=== PATIENT | male | born 1955 | race Caucasian/White ===

== ENCOUNTER 2019-07-27 19:16 | Emergency (ER) | payer OTHER ==
[~2019-07-27] VITALS: Ht 175.3 cm; Wt 86.4 kg
[~2019-07-27 19:16] MED LIST: LORazepam INJ 2 MG/ML (ATIVAN) VIAL ONE; fentaNYL INJECTION 100 MCG/2 ML AMP ONE
--- NOTE | 2019-07-27 19:29 | ED Back Pain ---
General Chief Complaint: Back Problems Stated Complaint: BACK PAIN Source of Information: Patient Exam Limitations: No Limitations History of Present Illness Date Seen by Provider: Jul 27, 2019 Time Seen by Provider: 19:27 Initial Comments To ER per EMS from [facility] with reports of severe low back pain. States it radiates down both legs. No loss of bowel or bladder control. The pain radiating down both legs and the severe low back pain is new after he fell out of bed landing on his side 2 weeks ago. He states the pain isn't terrible for the past 2 weeks. He refused EMS transport initially. Pain is much worse tonight. Location: Lumbar Spine Timing/Duration: 1-2 Days Severity: Moderate Pain/Injury Location: Back Method of Injury: Unknown Associated Symptoms: denies symptoms Allergies and Home Medications Allergies Coded Allergies: No Known Drug Allergies (Unverified , 07/27/19) Patient Home Medication List Home Medication List Reviewed: Yes Review of Systems Constitutional: see HPI EENTM: see HPI Respiratory: no symptoms reported Cardiovascular: no symptoms reported Genitourinary: no symptoms reported Musculoskeletal: no symptoms reported Skin: no symptoms reported Psychiatric/Neurological: No Symptoms Reported Physical Exam Vital Signs Vital Signs - First Documented 07/27/19 19:17 Temp 36.9 Pulse 107 Resp 22 B/P (MAP) 152/95 (114) Pulse Ox 100 O2 Delivery Room Air Capillary Refill : Height, Weight, BMI Height: '" Weight: lbs. oz. kg; BMI Method: General Appearance: WD/WN, Moderate Distress (moaning, keeps hips flexed. ) HEENT: Normal ENT Inspection, Pharynx Normal Respiratory: No Accessory Muscle Use, No Respiratory Distress Gastrointestinal: Non Tender, Soft Extremity: Normal Capillary Refill, Normal Inspection Neurologic/Psychiatric: Alert, Oriented x3 Skin: Normal Color, Warm/Dry Progress/Results/Core Measures Results/Orders Lab Results Laboratory Tests Test 07/27/19 19:20 07/27/19 20:20 Range/Units White Blood Count 11.2 H 4.3-11.0 10^3/uL Red Blood Count 4.86 4.35-5.85 10^6/uL Hemoglobin 13.3 13.3-17.7 G/DL Hematocrit 41 40-54 % Mean Corpuscular Volume 85 80-99 FL Mean Corpuscular Hemoglobin 27 25-34 PG Mean Corpuscular Hemoglobin Concent 32 32-36 G/DL Red Cell Distribution Width 14.6 H 10.0-14.5 % Platelet Count 320 130-400 10^3/uL Mean Platelet Volume 9.8 7.4-10.4 FL Neutrophils (%) (Auto) 66 42-75 % Lymphocytes (%) (Auto) 25 12-44 % Monocytes (%) (Auto) 7 0-12 % Eosinophils (%) (Auto) 2 0-10 % Basophils (%) (Auto) 0 0-10 % Neutrophils # (Auto) 7.4 1.8-7.8 X 10^3 Lymphocytes # (Auto) 2.8 1.0-4.0 X 10^3 Monocytes # (Auto) 0.7 0.0-1.0 X 10^3 Eosinophils # (Auto) 0.2 0.0-0.3 10^3/uL Basophils # (Auto) 0.0 0.0-0.1 10^3/uL Sodium Level 137 135-145 MMOL/L Potassium Level 3.8 3.6-5.0 MMOL/L Chloride Level 102 98-107 MMOL/L Carbon Dioxide Level 21 21-32 MMOL/L Anion Gap 14 5-14 MMOL/L Blood Urea Nitrogen 22 H 7-18 MG/DL Creatinine 1.01 0.60-1.30 MG/DL Estimat Glomerular Filtration Rate > 60 BUN/Creatinine Ratio 22 Glucose Level 194 H 70-105 MG/DL Calcium Level 10.0 8.5-10.1 MG/DL Corrected Calcium 9.8 8.5-10.1 MG/DL Total Bilirubin 0.2 0.1-1.0 MG/DL Aspartate Amino Transf (AST/SGOT) 19 5-34 U/L Alanine Aminotransferase (ALT/SGPT) 30 0-55 U/L Alkaline Phosphatase 103 40-136 U/L Total Protein 7.0 6.4-8.2 GM/DL Albumin 4.3 3.2-4.5 GM/DL Lipase 14 8-78 U/L Urine Color YELLOW Urine Clarity CLEAR Urine pH 7.0 5-9 Urine Specific [place] 1.020 1.016-1.022 Urine Protein NEGATIVE NEGATIVE Urine Glucose (UA) 3+ H NEGATIVE Urine Ketones TRACE H NEGATIVE Urine Nitrite NEGATIVE NEGATIVE Urine Bilirubin NEGATIVE NEGATIVE Urine Urobilinogen 0.2 < = 1.0 MG/DL Urine Leukocyte Esterase NEGATIVE NEGATIVE Urine RBC (Auto) NEGATIVE NEGATIVE Urine RBC NONE /HPF Urine WBC NONE /HPF Urine Crystals NONE /LPF Urine Bacteria NEGATIVE /HPF Urine Casts NONE /LPF Urine Mucus NEGATIVE /LPF Urine Culture Indicated NO My Orders Orders - ARPAN SALCIDO APRN Fentanyl Injection (Sublimaze Injection (07/27/19 19:16) Lorazepam Injection (Ativan Injection) (07/27/19 19:16) Cbc With Automated Diff (07/27/19 19:26) Comprehensive Metabolic Panel (07/27/19 19:26) Ed Iv/Invasive Line Start (07/27/19 19:26) Lorazepam Injection (Ativan Injection) (07/27/19 19:30) Fentanyl Injection (Sublimaze Injection (07/27/19 19:30) Fentanyl Injection (Sublimaze Injection (07/27/19 19:30) Ketorolac Injection (Toradol Injection) (07/27/19 19:45) Ct Abd/Pelvis Wo(Kidney Stone) (07/27/19 19:32) Ua Culture If Indicated (07/27/19 20:01) Hydromorphone Injection (Dilaudid Inject (07/27/19 20:30) Lipase (07/27/19 21:23) Medications Given in ED Current Medications Medications Dose Ordered Sig/[place] Route Start Time Stop Time Status Last Admin Dose Admin Fentanyl Citrate 50 mcg ONCE ONCE IVP 07/27/19 19:30 07/27/19 19:31 DC 07/27/19 19:24 50 MCG Fentanyl Citrate 50 mcg ONCE ONCE IVP 07/27/19 19:30 07/27/19 19:31 DC 07/27/19 19:42 50 MCG Hydromorphone HCl 0.5 mg ONCE ONCE IV 07/27/19 20:30 07/27/19 20:31 DC 07/27/19 20:34 0.5 MG Ketorolac Tromethamine 15 mg ONCE ONCE IVP 07/27/19 19:45 07/27/19 19:46 DC 07/27/19 19:42 15 MG Lorazepam 0.5 mg ONCE PRN IVP 07/27/19 19:30 07/27/19 19:24 0.5 MG Vital Signs/I&O 07/27/19 19:17 Temp 36.9 Pulse 107 Resp 22 B/P (MAP) 152/95 (114) Pulse Ox 100 O2 Delivery Room Air Departure Communication (Admissions) Don't have MRI here we don't have orthopedics here, history of this gentleman would be a candidate for vertebral augmentation, the other concern I have would be if his fracture is pathologic in nature. Additionally I can't send him home given the degree of pain that he's having he will require parenteral analgesics. Spoke with a very nice Dr. Perez at [facility] who agrees to accept him. 2034-post void residual of 28 ml using bladder scanner. Impression Primary Impression: Vertebral compression fracture Qualified Codes: S32.010A - Wedge compression fracture of first lumbar vertebra, initial encounter for closed fracture Additional Impressions: Left kidney mass Pancreatic abnormality Intractable pain Disposition: 01 HOME, SELF-CARE Condition: Stable Transfer Transfer Reason: Exceeds level of care Time Spoke to Accepting Phy: 21:55 Departure-Patient Inst. Referrals: LAURITA VALIENTE MD (PCP) Primary Care Physician ARPAN SALCIDO APRN Jul 27, 2019 19:29
[2019-07-27] MEDS ORDERED: fentaNYL INJECTION 100 MCG/2 ML AMP IVP ONE ×2 (19:30)
[2019-07-27] MEDS ORDERED: LORazepam INJ 2 MG/ML (ATIVAN) VIAL IVP PRN (19:30)
[2019-07-27 19:37] LABS: BASOPHILS % (AUTO) 0 % (0-10); EOSINOPHILS # (AUTO) 0.2 10^3/uL (0.0-0.3); EOSINOPHILS % (AUTO) 2 % (0-10); HEMATOCRIT 41 % (40-54); HEMOGLOBIN 13.3 G/DL (13.3-17.7); LYMPHOCYTES # (AUTO) 2.8 X 10^3 (1.0-4.0); LYMPHOCYTES % (AUTO) 25 % (12-44); MEAN CORPUSCULAR HEMOGLOBIN 27 PG (25-34); MEAN CORPUSCULAR HGB CONC 32 G/DL (32-36); MEAN CORPUSCULAR VOLUME 85 FL (80-99); MEAN PLATELET VOLUME 9.8 FL (7.4-10.4); MONOCYTES # (AUTO) 0.7 X 10^3 (0.0-1.0); MONOCYTES % (AUTO) 7 % (0-12); NEUTROPHILS # (AUTO) 7.4 X 10^3 (1.8-7.8); NEUTROPHILS % (AUTO) 66 % (42-75); PLATELET COUNT 320 10^3/uL (130-400); RED CELL DISTRIBUTION WIDTH 14.6 % (10.0-14.5); WHITE BLOOD COUNT 11.2 10^3/uL (4.3-11.0)
--- OUTSIDE RECORDS SUMMARY | 2019-07-27 19:39 | XMS REPORT ---
Author Author Brenton VALIENTE Organization [facility] Address [address] [place] [address] Care Team Providers Care Pest Control Service Technician Name Role Phone LAURITA VALIENTE Unavailable PROBLEMS Type Condition ICD9-CM Code [id number] Code Onset Dates Condition S tatus SNOMED Code Problem Lumbago with sciatica, right side M54.41 Active 641355646 Problem Traumatic brain injury S06.9X9A Active 751474619 Problem DJD (degenerative joint disease) M19.90 Active 850896824 Problem Chronic pain syndrome G89.4 Active 164911895 Problem Neck pain M54.2 Active 30413850 Problem Type 2 diabetes mellitus with other diabetic oph thalmic complication E11.39 Active [id number] Problem BPH (benign prostatic hyperplasia) N40.0 Active 596773797 Problem Onychomycosis B35.1 Active 075957 008 Problem Benign nodular prostatic hyp erplasia, presence of lower urinary tract symptoms unspecified N40.0 Active 1606888 07 Problem Depression F32.9 Active 96265786 Problem GERD (gastroesophageal reflux disease) K21.9 Active 629115476 Problem Hyperlipidemia E78.5 Active 92559 004 Problem Anxiety F41.9 Active 37445288 Problem HTN (hypertension) I10 Active 3 1905569 Problem Low back pain M54.5 Active 264717 005 ALLERGIES No Information ENCOUNTERS Encounter Location Date Diagnosis [facility] [address] [facility] [place] [id number] [address] [place] [phone] Mar, DJD (degenerative joint dise ase) M19.90 and Anxiety F41.9 [facility] [address] [facility] [place] [id number] [address] [place] [phone] Mar, [facility] [address] [facility] [place] [id number] [address] [place] [phone] Mar, Chronic pain syndrome G89.4 [place] [address] [address] Mar, [place] [address] [address] Mar, Protein-calorie malnutrition , unspecified severity E46 [place] [address] [place] [id number] [place] [phone] Feb, DJD (degenerative joint dise ase) M19.90 and Anxiety F41.9 [place] [address] [address] Feb, Hyperlipidemia E78.5 and Pro tein-calorie malnutrition, unspecified severity E46 [place] [address] [place] [id number] [place] [phone] Feb, DJD (degenerative joint dise ase) M19.90 ; Traumatic brain injury S06.9X9A ; Anxiety F41.9 ; Depression F32.9 ; BPH (benign prostatic hyperplasia) N40.0 ; HTN (hypertension) I10 ; GERD (gastroesophageal reflux disease) K21.9 ; Hyperlipidemia E78.5 ; 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 and Constipation, unspecified constipation type K59.00 [place] [address] [address] Feb, DJD (degenerative joint dise ase) M19.90 and Anxiety F41.9 [place] [address] [address] Jan, DJD (degenerative joint dise ase) M19.90 and Anxiety F41.9 [place] [address] [address] 14 Dec, 2017 Neck pain M54.2 ; Left hand weakness R29.898 and Chronic pain syndrome G89.4 [place] [address] [place] [id number] [place] [phone] Dec, DJD (degenerative joint dise ase) M19.90 and Anxiety F41.9 [place] [address] [place] [id number] [place] [phone] 03 Nov, 2017 DJD (degenerative joint dise ase) M19.90 and Anxiety F41.9 [place] [address] [place] [id number] [place] [phone] 27 Oct, 2017 [place] [address] [address] 14 Oct, 2017 Chest pain, unspecified type R07.9 and Nevus D22.9 [place] [address] [place] [id number] [place] [phone] 14 Oct, 2017 [place] [address] [address] 13 Oct, 2017 DJD (degenerative joint dise ase) M19.90 ; Traumatic brain injury S06.9X9A ; Anxiety F41.9 ; Depression F32.9 ; BPH (benign prostatic hyperplasia) N40.0 ; HTN (hypertension) I10 ; GERD (gastroesophageal reflux disease) K21.9 ; Hyperlipidemia E78.5 ; 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 and Constipation, unspecified constipation type K59.00 [place] [address] [place] [id number] [place] [id number] 11 Oct, 2017 DJD (degenerative joint dise ase) M19.90 ; Traumatic brain injury S06.9X9A ; Anxiety F41.9 ; Depression F32.9 ; BPH (benign prostatic hyperplasia) N40.0 and HTN (hypertension) I10 [place] [id number] [place] [phone] 11 Oct, 2017 Neck pain M54.2 ; Fall, init ial encounter W19.XXXA and DJD (degenerative joint disease) M19.90 [place] [address] [place] [id number] [place] [phone] 07 Oct, 2017 DJD (degenerative joint dise ase) M19.90 ; Anxiety F41.9 ; Traumatic brain injury S06.9X9A ; Depression F32.9 ; BPH (benign prostatic hyperplasia) N40.0 ; HTN (hypertension) I10 ; GERD (gastroesophageal reflux disease) K21.9 ; Hyperlipidemia E78.5 ; 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 and Constipation, unspecified constipation type K59.00 [place] [address] [address] September, DJD (degenerative joint dise ase) M19.90 and Anxiety F41.9 [place] [address] [place] [id number] [place] [phone] September, Anxiety F41.9 [place] [address] [address] September, Anxiety F41.9 and DJD (degen erative joint disease) M19.90 [place] [address] [address] Aug, Anxiety F41.9 and DJD (degen erative joint disease) M19.90 [place] [address] [place] [id number] [place] [address] Jul, [place] [address] [place] [id number] [place] [phone] Jul, 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 ; Hyperlipidemia E78.5 and HTN (hypertension) I10 [place] [address] [place] [id number] [place] [phone] Jul, Anxiety F41.9 and DJD (degen erative joint disease) M19.90 [place] [address] [place] [id number] [place] [phone] Jun, Anxiety F41.9 and DJD (degen erative joint disease) M19.90 [place] [address] [place] [id number] [place] [phone] May, Weight loss, non-intentional R63.4 [place] [address] [place] [address] [place] [phone] May, DJD (degenerative joint dise ase) M19.90 [facility] [address] [facility] [place] [id number] [address] [place] [phone] 14 Apr, 2017 Anxiety F41.9 [facility] [address] [facility] [place] [id number] [address] [place] [phone] 14 Apr, 2017 Anxiety F41.9 and DJD (degen erative joint disease) M19.90 [facility] [address] [facility] [place] [id number] [address] [place] [phone] Apr, DJD (degenerative joint dise ase) M19.90 ; Traumatic brain injury S06.9X9A ; 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 ; Anxiety F41.9 and Depression F32.9 [facility] [address] [facility] [place] [id number] [address] [place] [phone] Mar, [facility] [address] [place] [id number] [place] [phone] Feb, DJD (degenerative joint dise ase) M19.90 ; Lumbago with sciatica, right side M54.41 and Anxiety F41.9 [facility] [address] [facility] [place] [id number] [address] [place] [phone] Feb, [facility] [address] [facility] [place] [id number] [address] [place] [phone] Jan, DJD (degenerative joint dise ase) M19.90 ; Anxiety F41.9 and Lumbago with sciatica, right side M54.41 [facility] [address] [id number] [address] [place] [phone] Dec, Lumbago with sciatica, right side M54.41 [facility] [address] [facility] [place] [id number] [address] [place] [phone] Dec, Anxiety F41.9 and Lumbago wi th sciatica, right side M54.41 [facility] [address] [place] [id number] [address] [place] [phone] 07 Dec, 2016 DJD (degenerative joint dise ase) M19.90 [place] [address] [address] Dec, 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 ; Lumbago with sciatica, right side M54.41 ; Traumatic brain injury S06.9X9A ; DJD (degenerative joint disease) M19.90 ; Constipation, unspecified constipation type K59.00 ; Depression F32.9 ; Anxiety F41.9 ; BPH (benign prostatic hyperplasia) N40.0 ; HTN (hypertension) I10 ; GERD (gastroesophageal reflux disease) K21.9 and Hyperlipidemia E78.5 [place] [address] [address] Dec, DJD (degenerative joint dise ase) M19.90 ; Anxiety F41.9 ; Lumbago with sciatica, right side M54.41 ; Traumatic brain injury S06.9X9A ; Constipation, unspecified constipation type K59.00 ; Depression F32.9 ; BPH (benign prostatic hyperplasia) N40.0 ; 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 ; HTN (hypertension) I10 ; GERD (gastroesophageal reflux disease) K21.9 and Hyperlipidemia E78.5 [place] [address] [place] [id number] [place] [phone] Nov, [place] [address] [address] Nov, Constipation, unspecified co nstipation type K59.00 ; Hyperlipidemia E78.5 ; Anxiety F41.9 ; Lumbago with sciatica, right side M54.41 ; BPH (benign prostatic hyperplasia) N40.0 ; 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 ; GERD (gastroesophageal reflux disease) K21.9 and Edema R60.9 [place] [address] [address] Nov, [place] [address] [place] [id number] [place] [address] Nov, DJD (degenerative joint dise ase) M19.90 and Anxiety F41.9 [place] [address] [facility] [place] [id number] [address] [place] [phone] Oct, Onychomycosis B35.1 ; Type I diabetes mellitus with peripheral circulatory disorder E10.51 and Neuropathy G62.9 [place] [address] [facility] [place] [id number] [address] [place] [phone] Oct, [place] [address] [facility] [place] [id number] [address] [place] [phone] Oct, DJD (degenerative joint dise ase) M19.90 ; Anxiety F41.9 and Lumbago with sciatica, right side M54.41 [place] [address] [place] [id number] [place] [phone] September, DJD (degenerative joint dise ase) M19.90 [place] [address] [place] [id number] [place] [phone] September, Lumbago with sciatica, right side M54.41 ; Anxiety F41.9 and DJD (degenerative joint disease) M19.90 [place] [address] [place] [id number] [place] [phone] September, [place] [address] [place] [id number] [place] [phone] Aug, Lumbago with sciatica, right side M54.41 ; Anxiety F41.9 and DJD (degenerative joint disease) M19.90 [place] [address] [facility] [place] [id number] [address] [place] [phone] Aug, 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 [place] [id number] [facility] [place] [id number] [address] [place] [phone] Aug, 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 ; Constipation, unspecified constipation type K59.00 ; Hyperlipidemia E78.5 ; Anxiety F41.9 ; Lumbago with sciatica, right side M54.41 ; BPH (benign prostatic hyperplasia) N40.0 ; GERD (gastroesophageal reflux disease) K21.9 and Edema R60.9 [place] [address] [place] [id number] Jul, Lumbago with sciatica, right side M54.41 ; Anxiety F41.9 and DJD (degenerative joint disease) M19.90 [place] [address] Jun, 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 ; Anxiety F41.9 ; BPH (benign prostatic hyperplasia) N40.0 ; GERD (gastroesophageal reflux disease) K21.9 ; Hyperlipidemia E78.5 ; Lumbago with sciatica, right side M54.41 and Constipation, unspecified constipation type K59.00 [place] [id number] 15 Jun, 2016 DJD (degenerative joint dise ase) M19.90 and Anxiety F41.9 [place] [id number] Jun, DJD (degenerative joint dise ase) M19.90 and Anxiety F41.[address] [address] May, 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 ; Depression F32.9 ; GERD (gastroesophageal reflux disease) K21.9 ; Traumatic brain injury S06.9X9A ; Constipation, unspecified constipation type K59.00 ; DJD (degenerative joint disease) M19.90 ; Pure hypercholesterolemia E78.00 ; Benign nodular prostatic hyperplasia, presence of lower urinary tract symptoms unspecified N40.0 ; Neuropathy G62.9 and Anxiety F41.9 [place] [id number] May, DJD (degenerative joint dise ase) M19.90 and Anxiety F41.9 [facility] [address] [place] [id number] [place] [phone] Apr, Lumbago with sciatica, right side M54.41 and Low back pain M54.5 [facility] [address] [facility] [place] [id number] [address] [place] [phone] Mar, [facility] [address] [place] [id number] [place] [phone] Mar, [facility] [address] [place] [id number] [place] [phone] Mar, [facility] [address] [address] Mar, [facility] [address] [place] [id number] [place] [phone] Mar, Depression F32.9 ; Neuropath y G62.9 ; GERD (gastroesophageal reflux disease) K21.9 ; Edema R60.9 ; DJD (degenerative joint disease) M19.90 ; BPH (benign prostatic hyperplasia) N40.0 ; 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 ; Impacted cerumen of right ear H61.21 ; Anxiety F41.9 ; Constipation, unspecified constipation type K59.00 and Hyperlipidemia E78.5 [facility] [address] [place] [id number] [address] [place] [phone] Feb, [facility] [address] [place] [id number] [place] [phone] Jan, [facility] [address] [place] [id number] [place] [phone] Dec, [facility] [address] [address] Dec, [facility] [address] [place] [id number] [place] [phone] Dec, [facility] [address] [address] Dec, [facility] [address] [place] [id number] [place] [phone] Dec, Depression F32.9 ; Anxiety F 41.9 ; Neuropathy G62.9 ; 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 ; GERD (gastroesophageal reflux disease) K21.9 ; Hyperlipidemia E78.5 ; Edema R60.9 ; DJD (degenerative joint disease) M19.90 ; Lumbago with sciatica, right side M54.41 ; Constipation, unspecified constipation type K59.00 and BPH (benign prostatic hyperplasia) N40.0 [facility] [address] [place] [address] Dec, [place] [address] [place] [id number] [place] [phone] Oct, [place] [address] [address] Oct, Low back pain M54.5 [facility] [address] [place] [id number] [place] [phone] Oct, [place] [address] [address] September, 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 ; Depression F32.9 ; Anxiety F41.9 ; BPH (benign prostatic hyperplasia) N40.0 ; Hyperlipidemia E78.5 ; Traumatic brain injury S06.9X9A ; Lumbago with sciatica, right side M54.41 ; Low back pain M54.5 ; Gastroesophageal reflux disease with esophagitis K21.0 ; Generalized edema R60.1 and Constipation, unspecified constipation type K59.00 [place] [address] [place] [id number] [place] [phone] Aug, Depression F32.9 ; Anxiety F 41.9 ; Neuropathy G62.9 ; BPH (benign prostatic hyperplasia) N40.0 ; 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 ; GERD (gastroesophageal reflux disease) K21.9 ; Hyperlipidemia E78.5 ; Edema R60.9 ; HTN (hypertension) I10 ; DJD (degenerative joint disease) M19.90 ; Traumatic brain injury S06.9X9A ; Lumbago with sciatica, right side M54.41 ; Low back pain M54.5 and Constipation K59.00 IMMUNIZATIONS No Known Immunizations SOCIAL HISTORY Never Assessed REASON FOR VISIT Controlled Med Refill- Due 04/04 PLAN OF CARE VITAL SIGNS MEDICATIONS Medication Instructions Dosage Frequency Start Date End Date Duration S tatus Morphine Sulfate ER 60 mg Orally every 12 hrs 1 tablet 12h 27 2017 28 days Active Klonopin 1 MG Orally Twice a day 1 tablet 12h 28 day s Active Morphine Sulfate 15 mg Orally 2 times a day 1 tablet as needed 12h Mar, 28 days Active RESULTS No Results PROCEDURES No Known procedures INSTRUCTIONS MEDICATIONS ADMINISTERED No Known Medications MEDICAL (GENERAL) HISTORY Type Description Date Medical History Closed head injury Medical History Mass of brain Medical History Back injuries Medical History Diabetes Medical History Hypertension Medical History Hyperlipemia Medical History Shoulder injury Medical History Arthritis Surgical History left knee arthroscopy Surgical History spine surgery Surgical History penile prosthesis Hospitalization History surgeries
--- OUTSIDE RECORDS SUMMARY | 2019-07-27 19:40 | XMS REPORT ---
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 Name Role Phone LAURITA VALIENTE Unavailable PROBLEMS Type Condition ICD9-CM Code HNC34-IQ Code Onset Dates Condition S tatus SNOMED Code Problem Lumbago with sciatica, right side M54.41 Active 040788392 Problem Traumatic brain injury S06.9X9A Active 613497711 Problem DJD (degenerative joint disease) M19.90 Active 540647726 Problem Chronic pain syndrome G89.4 Active 503114575 Problem Neck pain M54.2 Active 43397706 Problem Type 2 diabetes mellitus with other diabetic oph thalmic complication E11.39 Active 25252076035714 Problem BPH (benign prostatic hyperplasia) N40.0 Active 166783752 Problem Onychomycosis B35.1 Active 721522 008 Problem Benign nodular prostatic hyp erplasia, presence of lower urinary tract symptoms unspecified N40.0 Active 2159089 07 Problem Depression F32.9 Active 48718290 Problem GERD (gastroesophageal reflux disease) K21.9 Active 735926973 Problem Hyperlipidemia E78.5 Active 96287 004 Problem Anxiety F41.9 Active 60655033 Problem HTN (hypertension) I10 Active 3 0459299 Problem Low back pain M54.5 Active 500916 005 ALLERGIES No Information ENCOUNTERS Encounter Location Date Diagnosis [facility] [address] [facility] [id number] [address] [place] [id number] 04 Jan, 2018 DJD (degenerative joint dise ase) M19.90 and Anxiety F41.9 [facility] [address] [facility] [id number] [address] [place] [id number] 14 Dec, 2017 Neck pain M54.2 ; Left hand weakness R29.898 and Chronic pain syndrome G89.4 [facility] [address] [address] Dec, DJD (degenerative joint dise ase) M19.90 and Anxiety F41.9 [place] [address] [address] Nov, DJD (degenerative joint dise ase) M19.90 and Anxiety F41.9 [place] [address] [address] 27 Oct, 2017 [place] [address] [address] 14 Oct, 2017 Chest pain, unspecified type R07.9 and Nevus D22.[address] [address] Oct, [place] [address] [address] 13 Oct, 2017 DJD (degenerative joint dise ase) M19.90 ; Traumatic brain injury S06.9X9A ; Anxiety F41.9 ; Depression F32.9 ; BPH (benign prostatic hyperplasia) N40.0 ; HTN (hypertension) I10 ; GERD (gastroesophageal reflux disease) K21.9 ; Hyperlipidemia E78.5 ; 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 and Constipation, unspecified constipation type K59.00 [place] [address] [address] 11 Oct, 2017 DJD (degenerative joint dise ase) M19.90 ; Traumatic brain injury S06.9X9A ; Anxiety F41.9 ; Depression F32.9 ; BPH (benign prostatic hyperplasia) N40.0 and HTN (hypertension) I10 [address] [address] 11 Oct, 2017 Neck pain M54.2 ; Fall, init ial encounter W19.XXXA and DJD (degenerative joint disease) M19.90 [place] [address] [address] Oct, DJD (degenerative joint dise ase) M19.90 ; Anxiety F41.9 ; Traumatic brain injury S06.9X9A ; Depression F32.9 ; BPH (benign prostatic hyperplasia) N40.0 ; HTN (hypertension) I10 ; GERD (gastroesophageal reflux disease) K21.9 ; Hyperlipidemia E78.5 ; 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 and Constipation, unspecified constipation type K59.00 [place] [address] [address] September, DJD (degenerative joint dise ase) M19.90 and Anxiety F41.9 [place] [address] [address] September, Anxiety F41.9 [place] [address] [place] [id number] [place] [phone] September, Anxiety F41.9 and DJD (degen erative joint disease) M19.90 [place] [address] [place] [id number] [place] [address] Aug, Anxiety F41.9 and DJD (degen erative joint disease) M19.90 [place] [address] [place] [id number] [place] [address] Jul, [place] [address] [address] Jul, 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 ; Hyperlipidemia E78.5 and HTN (hypertension) I10 [place] [address] [place] [id number] [place] [address] Jul, Anxiety F41.9 and DJD (degen erative joint disease) M19.90 [place] [address] [place] [id number] [place] [address] Jun, Anxiety F41.9 and DJD (degen erative joint disease) M19.90 [place] [address] [place] [id number] [place] [address] May, Weight loss, non-intentional R63.4 [place] [address] [address] May, DJD (degenerative joint dise ase) M19.90 [place] [address] [place] [id number] [place] [address] Apr, Anxiety F41.9 [place] [address] [place] [id number] [place] [address] Apr, Anxiety F41.9 and DJD (degen erative joint disease) M19.90 [place] [address] [address] Apr, DJD (degenerative joint dise ase) M19.90 ; Traumatic brain injury S06.9X9A ; 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 ; Anxiety F41.9 and Depression F32.9 [place] [address] [address] Mar, [place] [address] [place] [id number] [place] [address] Feb, DJD (degenerative joint dise ase) M19.90 ; Lumbago with sciatica, right side M54.41 and Anxiety F41.9 [facility] [address] [place] [id number] [place] [address] Feb, [facility] [address] [place] [id number] [place] [address] Jan, DJD (degenerative joint dise ase) M19.90 ; Anxiety F41.9 and Lumbago with sciatica, right side M54.41 [place] [address] [place] [id number] [place] [address] Dec, Lumbago with sciatica, right side M54.41 [place] [address] [place] [id number] [place] [address] Dec, Anxiety F41.9 and Lumbago wi th sciatica, right side M54.41 [place] [address] [address] 07 Dec, 2016 DJD (degenerative joint dise ase) M19.90 [place] [address] [address] Dec, 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 ; Lumbago with sciatica, right side M54.41 ; Traumatic brain injury S06.9X9A ; DJD (degenerative joint disease) M19.90 ; Constipation, unspecified constipation type K59.00 ; Depression F32.9 ; Anxiety F41.9 ; BPH (benign prostatic hyperplasia) N40.0 ; HTN (hypertension) I10 ; GERD (gastroesophageal reflux disease) K21.9 and Hyperlipidemia E78.5 [place] [address] [address] Dec, DJD (degenerative joint dise ase) M19.90 ; Anxiety F41.9 ; Lumbago with sciatica, right side M54.41 ; Traumatic brain injury S06.9X9A ; Constipation, unspecified constipation type K59.00 ; Depression F32.9 ; BPH (benign prostatic hyperplasia) N40.0 ; 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 ; HTN (hypertension) I10 ; GERD (gastroesophageal reflux disease) K21.9 and Hyperlipidemia E78.5 [place] [address] [address] Nov, [place] [address] [address] Nov, Constipation, unspecified co nstipation type K59.00 ; Hyperlipidemia E78.5 ; Anxiety F41.9 ; Lumbago with sciatica, right side M54.41 ; BPH (benign prostatic hyperplasia) N40.0 ; 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 ; GERD (gastroesophageal reflux disease) K21.9 and Edema R60.9 [place] [address] [place] [address] Nov, [place] [address] [facility] [id number] [address] [place] [address] Nov, DJD (degenerative joint dise ase) M19.90 and Anxiety F41.9 [place] [address] [place] [id number] [place] [address] Oct, Onychomycosis B35.1 ; Type I diabetes mellitus with peripheral circulatory disorder E10.51 and Neuropathy G62.9 [place] [address] [place] [id number] [place] [address] Oct, [place] [address] [place] [id number] [place] [address] Oct, DJD (degenerative joint dise ase) M19.90 ; Anxiety F41.9 and Lumbago with sciatica, right side M54.41 [place] [address] [place] [id number] [place] [address] September, DJD (degenerative joint dise ase) M19.90 [place] [address] [place] [id number] [place] [address] September, Lumbago with sciatica, right side M54.41 ; Anxiety F41.9 and DJD (degenerative joint disease) M19.90 [place] [address] [place] [id number] [place] [address] September, [place] [address] [place] [id number] [place] [address] Aug, Lumbago with sciatica, right side M54.41 ; Anxiety F41.9 and DJD (degenerative joint disease) M19.90 [place] [address] [place] [id number] [place] [address] Aug, 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 [place] [address] [place] [id number] [place] [address] Aug, 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 ; Constipation, unspecified constipation type K59.00 ; Hyperlipidemia E78.5 ; Anxiety F41.9 ; Lumbago with sciatica, right side M54.41 ; BPH (benign prostatic hyperplasia) N40.0 ; GERD (gastroesophageal reflux disease) K21.9 and Edema R60.[address] [address] Jul, Lumbago with sciatica, right side M54.41 ; Anxiety F41.9 and DJD (degenerative joint disease) M19.[address] [address] 28 Jun, 2016 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 ; Anxiety F41.9 ; BPH (benign prostatic hyperplasia) N40.0 ; GERD (gastroesophageal reflux disease) K21.9 ; Hyperlipidemia E78.5 ; Lumbago with sciatica, right side M54.41 and Constipation, unspecified constipation type K59.[address] [address] 15 Jun, 2016 DJD (degenerative joint dise ase) M19.90 and Anxiety F41.[address] [address] 13 Jun, 2016 DJD (degenerative joint dise ase) M19.90 and Anxiety F41.[address] [address] May, 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 ; Depression F32.9 ; GERD (gastroesophageal reflux disease) K21.9 ; Traumatic brain injury S06.9X9A ; Constipation, unspecified constipation type K59.00 ; DJD (degenerative joint disease) M19.90 ; Pure hypercholesterolemia E78.00 ; Benign nodular prostatic hyperplasia, presence of lower urinary tract symptoms unspecified N40.0 ; Neuropathy G62.9 and Anxiety F41.[address] [address] May, DJD (degenerative joint dise ase) M19.90 and Anxiety F41.9 [facility] [address] [place] [id number] [place] [address] Apr, Lumbago with sciatica, right side M54.41 and Low back pain M54.5 [facility] [address] [address] Mar, [facility] [address] [place] [id number] [place] [phone] Mar, [facility] [address] [address] Mar, [facility] [address] [place] [id number] [place] [address] Mar, [place] [address] [address] Mar, Depression F32.9 ; Neuropath y G62.9 ; GERD (gastroesophageal reflux disease) K21.9 ; Edema R60.9 ; DJD (degenerative joint disease) M19.90 ; BPH (benign prostatic hyperplasia) N40.0 ; 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 ; Impacted cerumen of right ear H61.21 ; Anxiety F41.9 ; Constipation, unspecified constipation type K59.00 and Hyperlipidemia E78.5 [facility] [address] [place] [id number] [place] [address] Feb, [facility] [address] [place] [id number] [place] [address] Jan, [facility] [address] [address] Dec, [facility] [address] [place] [id number] [place] [address] Dec, [facility] [address] [address] Dec, [facility] [address] [place] [id number] [place] [address] Dec, [facility] [address] [address] Dec, Depression F32.9 ; Anxiety F 41.9 ; Neuropathy G62.9 ; 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 ; GERD (gastroesophageal reflux disease) K21.9 ; Hyperlipidemia E78.5 ; Edema R60.9 ; DJD (degenerative joint disease) M19.90 ; Lumbago with sciatica, right side M54.41 ; Constipation, unspecified constipation type K59.00 and BPH (benign prostatic hyperplasia) N40.0 [place] [address] [address] Dec, [place] [address] [address] Oct, [place] [address] [address] Oct, Low back pain M54.5 [place] [address] [address] Oct, [place] [address] [address] September, 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 ; Depression F32.9 ; Anxiety F41.9 ; BPH (benign prostatic hyperplasia) N40.0 ; Hyperlipidemia E78.5 ; Traumatic brain injury S06.9X9A ; Lumbago with sciatica, right side M54.41 ; Low back pain M54.5 ; Gastroesophageal reflux disease with esophagitis K21.0 ; Generalized edema R60.1 and Constipation, unspecified constipation type K59.00 [facility] [address] [address] Aug, Depression F32.9 ; Anxiety F 41.9 [...] Never Assessed REASON FOR VISIT Controlled Med Refill PLAN OF CARE VITAL SIGNS MEDICATIONS Medication Instructions Dosage Frequency Start Date End Date Duration S tatus Morphine Sulfate 15 mg Orally 2 times a day 1 tablet as needed 12h 04 Jan, 2018 28 days Active Morphine Sulfate ER 60 mg Orally every 12 hrs 1 tablet 12h 04 2017 28 days Active Klonopin 1 MG Orally Twice a day 1 tablet 12h 28 day s Active RESULTS No Results PROCEDURES No Known [...]
--- OUTSIDE RECORDS SUMMARY | 2019-07-27 19:40 | XMS REPORT ---
Author Author Brenton VALIENTE Organization [facility] Address [address] [place] [address] Care Team Providers Care Envelope Addresser Name Role Phone LAURITA VALIENTE Unavailable PROBLEMS Type Condition ICD9-CM Code NSW75-YX Code Onset Dates Condition S tatus SNOMED Code Problem Lumbago with sciatica, right side M54.41 Active 108305942 Problem Traumatic brain injury S06.9X9A Active 605208785 Problem DJD (degenerative joint disease) M19.90 Active 775172583 Problem Chronic pain syndrome G89.4 Active 810271780 Problem Neck pain M54.2 Active 95371289 Problem Type 2 diabetes mellitus with other diabetic oph thalmic complication E11.39 Active [id number] Problem BPH (benign prostatic hyperplasia) N40.0 Active 864711382 Problem Onychomycosis B35.1 Active 828722 008 Problem Benign nodular prostatic hyp erplasia, presence of lower urinary tract symptoms unspecified N40.0 Active 1854577 07 Problem Depression F32.9 Active 76339635 Problem GERD (gastroesophageal reflux disease) K21.9 Active 368612063 Problem Hyperlipidemia E78.5 Active 60574 004 Problem Anxiety F41.9 Active 70902560 Problem HTN (hypertension) I10 Active 3 2382740 Problem Low back pain M54.5 Active 060158 005 ALLERGIES No Information ENCOUNTERS Encounter Location Date Diagnosis [facility] [address] [facility] [id number] [address] [place] [phone] Mar, [facility] [address] [facility] [id number] [address] [place] [phone] Mar, Protein-calorie malnutrition , unspecified severity E46 [facility] [address] [facility] [id number] [address] [place] [phone] Feb, DJD (degenerative joint dise ase) M19.90 and Anxiety F41.9 [place] [address] [place] [id number] [address] [place] [phone] Feb, Hyperlipidemia E78.5 and Pro tein-calorie malnutrition, unspecified severity E46 [place] [address] [facility] [id number] [address] [place] [id number] 09 Feb, 2018 DJD (degenerative joint dise ase) M19.90 ; Traumatic brain injury S06.9X9A ; Anxiety F41.9 ; Depression F32.9 ; BPH (benign prostatic hyperplasia) N40.0 ; HTN (hypertension) I10 ; GERD (gastroesophageal reflux disease) K21.9 ; Hyperlipidemia E78.5 ; 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 and Constipation, unspecified constipation type K59.00 [place] [address] [place] [id number] [place] [phone] Feb, DJD (degenerative joint dise ase) M19.90 and Anxiety F41.[address] [address] 04 Jan, 2018 DJD (degenerative joint dise ase) M19.90 and Anxiety F41.9 [place] [address] [address] 14 Dec, 2017 Neck pain M54.2 ; Left hand weakness R29.898 and Chronic pain syndrome G89.4 [place] [id number] [address] [place] [phone] Dec, DJD (degenerative joint dise ase) M19.90 and Anxiety F41.9 [place] [address] [place] [id number] [place] [phone] Nov, DJD (degenerative joint dise ase) M19.90 and Anxiety F41.9 [place] [address] [place] [id number] [address] [place] [phone] Oct, [place] [address] [place] [id number] [place] [phone] Oct, Chest pain, unspecified type R07.9 and Nevus D22.[address] [address] 14 Oct, 2017 [place] [address] [address] 13 Oct, 2017 DJD (degenerative joint dise ase) M19.90 ; Traumatic brain injury S06.9X9A ; Anxiety F41.9 ; Depression F32.9 ; BPH (benign prostatic hyperplasia) N40.0 ; HTN (hypertension) I10 ; GERD (gastroesophageal reflux disease) K21.9 ; Hyperlipidemia E78.5 ; 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 and Constipation, unspecified constipation type K59.[address] [address] 11 Oct, 2017 DJD (degenerative joint dise ase) M19.90 ; Traumatic brain injury S06.9X9A ; Anxiety F41.9 ; Depression F32.9 ; BPH (benign prostatic hyperplasia) N40.0 and HTN (hypertension) I10 [address] [address] 11 Oct, 2017 Neck pain M54.2 ; Fall, init ial encounter W19.XXXA and DJD (degenerative joint disease) M19.[address] [address] 07 Oct, 2017 DJD (degenerative joint dise ase) M19.90 ; Anxiety F41.9 ; Traumatic brain injury S06.9X9A ; Depression F32.9 ; BPH (benign prostatic hyperplasia) N40.0 ; HTN (hypertension) I10 ; GERD (gastroesophageal reflux disease) K21.9 ; Hyperlipidemia E78.5 ; 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 and Constipation, unspecified constipation type K59.[address] [address] September, DJD (degenerative joint dise ase) M19.90 and Anxiety F41.[address] [id number] [address] [place] [phone] September, Anxiety F41.9 [place] [address] [address] September, Anxiety F41.9 and DJD (degen erative joint disease) M19.90 [place] [address] [address] Aug, Anxiety F41.9 and DJD (degen erative joint disease) M19.90 [place] [address] [place] [id number] [place] [address] Jul, [place] [address] [address] Jul, 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 ; Hyperlipidemia E78.5 and HTN (hypertension) I10 [place] [address] [address] Jul, Anxiety F41.9 and DJD (degen erative joint disease) M19.90 [place] [address] [address] 06 Jun, 2017 Anxiety F41.9 and DJD (degen erative joint disease) M19.90 [place] [address] [address] May, Weight loss, non-intentional R63.4 [place] [address] [place] [id number] [place] [address] May, DJD (degenerative joint dise ase) M19.90 [place] [address] [place] [id number] [place] [phone] Apr, Anxiety F41.9 [place] [address] [place] [id number] [place] [phone] Apr, Anxiety F41.9 and DJD (degen erative joint disease) M19.90 [facility] [address] [facility] [id number] [address] [place] [phone] Apr, DJD (degenerative joint dise ase) M19.90 ; Traumatic brain injury S06.9X9A ; 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 ; Anxiety F41.9 and Depression F32.9 [facility] [address] [facility] [id number] [address] [place] [phone] Mar, [facility] [address] [place] [id number] [place] [phone] Feb, DJD (degenerative joint dise ase) M19.90 ; Lumbago with sciatica, right side M54.41 and Anxiety F41.9 [facility] [address] [facility] [id number] [address] [place] [phone] Feb, [facility] [address] [place] [id number] [place] [phone] Jan, DJD (degenerative joint dise ase) M19.90 ; Anxiety F41.9 and Lumbago with sciatica, right side M54.41 [facility] [address] [place] [id number] [place] [phone] Dec, Lumbago with sciatica, right side M54.41 [facility] [address] [place] [id number] [address] [place] [phone] Dec, Anxiety F41.9 and Lumbago wi th sciatica, right side M54.41 [facility] [address] [facility] [id number] [address] [place] [phone] Dec, DJD (degenerative joint dise ase) M19.90 [facility] [address] [place] [id number] [address] [place] [phone] Dec, 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 ; Lumbago with sciatica, right side M54.41 ; Traumatic brain injury S06.9X9A ; DJD (degenerative joint disease) M19.90 ; Constipation, unspecified constipation type K59.00 ; Depression F32.9 ; Anxiety F41.9 ; BPH (benign prostatic hyperplasia) N40.0 ; HTN (hypertension) I10 ; GERD (gastroesophageal reflux disease) K21.9 and Hyperlipidemia E78.5 [place] [id number] [place] [id number] [address] [place] [phone] Dec, DJD (degenerative joint dise ase) M19.90 ; Anxiety F41.9 ; Lumbago with sciatica, right side M54.41 ; Traumatic brain injury S06.9X9A ; Constipation, unspecified constipation type K59.00 ; Depression F32.9 ; BPH (benign prostatic hyperplasia) N40.0 ; 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 ; HTN (hypertension) I10 ; GERD (gastroesophageal reflux disease) K21.9 and Hyperlipidemia E78.5 [place] [address] [address] Nov, [place] [address] [address] Nov, Constipation, unspecified co nstipation type K59.00 ; Hyperlipidemia E78.5 ; Anxiety F41.9 ; Lumbago with sciatica, right side M54.41 ; BPH (benign prostatic hyperplasia) N40.0 ; 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 ; GERD (gastroesophageal reflux disease) K21.9 and Edema R60.9 [place] [address] [place] [address] Nov, [place] [address] [address] Nov, DJD (degenerative joint dise ase) M19.90 and Anxiety F41.9 [place] [address] [address] Oct, Onychomycosis B35.1 ; Type I diabetes mellitus with peripheral circulatory disorder E10.51 and Neuropathy G62.9 [place] [address] [address] Oct, [place] [address] [address] Oct, DJD (degenerative joint dise ase) M19.90 ; Anxiety F41.9 and Lumbago with sciatica, right side M54.41 [place] [address] [address] September, DJD (degenerative joint dise ase) M19.90 [place] [address] [address] September, Lumbago with sciatica, right side M54.41 ; Anxiety F41.9 and DJD (degenerative joint disease) M19.90 [place] [address] [address] September, [place] [address] [address] Aug, Lumbago with sciatica, right side M54.41 ; Anxiety F41.9 and DJD (degenerative joint disease) M19.90 [place] [address] [address] Aug, 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 [place] [address] [address] Aug, 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 ; Constipation, unspecified constipation type K59.00 ; Hyperlipidemia E78.5 ; Anxiety F41.9 ; Lumbago with sciatica, right side M54.41 ; BPH (benign prostatic hyperplasia) N40.0 ; GERD (gastroesophageal reflux disease) K21.9 and Edema R60.9 [place] [address] [place] [id number] [address] [place] [address] Jul, Lumbago with sciatica, right side M54.41 ; Anxiety F41.9 and DJD (degenerative joint disease) M19.90 [place] [address] [address] 28 Jun, 2016 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 ; Anxiety F41.9 ; BPH (benign prostatic hyperplasia) N40.0 ; GERD (gastroesophageal reflux disease) K21.9 ; Hyperlipidemia E78.5 ; Lumbago with sciatica, right side M54.41 and Constipation, unspecified constipation type K59.00 [place] [address] [address] 15 Jun, 2016 DJD (degenerative joint dise ase) M19.90 and Anxiety F41.9 [place] [address] [address] 13 Jun, 2016 DJD (degenerative joint dise ase) M19.90 and Anxiety F41.9 [place] [address] [address] May, 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 ; Depression F32.9 ; GERD (gastroesophageal reflux disease) K21.9 ; Traumatic brain injury S06.9X9A ; Constipation, unspecified constipation type K59.00 ; DJD (degenerative joint disease) M19.90 ; Pure hypercholesterolemia E78.00 ; Benign nodular prostatic hyperplasia, presence of lower urinary tract symptoms unspecified N40.0 ; Neuropathy G62.9 and Anxiety F41.9 [place] [address] [address] May, DJD (degenerative joint dise ase) M19.90 and Anxiety F41.9 [place] [address] [address] Apr, Lumbago with sciatica, right side M54.41 and Low back pain M54.5 [place] [address] [address] Mar, [place] [address] [address] Mar, [place] [id number] [place] [id number] [address] [place] [phone] Mar, [facility] [address] [address] Mar, [facility] [address] [place] [id number] [place] [address] Mar, Depression F32.9 ; Neuropath y G62.9 ; GERD (gastroesophageal reflux disease) K21.9 ; Edema R60.9 ; DJD (degenerative joint disease) M19.90 ; BPH (benign prostatic hyperplasia) N40.0 ; 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 ; Impacted cerumen of right ear H61.21 ; Anxiety F41.9 ; Constipation, unspecified constipation type K59.00 and Hyperlipidemia E78.5 [place] [address] [place] [id number] [address] [place] [address] Feb, [place] [address] [address] Jan, [place] [address] [place] [id number] [place] [phone] Dec, [place] [address] [place] [id number] [place] [phone] Dec, [place] [address] [place] [id number] [place] [phone] Dec, [place] [address] [place] [id number] [place] [phone] Dec, [facility] [address] [facility] [id number] [address] [place] [address] Dec, Depression F32.9 ; Anxiety F 41.9 ; Neuropathy G62.9 ; 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 ; GERD (gastroesophageal reflux disease) K21.9 ; Hyperlipidemia E78.5 ; Edema R60.9 ; DJD (degenerative joint disease) M19.90 ; Lumbago with sciatica, right side M54.41 ; Constipation, unspecified constipation type K59.00 and BPH (benign prostatic hyperplasia) N40.0 [facility] [address] [place] [id number] [place] [phone] Dec, [facility] [address] [facility] [id number] [address] [place] [phone] Oct, [facility] [address] [place] [address] Oct, Low back pain M54.5 [facility] [address] [place] [id number] [place] [address] Oct, [place] [address] [place] [id number] [place] [address] September, 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 ; Depression F32.9 ; Anxiety F41.9 ; BPH (benign prostatic hyperplasia) N40.0 ; Hyperlipidemia E78.5 ; Traumatic brain injury S06.9X9A ; Lumbago with sciatica, right side M54.41 ; Low back pain M54.5 ; Gastroesophageal reflux disease with esophagitis K21.0 ; Generalized edema R60.1 and Constipation, unspecified constipation type K59.00 [place] [address] [place] [id number] [place] [address] Aug, Depression F32.9 ; Anxiety F 41.9 [...] SOCIAL HISTORY Never Assessed REASON FOR VISIT PLAN OF CARE VITAL SIGNS MEDICATIONS Medication Instructions Dosage Frequency Start Date End Date Duration S tatus Glucerna - Orally 2 times a day 237ml 12h Mar, 90 days Active RESULTS No Results PROCEDURES No [...]
--- OUTSIDE RECORDS SUMMARY | 2019-07-27 19:40 | XMS REPORT ---
Author Author Brenton VALIENTE Organization [facility] Address [address] [place] [address] Care Team Providers Care Security Assurance Specialist Name Role Phone LAURITA VALIENTE Unavailable PROBLEMS Type Condition ICD9-CM Code EBW72-UO Code Onset Dates Condition S tatus SNOMED Code Problem Lumbago with sciatica, right side M54.41 Active 474159925 Problem Traumatic brain injury S06.9X9A Active 619843284 Problem DJD (degenerative joint disease) M19.90 Active 690224669 Problem Chronic pain syndrome G89.4 Active 566604970 Problem Neck pain M54.2 Active 28550575 Problem Type 2 diabetes mellitus with other diabetic oph thalmic complication E11.39 Active 52250921267011 Problem BPH (benign prostatic hyperplasia) N40.0 Active 075476473 Problem Onychomycosis B35.1 Active 142584 008 Problem Benign nodular prostatic hyp erplasia, presence of lower urinary tract symptoms unspecified N40.0 Active 3534330 07 Problem Depression F32.9 Active 42456155 Problem GERD (gastroesophageal reflux disease) K21.9 Active 215140263 Problem Hyperlipidemia E78.5 Active 87530 004 Problem Anxiety F41.9 Active 45571382 Problem HTN (hypertension) I10 Active 3 7040711 Problem Low back pain M54.5 Active 887479 005 ALLERGIES No Information ENCOUNTERS Encounter Location Date Diagnosis [facility] [address] [facility] [id number] [address] [place] [phone] Mar, [facility] [address] [facility] [id number] [address] [place] [address] Feb, DJD (degenerative joint dise ase) M19.90 and Anxiety F41.9 [facility] [address] [facility] [id number] [address] [place] [address] Feb, Hyperlipidemia E78.5 and Pro tein-calorie malnutrition, unspecified severity E46 [place] [address] [address] 09 Feb, 2018 DJD (degenerative joint dise ase) M19.90 ; Traumatic brain injury S06.9X9A ; Anxiety F41.9 ; Depression F32.9 ; BPH (benign prostatic hyperplasia) N40.0 ; HTN (hypertension) I10 ; GERD (gastroesophageal reflux disease) K21.9 ; Hyperlipidemia E78.5 ; 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 and Constipation, unspecified constipation type K59.00 [place] [address] [address] Feb, DJD (degenerative joint dise ase) M19.90 and Anxiety F41.9 [place] [address] [address] Jan, DJD (degenerative joint dise ase) M19.90 and Anxiety F41.9 [place] [address] [address] Dec, Neck pain M54.2 ; Left hand weakness R29.898 and Chronic pain syndrome G89.4 [place] [address] [address] Dec, DJD (degenerative joint dise ase) M19.90 and Anxiety F41.9 [place] [address] [address] Nov, DJD (degenerative joint dise ase) M19.90 and Anxiety F41.9 [place] [address] [address] Oct, [place] [address] [address] Oct, Chest pain, unspecified type R07.9 and Nevus D22.9 [place] [address] [address] Oct, [place] [address] [place] [id number] [address] [place] [address] 13 Oct, 2017 DJD (degenerative joint dise ase) M19.90 ; Traumatic brain injury S06.9X9A ; Anxiety F41.9 ; Depression F32.9 ; BPH (benign prostatic hyperplasia) N40.0 ; HTN (hypertension) I10 ; GERD (gastroesophageal reflux disease) K21.9 ; Hyperlipidemia E78.5 ; 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 and Constipation, unspecified constipation type K59.00 [place] [address] [address] 11 Oct, 2017 DJD (degenerative joint dise ase) M19.90 ; Traumatic brain injury S06.9X9A ; Anxiety F41.9 ; Depression F32.9 ; BPH (benign prostatic hyperplasia) N40.0 and HTN (hypertension) I10 [address] [address] 11 Oct, 2017 Neck pain M54.2 ; Fall, init ial encounter W19.XXXA and DJD (degenerative joint disease) M19.[address] [address] 07 Oct, 2017 DJD (degenerative joint dise ase) M19.90 ; Anxiety F41.9 ; Traumatic brain injury S06.9X9A ; Depression F32.9 ; BPH (benign prostatic hyperplasia) N40.0 ; HTN (hypertension) I10 ; GERD (gastroesophageal reflux disease) K21.9 ; Hyperlipidemia E78.5 ; 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 and Constipation, unspecified constipation type K59.[address] [address] September, DJD (degenerative joint dise ase) M19.90 and Anxiety F41.9 [place] [id number] [address] [place] [address] September, Anxiety F41.9 [place] [address] [place] [address] September, Anxiety F41.9 and DJD (degen erative joint disease) M19.90 [place] [address] [address] Aug, Anxiety F41.9 and DJD (degen erative joint disease) M19.90 [place] [address] [address] Jul, [place] [address] [address] Jul, 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 ; Hyperlipidemia E78.5 and HTN (hypertension) I10 [place] [address] [address] Jul, Anxiety F41.9 and DJD (degen erative joint disease) M19.90 [place] [address] [address] Jun, Anxiety F41.9 and DJD (degen erative joint disease) M19.90 [place] [address] [address] May, Weight loss, non-intentional R63.4 [place] [address] [address] May, DJD (degenerative joint dise ase) M19.90 [place] [address] [address] Apr, Anxiety F41.9 [place] [address] [address] Apr, Anxiety F41.9 and DJD (degen erative joint disease) M19.90 [place] [address] [address] Apr, DJD (degenerative joint dise ase) M19.90 ; Traumatic brain injury S06.9X9A ; 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 [id number] [address] [place] [phone] Mar, [facility] [address] [place] [id number] [address] [place] [address] Feb, DJD (degenerative joint dise ase) M19.90 ; Lumbago with sciatica, right side M54.41 and Anxiety F41.9 [facility] [address] [facility] [id number] [address] [place] [address] Feb, [facility] [address] [place] [id number] [place] [address] Jan, DJD (degenerative joint dise ase) M19.90 ; Anxiety F41.9 and Lumbago with sciatica, right side M54.41 [facility] [address] [place] [address] Dec, Lumbago with sciatica, right side M54.41 [facility] [address] [place] [id number] [address] [place] [address] Dec, Anxiety F41.9 and Lumbago wi th sciatica, right side M54.41 [facility] [address] [place] [id number] [place] [address] Dec, DJD (degenerative joint dise ase) M19.90 [facility] [address] [place] [id number] [address] [place] [address] Dec, 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 ; Lumbago with sciatica, right side M54.41 ; Traumatic brain injury S06.9X9A ; DJD (degenerative joint disease) M19.90 ; Constipation, unspecified constipation type K59.00 ; Depression F32.9 ; Anxiety F41.9 ; BPH (benign prostatic hyperplasia) N40.0 ; HTN (hypertension) I10 ; GERD (gastroesophageal reflux disease) K21.9 and Hyperlipidemia E78.5 [place] [address] 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 [id number] [address] [place] [address] Oct, Onychomycosis B35.1 ; Type I diabetes mellitus with peripheral circulatory disorder E10.51 and Neuropathy G62.9 [place] [address] [facility] [id number] [address] [place] [address] Oct, [place] [id number] [place] [address] Oct, DJD (degenerative joint dise ase) M19.90 ; Anxiety F41.9 and Lumbago with sciatica, right side M54.41 [place] [address] [address] September, DJD (degenerative joint dise ase) M19.90 [place] [address] [address] September, Lumbago with sciatica, right side M54.41 ; Anxiety F41.9 and DJD (degenerative joint disease) M19.90 [place] [address] [address] September, [place] [address] [address] Aug, Lumbago with sciatica, right side M54.41 ; Anxiety F41.9 and DJD (degenerative joint disease) M19.90 [place] [address] [address] Aug, 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 [place] [address] [address] Aug, 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 ; Constipation, unspecified constipation type K59.00 ; Hyperlipidemia E78.5 ; Anxiety F41.9 ; Lumbago with sciatica, right side M54.41 ; BPH (benign prostatic hyperplasia) N40.0 ; GERD (gastroesophageal reflux disease) K21.9 and Edema R60.9 [place] [address] [place] [id number] [address] [place] [address] Jul, Lumbago with sciatica, right side M54.41 ; Anxiety F41.9 and DJD (degenerative joint disease) M19.90 [place] [address] [address] Jun, 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 ; Anxiety F41.9 ; BPH (benign prostatic hyperplasia) N40.0 ; GERD (gastroesophageal reflux disease) K21.9 ; Hyperlipidemia E78.5 ; Lumbago with sciatica, right side M54.41 and Constipation, unspecified constipation type K59.00 [facility] [address] [facility] [id number] [address] [place] [address] 15 Jun, 2016 DJD (degenerative joint dise ase) M19.90 and Anxiety F41.9 [place] [address] [place] [id number] [place] [address] 13 Jun, 2016 DJD (degenerative joint dise ase) M19.90 and Anxiety F41.9 [place] [address] [address] May, 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 ; Depression F32.9 ; GERD (gastroesophageal reflux disease) K21.9 ; Traumatic brain injury S06.9X9A ; Constipation, unspecified constipation type K59.00 ; DJD (degenerative joint disease) M19.90 ; Pure hypercholesterolemia E78.00 ; Benign nodular prostatic hyperplasia, presence of lower urinary tract symptoms unspecified N40.0 ; Neuropathy G62.9 and Anxiety F41.9 [place] [address] [address] May, DJD (degenerative joint dise ase) M19.90 and Anxiety F41.9 [place] [address] [place] [id number] [place] [address] Apr, Lumbago with sciatica, right side M54.41 and Low back pain M54.5 [place] [address] [place] [id number] [address] [place] [address] Mar, [place] [address] [place] [id number] [place] [address] Mar, [place] [address] [place] [id number] [place] [address] Mar, [place] [address] [address] Mar, [facility] [address] [address] Mar, Depression F32.9 ; Neuropath y G62.9 ; GERD (gastroesophageal reflux disease) K21.9 ; Edema R60.9 ; DJD (degenerative joint disease) M19.90 ; BPH (benign prostatic hyperplasia) N40.0 ; 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 ; Impacted cerumen of right ear H61.21 ; Anxiety F41.9 ; Constipation, unspecified constipation type K59.00 and Hyperlipidemia E78.5 [facility] [address] [address] Feb, [facility] [address] [address] Jan, [facility] [address] [address] Dec, [facility] [address] [address] Dec, [facility] [address] [address] Dec, [facility] [address] [address] Dec, [facility] [address] [place] [id number] Dec, Depression F32.9 ; Anxiety F 41.9 ; Neuropathy G62.9 ; 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 [id number] [address] [place] [phone] Oct, [facility] [address] [facility] [id number] [address] [place] [address] Oct, Low back pain M54.5 [facility] [address] [facility] [id number] [address] [place] [address] Oct, [facility] [address] [facility] [id number] [address] [place] [address] September, 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 ; Depression F32.9 ; Anxiety F41.9 ; BPH (benign prostatic hyperplasia) N40.0 ; Hyperlipidemia E78.5 ; Traumatic brain injury S06.9X9A ; Lumbago with sciatica, right side M54.41 ; Low back pain M54.5 ; Gastroesophageal reflux disease with esophagitis K21.0 ; Generalized edema R60.1 and Constipation, unspecified constipation type K59.00 [place] [id number] [facility] [id number] [address] [place] [address] Aug, Depression F32.9 ; Anxiety F 41.9 [...] HISTORY Never Assessed REASON FOR VISIT Controlled Medication Refill- Due 03/07 PLAN OF CARE VITAL SIGNS MEDICATIONS Medication Instructions Dosage Frequency Start Date End Date Duration S tatus Morphine Sulfate 15 mg Orally 2 times a day 1 tablet as needed 12h 29 Feb, 2018 28 days Active Morphine Sulfate ER 60 mg Orally every 12 hrs 1 tablet 12h 29 2017 28 days Active Klonopin 1 MG [...]
--- OUTSIDE RECORDS SUMMARY | 2019-07-27 19:40 | XMS REPORT ---
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 Name Role Phone LAURITA VALIENTE Unavailable PROBLEMS Type Condition ICD9-CM Code IXX03-NX Code Onset Dates Condition S tatus SNOMED Code Problem Lumbago with sciatica, right side M54.41 Active 203222197 Problem Traumatic brain injury S06.9X9A Active 966139174 Problem DJD (degenerative joint disease) M19.90 Active 284962039 Problem Chronic pain syndrome G89.4 Active 864928149 Problem Neck pain M54.2 Active 04937329 Problem Type 2 diabetes mellitus with other diabetic oph thalmic complication E11.39 Active 96707678802071 Problem BPH (benign prostatic hyperplasia) N40.0 Active 860135230 Problem Onychomycosis B35.1 Active 718843 008 Problem Benign nodular prostatic hyp erplasia, presence of lower urinary tract symptoms unspecified N40.0 Active 6010116 07 Problem Depression F32.9 Active 80595135 Problem GERD (gastroesophageal reflux disease) K21.9 Active 884948798 Problem Hyperlipidemia E78.5 Active 48147 004 Problem Anxiety F41.9 Active 79479134 Problem HTN (hypertension) I10 Active 3 0699958 Problem Low back pain M54.5 Active 487117 005 ALLERGIES No Information ENCOUNTERS Encounter Location Date Diagnosis [facility] [address] [facility] [id number] [address] [place] [id number] Mar, [facility] [address] [facility] [id number] [address] [place] [phone] Mar, Chronic pain syndrome G89.4 [facility] [address] [facility] [id number] [address] [place] [phone] Mar, [facility] [address] [facility] [id number] [address] [place] [address] Mar, Protein-calorie malnutrition , unspecified severity E46 [place] [address] [address] Feb, DJD (degenerative joint dise ase) M19.90 and Anxiety F41.9 [place] [address] [address] Feb, Hyperlipidemia E78.5 and Pro tein-calorie malnutrition, unspecified severity E46 [place] [address] [address] Feb, DJD (degenerative joint dise ase) M19.90 ; Traumatic brain injury S06.9X9A ; Anxiety F41.9 ; Depression F32.9 ; BPH (benign prostatic hyperplasia) N40.0 ; HTN (hypertension) I10 ; GERD (gastroesophageal reflux disease) K21.9 ; Hyperlipidemia E78.5 ; 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 and Constipation, unspecified constipation type K59.00 [place] [address] [address] Feb, DJD (degenerative joint dise ase) M19.90 and Anxiety F41.9 [place] [address] [address] 04 Jan, 2018 DJD (degenerative joint dise ase) M19.90 and Anxiety F41.9 [place] [address] [address] Dec, Neck pain M54.2 ; Left hand weakness R29.898 and Chronic pain syndrome G89.[address] [address] Dec, DJD (degenerative joint dise ase) M19.90 and Anxiety F41.9 [place] [address] [address] Nov, DJD (degenerative joint dise ase) M19.90 and Anxiety F41.9 [place] [address] [place] [id number] [address] [place] [phone] 27 Oct, 2017 [place] [address] [address] 14 Oct, 2017 Chest pain, unspecified type R07.9 and Nevus D22.[address] [address] 14 Oct, 2017 [place] [address] [address] 13 Oct, 2017 DJD (degenerative joint dise ase) M19.90 ; Traumatic brain injury S06.9X9A ; Anxiety F41.9 ; Depression F32.9 ; BPH (benign prostatic hyperplasia) N40.0 ; HTN (hypertension) I10 ; GERD (gastroesophageal reflux disease) K21.9 ; Hyperlipidemia E78.5 ; 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 and Constipation, unspecified constipation type K59.[address] [address] 11 Oct, 2017 DJD (degenerative joint dise ase) M19.90 ; Traumatic brain injury S06.9X9A ; Anxiety F41.9 ; Depression F32.9 ; BPH (benign prostatic hyperplasia) N40.0 and HTN (hypertension) I10 [address] [address] 11 Oct, 2017 Neck pain M54.2 ; Fall, init ial encounter W19.XXXA and DJD (degenerative joint disease) M19.[address] [address] 07 Oct, 2017 DJD (degenerative joint dise ase) M19.90 ; Anxiety F41.9 ; Traumatic brain injury S06.9X9A ; Depression F32.9 ; BPH (benign prostatic hyperplasia) N40.0 ; HTN (hypertension) I10 ; GERD (gastroesophageal reflux disease) K21.9 ; Hyperlipidemia E78.5 ; 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 and Constipation, unspecified constipation type K59.00 [facility] [address] [place] [id number] [address] [place] [id number] September, DJD (degenerative joint dise ase) M19.90 and Anxiety F41.9 [place] [address] [place] [id number] [address] [place] [address] September, Anxiety F41.9 [place] [address] [place] [id number] [place] [address] September, Anxiety F41.9 and DJD (degen erative joint disease) M19.90 [place] [address] [address] Aug, Anxiety F41.9 and DJD (degen erative joint disease) M19.90 [place] [address] [address] Jul, [place] [address] [address] Jul, 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 ; Hyperlipidemia E78.5 and HTN (hypertension) I10 [place] [address] [place] [id number] [place] [address] Jul, Anxiety F41.9 and DJD (degen erative joint disease) M19.90 [place] [address] [place] [id number] [place] [address] Jun, Anxiety F41.9 and DJD (degen erative joint disease) M19.90 [place] [address] [place] [id number] [place] [address] May, Weight loss, non-intentional R63.4 [place] [address] [place] [id number] [address] [place] [address] May, DJD (degenerative joint dise ase) M19.90 [place] [address] [place] [id number] [place] [address] 14 Apr, 2017 Anxiety F41.9 [facility] [address] [id number] [address] [place] [address] Apr, Anxiety F41.9 and DJD (degen erative joint disease) M19.90 [facility] [address] [facility] [id number] [address] [place] [address] Apr, DJD (degenerative joint dise ase) M19.90 ; Traumatic brain injury S06.9X9A ; 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 ; Anxiety F41.9 and Depression F32.9 [facility] [address] [facility] [id number] [address] [place] [phone] Mar, [facility] [address] [facility] [id number] [address] [place] [address] Feb, DJD (degenerative joint dise ase) M19.90 ; Lumbago with sciatica, right side M54.41 and Anxiety F41.9 [facility] [address] [facility] [id number] [address] [place] [address] Feb, [facility] [address] [facility] [id number] [address] [place] [address] Jan, DJD (degenerative joint dise ase) M19.90 ; Anxiety F41.9 and Lumbago with sciatica, right side M54.41 [facility] [address] [facility] [id number] [address] [place] [address] Dec, Lumbago with sciatica, right side M54.41 [facility] [address] [facility] [id number] [address] [place] [address] Dec, Anxiety F41.9 and Lumbago wi th sciatica, right side M54.41 [facility] [address] [facility] [id number] [address] [place] [address] Dec, DJD (degenerative joint dise ase) M19.90 [facility] [address] [place] [address] [address] Dec, 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 ; Lumbago with sciatica, right side M54.41 ; Traumatic brain injury S06.9X9A ; DJD (degenerative joint disease) M19.90 ; Constipation, unspecified constipation type K59.00 ; Depression F32.9 ; Anxiety F41.9 ; BPH (benign prostatic hyperplasia) N40.0 ; HTN (hypertension) I10 ; GERD (gastroesophageal reflux disease) K21.9 and Hyperlipidemia E78.5 [place] [address] [address] Dec, DJD (degenerative joint dise ase) M19.90 ; Anxiety F41.9 ; Lumbago with sciatica, right side M54.41 ; Traumatic brain injury S06.9X9A ; Constipation, unspecified constipation type K59.00 ; Depression F32.9 ; BPH (benign prostatic hyperplasia) N40.0 ; 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 ; HTN (hypertension) I10 ; GERD (gastroesophageal reflux disease) K21.9 and Hyperlipidemia E78.5 [place] [address] [address] Nov, [place] [address] [address] Nov, Constipation, unspecified co nstipation type K59.00 ; Hyperlipidemia E78.5 ; Anxiety F41.9 ; Lumbago with sciatica, right side M54.41 ; BPH (benign prostatic hyperplasia) N40.0 ; 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 ; GERD (gastroesophageal reflux disease) K21.9 and Edema R60.9 [place] [address] [address] Nov, [address] [address] Nov, DJD (degenerative joint dise ase) M19.90 and Anxiety F41.9 [place] [address] [address] Oct, Onychomycosis B35.1 ; Type I diabetes mellitus with peripheral circulatory disorder E10.51 and Neuropathy G62.9 [place] [address] [place] [id number] [address] [place] [address] Oct, [place] [address] [address] Oct, DJD (degenerative joint dise ase) M19.90 ; Anxiety F41.9 and Lumbago with sciatica, right side M54.41 [place] [address] [address] September, DJD (degenerative joint dise ase) M19.90 [place] [address] [address] September, Lumbago with sciatica, right side M54.41 ; Anxiety F41.9 and DJD (degenerative joint disease) M19.90 [place] [address] [address] September, [place] [address] [address] Aug, Lumbago with sciatica, right side M54.41 ; Anxiety F41.9 and DJD (degenerative joint disease) M19.90 [place] [address] [address] Aug, 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 [place] [address] [address] Aug, 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 ; Constipation, unspecified constipation type K59.00 ; Hyperlipidemia E78.5 ; Anxiety F41.9 ; Lumbago with sciatica, right side M54.41 ; BPH (benign prostatic hyperplasia) N40.0 ; GERD (gastroesophageal reflux disease) K21.9 and Edema R60.9 [place] [address] [address] 13 Jul, 2016 Lumbago with sciatica, right side M54.41 ; Anxiety F41.9 and DJD (degenerative joint disease) M19.90 [place] [address] [address] 28 Jun, 2016 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 ; Anxiety F41.9 ; BPH (benign prostatic hyperplasia) N40.0 ; GERD (gastroesophageal reflux disease) K21.9 ; Hyperlipidemia E78.5 ; Lumbago with sciatica, right side M54.41 and Constipation, unspecified constipation type K59.00 [place] [address] [address] 15 Jun, 2016 DJD (degenerative joint dise ase) M19.90 and Anxiety F41.[address] [address] Jun, DJD (degenerative joint dise ase) M19.90 and Anxiety F41.9 [place] [address] [address] May, 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 ; Depression F32.9 ; GERD (gastroesophageal reflux disease) K21.9 ; Traumatic brain injury S06.9X9A ; Constipation, unspecified constipation type K59.00 ; DJD (degenerative joint disease) M19.90 ; Pure hypercholesterolemia E78.00 ; Benign nodular prostatic hyperplasia, presence of lower urinary tract symptoms unspecified N40.0 ; Neuropathy G62.9 and Anxiety F41.9 [place] [address] [address] May, DJD (degenerative joint dise ase) M19.90 and Anxiety F41.9 [place] [address] [address] Apr, Lumbago with sciatica, right side M54.41 and Low back pain M54.5 [facility] [address] [place] [id number] [address] [place] [address] Mar, [facility] [address] [place] [id number] [place] [phone] Mar, [facility] [address] [place] [id number] [address] [place] [address] Mar, [facility] [address] [place] [id number] [place] [address] Mar, [facility] [address] [place] [id number] [place] [address] Mar, Depression F32.9 ; Neuropath y G62.9 ; GERD (gastroesophageal reflux disease) K21.9 ; Edema R60.9 ; DJD (degenerative joint disease) M19.90 ; BPH (benign prostatic hyperplasia) N40.0 ; 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 ; Impacted cerumen of right ear H61.21 ; Anxiety F41.9 ; Constipation, unspecified constipation type K59.00 and Hyperlipidemia E78.5 [facility] [address] [address] Feb, [facility] [address] [place] [id number] [place] [phone] Jan, [facility] [address] [address] Dec, [facility] [address] [place] [id number] [address] [place] [address] Dec, [facility] [address] [place] [id number] [address] [place] [phone] Dec, [facility] [address] [place] [id number] [place] [address] Dec, [facility] [address] [place] [id number] [address] [place] [address] Dec, Depression F32.9 ; Anxiety F 41.9 ; Neuropathy G62.9 ; 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 ; GERD (gastroesophageal reflux disease) K21.9 ; Hyperlipidemia E78.5 ; Edema R60.9 ; DJD (degenerative joint disease) M19.90 ; Lumbago with sciatica, right side M54.41 ; Constipation, unspecified constipation type K59.00 and BPH (benign prostatic hyperplasia) N40.0 [place] [address] [address] Dec, [place] [address] [address] Oct, [place] [address] [address] Oct, Low back pain M54.5 [place] [address] [address] Oct, [place] [address] [address] September, 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 ; Depression F32.9 ; Anxiety F41.9 ; BPH (benign prostatic hyperplasia) N40.0 ; Hyperlipidemia E78.5 ; Traumatic brain injury S06.9X9A ; Lumbago with sciatica, right side M54.41 ; Low back pain M54.5 ; Gastroesophageal reflux disease with esophagitis K21.0 ; Generalized edema R60.1 and Constipation, unspecified constipation type K59.00 [place] [address] [address] Aug, Depression F32.9 ; Anxiety F 41.9 [...] SOCIAL HISTORY Never Assessed REASON FOR VISIT Requests return call PLAN OF CARE VITAL SIGNS MEDICATIONS Unknown Medications RESULTS No Results PROCEDURES No Known procedures [...]
--- OUTSIDE RECORDS SUMMARY | 2019-07-27 19:40 | XMS REPORT ---
Author Author Bernton VALIENTE Organization 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 Name Role Phone LAURITA VALIENTE Unavailable PROBLEMS Type Condition ICD9-CM Code JEJ27-UF Code Onset Dates Condition S tatus SNOMED Code Problem Lumbago with sciatica, right side M54.41 Active 044635319 Problem Traumatic brain injury S06.9X9A Active 471272674 Problem DJD (degenerative joint disease) M19.90 Active 663219349 Problem Chronic pain syndrome G89.4 Active 462598037 Problem Neck pain M54.2 Active 96625860 Problem Type 2 diabetes mellitus with other diabetic oph thalmic complication E11.39 Active 01740253648502 Problem BPH (benign prostatic hyperplasia) N40.0 Active 095501362 Problem Onychomycosis B35.1 Active 662998 008 Problem Benign nodular prostatic hyp erplasia, presence of lower urinary tract symptoms unspecified N40.0 Active 3802517 07 Problem Depression F32.9 Active 85733087 Problem GERD (gastroesophageal reflux disease) K21.9 Active 354214446 Problem Hyperlipidemia E78.5 Active 11563 004 Problem Anxiety F41.9 Active 14454525 Problem HTN (hypertension) I10 Active 3 9860916 Problem Low back pain M54.5 Active 038511 005 ALLERGIES No Information ENCOUNTERS Encounter Location Date Diagnosis [facility] [address] [facility] [id number] [address] [place] [phone] Mar, [facility] [address] [facility] [id number] [address] [place] [phone] Feb, DJD (degenerative joint dise ase) M19.90 ; Traumatic brain injury S06.9X9A ; Anxiety F41.9 ; Depression F32.9 ; BPH (benign prostatic hyperplasia) N40.0 ; HTN (hypertension) I10 ; GERD (gastroesophageal reflux disease) K21.9 ; Hyperlipidemia E78.5 ; 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 and Constipation, unspecified constipation type K59.00 [place] [address] [address] [place] [id number] [place] [address] 03 Feb, 2018 DJD (degenerative joint dise ase) M19.90 and Anxiety F41.9 [place] [address] [place] [id number] [place] [address] 04 Jan, 2018 DJD (degenerative joint dise ase) M19.90 and Anxiety F41.9 [place] [address] [address] [place] [id number] [place] [id number] 14 Dec, 2017 Neck pain M54.2 ; Left hand weakness R29.898 and Chronic pain syndrome G89.4 [place] [address] [address] Dec, DJD (degenerative joint dise ase) M19.90 and Anxiety F41.9 [place] [address] [address] [place] [id number] [place] [address] Nov, DJD (degenerative joint dise ase) M19.90 and Anxiety F41.9 [place] [address] [address] [place] [id number] [place] [phone] 27 Oct, 2017 [place] [address] [address] [place] [id number] [place] [address] Oct, Chest pain, unspecified type R07.9 and Nevus D22.9 [place] [address] [address] [place] [id number] [address] [place] [address] Oct, [place] [address] [address] 13 Oct, 2017 DJD (degenerative joint dise ase) M19.90 ; Traumatic brain injury S06.9X9A ; Anxiety F41.9 ; Depression F32.9 ; BPH (benign prostatic hyperplasia) N40.0 ; HTN (hypertension) I10 ; GERD (gastroesophageal reflux disease) K21.9 ; Hyperlipidemia E78.5 ; 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 and Constipation, unspecified constipation type K59.[address] [address] 11 Oct, 2017 DJD (degenerative joint dise ase) M19.90 ; Traumatic brain injury S06.9X9A ; Anxiety F41.9 ; Depression F32.9 ; BPH (benign prostatic hyperplasia) N40.0 and HTN (hypertension) I10 [address] [address] 11 Oct, 2017 Neck pain M54.2 ; Fall, init ial encounter W19.XXXA and DJD (degenerative joint disease) M19.[address] [address] Oct, DJD (degenerative joint dise ase) M19.90 ; Anxiety F41.9 ; Traumatic brain injury S06.9X9A ; Depression F32.9 ; BPH (benign prostatic hyperplasia) N40.0 ; HTN (hypertension) I10 ; GERD (gastroesophageal reflux disease) K21.9 ; Hyperlipidemia E78.5 ; 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 and Constipation, unspecified constipation type K59.[address] [address] September, DJD (degenerative joint dise ase) M19.90 and Anxiety F41.[address] [address] September, Anxiety F41.[address] [address] September, Anxiety F41.9 and DJD (degen erative joint disease) M19.[address] [address] Aug, Anxiety F41.9 and DJD (degen erative joint disease) M19.90 [address] [place] [address] Jul, [place] [address] [address] Jul, 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 ; Hyperlipidemia E78.5 and HTN (hypertension) I10 [place] [address] [address] Jul, Anxiety F41.9 and DJD (degen erative joint disease) M19.90 [place] [address] [address] Jun, Anxiety F41.9 and DJD (degen erative joint disease) M19.90 [place] [address] [address] May, Weight loss, non-intentional R63.4 [place] [address] [address] May, DJD (degenerative joint dise ase) M19.90 [place] [address] [address] 14 Apr, 2017 Anxiety F41.9 [place] [address] [address] Apr, Anxiety F41.9 and DJD (degen erative joint disease) M19.90 [place] [address] [address] Apr, DJD (degenerative joint dise ase) M19.90 ; Traumatic brain injury S06.9X9A ; 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 ; Anxiety F41.9 and Depression F32.9 [place] [address] [address] Mar, [place] [address] [address] Feb, DJD (degenerative joint dise ase) M19.90 ; Lumbago with sciatica, right side M54.41 and Anxiety F41.9 [facility] [address] [address] Feb, [facility] [address] [address] Jan, DJD (degenerative joint dise ase) M19.90 ; Anxiety F41.9 and Lumbago with sciatica, right side M54.41 [facility] [address] [address] Dec, Lumbago with sciatica, right side M54.41 [facility] [address] [address] Dec, Anxiety F41.9 and Lumbago wi th sciatica, right side M54.41 [facility] [address] [address] Dec, DJD (degenerative joint dise ase) M19.90 [facility] [address] [address] Dec, 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 ; Lumbago with sciatica, right side M54.41 ; Traumatic brain injury S06.9X9A ; DJD (degenerative joint disease) M19.90 ; Constipation, unspecified constipation type K59.00 ; Depression F32.9 ; Anxiety F41.9 ; BPH (benign prostatic hyperplasia) N40.0 ; HTN (hypertension) I10 ; GERD (gastroesophageal reflux disease) K21.[address] [facility] [address] [place] [id number] [place] [address] Dec, DJD (degenerative joint dise ase) M19.90 ; Anxiety F41.9 ; Lumbago with sciatica, right side M54.41 ; Traumatic brain injury S06.9X9A ; Constipation, unspecified constipation type K59.00 ; Depression F32.9 ; BPH (benign prostatic hyperplasia) N40.0 ; 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 ; HTN (hypertension) I10 ; GERD (gastroesophageal reflux disease) K21.9 and Hyperlipidemia E78.5 [place] [address] [address] [facility] [id number] [address] [place] [address] Nov, [place] [address] [place] [id number] [place] [address] Nov, Constipation, unspecified co nstipation type K59.00 ; Hyperlipidemia E78.5 ; Anxiety F41.9 ; Lumbago with sciatica, right side M54.41 ; BPH (benign prostatic hyperplasia) N40.0 ; 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 ; GERD (gastroesophageal reflux disease) K21.9 and Edema R60.9 [place] [address] [address] [place] [id number] [place] [address] Nov, [place] [address] [place] [id number] [place] [address] Nov, DJD (degenerative joint dise ase) M19.90 and Anxiety F41.9 [place] [id number] [place] [address] Oct, Onychomycosis B35.1 ; Type I diabetes mellitus with peripheral circulatory disorder E10.51 and Neuropathy G62.9 [place] [id number] [place] [address] Oct, [place] [id number] [place] [address] Oct, DJD (degenerative joint dise ase) M19.90 ; Anxiety F41.9 and Lumbago with sciatica, right side M54.41 [place] [address] [place] [id number] [place] [address] September, DJD (degenerative joint dise ase) M19.90 [place] [address] [address] [place] [id number] [place] [address] September, Lumbago with sciatica, right side M54.41 ; Anxiety F41.9 and DJD (degenerative joint disease) M19.90 [place] [address] [address] September, [place] [address] [address] Aug, Lumbago with sciatica, right side M54.41 ; Anxiety F41.9 and DJD (degenerative joint disease) M19. [place] [address] [address] Aug, 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 [place] [address] [address] Aug, 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 ; Constipation, unspecified constipation type K59.00 ; Hyperlipidemia E78.5 ; Anxiety F41.9 ; Lumbago with sciatica, right side M54.41 ; BPH (benign prostatic hyperplasia) N40.0 ; GERD (gastroesophageal reflux disease) K21.9 and Edema R60.9 [place] [address] [address] Jul, Lumbago with sciatica, right side M54.41 ; Anxiety F41.9 and DJD (degenerative joint disease) M19.90 [place] [address] [address] [place] [id number] [place] [address] 28 Jun, 2016 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 ; Anxiety F41.9 ; BPH (benign prostatic hyperplasia) N40.0 ; GERD (gastroesophageal reflux disease) K21.9 ; Hyperlipidemia E78.5 ; Lumbago with sciatica, right side M54.41 and Constipation, unspecified constipation type K59.00 [place] [address] [address] [place] [id number] [place] [address] 15 Jun, 2016 DJD (degenerative joint dise ase) M19.[address] [facility] [address] [address] 13 Jun, 2016 DJD (degenerative joint dise ase) M19.[address] [facility] [address] [address] 31 May, 2016 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 ; Depression F32.9 ; GERD (gastroesophageal reflux disease) K21.9 ; Traumatic brain injury S06.9X9A ; Constipation, unspecified constipation type K59.00 ; DJD (degenerative joint disease) M19.90 ; Pure hypercholesterolemia E78.00 ; Benign nodular prostatic hyperplasia, presence of lower urinary tract symptoms unspecified N40.0 ; Neuropathy G62.9 and Anxiety F41.9 [place] [address] [address] 17 May, 2016 DJD (degenerative joint dise ase) M19.90 and Anxiety F41.9 [place] [address] [address] Apr, Lumbago with sciatica, right side M54.41 and Low back pain M54.5 [place] [address] [address] Mar, [place] [address] [address] Mar, [place] [address] [address] Mar, [place] [address] [address] Mar, [place] [address] [address] Mar, Depression F32.9 ; Neuropath y G62.9 ; GERD (gastroesophageal reflux disease) K21.9 ; Edema R60.9 ; DJD (degenerative joint disease) M19.90 ; BPH (benign prostatic hyperplasia) N40.0 ; 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 [address] [facility] [id number] [address] [place] [address] Feb, [facility] [address] [facility] [id number] [address] [place] [address] Jan, [facility] [address] [facility] [id number] [address] [place] [address] Dec, [facility] [address] [facility] [id number] [place] [address] Dec, [facility] [address] [place] [id number] [place] [address] Dec, [facility] [address] [place] [id number] [place] [address] Dec, 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 [address] [facility] [id number] [address] [place] [address] Dec, [facility] [address] [place] [id number] [place] [address] Oct, [facility] [address] [place] [id number] [place] [address] Oct, Low back pain M54.5 [facility] [address] [place] [id number] [place] [address] Oct, [facility] [address] [facility] [id number] [address] [place] [address] September, 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 ; Depression F32.9 ; Anxiety F41.9 ; BPH (benign prostatic hyperplasia) N40.0 ; Hyperlipidemia E78.5 ; Traumatic brain injury S06.9X9A ; Lumbago with sciatica, right side M54.41 ; Low back pain M54.5 ; Gastroesophageal reflux disease with esophagitis K21.0 ; Generalized edema R60.1 and Constipation, unspecified constipation type K59.00 [facility] [address] [facility] [id number] [address] [place] [address] Aug, Depression F32.9 ; Anxiety F 41.9 [...] REASON FOR VISIT Controlled Med Refill- Due 02/07 PLAN OF CARE VITAL SIGNS MEDICATIONS Medication Instructions Dosage Frequency Start Date End Date Duration S tatus Klonopin 1 MG Orally Twice a day 1 tablet 12h 28 day s Active Morphine Sulfate ER 60 mg Orally every 12 hrs 1 tablet 12h 03 2017 28 days Active Morphine Sulfate 15 mg Orally 2 times a day 1 tablet as needed 12h Feb, 28 days Active RESULTS No Results PROCEDURES [...]
--- OUTSIDE RECORDS SUMMARY | 2019-07-27 19:40 | XMS REPORT ---
Author Author Brenton VALIENTE Organization [facility] [place] Address [address] [place] [address] Care Team Providers Care Anesthesia Attending Name Role Phone LAURITA VALIENTE Unavailable PROBLEMS Type Condition ICD9-CM Code [id number] Code Onset Dates Condition S tatus SNOMED Code Problem Lumbago with sciatica, right side M54.41 Active 139340710 Problem Traumatic brain injury S06.9X9A Active 090529553 Problem DJD (degenerative joint disease) M19.90 Active 299553635 Problem Chronic pain syndrome G89.4 Active 332983615 Problem Neck pain M54.2 Active 15033245 Problem Type 2 diabetes mellitus with other diabetic oph thalmic complication E11.39 Active [id number] Problem BPH (benign prostatic hyperplasia) N40.0 Active 764842553 Problem Onychomycosis B35.1 Active 847036 008 Problem Benign nodular prostatic hyp erplasia, presence of lower urinary tract symptoms unspecified N40.0 Active 0684423 07 Problem Depression F32.9 Active 89543011 Problem GERD (gastroesophageal reflux disease) K21.9 Active 899138530 Problem Hyperlipidemia E78.5 Active 45294 004 Problem Anxiety F41.9 Active 17208300 Problem HTN (hypertension) I10 Active 3 2800553 Problem Low back pain M54.5 Active 954205 005 ALLERGIES No Information ENCOUNTERS Encounter Location Date Diagnosis [facility] [place] [address] [facility] [id number] [address] [place] [phone] Mar, [facility] [place] [address] [facility] [id number] [address] [place] [phone] Mar, Chronic pain syndrome G89.4 [facility] [place] [address] [facility] [id number] [address] [place] [phone] Mar, [facility] [place] [address] [facility] [id number] [address] [place] [phone] Mar, Protein-calorie malnutrition , unspecified severity E46 [place] [address] [address] Feb, DJD (degenerative joint dise ase) M19.90 and Anxiety F41.9 [place] [address] [address] Feb, Hyperlipidemia E78.5 and Pro tein-calorie malnutrition, unspecified severity E46 [place] [address] [address] Feb, DJD (degenerative joint dise ase) M19.90 ; Traumatic brain injury S06.9X9A ; Anxiety F41.9 ; Depression F32.9 ; BPH (benign prostatic hyperplasia) N40.0 ; HTN (hypertension) I10 ; GERD (gastroesophageal reflux disease) K21.9 ; Hyperlipidemia E78.5 ; 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 and Constipation, unspecified constipation type K59.00 [place] [address] [address] Feb, DJD (degenerative joint dise ase) M19.90 and Anxiety F41.9 [place] [address] [address] 04 Jan, 2018 DJD (degenerative joint dise ase) M19.90 and Anxiety F41.9 [place] [address] [address] Dec, Neck pain M54.2 ; Left hand weakness R29.898 and Chronic pain syndrome G89.[address] [address] Dec, DJD (degenerative joint dise ase) M19.90 and Anxiety F41.9 [place] [address] [address] Nov, DJD (degenerative joint dise ase) M19.90 and Anxiety F41.9 [place] [address] [address] [place] [id number] [address] [place] [phone] 27 Oct, 2017 [place] [address] [address] 14 Oct, 2017 Chest pain, unspecified type R07.9 and Nevus D22.[address] [address] 14 Oct, 2017 [place] [address] [address] 13 Oct, 2017 DJD (degenerative joint dise ase) M19.90 ; Traumatic brain injury S06.9X9A ; Anxiety F41.9 ; Depression F32.9 ; BPH (benign prostatic hyperplasia) N40.0 ; HTN (hypertension) I10 ; GERD (gastroesophageal reflux disease) K21.9 ; Hyperlipidemia E78.5 ; 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 and Constipation, unspecified constipation type K59.[address] [address] 11 Oct, 2017 DJD (degenerative joint dise ase) M19.90 ; Traumatic brain injury S06.9X9A ; Anxiety F41.9 ; Depression F32.9 ; BPH (benign prostatic hyperplasia) N40.0 and HTN (hypertension) I10 [address] [address] 11 Oct, 2017 Neck pain M54.2 ; Fall, init ial encounter W19.XXXA and DJD (degenerative joint disease) M19.[address] [address] 07 Oct, 2017 DJD (degenerative joint dise ase) M19.90 ; Anxiety F41.9 ; Traumatic brain injury S06.9X9A ; Depression F32.9 ; BPH (benign prostatic hyperplasia) N40.0 ; HTN (hypertension) I10 ; GERD (gastroesophageal reflux disease) K21.9 ; Hyperlipidemia E78.5 ; 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 and Constipation, unspecified constipation type K59.00 [facility] [place] [address] [place] [id number] [address] [place] [phone] September, DJD (degenerative joint dise ase) M19.90 and Anxiety F41.9 [place] [address] [place] [id number] [address] [place] [phone] September, Anxiety F41.9 [place] [address] [place] [id number] [place] [phone] September, Anxiety F41.9 and DJD (degen erative joint disease) M19.90 [place] [address] [address] Aug, Anxiety F41.9 and DJD (degen erative joint disease) M19.90 [place] [address] [address] Jul, [place] [address] [address] Jul, 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 ; Hyperlipidemia E78.5 and HTN (hypertension) I10 [place] [address] [place] [id number] [place] [address] Jul, Anxiety F41.9 and DJD (degen erative joint disease) M19.90 [place] [address] [place] [id number] [place] [address] Jun, Anxiety F41.9 and DJD (degen erative joint disease) M19.90 [place] [address] [place] [id number] [place] [address] May, Weight loss, non-intentional R63.4 [place] [address] [address] [place] [id number] [address] [place] [address] May, DJD (degenerative joint dise ase) M19.90 [place] [address] [place] [id number] [place] [address] 14 Apr, 2017 Anxiety F41.9 [facility] [place] [address] [id number] [address] [place] [phone] Apr, Anxiety F41.9 and DJD (degen erative joint disease) M19.90 [facility] [place] [address] [facility] [id number] [address] [place] [phone] Apr, DJD (degenerative joint dise ase) M19.90 ; Traumatic brain injury S06.9X9A ; 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 ; Anxiety F41.9 and Depression F32.9 [facility] [place] [address] [facility] [id number] [address] [place] [phone] Mar, [facility] [place] [address] [facility] [id number] [address] [place] [phone] Feb, DJD (degenerative joint dise ase) M19.90 ; Lumbago with sciatica, right side M54.41 and Anxiety F41.9 [facility] [address] [facility] [id number] [address] [place] [phone] Feb, [facility] [place] [address] [facility] [id number] [address] [place] [phone] Jan, DJD (degenerative joint dise ase) M19.90 ; Anxiety F41.9 and Lumbago with sciatica, right side M54.41 [facility] [place] [address] [facility] [id number] [address] [place] [phone] Dec, Lumbago with sciatica, right side M54.41 [facility] [place] [address] [facility] [id number] [address] [place] [phone] Dec, Anxiety F41.9 and Lumbago wi th sciatica, right side M54.41 [facility] [place] [address] [facility] [id number] [address] [place] [phone] Dec, DJD (degenerative joint dise ase) M19.90 [facility] [place] [address] [address] [address] Dec, 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 ; Lumbago with sciatica, right side M54.41 ; Traumatic brain injury S06.9X9A ; DJD (degenerative joint disease) M19.90 ; Constipation, unspecified constipation type K59.00 ; Depression F32.9 ; Anxiety F41.9 ; BPH (benign prostatic hyperplasia) N40.0 ; HTN (hypertension) I10 ; GERD (gastroesophageal reflux disease) K21.9 and Hyperlipidemia E78.5 [place] [address] [address] Dec, DJD (degenerative joint dise ase) M19.90 ; Anxiety F41.9 ; Lumbago with sciatica, right side M54.41 ; Traumatic brain injury S06.9X9A ; Constipation, unspecified constipation type K59.00 ; Depression F32.9 ; BPH (benign prostatic hyperplasia) N40.0 ; 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 ; HTN (hypertension) I10 ; GERD (gastroesophageal reflux disease) K21.9 and Hyperlipidemia E78.5 [place] [address] [address] Nov, [place] [address] [address] Nov, Constipation, unspecified co nstipation type K59.00 ; Hyperlipidemia E78.5 ; Anxiety F41.9 ; Lumbago with sciatica, right side M54.41 ; BPH (benign prostatic hyperplasia) N40.0 ; 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 ; GERD (gastroesophageal reflux disease) K21.9 and Edema R60.9 [place] [address] [address] Nov, [address] [address] Nov, DJD (degenerative joint dise ase) M19.90 and Anxiety F41.9 [place] [address] [address] Oct, Onychomycosis B35.1 ; Type I diabetes mellitus with peripheral circulatory disorder E10.51 and Neuropathy G62.9 [place] [address] [address] [place] [id number] [address] [place] [phone] Oct, [place] [address] [address] Oct, DJD (degenerative joint dise ase) M19.90 ; Anxiety F41.9 and Lumbago with sciatica, right side M54.41 [place] [address] [address] September, DJD (degenerative joint dise ase) M19.90 [place] [address] [address] September, Lumbago with sciatica, right side M54.41 ; Anxiety F41.9 and DJD (degenerative joint disease) M19.90 [place] [address] [address] September, [place] [address] [address] Aug, Lumbago with sciatica, right side M54.41 ; Anxiety F41.9 and DJD (degenerative joint disease) M19.90 [place] [address] [address] Aug, 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 [place] [address] [address] Aug, 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 ; Constipation, unspecified constipation type K59.00 ; Hyperlipidemia E78.5 ; Anxiety F41.9 ; Lumbago with sciatica, right side M54.41 ; BPH (benign prostatic hyperplasia) N40.0 ; GERD (gastroesophageal reflux disease) K21.9 and Edema R60.9 [place] [address] [address] 13 Jul, 2016 Lumbago with sciatica, right side M54.41 ; Anxiety F41.9 and DJD (degenerative joint disease) M19.90 [place] [address] [address] 28 Jun, 2016 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 ; Anxiety F41.9 ; BPH (benign prostatic hyperplasia) N40.0 ; GERD (gastroesophageal reflux disease) K21.9 ; Hyperlipidemia E78.5 ; Lumbago with sciatica, right side M54.41 and Constipation, unspecified constipation type K59.00 [place] [address] [address] 15 Jun, 2016 DJD (degenerative joint dise ase) M19.90 and Anxiety F41.[address] [address] Jun, DJD (degenerative joint dise ase) M19.90 and Anxiety F41.9 [place] [address] [address] May, 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 ; Depression F32.9 ; GERD (gastroesophageal reflux disease) K21.9 ; Traumatic brain injury S06.9X9A ; Constipation, unspecified constipation type K59.00 ; DJD (degenerative joint disease) M19.90 ; Pure hypercholesterolemia E78.00 ; Benign nodular prostatic hyperplasia, presence of lower urinary tract symptoms unspecified N40.0 ; Neuropathy G62.9 and Anxiety F41.9 [place] [address] [address] May, DJD (degenerative joint dise ase) M19.90 and Anxiety F41.9 [place] [address] [address] Apr, Lumbago with sciatica, right side M54.41 and Low back pain M54.5 [facility] [place] [address] [place] [id number] [address] [place] [phone] Mar, [facility] [place] [address] [place] [id number] [place] [phone] Mar, [facility] [place] [address] [place] [id number] [address] [place] [phone] Mar, [facility] [place] [address] [place] [id number] [place] [phone] Mar, [facility] [place] [address] [place] [id number] [place] [address] Mar, Depression F32.9 ; Neuropath y G62.9 ; GERD (gastroesophageal reflux disease) K21.9 ; Edema R60.9 ; DJD (degenerative joint disease) M19.90 ; BPH (benign prostatic hyperplasia) N40.0 ; 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 ; Impacted cerumen of right ear H61.21 ; Anxiety F41.9 ; Constipation, unspecified constipation type K59.00 and Hyperlipidemia E78.5 [facility] [place] [address] [address] Feb, [facility] [place] [address] [place] [id number] [place] [address] Jan, [facility] [place] [address] [address] Dec, [facility] [place] [address] [place] [id number] [address] [place] [phone] Dec, [facility] [place] [address] [place] [id number] [address] [place] [phone] Dec, [facility] [place] [address] [place] [id number] [place] [address] Dec, [facility] [place] [address] [place] [id number] [address] [place] [phone] Dec, Depression F32.9 ; Anxiety F 41.9 ; Neuropathy G62.9 ; 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 ; GERD (gastroesophageal reflux disease) K21.9 ; Hyperlipidemia E78.5 ; Edema R60.9 ; DJD (degenerative joint disease) M19.90 ; Lumbago with sciatica, right side M54.41 ; Constipation, unspecified constipation type K59.00 and BPH (benign prostatic hyperplasia) N40.0 [place] [address] [address] Dec, [place] [address] [address] Oct, [place] [address] [address] Oct, Low back pain M54.5 [place] [address] [address] Oct, [place] [address] [address] September, 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 ; Depression F32.9 ; Anxiety F41.9 ; BPH (benign prostatic hyperplasia) N40.0 ; Hyperlipidemia E78.5 ; Traumatic brain injury S06.9X9A ; Lumbago with sciatica, right side M54.41 ; Low back pain M54.5 ; Gastroesophageal reflux disease with esophagitis K21.0 ; Generalized edema R60.1 and Constipation, unspecified constipation type K59.00 [place] [address] [address] Aug, Depression F32.9 ; Anxiety F 41.9 [...] SOCIAL HISTORY Never Assessed REASON FOR VISIT Routine nurse call PLAN OF CARE VITAL SIGNS MEDICATIONS [...]
--- OUTSIDE RECORDS SUMMARY | 2019-07-27 19:41 | XMS REPORT ---
Author Author Brenton VALIENTE Organization [facility] Address [address] [place] [address] Care Team Providers Care Cottrell Blower Name Role Phone LAURITA VALIENTE Unavailable PROBLEMS Type Condition ICD9-CM Code MAF98-ON Code Onset Dates Condition S tatus SNOMED Code Problem Lumbago with sciatica, right side M54.41 Active 826910834 Problem Traumatic brain injury S06.9X9A Active 912371832 Problem DJD (degenerative joint disease) M19.90 Active 831361829 Problem Chronic pain syndrome G89.4 Active 138640183 Problem Neck pain M54.2 Active 45147694 Problem Type 2 diabetes mellitus with other diabetic oph thalmic complication E11.39 Active 15471989012806 Problem BPH (benign prostatic hyperplasia) N40.0 Active 815088065 Problem Onychomycosis B35.1 Active 719706 008 Problem Benign nodular prostatic hyp erplasia, presence of lower urinary tract symptoms unspecified N40.0 Active 7901558 07 Problem Depression F32.9 Active 97085925 Problem GERD (gastroesophageal reflux disease) K21.9 Active 701330617 Problem Hyperlipidemia E78.5 Active 95407 004 Problem Anxiety F41.9 Active 43464433 Problem HTN (hypertension) I10 Active 3 5148701 Problem Low back pain M54.5 Active 568574 005 ALLERGIES No Known Allergies ENCOUNTERS Encounter Location Date Diagnosis [facility] [address] [facility] [id number] [address] [place] [id number] 04 Jan, 2018 DJD (degenerative joint dise ase) M19.90 and Anxiety F41.9 [facility] [address] [place] [id number] [address] [place] [address] 14 Dec, 2017 Neck pain M54.2 ; Left hand weakness R29.898 and Chronic pain syndrome G89.4 [facility] [address] [address] Dec, DJD (degenerative joint dise ase) M19.90 and Anxiety F41.9 [place] [address] [address] 03 Nov, 2017 DJD (degenerative joint dise ase) M19.90 and Anxiety F41.9 [place] [address] [address] 27 Oct, 2017 [place] [address] [address] 14 Oct, 2017 Chest pain, unspecified type R07.9 and Nevus D22.9 [place] [address] [address] Oct, [place] [address] [address] 13 Oct, 2017 DJD (degenerative joint dise ase) M19.90 ; Traumatic brain injury S06.9X9A ; Anxiety F41.9 ; Depression F32.9 ; BPH (benign prostatic hyperplasia) N40.0 ; HTN (hypertension) I10 ; GERD (gastroesophageal reflux disease) K21.9 ; Hyperlipidemia E78.5 ; 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 and Constipation, unspecified constipation type K59.00 [place] [address] [address] 11 Oct, 2017 DJD (degenerative joint dise ase) M19.90 ; Traumatic brain injury S06.9X9A ; Anxiety F41.9 ; Depression F32.9 ; BPH (benign prostatic hyperplasia) N40.0 and HTN (hypertension) I10 [place] [address] [address] 11 Oct, 2017 Neck pain M54.2 ; Fall, init ial encounter W19.XXXA and DJD (degenerative joint disease) M19.90 [place] [address] [address] Oct, DJD (degenerative joint dise ase) M19.90 ; Anxiety F41.9 ; Traumatic brain injury S06.9X9A ; Depression F32.9 ; BPH (benign prostatic hyperplasia) N40.0 ; HTN (hypertension) I10 ; GERD (gastroesophageal reflux disease) K21.9 ; Hyperlipidemia E78.5 ; 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 and Constipation, unspecified constipation type K59.00 [place] [address] [address] September, DJD (degenerative joint dise ase) M19.90 and Anxiety F41.9 [place] [address] [address] September, Anxiety F41.9 [place] [address] [place] [id number] [place] [address] September, Anxiety F41.9 and DJD (degen erative joint disease) M19.90 [place] [address] [place] [id number] [place] [address] Aug, Anxiety F41.9 and DJD (degen erative joint disease) M19.90 [place] [address] [place] [id number] [place] [address] Jul, [place] [address] [address] Jul, 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 ; Hyperlipidemia E78.5 and HTN (hypertension) I10 [place] [address] [place] [id number] [place] [address] Jul, Anxiety F41.9 and DJD (degen erative joint disease) M19.90 [place] [address] [place] [id number] [place] [address] Jun, Anxiety F41.9 and DJD (degen erative joint disease) M19.90 [place] [address] [place] [id number] [place] [address] May, Weight loss, non-intentional R63.4 [place] [id number] [address] May, DJD (degenerative joint dise ase) M19.90 [place] [address] [place] [id number] [place] [address] Apr, Anxiety F41.9 [place] [address] [address] Apr, Anxiety F41.9 and DJD (degen erative joint disease) M19.90 [place] [address] [address] Apr, DJD (degenerative joint dise ase) M19.90 ; Traumatic brain injury S06.9X9A ; 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 ; Anxiety F41.9 and Depression F32.9 [place] [address] [address] Mar, [place] [address] [address] Feb, DJD (degenerative joint dise ase) M19.90 ; Lumbago with sciatica, right side M54.41 and Anxiety F41.9 [facility] [address] [place] [id number] [place] [address] Feb, [facility] [address] [place] [id number] [place] [address] Jan, DJD (degenerative joint dise ase) M19.90 ; Anxiety F41.9 and Lumbago with sciatica, right side M54.41 [facility] [address] [place] [id number] [place] [address] Dec, Lumbago with sciatica, right side M54.41 [place] [address] [place] [id number] [place] [address] Dec, Anxiety F41.9 and Lumbago wi th sciatica, right side M54.41 [place] [address] [address] 07 Dec, 2016 DJD (degenerative joint dise ase) M19.90 [place] [address] [address] Dec, 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 ; Lumbago with sciatica, right side M54.41 ; Traumatic brain injury S06.9X9A ; DJD (degenerative joint disease) M19.90 ; Constipation, unspecified constipation type K59.00 ; Depression F32.9 ; Anxiety F41.9 ; BPH (benign prostatic hyperplasia) N40.0 ; HTN (hypertension) I10 ; GERD (gastroesophageal reflux disease) K21.9 and Hyperlipidemia E78.5 [place] [address] [address] Dec, DJD (degenerative joint dise ase) M19.90 ; Anxiety F41.9 ; Lumbago with sciatica, right side M54.41 ; Traumatic brain injury S06.9X9A ; Constipation, unspecified constipation type K59.00 ; Depression F32.9 ; BPH (benign prostatic hyperplasia) N40.0 ; 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 ; HTN (hypertension) I10 ; GERD (gastroesophageal reflux disease) K21.9 and Hyperlipidemia E78.5 [place] [address] [address] Nov, [place] [address] [address] Nov, Constipation, unspecified co nstipation type K59.00 ; Hyperlipidemia E78.5 ; Anxiety F41.9 ; Lumbago with sciatica, right side M54.41 ; BPH (benign prostatic hyperplasia) N40.0 ; 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 ; GERD (gastroesophageal reflux disease) K21.9 and Edema R60.9 [place] [address] [place] [address] Nov, [place] [id number] [facility] [id number] [address] [place] [address] Nov, DJD (degenerative joint dise ase) M19.90 and Anxiety F41.9 [place] [address] [place] [id number] [place] [address] Oct, Onychomycosis B35.1 ; Type I diabetes mellitus with peripheral circulatory disorder E10.51 and Neuropathy G62.9 [place] [address] [place] [id number] [place] [address] Oct, [place] [address] [place] [id number] [place] [address] Oct, DJD (degenerative joint dise ase) M19.90 ; Anxiety F41.9 and Lumbago with sciatica, right side M54.41 [place] [address] [place] [id number] [place] [address] September, DJD (degenerative joint dise ase) M19.90 [place] [address] [place] [id number] [place] [address] September, Lumbago with sciatica, right side M54.41 ; Anxiety F41.9 and DJD (degenerative joint disease) M19.90 [place] [address] [place] [id number] [place] [address] September, [place] [address] [place] [id number] [place] [address] Aug, Lumbago with sciatica, right side M54.41 ; Anxiety F41.9 and DJD (degenerative joint disease) M19.90 [place] [address] [place] [id number] [place] [address] Aug, 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 [place] [address] [place] [id number] [place] [address] Aug, 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 ; Constipation, unspecified constipation type K59.00 ; Hyperlipidemia E78.5 ; Anxiety F41.9 ; Lumbago with sciatica, right side M54.41 ; BPH (benign prostatic hyperplasia) N40.0 ; GERD (gastroesophageal reflux disease) K21.9 and Edema R60.[address] [address] Jul, Lumbago with sciatica, right side M54.41 ; Anxiety F41.9 and DJD (degenerative joint disease) M19.[address] [address] 28 Jun, 2016 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 ; Anxiety F41.9 ; BPH (benign prostatic hyperplasia) N40.0 ; GERD (gastroesophageal reflux disease) K21.9 ; Hyperlipidemia E78.5 ; Lumbago with sciatica, right side M54.41 and Constipation, unspecified constipation type K59.00 [place] [address] [address] 15 Jun, 2016 DJD (degenerative joint dise ase) M19.90 and Anxiety F41.[address] [address] 13 Jun, 2016 DJD (degenerative joint dise ase) M19.90 and Anxiety F41.[address] [address] May, 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 ; Depression F32.9 ; GERD (gastroesophageal reflux disease) K21.9 ; Traumatic brain injury S06.9X9A ; Constipation, unspecified constipation type K59.00 ; DJD (degenerative joint disease) M19.90 ; Pure hypercholesterolemia E78.00 ; Benign nodular prostatic hyperplasia, presence of lower urinary tract symptoms unspecified N40.0 ; Neuropathy G62.9 and Anxiety F41.9 [place] [id number] May, DJD (degenerative joint dise ase) M19.90 and Anxiety F41.9 [facility] [address] [address] Apr, Lumbago with sciatica, right side M54.41 and Low back pain M54.5 [place] [address] [address] Mar, [facility] [address] [place] [id number] [place] [address] Mar, [place] [address] [address] Mar, [place] [address] [address] Mar, [place] [address] [address] Mar, Depression F32.9 ; Neuropath y G62.9 ; GERD (gastroesophageal reflux disease) K21.9 ; Edema R60.9 ; DJD (degenerative joint disease) M19.90 ; BPH (benign prostatic hyperplasia) N40.0 ; 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 ; Impacted cerumen of right ear H61.21 ; Anxiety F41.9 ; Constipation, unspecified constipation type K59.00 and Hyperlipidemia E78.5 [facility] [address] [address] Feb, [facility] [address] [place] [id number] [place] [address] Jan, [place] [address] [address] Dec, [facility] [address] [place] [id number] [place] [address] Dec, [facility] [address] [address] Dec, [facility] [address] [address] Dec, [facility] [address] [address] Dec, Depression F32.9 ; Anxiety F 41.9 ; Neuropathy G62.9 ; 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 ; GERD (gastroesophageal reflux disease) K21.9 ; Hyperlipidemia E78.5 ; Edema R60.9 ; DJD (degenerative joint disease) M19.90 ; Lumbago with sciatica, right side M54.41 ; Constipation, unspecified constipation type K59.00 and BPH (benign prostatic hyperplasia) N40.0 [place] [address] [address] Dec, [place] [address] [address] Oct, [place] [address] [address] Oct, Low back pain M54.5 [place] [address] [address] Oct, [place] [address] [address] September, 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 ; Depression F32.9 ; Anxiety F41.9 ; BPH (benign prostatic hyperplasia) N40.0 ; Hyperlipidemia E78.5 ; Traumatic brain injury S06.9X9A ; Lumbago with sciatica, right side M54.41 ; Low back pain M54.5 ; Gastroesophageal reflux disease with esophagitis K21.0 ; Generalized edema R60.1 and Constipation, unspecified constipation type K59.00 [facility] [address] [address] Aug, Depression F32.9 ; Anxiety F 41.9 [...] SOCIAL HISTORY Never Assessed REASON FOR VISIT Pain management (chronic) -- juan c lara PLAN OF CARE Activity Details Follow Up 3 Months with Jeremias for chronic specialist mil[facility] pain mangement Reason: VITAL SIGNS Height 68 in 2017-12-19 Weight 184.0 lbs 2017-12-19 Temperature 97.8 degrees Fahrenheit 2017-12-19 Heart Rate 86 bpm 2017-12-19 Respiratory Rate 22 2017-12-19 BMI 27.97 kg/m2 2017-12-19 Blood pressure systolic 110 mmHg 2017-12-19 Blood pressure diastolic 70 mmHg 2017-12-19 MEDICATIONS Medication Instructions Dosage Frequency Start Date End Date Duration S tatus GlipiZIDE 5 mg Orally twice a day 1 tablet 12h Nov, 90 days Active Risperdal 4 MG Orally Once a day at hs 1/2 tablet 90 days Active Morphine Sulfate ER 60 mg Orally every 12 hrs 1 tablet 12h 2017 28 days Active Docusate Sodium 100 mg Orally 2 times a day 1 capsule 12h 90 days Active BuPROPion HCl 75 MG Orally 2 times a day 2 capsules 12h 09 Mar, 2016 90 days Active Prazosin HCl 2 MG Orally Once a day at hs 2 capsules 90 days Active Hydrochlorothiazide 25 MG Orally Once a day 1 tablet 24h 90 days Active Klonopin 1 MG Orally Twice a day 1 tablet 12h 28 day s Active Neurontin 300 MG Orally 4 times a day 2 capsules 6h 90 days Active Lipitor 40 mg Orally Once a day 1 tablet 24h Jul, 90 days Active Omeprazole 20 mg Orally Once a day 2 capsules 24h 90 days Active Morphine Sulfate 15 mg Orally 2 times a day 1 tablet as needed 12h Dec, 28 days Active Metformin HCl 500 mg Orally 3 times a day 1 tablet with meals 8h 90 days Active Effexor XR 75 MG Orally Once a day 3 capsules 24h 90 days Active Lopid 600 MG Orally Twice a day 1/2 tablet 12h ys Active Metoprolol Tartrate 25 MG Orally Twice a day 1/2 tablet 12h 05 A , 2016 90 days Active RESULTS No Results PROCEDURES [...]
--- OUTSIDE RECORDS SUMMARY | 2019-07-27 19:41 | XMS REPORT ---
Author Author Brenton VALIENTE Organization [facility] Address [address] [place] [address] Care Team Providers Care Data Modeling Architect Name Role Phone LAURITA VALIENTE Unavailable PROBLEMS Type Condition ICD9-CM Code [id number] Code Onset Dates Condition S tatus SNOMED Code Problem Lumbago with sciatica, right side M54.41 Active 924638671 Problem Traumatic brain injury S06.9X9A Active 080147817 Problem DJD (degenerative joint disease) M19.90 Active 093999233 Problem Chronic pain syndrome G89.4 Active 091881046 Problem Neck pain M54.2 Active 32483336 Problem Type 2 diabetes mellitus with other diabetic oph thalmic complication E11.39 Active 98316195623007 Problem BPH (benign prostatic hyperplasia) N40.0 Active 492478948 Problem Onychomycosis B35.1 Active 138380 008 Problem Benign nodular prostatic hyp erplasia, presence of lower urinary tract symptoms unspecified N40.0 Active 2173219 07 Problem Depression F32.9 Active 91176064 Problem GERD (gastroesophageal reflux disease) K21.9 Active 829647354 Problem Hyperlipidemia E78.5 Active 54895 004 Problem Anxiety F41.9 Active 57065171 Problem HTN (hypertension) I10 Active 3 4880412 Problem Low back pain M54.5 Active 805714 005 ALLERGIES No Information ENCOUNTERS Encounter Location Date Diagnosis [facility] [address] [facility] [id number] [address] [place] [address] 04 Jan, 2018 DJD (degenerative joint dise ase) M19.90 and Anxiety F41.9 [facility] [address] [facility] [id number] [address] [place] [address] 14 Dec, 2017 Neck pain M54.2 ; Left hand weakness R29.898 and Chronic pain syndrome G89.4 [facility] [address] [address] Dec, DJD (degenerative joint dise ase) M19.90 and Anxiety F41.9 [place] [address] [address] Nov, DJD (degenerative joint dise ase) M19.90 and Anxiety F41.9 [place] [address] [address] 27 Oct, 2017 [place] [address] [address] 14 Oct, 2017 Chest pain, unspecified type R07.9 and Nevus D22.[address] [address] Oct, [place] [address] [address] 13 Oct, 2017 DJD (degenerative joint dise ase) M19.90 ; Traumatic brain injury S06.9X9A ; Anxiety F41.9 ; Depression F32.9 ; BPH (benign prostatic hyperplasia) N40.0 ; HTN (hypertension) I10 ; GERD (gastroesophageal reflux disease) K21.9 ; Hyperlipidemia E78.5 ; 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 and Constipation, unspecified constipation type K59.00 [place] [address] [address] 11 Oct, 2017 DJD (degenerative joint dise ase) M19.90 ; Traumatic brain injury S06.9X9A ; Anxiety F41.9 ; Depression F32.9 ; BPH (benign prostatic hyperplasia) N40.0 and HTN (hypertension) I10 [address] [address] 11 Oct, 2017 Neck pain M54.2 ; Fall, init ial encounter W19.XXXA and DJD (degenerative joint disease) M19.90 [place] [address] [address] Oct, DJD (degenerative joint dise ase) M19.90 ; Anxiety F41.9 ; Traumatic brain injury S06.9X9A ; Depression F32.9 ; BPH (benign prostatic hyperplasia) N40.0 ; HTN (hypertension) I10 ; GERD (gastroesophageal reflux disease) K21.9 ; Hyperlipidemia E78.5 ; 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 and Constipation, unspecified constipation type K59.00 [place] [address] [address] September, DJD (degenerative joint dise ase) M19.90 and Anxiety F41.9 [place] [address] [address] September, Anxiety F41.9 [place] [address] [place] [id number] [place] [address] September, Anxiety F41.9 and DJD (degen erative joint disease) M19.90 [place] [address] [place] [id number] [place] [address] Aug, Anxiety F41.9 and DJD (degen erative joint disease) M19.90 [place] [address] [place] [id number] [place] [address] Jul, [place] [address] [address] Jul, 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 ; Hyperlipidemia E78.5 and HTN (hypertension) I10 [place] [address] [place] [id number] [place] [address] Jul, Anxiety F41.9 and DJD (degen erative joint disease) M19.90 [place] [address] [place] [id number] [place] [address] Jun, Anxiety F41.9 and DJD (degen erative joint disease) M19.90 [place] [address] [place] [id number] [place] [address] May, Weight loss, non-intentional R63.4 [place] [address] [address] May, DJD (degenerative joint dise ase) M19.90 [place] [address] [place] [id number] [place] [address] Apr, Anxiety F41.9 [place] [address] [place] [id number] [place] [address] Apr, Anxiety F41.9 and DJD (degen erative joint disease) M19.90 [place] [address] [address] Apr, DJD (degenerative joint dise ase) M19.90 ; Traumatic brain injury S06.9X9A ; 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 ; Anxiety F41.9 and Depression F32.9 [place] [address] [address] Mar, [place] [address] [place] [id number] [place] [address] Feb, DJD (degenerative joint dise ase) M19.90 ; Lumbago with sciatica, right side M54.41 and Anxiety F41.9 [facility] [address] [place] [id number] [place] [address] Feb, [facility] [address] [place] [id number] [place] [address] Jan, DJD (degenerative joint dise ase) M19.90 ; Anxiety F41.9 and Lumbago with sciatica, right side M54.41 [place] [address] [place] [id number] [place] [address] Dec, Lumbago with sciatica, right side M54.41 [place] [address] [place] [id number] [place] [address] Dec, Anxiety F41.9 and Lumbago wi th sciatica, right side M54.41 [place] [address] [address] 07 Dec, 2016 DJD (degenerative joint dise ase) M19.90 [place] [address] [address] Dec, 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 ; Lumbago with sciatica, right side M54.41 ; Traumatic brain injury S06.9X9A ; DJD (degenerative joint disease) M19.90 ; Constipation, unspecified constipation type K59.00 ; Depression F32.9 ; Anxiety F41.9 ; BPH (benign prostatic hyperplasia) N40.0 ; HTN (hypertension) I10 ; GERD (gastroesophageal reflux disease) K21.9 and Hyperlipidemia E78.5 [place] [address] [address] Dec, DJD (degenerative joint dise ase) M19.90 ; Anxiety F41.9 ; Lumbago with sciatica, right side M54.41 ; Traumatic brain injury S06.9X9A ; Constipation, unspecified constipation type K59.00 ; Depression F32.9 ; BPH (benign prostatic hyperplasia) N40.0 ; 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 ; HTN (hypertension) I10 ; GERD (gastroesophageal reflux disease) K21.9 and Hyperlipidemia E78.5 [place] [address] [address] Nov, [place] [address] [address] Nov, Constipation, unspecified co nstipation type K59.00 ; Hyperlipidemia E78.5 ; Anxiety F41.9 ; Lumbago with sciatica, right side M54.41 ; BPH (benign prostatic hyperplasia) N40.0 ; 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 ; GERD (gastroesophageal reflux disease) K21.9 and Edema R60.9 [place] [address] [place] [address] Nov, [place] [address] [facility] [id number] [address] [place] [address] Nov, DJD (degenerative joint dise ase) M19.90 and Anxiety F41.9 [place] [address] [place] [id number] [place] [address] Oct, Onychomycosis B35.1 ; Type I diabetes mellitus with peripheral circulatory disorder E10.51 and Neuropathy G62.9 [place] [address] [place] [id number] [place] [address] Oct, [place] [address] [place] [id number] [place] [address] Oct, DJD (degenerative joint dise ase) M19.90 ; Anxiety F41.9 and Lumbago with sciatica, right side M54.41 [place] [address] [place] [id number] [place] [address] September, DJD (degenerative joint dise ase) M19.90 [place] [address] [place] [id number] [place] [address] September, Lumbago with sciatica, right side M54.41 ; Anxiety F41.9 and DJD (degenerative joint disease) M19.90 [place] [address] [place] [id number] [place] [address] September, [place] [address] [place] [id number] [place] [address] Aug, Lumbago with sciatica, right side M54.41 ; Anxiety F41.9 and DJD (degenerative joint disease) M19.90 [place] [address] [place] [id number] [place] [address] Aug, 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 [place] [address] [place] [id number] [place] [address] Aug, 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 ; Constipation, unspecified constipation type K59.00 ; Hyperlipidemia E78.5 ; Anxiety F41.9 ; Lumbago with sciatica, right side M54.41 ; BPH (benign prostatic hyperplasia) N40.0 ; GERD (gastroesophageal reflux disease) K21.9 and Edema R60.[address] [address] Jul, Lumbago with sciatica, right side M54.41 ; Anxiety F41.9 and DJD (degenerative joint disease) M19.[address] [address] 28 Jun, 2016 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 ; Anxiety F41.9 ; BPH (benign prostatic hyperplasia) N40.0 ; GERD (gastroesophageal reflux disease) K21.9 ; Hyperlipidemia E78.5 ; Lumbago with sciatica, right side M54.41 and Constipation, unspecified constipation type K59.[address] [address] 15 Jun, 2016 DJD (degenerative joint dise ase) M19.90 and Anxiety F41.[address] [address] 13 Jun, 2016 DJD (degenerative joint dise ase) M19.90 and Anxiety F41.[address] [address] May, 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 ; Depression F32.9 ; GERD (gastroesophageal reflux disease) K21.9 ; Traumatic brain injury S06.9X9A ; Constipation, unspecified constipation type K59.00 ; DJD (degenerative joint disease) M19.90 ; Pure hypercholesterolemia E78.00 ; Benign nodular prostatic hyperplasia, presence of lower urinary tract symptoms unspecified N40.0 ; Neuropathy G62.9 and Anxiety F41.[address] [address] May, DJD (degenerative joint dise ase) M19.90 and Anxiety F41.9 [facility] [address] [place] [id number] [place] [address] Apr, Lumbago with sciatica, right side M54.41 and Low back pain M54.5 [facility] [address] [address] Mar, [facility] [address] [place] [id number] [place] [address] Mar, [facility] [address] [address] Mar, [facility] [address] [place] [id number] [place] [address] Mar, [place] [address] [address] Mar, Depression F32.9 ; Neuropath y G62.9 ; GERD (gastroesophageal reflux disease) K21.9 ; Edema R60.9 ; DJD (degenerative joint disease) M19.90 ; BPH (benign prostatic hyperplasia) N40.0 ; 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 ; Impacted cerumen of right ear H61.21 ; Anxiety F41.9 ; Constipation, unspecified constipation type K59.00 and Hyperlipidemia E78.5 [facility] [address] [place] [id number] [place] [address] Feb, [facility] [address] [place] [id number] [place] [address] Jan, [facility] [address] [address] Dec, [facility] [address] [place] [id number] [place] [address] Dec, [facility] [address] [address] Dec, [facility] [address] [place] [id number] [place] [address] Dec, [facility] [address] [address] Dec, Depression F32.9 ; Anxiety F 41.9 ; Neuropathy G62.9 ; 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 ; GERD (gastroesophageal reflux disease) K21.9 ; Hyperlipidemia E78.5 ; Edema R60.9 ; DJD (degenerative joint disease) M19.90 ; Lumbago with sciatica, right side M54.41 ; Constipation, unspecified constipation type K59.00 and BPH (benign prostatic hyperplasia) N40.0 [place] [address] [address] Dec, [place] [address] [address] Oct, [place] [address] [address] Oct, Low back pain M54.5 [place] [address] [address] Oct, [place] [address] [address] September, 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 ; Depression F32.9 ; Anxiety F41.9 ; BPH (benign prostatic hyperplasia) N40.0 ; Hyperlipidemia E78.5 ; Traumatic brain injury S06.9X9A ; Lumbago with sciatica, right side M54.41 ; Low back pain M54.5 ; Gastroesophageal reflux disease with esophagitis K21.0 ; Generalized edema R60.1 and Constipation, unspecified constipation type K59.00 [facility] [address] [address] Aug, Depression F32.9 ; Anxiety F 41.9 [...] Never Assessed REASON FOR VISIT Controlled Medication Refill PLAN OF CARE VITAL SIGNS MEDICATIONS Medication Instructions Dosage Frequency Start Date End Date Duration S tatus Morphine Sulfate 15 mg Orally 2 times a day 1 tablet as needed 12h Dec, 28 days Active Morphine Sulfate ER 60 mg Orally every 12 hrs 1 tablet 12h 2017 28 days Active Klonopin 1 MG [...]
--- OUTSIDE RECORDS SUMMARY | 2019-07-27 19:41 | XMS REPORT ---
Author Author Brenton VALIENTE Organization [facility] Address [address] [place] [address] Care Team Providers Care Sinter Feeder Name Role Phone LAURITA VALIENTE Unavailable PROBLEMS Type Condition ICD9-CM Code [id number] Code Onset Dates Condition S tatus SNOMED Code Problem Lumbago with sciatica, right side M54.41 Active 327828625 Problem Traumatic brain injury S06.9X9A Active 495232534 Problem DJD (degenerative joint disease) M19.90 Active 451872747 Problem Chronic pain syndrome G89.4 Active 077315167 Problem Neck pain M54.2 Active 27538144 Problem Type 2 diabetes mellitus with other diabetic oph thalmic complication E11.39 Active 96917049504017 Problem BPH (benign prostatic hyperplasia) N40.0 Active 877609679 Problem Onychomycosis B35.1 Active 172851 008 Problem Benign nodular prostatic hyp erplasia, presence of lower urinary tract symptoms unspecified N40.0 Active 1995667 07 Problem Depression F32.9 Active 69675807 Problem GERD (gastroesophageal reflux disease) K21.9 Active 552543806 Problem Hyperlipidemia E78.5 Active 73767 004 Problem Anxiety F41.9 Active 37525410 Problem HTN (hypertension) I10 Active 3 7923002 Problem Low back pain M54.5 Active 024861 005 ALLERGIES No Information ENCOUNTERS Encounter Location Date Diagnosis [facility] [address] [facility] [id number] [address] [place] [id number] Dec, Neck pain M54.2 ; Left hand weakness R29.898 and Chronic pain syndrome G89.4 [facility] [address] [facility] [id number] [address] [place] [address] Dec, DJD (degenerative joint dise ase) M19.90 and Anxiety F41.9 [facility] [address] [address] 03 Nov, 2017 DJD (degenerative joint dise ase) M19.90 and Anxiety F41.9 [place] [address] [address] 27 Oct, 2017 [place] [address] [address] 14 Oct, 2017 Chest pain, unspecified type R07.9 and Nevus D22.9 [place] [address] [address] 14 Oct, 2017 [place] [address] [address] 13 Oct, 2017 DJD (degenerative joint dise ase) M19.90 ; Traumatic brain injury S06.9X9A ; Anxiety F41.9 ; Depression F32.9 ; BPH (benign prostatic hyperplasia) N40.0 ; HTN (hypertension) I10 ; GERD (gastroesophageal reflux disease) K21.9 ; Hyperlipidemia E78.5 ; 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 and Constipation, unspecified constipation type K59.00 [place] [address] [address] 11 Oct, 2017 DJD (degenerative joint dise ase) M19.90 ; Traumatic brain injury S06.9X9A ; Anxiety F41.9 ; Depression F32.9 ; BPH (benign prostatic hyperplasia) N40.0 and HTN (hypertension) I10 [place] [address] [address] 11 Oct, 2017 Neck pain M54.2 ; Fall, init ial encounter W19.XXXA and DJD (degenerative joint disease) M19.90 [place] [address] [address] 07 Oct, 2017 DJD (degenerative joint dise ase) M19.90 ; Anxiety F41.9 ; Traumatic brain injury S06.9X9A ; Depression F32.9 ; BPH (benign prostatic hyperplasia) N40.0 ; HTN (hypertension) I10 ; GERD (gastroesophageal reflux disease) K21.9 ; Hyperlipidemia E78.5 ; 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 and Constipation, unspecified constipation type K59.00 [place] [address] [place] [id number] [place] [address] September, DJD (degenerative joint dise ase) M19.90 and Anxiety F41.9 [place] [address] [place] [id number] [place] [address] September, Anxiety F41.9 [place] [address] [place] [id number] [place] [address] September, Anxiety F41.9 and DJD (degen erative joint disease) M19.90 [place] [address] [place] [id number] [place] [address] Aug, Anxiety F41.9 and DJD (degen erative joint disease) M19.90 [place] [address] [address] Jul, [place] [address] [address] Jul, 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 ; Hyperlipidemia E78.5 and HTN (hypertension) I10 [place] [address] [place] [id number] [place] [address] Jul, Anxiety F41.9 and DJD (degen erative joint disease) M19.90 [place] [address] [place] [id number] [place] [address] Jun, Anxiety F41.9 and DJD (degen erative joint disease) M19.90 [place] [address] [place] [id number] [place] [address] May, Weight loss, non-intentional R63.4 [place] [address] [place] [id number] [place] [address] May, DJD (degenerative joint dise ase) M19.90 [facility] [address] [facility] [id number] [address] [place] [address] Apr, Anxiety F41.9 [facility] [address] [facility] [id number] [address] [place] [address] Apr, Anxiety F41.9 and DJD (degen erative joint disease) M19.90 [facility] [address] [place] [id number] [place] [address] Apr, DJD (degenerative joint dise ase) M19.90 ; Traumatic brain injury S06.9X9A ; 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 ; Anxiety F41.9 and Depression F32.9 [facility] [address] [place] [id number] [place] [phone] Mar, [facility] [address] [place] [id number] [place] [address] Feb, DJD (degenerative joint dise ase) M19.90 ; Lumbago with sciatica, right side M54.41 and Anxiety F41.9 [facility] [address] [place] [id number] [place] [address] Feb, [facility] [address] [facility] [id number] [address] [place] [address] Jan, DJD (degenerative joint dise ase) M19.90 ; Anxiety F41.9 and Lumbago with sciatica, right side M54.41 [facility] [address] [facility] [id number] [address] [place] [address] Dec, Lumbago with sciatica, right side M54.41 [facility] [address] [facility] [id number] [address] [place] [address] Dec, Anxiety F41.9 and Lumbago wi th sciatica, right side M54.41 [facility] [address] [place] [id number] [place] [address] Dec, DJD (degenerative joint dise ase) M19.90 [facility] [address] [place] [id number] [address] [place] [address] Dec, 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 ; Lumbago with sciatica, right side M54.41 ; Traumatic brain injury S06.9X9A ; DJD (degenerative joint disease) M19.90 ; Constipation, unspecified constipation type K59.00 ; Depression F32.9 ; Anxiety F41.9 ; BPH (benign prostatic hyperplasia) N40.0 ; HTN (hypertension) I10 ; GERD (gastroesophageal reflux disease) K21.9 and Hyperlipidemia E78.5 [place] [address] [address] Dec, DJD (degenerative joint dise ase) M19.90 ; Anxiety F41.9 ; Lumbago with sciatica, right side M54.41 ; Traumatic brain injury S06.9X9A ; Constipation, unspecified constipation type K59.00 ; Depression F32.9 ; BPH (benign prostatic hyperplasia) N40.0 ; 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 ; HTN (hypertension) I10 ; GERD (gastroesophageal reflux disease) K21.9 and Hyperlipidemia E78.5 [place] [address] [place] [id number] [place] [address] Nov, [place] [address] [place] [id number] [place] [address] Nov, Constipation, unspecified co nstipation type K59.00 ; Hyperlipidemia E78.5 ; Anxiety F41.9 ; Lumbago with sciatica, right side M54.41 ; BPH (benign prostatic hyperplasia) N40.0 ; 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 ; GERD (gastroesophageal reflux disease) K21.9 and Edema R60.9 [facility] [address] [place] [id number] [address] [place] [address] Nov, [place] [id number] [address] Nov, DJD (degenerative joint dise ase) M19.90 and Anxiety F41.9 [place] [address] [facility] [id number] [address] [place] [address] Oct, Onychomycosis B35.1 ; Type I diabetes mellitus with peripheral circulatory disorder E10.51 and Neuropathy G62.9 [place] [address] [place] [id number] [place] [address] Oct, [place] [address] [place] [id number] [place] [address] Oct, DJD (degenerative joint dise ase) M19.90 ; Anxiety F41.9 and Lumbago with sciatica, right side M54.41 [place] [address] [place] [id number] [place] [address] September, DJD (degenerative joint dise ase) M19.90 [place] [address] [place] [id number] [place] [address] September, Lumbago with sciatica, right side M54.41 ; Anxiety F41.9 and DJD (degenerative joint disease) M19.90 [place] [address] [place] [id number] [place] [address] September, [place] [address] [place] [id number] [place] [address] Aug, Lumbago with sciatica, right side M54.41 ; Anxiety F41.9 and DJD (degenerative joint disease) M19.90 [place] [address] [facility] [id number] [address] [place] [address] Aug, 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 [place] [address] [place] [id number] [place] [address] Aug, 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 ; Constipation, unspecified constipation type K59.00 ; Hyperlipidemia E78.5 ; Anxiety F41.9 ; Lumbago with sciatica, right side M54.41 ; BPH (benign prostatic hyperplasia) N40.0 ; GERD (gastroesophageal reflux disease) K21.9 and Edema R60.9 [place] [address] [place] [id number] Jul, Lumbago with sciatica, right side M54.41 ; Anxiety F41.9 and DJD (degenerative joint disease) M19.90 [place] [address] [place] [id number] 28 Jun, 2016 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 ; Anxiety F41.9 ; BPH (benign prostatic hyperplasia) N40.0 ; GERD (gastroesophageal reflux disease) K21.9 ; Hyperlipidemia E78.5 ; Lumbago with sciatica, right side M54.41 and Constipation, unspecified constipation type K59.[address] [address] 15 Jun, 2016 DJD (degenerative joint dise ase) M19.90 and Anxiety F41.[address] [address] Jun, DJD (degenerative joint dise ase) M19.90 and Anxiety F41.9 [place] [address] [address] May, 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 ; Depression F32.9 ; GERD (gastroesophageal reflux disease) K21.9 ; Traumatic brain injury S06.9X9A ; Constipation, unspecified constipation type K59.00 ; DJD (degenerative joint disease) M19.90 ; Pure hypercholesterolemia E78.00 ; Benign nodular prostatic hyperplasia, presence of lower urinary tract symptoms unspecified N40.0 ; Neuropathy G62.9 and Anxiety F41.9 [place] [address] [address] May, DJD (degenerative joint dise ase) M19.90 and Anxiety F41.[address] [address] Apr, Lumbago with sciatica, right side M54.41 and Low back pain M54.5 [facility] [address] [place] [id number] [place] [phone] Mar, [facility] [address] [place] [id number] [place] [phone] Mar, [facility] [address] [address] Mar, [facility] [address] [place] [id number] [place] [phone] Mar, [facility] [address] [address] Mar, Depression F32.9 ; Neuropath y G62.9 ; GERD (gastroesophageal reflux disease) K21.9 ; Edema R60.9 ; DJD (degenerative joint disease) M19.90 ; BPH (benign prostatic hyperplasia) N40.0 ; 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 ; Impacted cerumen of right ear H61.21 ; Anxiety F41.9 ; Constipation, unspecified constipation type K59.00 and Hyperlipidemia E78.5 [facility] [address] [place] [id number] [address] [place] [phone] Feb, [facility] [address] [place] [id number] [place] [phone] Jan, [facility] [address] [place] [id number] [place] [phone] Dec, [facility] [address] [place] [id number] [place] [phone] Dec, [facility] [address] [place] [id number] [place] [phone] Dec, [facility] [address] [place] [id number] [place] [address] Dec, [facility] [address] [address] Dec, Depression F32.9 ; Anxiety F 41.9 ; Neuropathy G62.9 ; 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 ; GERD (gastroesophageal reflux disease) K21.9 ; Hyperlipidemia E78.5 ; Edema R60.9 ; DJD (degenerative joint disease) M19.90 ; Lumbago with sciatica, right side M54.41 ; Constipation, unspecified constipation type K59.00 and BPH (benign prostatic hyperplasia) N40.0 [facility] [address] [address] Dec, [facility] [address] [address] Oct, [place] [address] [address] Oct, Low back pain M54.5 [place] [address] [address] Oct, [facility] [address] [address] September, 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 ; Depression F32.9 ; Anxiety F41.9 ; BPH (benign prostatic hyperplasia) N40.0 ; Hyperlipidemia E78.5 ; Traumatic brain injury S06.9X9A ; Lumbago with sciatica, right side M54.41 ; Low back pain M54.5 ; Gastroesophageal reflux disease with esophagitis K21.0 ; Generalized edema R60.1 and Constipation, unspecified constipation type K59.00 [facility] [address] [address] Aug, Depression F32.9 ; Anxiety F 41.9 [...] VISIT PLAN OF CARE VITAL SIGNS MEDICATIONS No Known Medications RESULTS No Results PROCEDURES No Known [...]
--- OUTSIDE RECORDS SUMMARY | 2019-07-27 19:41 | XMS REPORT ---
Author Author Brenton VALIENTE Organization [facility] Address [address] [place] [address] Care Team Providers Care Log Check Scaler Name Role Phone LAURITA VALIENTE Unavailable PROBLEMS Type Condition ICD9-CM Code [id number] Code Onset Dates Condition S tatus SNOMED Code Problem Lumbago with sciatica, right side M54.41 Active 332665558 Problem Traumatic brain injury S06.9X9A Active 397785509 Problem DJD (degenerative joint disease) M19.90 Active 678509524 Problem Chronic pain syndrome G89.4 Active 173917825 Problem Neck pain M54.2 Active 01908562 Problem Type 2 diabetes mellitus with other diabetic oph thalmic complication E11.39 Active 48809199451185 Problem BPH (benign prostatic hyperplasia) N40.0 Active 361760861 Problem Onychomycosis B35.1 Active 138507 008 Problem Benign nodular prostatic hyp erplasia, presence of lower urinary tract symptoms unspecified N40.0 Active 3372270 07 Problem Depression F32.9 Active 00154638 Problem GERD (gastroesophageal reflux disease) K21.9 Active 915260184 Problem Hyperlipidemia E78.5 Active 68108 004 Problem Anxiety F41.9 Active 69838637 Problem HTN (hypertension) I10 Active 3 8085467 Problem Low back pain M54.5 Active 899455 005 ALLERGIES No Known Allergies ENCOUNTERS Encounter Location Date Diagnosis [facility] [address] [facility] [id number] [address] [place] [id number] 04 Jan, 2018 DJD (degenerative joint dise ase) M19.90 and Anxiety F41.9 [facility] [address] [place] [id number] [address] [place] [id number] 14 Dec, 2017 Neck pain M54.2 ; Left hand weakness R29.898 and Chronic pain syndrome G89.4 [facility] [address] [address] Dec, DJD (degenerative joint dise ase) M19.90 and Anxiety F41.9 [place] [address] [address] 03 Nov, 2017 DJD (degenerative joint dise ase) M19.90 and Anxiety F41.9 [place] [address] [address] 27 Oct, 2017 [place] [address] [address] 14 Oct, 2017 Chest pain, unspecified type R07.9 and Nevus D22.9 [place] [address] [address] Oct, [place] [address] [address] 13 Oct, 2017 DJD (degenerative joint dise ase) M19.90 ; Traumatic brain injury S06.9X9A ; Anxiety F41.9 ; Depression F32.9 ; BPH (benign prostatic hyperplasia) N40.0 ; HTN (hypertension) I10 ; GERD (gastroesophageal reflux disease) K21.9 ; Hyperlipidemia E78.5 ; 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 and Constipation, unspecified constipation type K59.00 [place] [address] [address] 11 Oct, 2017 DJD (degenerative joint dise ase) M19.90 ; Traumatic brain injury S06.9X9A ; Anxiety F41.9 ; Depression F32.9 ; BPH (benign prostatic hyperplasia) N40.0 and HTN (hypertension) I10 [place] [address] [address] 11 Oct, 2017 Neck pain M54.2 ; Fall, init ial encounter W19.XXXA and DJD (degenerative joint disease) M19.90 [place] [address] [address] Oct, DJD (degenerative joint dise ase) M19.90 ; Anxiety F41.9 ; Traumatic brain injury S06.9X9A ; Depression F32.9 ; BPH (benign prostatic hyperplasia) N40.0 ; HTN (hypertension) I10 ; GERD (gastroesophageal reflux disease) K21.9 ; Hyperlipidemia E78.5 ; 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 and Constipation, unspecified constipation type K59.00 [place] [address] [address] September, DJD (degenerative joint dise ase) M19.90 and Anxiety F41.9 [place] [address] [address] September, Anxiety F41.9 [place] [address] [place] [id number] [place] [address] September, Anxiety F41.9 and DJD (degen erative joint disease) M19.90 [place] [address] [place] [id number] [place] [address] Aug, Anxiety F41.9 and DJD (degen erative joint disease) M19.90 [place] [address] [place] [id number] [place] [address] Jul, [place] [address] [address] Jul, 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 ; Hyperlipidemia E78.5 and HTN (hypertension) I10 [place] [address] [place] [id number] [address] [place] [address] Jul, Anxiety F41.9 and DJD (degen erative joint disease) M19.90 [place] [address] [place] [id number] [place] [address] Jun, Anxiety F41.9 and DJD (degen erative joint disease) M19.90 [place] [address] [place] [id number] [place] [address] May, Weight loss, non-intentional R63.4 [place] [address] [address] May, DJD (degenerative joint dise ase) M19.90 [place] [address] [place] [id number] [place] [address] Apr, Anxiety F41.9 [place] [address] [address] Apr, Anxiety F41.9 and DJD (degen erative joint disease) M19.90 [place] [address] [address] Apr, DJD (degenerative joint dise ase) M19.90 ; Traumatic brain injury S06.9X9A ; 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 ; Anxiety F41.9 and Depression F32.9 [place] [address] [address] Mar, [place] [address] [address] Feb, DJD (degenerative joint dise ase) M19.90 ; Lumbago with sciatica, right side M54.41 and Anxiety F41.9 [facility] [address] [place] [id number] [place] [phone] Feb, [facility] [address] [place] [id number] [place] [address] Jan, DJD (degenerative joint dise ase) M19.90 ; Anxiety F41.9 and Lumbago with sciatica, right side M54.41 [facility] [address] [place] [id number] [place] [address] Dec, Lumbago with sciatica, right side M54.41 [place] [address] [place] [id number] [place] [address] Dec, Anxiety F41.9 and Lumbago wi th sciatica, right side M54.41 [place] [address] [address] 07 Dec, 2016 DJD (degenerative joint dise ase) M19.90 [place] [address] [address] Dec, 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 ; Lumbago with sciatica, right side M54.41 ; Traumatic brain injury S06.9X9A ; DJD (degenerative joint disease) M19.90 ; Constipation, unspecified constipation type K59.00 ; Depression F32.9 ; Anxiety F41.9 ; BPH (benign prostatic hyperplasia) N40.0 ; HTN (hypertension) I10 ; GERD (gastroesophageal reflux disease) K21.9 and Hyperlipidemia E78.5 [place] [address] [address] Dec, DJD (degenerative joint dise ase) M19.90 ; Anxiety F41.9 ; Lumbago with sciatica, right side M54.41 ; Traumatic brain injury S06.9X9A ; Constipation, unspecified constipation type K59.00 ; Depression F32.9 ; BPH (benign prostatic hyperplasia) N40.0 ; 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 ; HTN (hypertension) I10 ; GERD (gastroesophageal reflux disease) K21.9 and Hyperlipidemia E78.5 [place] [address] [address] Nov, [place] [address] [address] Nov, Constipation, unspecified co nstipation type K59.00 ; Hyperlipidemia E78.5 ; Anxiety F41.9 ; Lumbago with sciatica, right side M54.41 ; BPH (benign prostatic hyperplasia) N40.0 ; 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 ; GERD (gastroesophageal reflux disease) K21.9 and Edema R60.9 [place] [address] [place] [address] Nov, [place] [address] [facility] [id number] [address] [place] [address] Nov, DJD (degenerative joint dise ase) M19.90 and Anxiety F41.9 [place] [address] [place] [id number] [place] [phone] Oct, Onychomycosis B35.1 ; Type I diabetes mellitus with peripheral circulatory disorder E10.51 and Neuropathy G62.9 [place] [address] [place] [id number] [place] [phone] Oct, [place] [address] [place] [id number] [place] [address] Oct, DJD (degenerative joint dise ase) M19.90 ; Anxiety F41.9 and Lumbago with sciatica, right side M54.41 [place] [address] [place] [id number] [place] [address] September, DJD (degenerative joint dise ase) M19.90 [place] [address] [place] [id number] [place] [phone] September, Lumbago with sciatica, right side M54.41 ; Anxiety F41.9 and DJD (degenerative joint disease) M19.90 [place] [address] [place] [id number] [place] [address] September, [place] [address] [place] [id number] [place] [address] Aug, Lumbago with sciatica, right side M54.41 ; Anxiety F41.9 and DJD (degenerative joint disease) M19.90 [place] [address] [place] [id number] [place] [address] Aug, 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 [place] [address] [place] [id number] [place] [address] Aug, 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 ; Constipation, unspecified constipation type K59.00 ; Hyperlipidemia E78.5 ; Anxiety F41.9 ; Lumbago with sciatica, right side M54.41 ; BPH (benign prostatic hyperplasia) N40.0 ; GERD (gastroesophageal reflux disease) K21.9 and Edema R60.[address] [address] Jul, Lumbago with sciatica, right side M54.41 ; Anxiety F41.9 and DJD (degenerative joint disease) M19.[address] [address] 28 Jun, 2016 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 ; Anxiety F41.9 ; BPH (benign prostatic hyperplasia) N40.0 ; GERD (gastroesophageal reflux disease) K21.9 ; Hyperlipidemia E78.5 ; Lumbago with sciatica, right side M54.41 and Constipation, unspecified constipation type K59.00 [place] [address] [address] 15 Jun, 2016 DJD (degenerative joint dise ase) M19.90 and Anxiety F41.[address] [address] 13 Jun, 2016 DJD (degenerative joint dise ase) M19.90 and Anxiety F41.[address] [address] May, 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 ; Depression F32.9 ; GERD (gastroesophageal reflux disease) K21.9 ; Traumatic brain injury S06.9X9A ; Constipation, unspecified constipation type K59.00 ; DJD (degenerative joint disease) M19.90 ; Pure hypercholesterolemia E78.00 ; Benign nodular prostatic hyperplasia, presence of lower urinary tract symptoms unspecified N40.0 ; Neuropathy G62.9 and Anxiety F41.9 [place] [phone] May, DJD (degenerative joint dise ase) M19.90 and Anxiety F41.9 [facility] [address] [address] Apr, Lumbago with sciatica, right side M54.41 and Low back pain M54.5 [place] [address] [address] Mar, [facility] [address] [place] [id number] [place] [address] Mar, [place] [address] [address] Mar, [place] [address] [address] Mar, [place] [address] [address] Mar, Depression F32.9 ; Neuropath y G62.9 ; GERD (gastroesophageal reflux disease) K21.9 ; Edema R60.9 ; DJD (degenerative joint disease) M19.90 ; BPH (benign prostatic hyperplasia) N40.0 ; 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 ; Impacted cerumen of right ear H61.21 ; Anxiety F41.9 ; Constipation, unspecified constipation type K59.00 and Hyperlipidemia E78.5 [facility] [address] [address] Feb, [facility] [address] [place] [id number] [place] [address] Jan, [place] [address] [address] Dec, [facility] [address] [place] [id number] [place] [phone] Dec, [facility] [address] [address] Dec, [facility] [address] [address] Dec, [facility] [address] [address] Dec, Depression F32.9 ; Anxiety F 41.9 ; Neuropathy G62.9 ; 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 ; GERD (gastroesophageal reflux disease) K21.9 ; Hyperlipidemia E78.5 ; Edema R60.9 ; DJD (degenerative joint disease) M19.90 ; Lumbago with sciatica, right side M54.41 ; Constipation, unspecified constipation type K59.00 and BPH (benign prostatic hyperplasia) N40.0 [place] [address] [address] Dec, [place] [address] [address] Oct, [place] [address] [address] Oct, Low back pain M54.5 [place] [address] [address] Oct, [place] [address] [address] September, 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 ; Depression F32.9 ; Anxiety F41.9 ; BPH (benign prostatic hyperplasia) N40.0 ; Hyperlipidemia E78.5 ; Traumatic brain injury S06.9X9A ; Lumbago with sciatica, right side M54.41 ; Low back pain M54.5 ; Gastroesophageal reflux disease with esophagitis K21.0 ; Generalized edema R60.1 and Constipation, unspecified constipation type K59.00 [facility] [address] [address] Aug, Depression F32.9 ; Anxiety F 41.9 [...] SOCIAL HISTORY Never Assessed REASON FOR VISIT spot on penis-mini,,[place], pt think he has a spider on his penis thinks its a br own recluse, last night having chest pain PLAN OF CARE Activity Details Follow Up 4 Weeks with Jeremias jefferson appt Reason: VITAL SIGNS Height 68 in 2017-10-19 Weight 180.7 lbs 2017-10-19 Temperature 98.4 degrees Fahrenheit 2017-10-19 Heart Rate 92 bpm 2017-10-19 Respiratory Rate 20 2017-10-19 BMI 27.47 kg/m2 2017-10-19 Blood pressure systolic 104 mmHg 2017-10-19 Blood pressure diastolic 74 mmHg 2017-10-19 MEDICATIONS Medication Instructions Dosage Frequency Start Date End Date Duration S tatus Klonopin 1 MG Orally Twice a day 1 tablet 12h 28 day s Active Metoprolol Tartrate 25 MG Orally Twice a day 1/2 tablet 12h 05 2016 90 days Active Lipitor 40 mg Orally Once a day 1 tablet 24h 26 Jul, 2017 90 days Active Neurontin 300 MG Orally 4 times a day 2 capsules 6h 90 days Active BuPROPion HCl 75 MG Orally 2 times a day 2 capsules 12h 09 Mar, 2016 90 days Active Docusate Sodium 100 mg Orally 2 times a day 1 capsule 12h 90 days Active Lopid 600 MG Orally Twice a day 1/2 tablet 12h 90 da ys Active Effexor XR 75 MG Orally Once a day 3 capsules 24h 90 days Active Prazosin HCl 2 MG Orally Once a day at hs 2 capsules 90 days Active Hydrochlorothiazide 25 MG Orally Once a day 1 tablet 24h 90 days Active Omeprazole 20 mg Orally Once a day 2 capsules 24h 90 days Active Risperdal 4 MG Orally Once a day at hs 1/2 tablet 90 days Active Morphine Sulfate 15 mg Orally 2 times a day 1 tablet as needed 12h September, 28 days Active GlipiZIDE 5 mg Orally twice a day 1 tablet 12h 13 Nov, 2016 90 days Active Morphine Sulfate ER 60 mg Orally every 12 hrs 1 tablet 12h 30 M 2017 28 days Active Metformin HCl 500 mg Orally 3 times a day 1 tablet with meals 8h 90 days Active RESULTS No Results PROCEDURES Procedure Date Ordered Result Body Site EKG, TRACING (IN-HOUSE) 2017-10-19 Normal ELECTROCARDIOGRAM, TRACING October 19, 2017 INSTRUCTIONS MEDICATIONS ADMINISTERED No Known Medications MEDICAL [...]
--- OUTSIDE RECORDS SUMMARY | 2019-07-27 19:41 | XMS REPORT ---
Author Author Brenton VALIENTE Organization [facility] Address [address] [place] [address] Care Team Providers Care Integrity Manager Name Role Phone LAURITA VALIENTE Unavailable PROBLEMS Type Condition ICD9-CM Code LBY63-DK Code Onset Dates Condition S tatus SNOMED Code Problem Lumbago with sciatica, right side M54.41 Active 474116098 Problem Traumatic brain injury S06.9X9A Active 935620459 Problem DJD (degenerative joint disease) M19.90 Active 028818442 Problem Chronic pain syndrome G89.4 Active 131193849 Problem Neck pain M54.2 Active 26486939 Problem Type 2 diabetes mellitus with other diabetic oph thalmic complication E11.39 Active 26869764218187 Problem BPH (benign prostatic hyperplasia) N40.0 Active 867068601 Problem Onychomycosis B35.1 Active 515345 008 Problem Benign nodular prostatic hyp erplasia, presence of lower urinary tract symptoms unspecified N40.0 Active 6837745 07 Problem Depression F32.9 Active 00307693 Problem GERD (gastroesophageal reflux disease) K21.9 Active 000252889 Problem Hyperlipidemia E78.5 Active 70952 004 Problem Anxiety F41.9 Active 38039708 Problem HTN (hypertension) I10 Active 3 0110313 Problem Low back pain M54.5 Active 948535 005 ALLERGIES No Information ENCOUNTERS Encounter Location Date Diagnosis [facility] [address] [facility] [id number] [address] [place] [address] Dec, Neck pain M54.2 ; Left hand weakness R29.898 and Chronic pain syndrome G89.4 [facility] [address] [facility] [id number] [address] [place] [address] Dec, DJD (degenerative joint dise ase) M19.90 and Anxiety F41.9 [facility] [address] [address] 03 Nov, 2017 DJD (degenerative joint dise ase) M19.90 and Anxiety F41.9 [place] [address] [address] 27 Oct, 2017 [place] [address] [address] 14 Oct, 2017 Chest pain, unspecified type R07.9 and Nevus D22.9 [place] [address] [address] 14 Oct, 2017 [place] [address] [address] 13 Oct, 2017 DJD (degenerative joint dise ase) M19.90 ; Traumatic brain injury S06.9X9A ; Anxiety F41.9 ; Depression F32.9 ; BPH (benign prostatic hyperplasia) N40.0 ; HTN (hypertension) I10 ; GERD (gastroesophageal reflux disease) K21.9 ; Hyperlipidemia E78.5 ; 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 and Constipation, unspecified constipation type K59.00 [place] [address] [address] 11 Oct, 2017 DJD (degenerative joint dise ase) M19.90 ; Traumatic brain injury S06.9X9A ; Anxiety F41.9 ; Depression F32.9 ; BPH (benign prostatic hyperplasia) N40.0 and HTN (hypertension) I10 [place] [address] [address] 11 Oct, 2017 Neck pain M54.2 ; Fall, init ial encounter W19.XXXA and DJD (degenerative joint disease) M19.90 [place] [address] [address] 07 Oct, 2017 DJD (degenerative joint dise ase) M19.90 ; Anxiety F41.9 ; Traumatic brain injury S06.9X9A ; Depression F32.9 ; BPH (benign prostatic hyperplasia) N40.0 ; HTN (hypertension) I10 ; GERD (gastroesophageal reflux disease) K21.9 ; Hyperlipidemia E78.5 ; 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 and Constipation, unspecified constipation type K59.00 [place] [address] [place] [id number] [place] [address] September, DJD (degenerative joint dise ase) M19.90 and Anxiety F41.9 [place] [address] [place] [id number] [place] [address] September, Anxiety F41.9 [place] [address] [place] [id number] [place] [address] September, Anxiety F41.9 and DJD (degen erative joint disease) M19.90 [place] [address] [place] [id number] [place] [address] Aug, Anxiety F41.9 and DJD (degen erative joint disease) M19.90 [place] [address] [address] Jul, [place] [address] [address] Jul, 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 ; Hyperlipidemia E78.5 and HTN (hypertension) I10 [place] [address] [place] [id number] [place] [address] Jul, Anxiety F41.9 and DJD (degen erative joint disease) M19.90 [place] [address] [place] [id number] [place] [address] Jun, Anxiety F41.9 and DJD (degen erative joint disease) M19.90 [place] [address] [place] [id number] [place] [address] May, Weight loss, non-intentional R63.4 [place] [address] [place] [id number] [place] [address] May, DJD (degenerative joint dise ase) M19.90 [facility] [address] [facility] [id number] [address] [place] [address] Apr, Anxiety F41.9 [facility] [address] [facility] [id number] [address] [place] [address] Apr, Anxiety F41.9 and DJD (degen erative joint disease) M19.90 [facility] [address] [place] [id number] [place] [address] Apr, DJD (degenerative joint dise ase) M19.90 ; Traumatic brain injury S06.9X9A ; 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 ; Anxiety F41.9 and Depression F32.9 [facility] [address] [place] [id number] [place] [address] Mar, [facility] [address] [place] [id number] [place] [address] Feb, DJD (degenerative joint dise ase) M19.90 ; Lumbago with sciatica, right side M54.41 and Anxiety F41.9 [facility] [address] [place] [id number] [place] [address] Feb, [facility] [address] [facility] [id number] [address] [place] [address] Jan, DJD (degenerative joint dise ase) M19.90 ; Anxiety F41.9 and Lumbago with sciatica, right side M54.41 [facility] [address] [facility] [id number] [address] [place] [address] Dec, Lumbago with sciatica, right side M54.41 [facility] [address] [facility] [id number] [address] [place] [address] Dec, Anxiety F41.9 and Lumbago wi th sciatica, right side M54.41 [facility] [address] [place] [id number] [place] [address] Dec, DJD (degenerative joint dise ase) M19.90 [facility] [address] [place] [id number] [place] [address] Dec, 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 ; Lumbago with sciatica, right side M54.41 ; Traumatic brain injury S06.9X9A ; DJD (degenerative joint disease) M19.90 ; Constipation, unspecified constipation type K59.00 ; Depression F32.9 ; Anxiety F41.9 ; BPH (benign prostatic hyperplasia) N40.0 ; HTN (hypertension) I10 ; GERD (gastroesophageal reflux disease) K21.9 and Hyperlipidemia E78.5 [place] [address] [address] Dec, DJD (degenerative joint dise ase) M19.90 ; Anxiety F41.9 ; Lumbago with sciatica, right side M54.41 ; Traumatic brain injury S06.9X9A ; Constipation, unspecified constipation type K59.00 ; Depression F32.9 ; BPH (benign prostatic hyperplasia) N40.0 ; 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 ; HTN (hypertension) I10 ; GERD (gastroesophageal reflux disease) K21.9 and Hyperlipidemia E78.5 [place] [address] [place] [id number] [place] [address] Nov, [place] [address] [place] [id number] [place] [address] Nov, Constipation, unspecified co nstipation type K59.00 ; Hyperlipidemia E78.5 ; Anxiety F41.9 ; Lumbago with sciatica, right side M54.41 ; BPH (benign prostatic hyperplasia) N40.0 ; 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 ; GERD (gastroesophageal reflux disease) K21.9 and Edema R60.9 [facility] [address] [place] [id number] [place] [address] Nov, [place] [address] [address] Nov, DJD (degenerative joint dise ase) M19.90 and Anxiety F41.9 [place] [address] [facility] [id number] [address] [place] [address] Oct, Onychomycosis B35.1 ; Type I diabetes mellitus with peripheral circulatory disorder E10.51 and Neuropathy G62.9 [place] [address] [place] [id number] [place] [address] Oct, [place] [address] [place] [id number] [place] [address] Oct, DJD (degenerative joint dise ase) M19.90 ; Anxiety F41.9 and Lumbago with sciatica, right side M54.41 [place] [address] [place] [id number] [place] [address] September, DJD (degenerative joint dise ase) M19.90 [place] [address] [place] [id number] [place] [address] September, Lumbago with sciatica, right side M54.41 ; Anxiety F41.9 and DJD (degenerative joint disease) M19.90 [place] [address] [place] [id number] [place] [address] September, [place] [address] [place] [id number] [place] [address] Aug, Lumbago with sciatica, right side M54.41 ; Anxiety F41.9 and DJD (degenerative joint disease) M19.90 [place] [address] [facility] [id number] [address] [place] [address] Aug, 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 [place] [address] [place] [id number] [place] [address] Aug, 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 ; Constipation, unspecified constipation type K59.00 ; Hyperlipidemia E78.5 ; Anxiety F41.9 ; Lumbago with sciatica, right side M54.41 ; BPH (benign prostatic hyperplasia) N40.0 ; GERD (gastroesophageal reflux disease) K21.9 and Edema R60.9 [place] [address] [place] [id number] Jul, Lumbago with sciatica, right side M54.41 ; Anxiety F41.9 and DJD (degenerative joint disease) M19.90 [place] [address] [place] [id number] 28 Jun, 2016 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 ; Anxiety F41.9 ; BPH (benign prostatic hyperplasia) N40.0 ; GERD (gastroesophageal reflux disease) K21.9 ; Hyperlipidemia E78.5 ; Lumbago with sciatica, right side M54.41 and Constipation, unspecified constipation type K59.[address] [address] 15 Jun, 2016 DJD (degenerative joint dise ase) M19.90 and Anxiety F41.[address] [address] Jun, DJD (degenerative joint dise ase) M19.90 and Anxiety F41.9 [place] [address] [address] May, 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 ; Depression F32.9 ; GERD (gastroesophageal reflux disease) K21.9 ; Traumatic brain injury S06.9X9A ; Constipation, unspecified constipation type K59.00 ; DJD (degenerative joint disease) M19.90 ; Pure hypercholesterolemia E78.00 ; Benign nodular prostatic hyperplasia, presence of lower urinary tract symptoms unspecified N40.0 ; Neuropathy G62.9 and Anxiety F41.9 [place] [address] [address] May, DJD (degenerative joint dise ase) M19.90 and Anxiety F41.[address] [address] Apr, Lumbago with sciatica, right side M54.41 and Low back pain M54.5 [facility] [address] [place] [id number] [place] [address] Mar, [facility] [address] [place] [id number] [place] [phone] Mar, [facility] [address] [address] Mar, [facility] [address] [place] [id number] [place] [address] Mar, [facility] [address] [address] Mar, Depression F32.9 ; Neuropath y G62.9 ; GERD (gastroesophageal reflux disease) K21.9 ; Edema R60.9 ; DJD (degenerative joint disease) M19.90 ; BPH (benign prostatic hyperplasia) N40.0 ; 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 ; Impacted cerumen of right ear H61.21 ; Anxiety F41.9 ; Constipation, unspecified constipation type K59.00 and Hyperlipidemia E78.5 [facility] [address] [place] [id number] [place] [address] Feb, [facility] [address] [place] [id number] [place] [address] Jan, [facility] [address] [place] [id number] [place] [address] Dec, [facility] [address] [place] [id number] [place] [address] Dec, [facility] [address] [place] [id number] [place] [address] Dec, [facility] [address] [place] [id number] [place] [address] Dec, [facility] [address] [address] Dec, Depression F32.9 ; Anxiety F 41.9 ; Neuropathy G62.9 ; 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 ; GERD (gastroesophageal reflux disease) K21.9 ; Hyperlipidemia E78.5 ; Edema R60.9 ; DJD (degenerative joint disease) M19.90 ; Lumbago with sciatica, right side M54.41 ; Constipation, unspecified constipation type K59.00 and BPH (benign prostatic hyperplasia) N40.0 [facility] [address] [address] Dec, [facility] [address] [address] Oct, [place] [address] [address] Oct, Low back pain M54.5 [place] [address] [address] Oct, [facility] [address] [address] September, 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 ; Depression F32.9 ; Anxiety F41.9 ; BPH (benign prostatic hyperplasia) N40.0 ; Hyperlipidemia E78.5 ; Traumatic brain injury S06.9X9A ; Lumbago with sciatica, right side M54.41 ; Low back pain M54.5 ; Gastroesophageal reflux disease with esophagitis K21.0 ; Generalized edema R60.1 and Constipation, unspecified constipation type K59.00 [facility] [address] [address] Aug, Depression F32.9 ; Anxiety F 41.9 [...] 1 tablet 12h 2017 28 days Active Morphine Sulfate 15 mg Orally 2 times a day 1 tablet as needed 12h Nov, 28 days Active Klonopin 1 MG Orally [...]
--- OUTSIDE RECORDS SUMMARY | 2019-07-27 19:41 | XMS REPORT ---
Author Author Brenton VALIENTE Organization [facility] Address [address] [place] [address] Care Team Providers Care Broke Handler Name Role Phone LAURITA VALIENTE Unavailable PROBLEMS Type Condition ICD9-CM Code XMV22-XV Code Onset Dates Condition S tatus SNOMED Code Problem Lumbago with sciatica, right side M54.41 Active 848751446 Problem Traumatic brain injury S06.9X9A Active 367509411 Problem DJD (degenerative joint disease) M19.90 Active 866590180 Problem Chronic pain syndrome G89.4 Active 895878950 Problem Neck pain M54.2 Active 47168112 Problem Type 2 diabetes mellitus with other diabetic oph thalmic complication E11.39 Active [id number] Problem BPH (benign prostatic hyperplasia) N40.0 Active 180622732 Problem Onychomycosis B35.1 Active 330314 008 Problem Benign nodular prostatic hyp erplasia, presence of lower urinary tract symptoms unspecified N40.0 Active 3162913 07 Problem Depression F32.9 Active 45796683 Problem GERD (gastroesophageal reflux disease) K21.9 Active 157784592 Problem Hyperlipidemia E78.5 Active 32325 004 Problem Anxiety F41.9 Active 90533695 Problem HTN (hypertension) I10 Active 3 6254186 Problem Low back pain M54.5 Active 723880 005 ALLERGIES No Information ENCOUNTERS Encounter Location Date Diagnosis [facility] [address] [facility] [id number] [address] [place] [address] Dec, Neck pain M54.2 ; Left hand weakness R29.898 and Chronic pain syndrome G89.4 [facility] [address] [facility] [id number] [address] [place] [address] Dec, DJD (degenerative joint dise ase) M19.90 and Anxiety F41.9 [facility] [address] [address] 03 Nov, 2017 DJD (degenerative joint dise ase) M19.90 and Anxiety F41.9 [place] [address] [address] 27 Oct, 2017 [place] [address] [address] 14 Oct, 2017 Chest pain, unspecified type R07.9 and Nevus D22.9 [place] [address] [address] 14 Oct, 2017 [place] [address] [address] 13 Oct, 2017 DJD (degenerative joint dise ase) M19.90 ; Traumatic brain injury S06.9X9A ; Anxiety F41.9 ; Depression F32.9 ; BPH (benign prostatic hyperplasia) N40.0 ; HTN (hypertension) I10 ; GERD (gastroesophageal reflux disease) K21.9 ; Hyperlipidemia E78.5 ; 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 and Constipation, unspecified constipation type K59.00 [place] [address] [address] 11 Oct, 2017 DJD (degenerative joint dise ase) M19.90 ; Traumatic brain injury S06.9X9A ; Anxiety F41.9 ; Depression F32.9 ; BPH (benign prostatic hyperplasia) N40.0 and HTN (hypertension) I10 [place] [address] [address] 11 Oct, 2017 Neck pain M54.2 ; Fall, init ial encounter W19.XXXA and DJD (degenerative joint disease) M19.90 [place] [address] [address] 07 Oct, 2017 DJD (degenerative joint dise ase) M19.90 ; Anxiety F41.9 ; Traumatic brain injury S06.9X9A ; Depression F32.9 ; BPH (benign prostatic hyperplasia) N40.0 ; HTN (hypertension) I10 ; GERD (gastroesophageal reflux disease) K21.9 ; Hyperlipidemia E78.5 ; 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 and Constipation, unspecified constipation type K59.00 [place] [address] [place] [id number] [place] [phone] September, DJD (degenerative joint dise ase) M19.90 and Anxiety F41.9 [place] [address] [place] [id number] [place] [address] September, Anxiety F41.9 [place] [address] [place] [id number] [place] [address] September, Anxiety F41.9 and DJD (degen erative joint disease) M19.90 [place] [address] [place] [id number] [place] [phone] Aug, Anxiety F41.9 and DJD (degen erative joint disease) M19.90 [place] [address] [address] Jul, [place] [address] [address] Jul, 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 ; Hyperlipidemia E78.5 and HTN (hypertension) I10 [place] [address] [place] [id number] [place] [address] Jul, Anxiety F41.9 and DJD (degen erative joint disease) M19.90 [place] [address] [place] [id number] [place] [address] Jun, Anxiety F41.9 and DJD (degen erative joint disease) M19.90 [place] [address] [place] [id number] [place] [address] May, Weight loss, non-intentional R63.4 [place] [address] [place] [id number] [place] [address] May, DJD (degenerative joint dise ase) M19.90 [facility] [address] [facility] [id number] [address] [place] [address] Apr, Anxiety F41.9 [facility] [address] [facility] [id number] [address] [place] [address] Apr, Anxiety F41.9 and DJD (degen erative joint disease) M19.90 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 [address] [place] [id number] [place] [address] Mar, [facility] [address] [place] [id number] [place] [address] Feb, DJD (degenerative joint dise ase) M19.90 ; Lumbago with sciatica, right side M54.41 and Anxiety F41.9 [facility] [address] [place] [id number] [place] [phone] Feb, [facility] [address] [facility] [id number] [address] [place] [address] Jan, DJD (degenerative joint dise ase) M19.90 ; Anxiety F41.9 and Lumbago with sciatica, right side M54.41 [facility] [address] [facility] [id number] [address] [place] [address] Dec, Lumbago with sciatica, right side M54.41 [facility] [address] [facility] [id number] [address] [place] [address] Dec, Anxiety F41.9 and Lumbago wi th sciatica, right side M54.41 [facility] [address] [place] [id number] [place] [address] Dec, DJD (degenerative joint dise ase) M19.90 [facility] [address] [place] [id number] [address] [place] [address] Dec, 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 ; Lumbago with sciatica, right side M54.41 ; Traumatic brain injury S06.9X9A ; DJD (degenerative joint disease) M19.90 ; Constipation, unspecified constipation type K59.00 ; Depression F32.9 ; Anxiety F41.9 ; BPH (benign prostatic hyperplasia) N40.0 ; HTN (hypertension) I10 ; GERD (gastroesophageal reflux disease) K21.9 and Hyperlipidemia E78.5 [place] [address] [address] Dec, DJD (degenerative joint dise ase) M19.90 ; Anxiety F41.9 ; Lumbago with sciatica, right side M54.41 ; Traumatic brain injury S06.9X9A ; Constipation, unspecified constipation type K59.00 ; Depression F32.9 ; BPH (benign prostatic hyperplasia) N40.0 ; 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 [address] [place] [id number] [address] [place] [address] Nov, [place] [address] [address] Nov, DJD (degenerative joint dise ase) M19.90 and Anxiety F41.9 [place] [address] [facility] [id number] [address] [place] [address] Oct, Onychomycosis B35.1 ; Type I diabetes mellitus with peripheral circulatory disorder E10.51 and Neuropathy G62.9 [place] [address] [place] [id number] [place] [address] Oct, [place] [address] [place] [id number] [place] [address] Oct, DJD (degenerative joint dise ase) M19.90 ; Anxiety F41.9 and Lumbago with sciatica, right side M54.41 [place] [address] [place] [id number] [place] [address] September, DJD (degenerative joint dise ase) M19.90 [place] [address] [place] [id number] [place] [address] September, Lumbago with sciatica, right side M54.41 ; Anxiety F41.9 and DJD (degenerative joint disease) M19.90 [place] [address] [place] [id number] [place] [address] September, [place] [address] [place] [id number] [place] [phone] Aug, Lumbago with sciatica, right side M54.41 ; Anxiety F41.9 and DJD (degenerative joint disease) M19.90 [place] [address] [facility] [id number] [address] [place] [address] Aug, 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 [place] [address] [place] [id number] [place] [address] Aug, 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 ; Constipation, unspecified constipation type K59.00 ; Hyperlipidemia E78.5 ; Anxiety F41.9 ; Lumbago with sciatica, right side M54.41 ; BPH (benign prostatic hyperplasia) N40.0 ; GERD (gastroesophageal reflux disease) K21.9 and Edema R60.9 [place] [address] [place] [id number] Jul, Lumbago with sciatica, right side M54.41 ; Anxiety F41.9 and DJD (degenerative joint disease) M19.90 [place] [address] [place] [id number] 28 Jun, 2016 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 ; Anxiety F41.9 ; BPH (benign prostatic hyperplasia) N40.0 ; GERD (gastroesophageal reflux disease) K21.9 ; Hyperlipidemia E78.5 ; Lumbago with sciatica, right side M54.41 and Constipation, unspecified constipation type K59.[address] [address] 15 Jun, 2016 DJD (degenerative joint dise ase) M19.90 and Anxiety F41.[address] [address] Jun, DJD (degenerative joint dise ase) M19.90 and Anxiety F41.9 [place] [address] [address] May, 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 ; Depression F32.9 ; GERD (gastroesophageal reflux disease) K21.9 ; Traumatic brain injury S06.9X9A ; Constipation, unspecified constipation type K59.00 ; DJD (degenerative joint disease) M19.90 ; Pure hypercholesterolemia E78.00 ; Benign nodular prostatic hyperplasia, presence of lower urinary tract symptoms unspecified N40.0 ; Neuropathy G62.9 and Anxiety F41.9 [place] [address] [address] May, DJD (degenerative joint dise ase) M19.90 and Anxiety F41.[address] [address] Apr, Lumbago with sciatica, right side M54.41 and Low back pain M54.5 [facility] [address] [place] [id number] [place] [address] Mar, [facility] [address] [place] [id number] [place] [address] Mar, [facility] [address] [address] Mar, [facility] [address] [place] [id number] [place] [phone] Mar, 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 [address] [place] [id number] [address] [place] [address] Feb, [facility] [address] [place] [id number] [place] [address] Jan, [facility] [address] [place] [id number] [place] [address] Dec, [facility] [address] [place] [id number] [place] [address] Dec, [facility] [address] [place] [id number] [place] [address] Dec, [facility] [address] [place] [id number] [place] [address] Dec, 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 [address] [address] Dec, [facility] [address] [address] Oct, [place] [address] [address] Oct, Low back pain M54.5 [place] [address] [address] Oct, [facility] [address] [address] September, 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 ; Depression F32.9 ; Anxiety F41.9 ; BPH (benign prostatic hyperplasia) N40.0 ; Hyperlipidemia E78.5 ; Traumatic brain injury S06.9X9A ; Lumbago with sciatica, right side M54.41 ; Low back pain M54.5 ; Gastroesophageal reflux disease with esophagitis K21.0 ; Generalized edema R60.1 and Constipation, unspecified constipation type K59.00 [facility] [address] [address] Aug, Depression F32.9 ; Anxiety F 41.9 [...] call PLAN OF CARE VITAL SIGNS MEDICATIONS No [...]
--- OUTSIDE RECORDS SUMMARY | 2019-07-27 19:42 | XMS REPORT ---
Author Author Brenton VALIENTE Organization [facility] Address [address] [place] [address] Care Team Providers Care [employer]ist Name Role Phone LAURITA VALIENTE Unavailable PROBLEMS Type Condition ICD9-CM Code CNP42-RF Code Onset Dates Condition S tatus SNOMED Code Problem Lumbago with sciatica, right side M54.41 Active 539991922 Problem Traumatic brain injury S06.9X9A Active 982626270 Problem DJD (degenerative joint disease) M19.90 Active 715233841 Problem Chronic pain syndrome G89.4 Active 686651375 Problem Neck pain M54.2 Active 27392210 Problem Type 2 diabetes mellitus with other diabetic oph thalmic complication E11.39 Active [id number] Problem BPH (benign prostatic hyperplasia) N40.0 Active 810965693 Problem Onychomycosis B35.1 Active 091026 008 Problem Benign nodular prostatic hyp erplasia, presence of lower urinary tract symptoms unspecified N40.0 Active 0134277 07 Problem Depression F32.9 Active 40086844 Problem GERD (gastroesophageal reflux disease) K21.9 Active 856185400 Problem Hyperlipidemia E78.5 Active 44303 004 Problem Anxiety F41.9 Active 58646765 Problem HTN (hypertension) I10 Active 3 4932385 Problem Low back pain M54.5 Active 291669 005 ALLERGIES No Known Allergies ENCOUNTERS Encounter Location Date Diagnosis [facility] [address] [facility] [id number] [address] [place] [address] Dec, Neck pain M54.2 ; Left hand weakness R29.898 and Chronic pain syndrome G89.4 [facility] [address] [facility] [id number] [address] [place] [address] Dec, DJD (degenerative joint dise ase) M19.90 and Anxiety F41.9 [facility] [place] [address] [address] 03 Nov, 2017 DJD (degenerative joint dise ase) M19.90 and Anxiety F41.9 [place] [address] [address] 27 Oct, 2017 [place] [address] [address] 14 Oct, 2017 Chest pain, unspecified type R07.9 and Nevus D22.9 [place] [address] [address] 14 Oct, 2017 [place] [address] [address] 13 Oct, 2017 DJD (degenerative joint dise ase) M19.90 ; Traumatic brain injury S06.9X9A ; Anxiety F41.9 ; Depression F32.9 ; BPH (benign prostatic hyperplasia) N40.0 ; HTN (hypertension) I10 ; GERD (gastroesophageal reflux disease) K21.9 ; Hyperlipidemia E78.5 ; 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 and Constipation, unspecified constipation type K59.00 [place] [address] [address] 11 Oct, 2017 DJD (degenerative joint dise ase) M19.90 ; Traumatic brain injury S06.9X9A ; Anxiety F41.9 ; Depression F32.9 ; BPH (benign prostatic hyperplasia) N40.0 and HTN (hypertension) I10 [place] [address] [address] 11 Oct, 2017 Neck pain M54.2 ; Fall, init ial encounter W19.XXXA and DJD (degenerative joint disease) M19.90 [place] [address] [address] 07 Oct, 2017 DJD (degenerative joint dise ase) M19.90 ; Anxiety F41.9 ; Traumatic brain injury S06.9X9A ; Depression F32.9 ; BPH (benign prostatic hyperplasia) N40.0 ; HTN (hypertension) I10 ; GERD (gastroesophageal reflux disease) K21.9 ; Hyperlipidemia E78.5 ; 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 and Constipation, unspecified constipation type K59.00 [place] [address] [place] [id number] [place] [phone] September, DJD (degenerative joint dise ase) M19.90 and Anxiety F41.9 [place] [address] [place] [id number] [place] [address] September, Anxiety F41.9 [place] [address] [place] [id number] [place] [address] September, Anxiety F41.9 and DJD (degen erative joint disease) M19.90 [place] [address] [place] [id number] [place] [address] Aug, Anxiety F41.9 and DJD (degen erative joint disease) M19.90 [place] [address] [place] [id number] [place] [id number] Jul, [place] [address] [place] [id number] [place] [address] Jul, 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 ; Hyperlipidemia E78.5 and HTN (hypertension) I10 [place] [address] [place] [id number] [place] [address] Jul, Anxiety F41.9 and DJD (degen erative joint disease) M19.90 [place] [address] [place] [id number] [place] [address] Jun, Anxiety F41.9 and DJD (degen erative joint disease) M19.90 [place] [address] [place] [id number] [place] [address] May, Weight loss, non-intentional R63.4 [place] [address] [place] [id number] [place] [id number] May, DJD (degenerative joint dise ase) M19.90 [facility] [place] [address] [place] [id number] [place] [address] Apr, Anxiety F41.9 [facility] [place] [address] [place] [id number] [place] [address] Apr, Anxiety F41.9 and DJD (degen erative joint disease) M19.90 [facility] [address] [place] [id number] [place] [id number] Apr, DJD (degenerative joint dise ase) M19.90 ; Traumatic brain injury S06.9X9A ; 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 ; Anxiety F41.9 and Depression F32.9 [facility] [address] [place] [id number] [place] [id number] Mar, [facility] [address] [address] Feb, DJD (degenerative joint dise ase) M19.90 ; Lumbago with sciatica, right side M54.41 and Anxiety F41.9 [facility] [address] [address] Feb, [facility] [address] [place] [id number] [place] [address] Jan, DJD (degenerative joint dise ase) M19.90 ; Anxiety F41.9 and Lumbago with sciatica, right side M54.41 [facility] [address] [place] [id number] [place] [address] Dec, Lumbago with sciatica, right side M54.41 [facility] [address] [place] [id number] [place] [address] Dec, Anxiety F41.9 and Lumbago wi th sciatica, right side M54.41 [facility] [address] [place] [id number] [place] [address] Dec, DJD (degenerative joint dise ase) M19.90 [place] [address] [place] [id number] [place] [address] Dec, 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 ; Lumbago with sciatica, right side M54.41 ; Traumatic brain injury S06.9X9A ; DJD (degenerative joint disease) M19.90 ; Constipation, unspecified constipation type K59.00 ; Depression F32.9 ; Anxiety F41.9 ; BPH (benign prostatic hyperplasia) N40.0 ; HTN (hypertension) I10 ; GERD (gastroesophageal reflux disease) K21.9 and Hyperlipidemia E78.5 [place] [address] [address] Dec, DJD (degenerative joint dise ase) M19.90 ; Anxiety F41.9 ; Lumbago with sciatica, right side M54.41 ; Traumatic brain injury S06.9X9A ; Constipation, unspecified constipation type K59.00 ; Depression F32.9 ; BPH (benign prostatic hyperplasia) N40.0 ; 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 ; HTN (hypertension) I10 ; GERD (gastroesophageal reflux disease) K21.9 and Hyperlipidemia E78.5 [place] [address] [place] [id number] [place] [address] Nov, [place] [address] [address] Nov, Constipation, unspecified co nstipation type K59.00 ; Hyperlipidemia E78.5 ; Anxiety F41.9 ; Lumbago with sciatica, right side M54.41 ; BPH (benign prostatic hyperplasia) N40.0 ; 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 ; GERD (gastroesophageal reflux disease) K21.9 and Edema R60.9 [place] [address] [place] [id number] [place] [address] Nov, [place] [address] [address] Nov, DJD (degenerative joint dise ase) M19.90 and Anxiety F41.9 [place] [address] [place] [id number] [place] [phone] Oct, Onychomycosis B35.1 ; Type I diabetes mellitus with peripheral circulatory disorder E10.51 and Neuropathy G62.9 [place] [address] [place] [id number] [place] [address] Oct, [place] [address] [place] [id number] [place] [address] Oct, DJD (degenerative joint dise ase) M19.90 ; Anxiety F41.9 and Lumbago with sciatica, right side M54.41 [place] [address] [place] [id number] [place] [address] September, DJD (degenerative joint dise ase) M19.90 [place] [address] [place] [id number] [place] [address] September, Lumbago with sciatica, right side M54.41 ; Anxiety F41.9 and DJD (degenerative joint disease) M19.90 [place] [address] [address] September, [place] [address] [place] [id number] [place] [address] Aug, Lumbago with sciatica, right side M54.41 ; Anxiety F41.9 and DJD (degenerative joint disease) M19.90 [place] [address] [place] [id number] [place] [id number] Aug, 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 [place] [address] [place] [id number] [place] [address] Aug, 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 ; Constipation, unspecified constipation type K59.00 ; Hyperlipidemia E78.5 ; Anxiety F41.9 ; Lumbago with sciatica, right side M54.41 ; BPH (benign prostatic hyperplasia) N40.0 ; GERD (gastroesophageal reflux disease) K21.9 and Edema R60.9 [place] [id number] Jul, Lumbago with sciatica, right side M54.41 ; Anxiety F41.9 and DJD (degenerative joint disease) M19.90 [place] [id number] 28 Jun, 2016 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 ; Anxiety F41.9 ; BPH (benign prostatic hyperplasia) N40.0 ; GERD (gastroesophageal reflux disease) K21.9 ; Hyperlipidemia E78.5 ; Lumbago with sciatica, right side M54.41 and Constipation, unspecified constipation type K59.00 [place] [id number] 15 Jun, 2016 DJD (degenerative joint dise ase) M19.90 and Anxiety F41.[address] [address] Jun, DJD (degenerative joint dise ase) M19.90 and Anxiety F41.[address] [address] May, 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 ; Depression F32.9 ; GERD (gastroesophageal reflux disease) K21.9 ; Traumatic brain injury S06.9X9A ; Constipation, unspecified constipation type K59.00 ; DJD (degenerative joint disease) M19.90 ; Pure hypercholesterolemia E78.00 ; Benign nodular prostatic hyperplasia, presence of lower urinary tract symptoms unspecified N40.0 ; Neuropathy G62.9 and Anxiety F41.[address] [address] May, DJD (degenerative joint dise ase) M19.90 and Anxiety F41.[address] [address] Apr, Lumbago with sciatica, right side M54.41 and Low back pain M54.5 [facility] [address] [address] Mar, [facility] [address] [place] [id number] [place] [phone] Mar, [facility] [address] [address] Mar, [facility] [address] [place] [id number] [place] [phone] Mar, [facility] [address] [address] Mar, Depression F32.9 ; Neuropath y G62.9 ; GERD (gastroesophageal reflux disease) K21.9 ; Edema R60.9 ; DJD (degenerative joint disease) M19.90 ; BPH (benign prostatic hyperplasia) N40.0 ; 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 ; Impacted cerumen of right ear H61.21 ; Anxiety F41.9 ; Constipation, unspecified constipation type K59.00 and Hyperlipidemia E78.5 [facility] [address] [place] [id number] [place] [id number] Feb, [facility] [address] [place] [id number] [place] [address] Jan, [facility] [address] [place] [id number] [place] [phone] Dec, [facility] [address] [place] [id number] [place] [address] Dec, [facility] [address] [place] [id number] [place] [phone] Dec, [facility] [address] [place] [id number] [place] [phone] Dec, [facility] [address] [address] Dec, Depression F32.9 ; Anxiety F 41.9 ; Neuropathy G62.9 ; 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 ; GERD (gastroesophageal reflux disease) K21.9 ; Hyperlipidemia E78.5 ; Edema R60.9 ; DJD (degenerative joint disease) M19.90 ; Lumbago with sciatica, right side M54.41 ; Constipation, unspecified constipation type K59.00 and BPH (benign prostatic hyperplasia) N40.0 [facility] [address] [address] Dec, [facility] [address] [address] Oct, [place] [address] [address] Oct, Low back pain M54.5 [place] [address] [address] Oct, [facility] [address] [address] September, 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 ; Depression F32.9 ; Anxiety F41.9 ; BPH (benign prostatic hyperplasia) N40.0 ; Hyperlipidemia E78.5 ; Traumatic brain injury S06.9X9A ; Lumbago with sciatica, right side M54.41 ; Low back pain M54.5 ; Gastroesophageal reflux disease with esophagitis K21.0 ; Generalized edema R60.1 and Constipation, unspecified constipation type K59.00 [facility] [address] [address] Aug, Depression F32.9 ; Anxiety F 41.9 [...] Never Assessed REASON FOR VISIT Pain management (chronic)-awoods PLAN OF CARE Activity Details Follow Up 3 Months with Jeremias Sood on: VITAL SIGNS Height 68 in 2017-10-16 Weight 187 lbs 2017-10-16 Temperature 97.6 degrees Fahrenheit 2017-10-16 Heart Rate 93 bpm 2017-10-16 Respiratory Rate 20 2017-10-16 BMI 28.43 kg/m2 2017-10-16 Blood pressure systolic 134 mmHg 2017-10-16 Blood pressure diastolic 84 mmHg 2017-10-16 MEDICATIONS Medication Instructions Dosage Frequency Start Date End Date Duration S tatus Lipitor 40 mg Orally Once a day 1 tablet 24h Jul, 90 days Active Metoprolol Tartrate 25 MG Orally Twice a day 1/2 tablet 12h 05 A 2016 90 days Unknown Effexor XR 75 MG Orally Once a day 3 capsules 24h 90 days Unknown Risperdal 4 MG Orally Once a day at hs 1/2 tablet 90 days Active Lopid 600 MG Orally Twice a day 1/2 tablet 12h 90 da ys Unknown Morphine Sulfate ER 60 mg Orally every 12 hrs 1 tablet 12h 30 M 2017 28 days Active Metformin HCl 500 mg Orally 3 times a day 1 tablet with meals 8h 90 days Unknown Omeprazole 20 mg Orally Once a day 2 capsules 24h 90 days Unknown Prazosin HCl 2 MG Orally Once a day at hs 2 capsules 90 days Unknown Hydrochlorothiazide 25 MG Orally Once a day 1 tablet 24h 90 days Unknown GlipiZIDE 5 mg Orally twice a day 1 tablet 12h 13 Nov, 2016 90 days Unknown BuPROPion HCl 75 MG Orally 2 times a day 2 capsules 12h 09 Mar, 2016 90 days Unknown Neurontin 300 MG Orally 4 times a day 2 capsules 6h 90 days Active Docusate Sodium 100 mg Orally 2 times a day 1 capsule 12h 90 days Unknown Klonopin 1 MG Orally Twice a day 1 tablet 12h 28 day s Active Morphine Sulfate 15 mg Orally 2 times a day 1 tablet as needed 12h 30 Sep, 2017 28 days Active RESULTS Name Result Date Reference Range Xray : Spine, Cervical (IN HOUSE) 2017-10-16 PROCEDURES Procedure Date Ordered Result Body Site X-RAY EXAM OF NECK SPINE October 16, 2017 INSTRUCTIONS MEDICATIONS ADMINISTERED No Known Medications [...]
--- OUTSIDE RECORDS SUMMARY | 2019-07-27 19:42 | XMS REPORT ---
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 Name Role Phone LAURITA VALIENTE Unavailable PROBLEMS Type Condition ICD9-CM Code ODF51-ZU Code Onset Dates Condition S tatus SNOMED Code Problem Lumbago with sciatica, right side M54.41 Active 417305341 Problem Traumatic brain injury S06.9X9A Active 069808992 Problem DJD (degenerative joint disease) M19.90 Active 625219583 Problem Chronic pain syndrome G89.4 Active 163216547 Problem Neck pain M54.2 Active 73506008 Problem Type 2 diabetes mellitus with other diabetic oph thalmic complication E11.39 Active 87127791061011 Problem BPH (benign prostatic hyperplasia) N40.0 Active 604426203 Problem Onychomycosis B35.1 Active 383184 008 Problem Benign nodular prostatic hyp erplasia, presence of lower urinary tract symptoms unspecified N40.0 Active 3507684 07 Problem Depression F32.9 Active 04829886 Problem GERD (gastroesophageal reflux disease) K21.9 Active 887444167 Problem Hyperlipidemia E78.5 Active 78141 004 Problem Anxiety F41.9 Active 17981235 Problem HTN (hypertension) I10 Active 3 0155523 Problem Low back pain M54.5 Active 465657 005 ALLERGIES No Information ENCOUNTERS Encounter Location Date Diagnosis [facility] [address] [facility] [id number] [address] [place] [phone] Dec, Neck pain M54.2 ; Left hand weakness R29.898 and Chronic pain syndrome G89.4 [facility] [address] [facility] [id number] [address] [place] [address] Dec, DJD (degenerative joint dise ase) M19.90 and Anxiety F41.9 [facility] [address] [address] 03 Nov, 2017 DJD (degenerative joint dise ase) M19.90 and Anxiety F41.9 [place] [address] [address] 27 Oct, 2017 [place] [address] [address] 14 Oct, 2017 Chest pain, unspecified type R07.9 and Nevus D22.9 [place] [address] [address] 14 Oct, 2017 [place] [address] [address] 13 Oct, 2017 DJD (degenerative joint dise ase) M19.90 ; Traumatic brain injury S06.9X9A ; Anxiety F41.9 ; Depression F32.9 ; BPH (benign prostatic hyperplasia) N40.0 ; HTN (hypertension) I10 ; GERD (gastroesophageal reflux disease) K21.9 ; Hyperlipidemia E78.5 ; 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 and Constipation, unspecified constipation type K59.00 [place] [address] [address] 11 Oct, 2017 DJD (degenerative joint dise ase) M19.90 ; Traumatic brain injury S06.9X9A ; Anxiety F41.9 ; Depression F32.9 ; BPH (benign prostatic hyperplasia) N40.0 and HTN (hypertension) I10 [place] [address] [address] 11 Oct, 2017 Neck pain M54.2 ; Fall, init ial encounter W19.XXXA and DJD (degenerative joint disease) M19.90 [place] [address] [address] 07 Oct, 2017 DJD (degenerative joint dise ase) M19.90 ; Anxiety F41.9 ; Traumatic brain injury S06.9X9A ; Depression F32.9 ; BPH (benign prostatic hyperplasia) N40.0 ; HTN (hypertension) I10 ; GERD (gastroesophageal reflux disease) K21.9 ; Hyperlipidemia E78.5 ; 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 and Constipation, unspecified constipation type K59.00 [place] [address] [place] [id number] [place] [address] September, DJD (degenerative joint dise ase) M19.90 and Anxiety F41.9 [place] [address] [place] [id number] [place] [phone] September, Anxiety F41.9 [place] [address] [place] [id number] [place] [phone] September, Anxiety F41.9 and DJD (degen erative joint disease) M19.90 [place] [address] [place] [id number] [place] [address] Aug, Anxiety F41.9 and DJD (degen erative joint disease) M19.90 [place] [address] [address] Jul, [place] [address] [address] Jul, 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 ; Hyperlipidemia E78.5 and HTN (hypertension) I10 [place] [address] [place] [id number] [place] [phone] Jul, Anxiety F41.9 and DJD (degen erative joint disease) M19.90 [place] [address] [place] [id number] [place] [address] Jun, Anxiety F41.9 and DJD (degen erative joint disease) M19.90 [place] [address] [place] [id number] [place] [address] May, Weight loss, non-intentional R63.4 [place] [address] [place] [id number] [place] [address] May, DJD (degenerative joint dise ase) M19.90 [facility] [address] [facility] [id number] [address] [place] [address] Apr, Anxiety F41.9 [facility] [address] [facility] [id number] [address] [place] [address] Apr, Anxiety F41.9 and DJD (degen erative joint disease) M19.90 [facility] [address] [place] [id number] [place] [address] Apr, DJD (degenerative joint dise ase) M19.90 ; Traumatic brain injury S06.9X9A ; 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 ; Anxiety F41.9 and Depression F32.9 [facility] [address] [place] [id number] [place] [address] Mar, [facility] [address] [place] [id number] [place] [address] Feb, DJD (degenerative joint dise ase) M19.90 ; Lumbago with sciatica, right side M54.41 and Anxiety F41.9 [facility] [address] [place] [id number] [place] [phone] Feb, [facility] [address] [facility] [id number] [address] [place] [phone] Jan, DJD (degenerative joint dise ase) M19.90 ; Anxiety F41.9 and Lumbago with sciatica, right side M54.41 [facility] [address] [facility] [id number] [address] [place] [address] Dec, Lumbago with sciatica, right side M54.41 [facility] [address] [facility] [id number] [address] [place] [address] Dec, Anxiety F41.9 and Lumbago wi th sciatica, right side M54.41 [facility] [address] [place] [id number] [place] [address] Dec, DJD (degenerative joint dise ase) M19.90 [facility] [address] [place] [id number] [place] [address] Dec, 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 ; Lumbago with sciatica, right side M54.41 ; Traumatic brain injury S06.9X9A ; DJD (degenerative joint disease) M19.90 ; Constipation, unspecified constipation type K59.00 ; Depression F32.9 ; Anxiety F41.9 ; BPH (benign prostatic hyperplasia) N40.0 ; HTN (hypertension) I10 ; GERD (gastroesophageal reflux disease) K21.9 and Hyperlipidemia E78.5 [place] [address] [address] Dec, DJD (degenerative joint dise ase) M19.90 ; Anxiety F41.9 ; Lumbago with sciatica, right side M54.41 ; Traumatic brain injury S06.9X9A ; Constipation, unspecified constipation type K59.00 ; Depression F32.9 ; BPH (benign prostatic hyperplasia) N40.0 ; 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 ; HTN (hypertension) I10 ; GERD (gastroesophageal reflux disease) K21.9 and Hyperlipidemia E78.5 [place] [address] [place] [id number] [place] [address] Nov, [place] [address] [place] [id number] [place] [address] Nov, Constipation, unspecified co nstipation type K59.00 ; Hyperlipidemia E78.5 ; Anxiety F41.9 ; Lumbago with sciatica, right side M54.41 ; BPH (benign prostatic hyperplasia) N40.0 ; 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 ; GERD (gastroesophageal reflux disease) K21.9 and Edema R60.9 [facility] [address] [place] [id number] [place] [address] Nov, [place] [id number] [address] Nov, DJD (degenerative joint dise ase) M19.90 and Anxiety F41.9 [place] [address] [facility] [id number] [address] [place] [address] Oct, Onychomycosis B35.1 ; Type I diabetes mellitus with peripheral circulatory disorder E10.51 and Neuropathy G62.9 [place] [address] [place] [id number] [place] [phone] Oct, [place] [address] [place] [id number] [place] [address] Oct, DJD (degenerative joint dise ase) M19.90 ; Anxiety F41.9 and Lumbago with sciatica, right side M54.41 [place] [address] [place] [id number] [place] [address] September, DJD (degenerative joint dise ase) M19.90 [place] [address] [place] [id number] [place] [address] September, Lumbago with sciatica, right side M54.41 ; Anxiety F41.9 and DJD (degenerative joint disease) M19.90 [place] [address] [place] [id number] [place] [address] September, [place] [address] [place] [id number] [place] [address] Aug, Lumbago with sciatica, right side M54.41 ; Anxiety F41.9 and DJD (degenerative joint disease) M19.90 [place] [address] [facility] [id number] [address] [place] [address] Aug, 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 [place] [address] [place] [id number] [place] [address] Aug, 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 ; Constipation, unspecified constipation type K59.00 ; Hyperlipidemia E78.5 ; Anxiety F41.9 ; Lumbago with sciatica, right side M54.41 ; BPH (benign prostatic hyperplasia) N40.0 ; GERD (gastroesophageal reflux disease) K21.9 and Edema R60.9 [place] [address] [place] [id number] Jul, Lumbago with sciatica, right side M54.41 ; Anxiety F41.9 and DJD (degenerative joint disease) M19.90 [place] [address] [place] [id number] 28 Jun, 2016 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 ; Anxiety F41.9 ; BPH (benign prostatic hyperplasia) N40.0 ; GERD (gastroesophageal reflux disease) K21.9 ; Hyperlipidemia E78.5 ; Lumbago with sciatica, right side M54.41 and Constipation, unspecified constipation type K59.[address] [address] 15 Jun, 2016 DJD (degenerative joint dise ase) M19.90 and Anxiety F41.[address] [address] Jun, DJD (degenerative joint dise ase) M19.90 and Anxiety F41.9 [place] [address] [address] May, 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 ; Depression F32.9 ; GERD (gastroesophageal reflux disease) K21.9 ; Traumatic brain injury S06.9X9A ; Constipation, unspecified constipation type K59.00 ; DJD (degenerative joint disease) M19.90 ; Pure hypercholesterolemia E78.00 ; Benign nodular prostatic hyperplasia, presence of lower urinary tract symptoms unspecified N40.0 ; Neuropathy G62.9 and Anxiety F41.9 [place] [address] [address] May, DJD (degenerative joint dise ase) M19.90 and Anxiety F41.[address] [address] Apr, Lumbago with sciatica, right side M54.41 and Low back pain M54.5 [facility] [address] [place] [id number] [place] [phone] Mar, [facility] [address] [place] [id number] [place] [address] Mar, [facility] [address] [address] Mar, [facility] [address] [place] [id number] [place] [phone] Mar, [facility] [address] [address] Mar, Depression F32.9 ; Neuropath y G62.9 ; GERD (gastroesophageal reflux disease) K21.9 ; Edema R60.9 ; DJD (degenerative joint disease) M19.90 ; BPH (benign prostatic hyperplasia) N40.0 ; 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 ; Impacted cerumen of right ear H61.21 ; Anxiety F41.9 ; Constipation, unspecified constipation type K59.00 and Hyperlipidemia E78.5 [facility] [address] [place] [id number] [place] [address] Feb, [facility] [address] [place] [id number] [place] [phone] Jan, [facility] [address] [place] [id number] [place] [address] Dec, [facility] [address] [place] [id number] [place] [address] Dec, [facility] [address] [place] [id number] [place] [phone] Dec, [facility] [address] [place] [id number] [place] [address] Dec, [facility] [address] [address] Dec, Depression F32.9 ; Anxiety F 41.9 ; Neuropathy G62.9 ; 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 ; GERD (gastroesophageal reflux disease) K21.9 ; Hyperlipidemia E78.5 ; Edema R60.9 ; DJD (degenerative joint disease) M19.90 ; Lumbago with sciatica, right side M54.41 ; Constipation, unspecified constipation type K59.00 and BPH (benign prostatic hyperplasia) N40.0 [facility] [address] [address] Dec, [facility] [address] [address] Oct, [place] [address] [address] Oct, Low back pain M54.5 [place] [address] [address] Oct, [facility] [address] [address] September, 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 ; Depression F32.9 ; Anxiety F41.9 ; BPH (benign prostatic hyperplasia) N40.0 ; Hyperlipidemia E78.5 ; Traumatic brain injury S06.9X9A ; Lumbago with sciatica, right side M54.41 ; Low back pain M54.5 ; Gastroesophageal reflux disease with esophagitis K21.0 ; Generalized edema R60.1 and Constipation, unspecified constipation type K59.00 [facility] [address] [address] Aug, Depression F32.9 ; Anxiety F 41.9 [...] SOCIAL HISTORY Never Assessed REASON FOR VISIT Refill PLAN OF CARE VITAL SIGNS MEDICATIONS Medication Instructions Dosage Frequency Start Date End Date Duration S tat Lopid 600 MG Orally Twice a day 1/2 tablet 12h 90 da ys Active Effexor XR 75 MG Orally Once a day 3 capsules 24h 90 days Active BuPROPion HCl 75 MG Orally 2 times a day 2 capsules 12h 09 Mar, 2016 90 days Active Omeprazole 20 mg Orally Once a day 2 capsules 24h 90 days Active Docusate Sodium 100 mg Orally 2 times a day 1 capsule 12h 90 days Active GlipiZIDE 5 mg Orally twice a day 1 tablet 12h 13 Nov, 2016 90 days Active Metoprolol Tartrate 25 MG Orally Twice a day 1/2 tablet 12h 05 2016 90 days Active Hydrochlorothiazide 25 MG Orally Once a day 1 tablet 24h 90 days Active Prazosin HCl 2 MG Orally Once a day at hs 2 capsules 90 days Active Lipitor 40 mg Orally Once a day 1 tablet 24h 26 Jul, 2017 90 days Active Risperdal 4 MG Orally Once a day at hs 1/2 tablet 90 days Active Metformin HCl 500 mg Orally 3 times a day 1 tablet with meals 8h 90 days Active Neurontin 300 MG Orally 4 times a day 2 capsules 6h 90 days Active RESULTS No Results PROCEDURES [...]
--- OUTSIDE RECORDS SUMMARY | 2019-07-27 19:42 | XMS REPORT ---
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 Name Role Phone LAURITA VALIENTE Unavailable PROBLEMS Type Condition ICD9-CM Code WKH01-TD Code Onset Dates Condition S tatus SNOMED Code Problem Lumbago with sciatica, right side M54.41 Active 573816026 Problem Traumatic brain injury S06.9X9A Active 821169703 Problem DJD (degenerative joint disease) M19.90 Active 444471417 Problem Chronic pain syndrome G89.4 Active 798207847 Problem Neck pain M54.2 Active 92563133 Problem Type 2 diabetes mellitus with other diabetic oph thalmic complication E11.39 Active [id number] Problem BPH (benign prostatic hyperplasia) N40.0 Active 906906771 Problem Onychomycosis B35.1 Active 784649 008 Problem Benign nodular prostatic hyp erplasia, presence of lower urinary tract symptoms unspecified N40.0 Active 8744144 07 Problem Depression F32.9 Active 79894343 Problem GERD (gastroesophageal reflux disease) K21.9 Active 434140905 Problem Hyperlipidemia E78.5 Active 93037 004 Problem Anxiety F41.9 Active 00138532 Problem HTN (hypertension) I10 Active 3 4622506 Problem Low back pain M54.5 Active 435242 005 ALLERGIES No Information ENCOUNTERS Encounter Location Date Diagnosis [facility] [address] [facility] [id number] [address] [place] [id number] Dec, [facility] [address] [facility] [id number] [address] [place] [phone] Dec, Neck pain M54.2 ; Left hand weakness R29.898 and Chronic pain syndrome G89.4 [facility] [address] [facility] [id number] [address] [place] [id number] Dec, DJD (degenerative joint dise ase) M19.90 and Anxiety F41.9 [facility] [address] [facility] [id number] [address] [place] [id number] Nov, DJD (degenerative joint dise ase) M19.90 and Anxiety F41.9 [facility] [address] [facility] [id number] [address] [place] [id number] 27 Oct, 2017 [place] [address] [place] [id number] [address] [place] [id number] Oct, Chest pain, unspecified type R07.9 and Nevus D22.9 [place] [address] [facility] [id number] [address] [place] [id number] 14 Oct, 2017 [place] [address] [place] [id number] [address] [place] [id number] 13 Oct, 2017 DJD (degenerative joint dise ase) M19.90 ; Traumatic brain injury S06.9X9A ; Anxiety F41.9 ; Depression F32.9 ; BPH (benign prostatic hyperplasia) N40.0 ; HTN (hypertension) I10 ; GERD (gastroesophageal reflux disease) K21.9 ; Hyperlipidemia E78.5 ; 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 and Constipation, unspecified constipation type K59.00 [place] [address] [place] [id number] [address] [place] [id number] 11 Oct, 2017 DJD (degenerative joint dise ase) M19.90 ; Traumatic brain injury S06.9X9A ; Anxiety F41.9 ; Depression F32.9 ; BPH (benign prostatic hyperplasia) N40.0 and HTN (hypertension) I10 [facility] [address] [place] [id number] [address] [place] [id number] 11 Oct, 2017 Neck pain M54.2 ; Fall, init ial encounter W19.XXXA and DJD (degenerative joint disease) M19.90 [facility] [address] [place] [id number] [address] [place] [id number] 07 Oct, 2017 DJD (degenerative joint dise ase) M19.90 ; Anxiety F41.9 ; Traumatic brain injury S06.9X9A ; Depression F32.9 ; BPH (benign prostatic hyperplasia) N40.0 ; HTN (hypertension) I10 ; GERD (gastroesophageal reflux disease) K21.9 ; Hyperlipidemia E78.5 ; 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 and Constipation, unspecified constipation type K59.00 [place] [address] [id number] September, DJD (degenerative joint dise ase) M19.90 and Anxiety F41.9 [place] [address] [address] September, Anxiety F41.9 [place] [address] [address] September, Anxiety F41.9 and DJD (degen erative joint disease) M19.[address] [address] Aug, Anxiety F41.9 and DJD (degen erative joint disease) M19.90 [place] [address] [address] Jul, [place] [address] [address] Jul, 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 ; Hyperlipidemia E78.5 and HTN (hypertension) I10 [place] [address] [id number] Jul, Anxiety F41.9 and DJD (degen erative joint disease) M19.90 [place] [address] [address] Jun, Anxiety F41.9 and DJD (degen erative joint disease) M19.90 [place] [address] [id number] May, Weight loss, non-intentional R63.4 [facility] [address] [facility] [id number] [address] [place] [id number] May, DJD (degenerative joint dise ase) M19.90 [facility] [address] [facility] [id number] [address] [place] [id number] 14 Apr, 2017 Anxiety F41.9 [facility] [address] [facility] [id number] [address] [place] [id number] Apr, Anxiety F41.9 and DJD (degen erative joint disease) M19.90 [facility] [address] [facility] [id number] [address] [place] [id number] Apr, DJD (degenerative joint dise ase) M19.90 ; Traumatic brain injury S06.9X9A ; 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 ; Anxiety F41.9 and Depression F32.9 [place] [address] [place] [id number] [address] [place] [phone] Mar, [facility] [address] [facility] [id number] [address] [place] [id number] Feb, DJD (degenerative joint dise ase) M19.90 ; Lumbago with sciatica, right side M54.41 and Anxiety F41.9 [facility] [address] [facility] [id number] [address] [place] [phone] Feb, [facility] [address] [place] [id number] [address] [place] [id number] Jan, DJD (degenerative joint dise ase) M19.90 ; Anxiety F41.9 and Lumbago with sciatica, right side M54.41 [facility] [address] [facility] [id number] [address] [place] [id number] Dec, Lumbago with sciatica, right side M54.41 [facility] [address] [facility] [id number] [address] [place] [id number] Dec, Anxiety F41.9 and Lumbago wi th sciatica, right side M54.41 [place] [address] [address] 07 Dec, 2016 DJD (degenerative joint dise ase) M19.90 [place] [address] [address] Dec, 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 ; Lumbago with sciatica, right side M54.41 ; Traumatic brain injury S06.9X9A ; DJD (degenerative joint disease) M19.90 ; Constipation, unspecified constipation type K59.00 ; Depression F32.9 ; Anxiety F41.9 ; BPH (benign prostatic hyperplasia) N40.0 ; HTN (hypertension) I10 ; GERD (gastroesophageal reflux disease) K21.9 and Hyperlipidemia E78.5 [place] [address] [address] Dec, DJD (degenerative joint dise ase) M19.90 ; Anxiety F41.9 ; Lumbago with sciatica, right side M54.41 ; Traumatic brain injury S06.9X9A ; Constipation, unspecified constipation type K59.00 ; Depression F32.9 ; BPH (benign prostatic hyperplasia) N40.0 ; 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 ; HTN (hypertension) I10 ; GERD (gastroesophageal reflux disease) K21.9 and Hyperlipidemia E78.5 [place] [address] [place] [id number] [address] [place] [id number] Nov, [place] [address] [address] Nov, Constipation, unspecified co nstipation type K59.00 ; Hyperlipidemia E78.5 ; Anxiety F41.9 ; Lumbago with sciatica, right side M54.41 ; BPH (benign prostatic hyperplasia) N40.0 ; 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 ; GERD (gastroesophageal reflux disease) K21.9 and Edema R60.9 [place] [address] [id number] Nov, [place] [address] [facility] [id number] [address] [place] [phone] Nov, DJD (degenerative joint dise ase) M19.90 and Anxiety F41.9 [place] [address] [facility] [id number] [address] [place] [id number] Oct, Onychomycosis B35.1 ; Type I diabetes mellitus with peripheral circulatory disorder E10.51 and Neuropathy G62.9 [place] [address] [id number] [address] [place] [phone] Oct, [place] [address] [id number] [address] [place] [id number] Oct, DJD (degenerative joint dise ase) M19.90 ; Anxiety F41.9 and Lumbago with sciatica, right side M54.41 [place] [address] [facility] [id number] [address] [place] [id number] September, DJD (degenerative joint dise ase) M19.90 [place] [address] [facility] [id number] [address] [place] [phone] September, Lumbago with sciatica, right side M54.41 ; Anxiety F41.9 and DJD (degenerative joint disease) M19.90 [place] [address] [place] [id number] [address] [place] [id number] September, [place] [address] [place] [id number] [address] [place] [id number] Aug, Lumbago with sciatica, right side M54.41 ; Anxiety F41.9 and DJD (degenerative joint disease) M19.90 [place] [address] [place] [id number] [address] [place] [id number] Aug, 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 [place] [address] [facility] [id number] [address] [place] [phone] Aug, 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 ; Constipation, unspecified constipation type K59.00 ; Hyperlipidemia E78.5 ; Anxiety F41.9 ; Lumbago with sciatica, right side M54.41 ; BPH (benign prostatic hyperplasia) N40.0 ; GERD (gastroesophageal reflux disease) K21.9 and Edema R60.[address] [address] Jul, Lumbago with sciatica, right side M54.41 ; Anxiety F41.9 and DJD (degenerative joint disease) M19.[address] [address] 28 Jun, 2016 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 ; Anxiety F41.9 ; BPH (benign prostatic hyperplasia) N40.0 ; GERD (gastroesophageal reflux disease) K21.9 ; Hyperlipidemia E78.5 ; Lumbago with sciatica, right side M54.41 and Constipation, unspecified constipation type K59.[address] [address] 15 Jun, 2016 DJD (degenerative joint dise ase) M19.90 and Anxiety F41.[address] [address] 13 Jun, 2016 DJD (degenerative joint dise ase) M19.90 and Anxiety F41.[address] [address] May, 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 ; Depression F32.9 ; GERD (gastroesophageal reflux disease) K21.9 ; Traumatic brain injury S06.9X9A ; Constipation, unspecified constipation type K59.00 ; DJD (degenerative joint disease) M19.90 ; Pure hypercholesterolemia E78.00 ; Benign nodular prostatic hyperplasia, presence of lower urinary tract symptoms unspecified N40.0 ; Neuropathy G62.9 and Anxiety F41.[address] [address] May, DJD (degenerative joint dise ase) M19.90 and Anxiety F41.9 [facility] [address] [facility] [id number] [address] [place] [phone] Apr, Lumbago with sciatica, right side M54.41 and Low back pain M54.5 [facility] [address] [id number] [address] [place] [phone] Mar, [facility] [address] [facility] [id number] [address] [place] [phone] Mar, [facility] [address] 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 [id number] [address] [place] [phone] Feb, [facility] [address] [facility] [id number] [address] [place] [phone] Jan, [facility] [address] 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 ; GERD (gastroesophageal reflux disease) K21.9 ; Hyperlipidemia E78.5 ; Edema R60.9 ; DJD (degenerative joint disease) M19.90 ; Lumbago with sciatica, right side M54.41 ; Constipation, unspecified constipation type K59.00 and BPH (benign prostatic hyperplasia) N40.0 [facility] [address] [address] Dec, [facility] [address] [id number] Oct, [facility] [address] [address] Oct, Low back pain M54.5 [facility] [address] [address] Oct, [facility] [address] [address] September, 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 ; Depression F32.9 ; Anxiety F41.9 ; BPH (benign prostatic hyperplasia) N40.0 ; Hyperlipidemia E78.5 ; Traumatic brain injury S06.9X9A ; Lumbago with sciatica, right side M54.41 ; Low back pain M54.5 ; Gastroesophageal reflux disease with esophagitis K21.0 ; Generalized edema R60.1 and Constipation, unspecified constipation type K59.00 [facility] [address] [address] Aug, Depression F32.9 ; Anxiety F 41.9 [...] HISTORY Never Assessed REASON FOR VISIT Controlled med refills PLAN OF CARE VITAL SIGNS MEDICATIONS Medication Instructions Dosage Frequency Start Date End Date Duration S lian Morphine Sulfate ER 60 mg Orally every 12 hrs 1 tablet 12h 30 M 2017 28 days Active Klonopin 1 MG Orally Twice a day 1 tablet 12h 28 day s Active Morphine Sulfate 15 mg Orally 2 times a day 1 tablet as needed 12h 30 Sep, 2017 28 days Active RESULTS No Results PROCEDURES [...]
--- OUTSIDE RECORDS SUMMARY | 2019-07-27 19:42 | XMS REPORT ---
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 Name Role Phone LAURITA VALIENTE Unavailable PROBLEMS Type Condition ICD9-CM Code DCT17-VL Code Onset Dates Condition S tatus SNOMED Code Problem Lumbago with sciatica, right side M54.41 Active 518416589 Problem Traumatic brain injury S06.9X9A Active 442778403 Problem DJD (degenerative joint disease) M19.90 Active 594575299 Problem Chronic pain syndrome G89.4 Active 717453872 Problem Neck pain M54.2 Active 84052025 Problem Type 2 diabetes mellitus with other diabetic oph thalmic complication E11.39 Active [id number] Problem BPH (benign prostatic hyperplasia) N40.0 Active 940574694 Problem Onychomycosis B35.1 Active 810184 008 Problem Benign nodular prostatic hyp erplasia, presence of lower urinary tract symptoms unspecified N40.0 Active 2332208 07 Problem Depression F32.9 Active 71699840 Problem GERD (gastroesophageal reflux disease) K21.9 Active 689345640 Problem Hyperlipidemia E78.5 Active 35334 004 Problem Anxiety F41.9 Active 03581248 Problem HTN (hypertension) I10 Active 3 9391690 Problem Low back pain M54.5 Active 665804 005 ALLERGIES No Information ENCOUNTERS Encounter Location Date Diagnosis [facility] [address] [facility] [id number] [address] [place] [phone] Dec, Neck pain M54.2 ; Left hand weakness R29.898 and Chronic pain syndrome G89.4 [facility] [address] [facility] [id number] [address] [place] [phone] Dec, DJD (degenerative joint dise ase) M19.90 and Anxiety F41.9 [facility] [address] [address] 03 Nov, 2017 DJD (degenerative joint dise ase) M19.90 and Anxiety F41.9 [place] [address] [address] 27 Oct, 2017 [place] [address] [address] 14 Oct, 2017 Chest pain, unspecified type R07.9 and Nevus D22.9 [place] [address] [address] 14 Oct, 2017 [place] [address] [address] 13 Oct, 2017 DJD (degenerative joint dise ase) M19.90 ; Traumatic brain injury S06.9X9A ; Anxiety F41.9 ; Depression F32.9 ; BPH (benign prostatic hyperplasia) N40.0 ; HTN (hypertension) I10 ; GERD (gastroesophageal reflux disease) K21.9 ; Hyperlipidemia E78.5 ; 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 and Constipation, unspecified constipation type K59.00 [place] [address] [address] 11 Oct, 2017 DJD (degenerative joint dise ase) M19.90 ; Traumatic brain injury S06.9X9A ; Anxiety F41.9 ; Depression F32.9 ; BPH (benign prostatic hyperplasia) N40.0 and HTN (hypertension) I10 [place] [address] [address] 11 Oct, 2017 Neck pain M54.2 ; Fall, init ial encounter W19.XXXA and DJD (degenerative joint disease) M19.90 [place] [address] [address] 07 Oct, 2017 DJD (degenerative joint dise ase) M19.90 ; Anxiety F41.9 ; Traumatic brain injury S06.9X9A ; Depression F32.9 ; BPH (benign prostatic hyperplasia) N40.0 ; HTN (hypertension) I10 ; GERD (gastroesophageal reflux disease) K21.9 ; Hyperlipidemia E78.5 ; 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 and Constipation, unspecified constipation type K59.00 [place] [address] [place] [id number] [place] [phone] September, DJD (degenerative joint dise ase) M19.90 and Anxiety F41.9 [place] [address] [place] [id number] [place] [phone] September, Anxiety F41.9 [place] [address] [place] [id number] [place] [phone] September, Anxiety F41.9 and DJD (degen erative joint disease) M19.90 [place] [address] [place] [id number] [place] [phone] Aug, Anxiety F41.9 and DJD (degen erative joint disease) M19.90 [place] [address] [address] Jul, [place] [address] [address] Jul, 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 ; Hyperlipidemia E78.5 and HTN (hypertension) I10 [place] [address] [place] [id number] [place] [phone] Jul, Anxiety F41.9 and DJD (degen erative joint disease) M19.90 [place] [address] [place] [id number] [place] [phone] Jun, Anxiety F41.9 and DJD (degen erative joint disease) M19.90 [place] [address] [place] [id number] [place] [phone] May, Weight loss, non-intentional R63.4 [place] [address] [place] [id number] [place] [phone] May, DJD (degenerative joint dise ase) M19.90 [facility] [address] [facility] [id number] [address] [place] [phone] Apr, Anxiety F41.9 [facility] [address] [facility] [id number] [address] [place] [phone] Apr, Anxiety F41.9 and DJD (degen erative joint disease) M19.90 [facility] [address] [place] [id number] [place] [phone] Apr, DJD (degenerative joint dise ase) M19.90 ; Traumatic brain injury S06.9X9A ; 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 ; Anxiety F41.9 and Depression F32.9 [facility] [address] [place] [id number] [place] [phone] Mar, [facility] [address] [place] [id number] [place] [phone] Feb, DJD (degenerative joint dise ase) M19.90 ; Lumbago with sciatica, right side M54.41 and Anxiety F41.9 [facility] [address] [place] [id number] [place] [phone] Feb, [facility] [address] [facility] [id number] [address] [place] [id number] Jan, DJD (degenerative joint dise ase) M19.90 ; Anxiety F41.9 and Lumbago with sciatica, right side M54.41 [facility] [address] [facility] [id number] [address] [place] [id number] Dec, Lumbago with sciatica, right side M54.41 [facility] [address] [facility] [id number] [address] [place] [phone] Dec, Anxiety F41.9 and Lumbago wi th sciatica, right side M54.41 [facility] [address] [place] [id number] [place] [phone] Dec, DJD (degenerative joint dise ase) M19.90 [facility] [address] [place] [id number] [place] [phone] Dec, 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 ; Lumbago with sciatica, right side M54.41 ; Traumatic brain injury S06.9X9A ; DJD (degenerative joint disease) M19.90 ; Constipation, unspecified constipation type K59.00 ; Depression F32.9 ; Anxiety F41.9 ; BPH (benign prostatic hyperplasia) N40.0 ; HTN (hypertension) I10 ; GERD (gastroesophageal reflux disease) K21.9 and Hyperlipidemia E78.5 [place] [address] [address] Dec, DJD (degenerative joint dise ase) M19.90 ; Anxiety F41.9 ; Lumbago with sciatica, right side M54.41 ; Traumatic brain injury S06.9X9A ; Constipation, unspecified constipation type K59.00 ; Depression F32.9 ; BPH (benign prostatic hyperplasia) N40.0 ; 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 ; HTN (hypertension) I10 ; GERD (gastroesophageal reflux disease) K21.9 and Hyperlipidemia E78.5 [place] [address] [place] [id number] [place] [address] Nov, [place] [address] [place] [id number] [place] [phone] Nov, Constipation, unspecified co nstipation type K59.00 ; Hyperlipidemia E78.5 ; Anxiety F41.9 ; Lumbago with sciatica, right side M54.41 ; BPH (benign prostatic hyperplasia) N40.0 ; 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 ; GERD (gastroesophageal reflux disease) K21.9 and Edema R60.9 [facility] [address] [place] [id number] [place] [phone] Nov, [place] [id number] [address] Nov, DJD (degenerative joint dise ase) M19.90 and Anxiety F41.9 [place] [address] [facility] [id number] [address] [place] [phone] Oct, Onychomycosis B35.1 ; Type I diabetes mellitus with peripheral circulatory disorder E10.51 and Neuropathy G62.9 [place] [address] [place] [id number] [place] [id number] Oct, [place] [address] [place] [id number] [place] [phone] Oct, DJD (degenerative joint dise ase) M19.90 ; Anxiety F41.9 and Lumbago with sciatica, right side M54.41 [place] [address] [place] [id number] [place] [phone] September, DJD (degenerative joint dise ase) M19.90 [place] [address] [place] [id number] [place] [phone] September, Lumbago with sciatica, right side M54.41 ; Anxiety F41.9 and DJD (degenerative joint disease) M19.90 [place] [address] [place] [id number] [place] [phone] September, [place] [address] [place] [id number] [place] [phone] Aug, Lumbago with sciatica, right side M54.41 ; Anxiety F41.9 and DJD (degenerative joint disease) M19.90 [place] [address] [facility] [id number] [address] [place] [phone] Aug, 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 [place] [address] [place] [id number] [place] [phone] Aug, 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 ; Constipation, unspecified constipation type K59.00 ; Hyperlipidemia E78.5 ; Anxiety F41.9 ; Lumbago with sciatica, right side M54.41 ; BPH (benign prostatic hyperplasia) N40.0 ; GERD (gastroesophageal reflux disease) K21.9 and Edema R60.9 [place] [address] [place] [id number] Jul, Lumbago with sciatica, right side M54.41 ; Anxiety F41.9 and DJD (degenerative joint disease) M19.90 [place] [address] [place] [id number] 28 Jun, 2016 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 ; Anxiety F41.9 ; BPH (benign prostatic hyperplasia) N40.0 ; GERD (gastroesophageal reflux disease) K21.9 ; Hyperlipidemia E78.5 ; Lumbago with sciatica, right side M54.41 and Constipation, unspecified constipation type K59.[address] [address] 15 Jun, 2016 DJD (degenerative joint dise ase) M19.90 and Anxiety F41.[address] [address] Jun, DJD (degenerative joint dise ase) M19.90 and Anxiety F41.9 [place] [address] [address] May, 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 ; Depression F32.9 ; GERD (gastroesophageal reflux disease) K21.9 ; Traumatic brain injury S06.9X9A ; Constipation, unspecified constipation type K59.00 ; DJD (degenerative joint disease) M19.90 ; Pure hypercholesterolemia E78.00 ; Benign nodular prostatic hyperplasia, presence of lower urinary tract symptoms unspecified N40.0 ; Neuropathy G62.9 and Anxiety F41.9 [place] [address] [address] May, DJD (degenerative joint dise ase) M19.90 and Anxiety F41.[address] [address] Apr, Lumbago with sciatica, right side M54.41 and Low back pain M54.5 [facility] [address] [place] [id number] [place] [phone] Mar, [facility] [address] [place] [id number] [place] [phone] Mar, [facility] [address] [address] Mar, [facility] [address] [place] [id number] [place] [phone] Mar, [facility] [address] [address] Mar, Depression F32.9 ; Neuropath y G62.9 ; GERD (gastroesophageal reflux disease) K21.9 ; Edema R60.9 ; DJD (degenerative joint disease) M19.90 ; BPH (benign prostatic hyperplasia) N40.0 ; 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 ; Impacted cerumen of right ear H61.21 ; Anxiety F41.9 ; Constipation, unspecified constipation type K59.00 and Hyperlipidemia E78.5 [facility] [address] [place] [id number] [place] [phone] Feb, [facility] [address] [place] [id number] [place] [phone] Jan, [facility] [address] [place] [id number] [place] [phone] Dec, [facility] [address] [place] [id number] [place] [phone] Dec, [facility] [address] [place] [id number] [place] [phone] Dec, [facility] [address] [place] [id number] [place] [phone] Dec, [facility] [address] [address] Dec, Depression F32.9 ; Anxiety F 41.9 ; Neuropathy G62.9 ; 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 ; GERD (gastroesophageal reflux disease) K21.9 ; Hyperlipidemia E78.5 ; Edema R60.9 ; DJD (degenerative joint disease) M19.90 ; Lumbago with sciatica, right side M54.41 ; Constipation, unspecified constipation type K59.00 and BPH (benign prostatic hyperplasia) N40.0 [facility] [address] [address] Dec, [facility] [address] [address] Oct, [place] [address] [address] Oct, Low back pain M54.5 [place] [address] [address] Oct, [facility] [address] [address] September, 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 ; Depression F32.9 ; Anxiety F41.9 ; BPH (benign prostatic hyperplasia) N40.0 ; Hyperlipidemia E78.5 ; Traumatic brain injury S06.9X9A ; Lumbago with sciatica, right side M54.41 ; Low back pain M54.5 ; Gastroesophageal reflux disease with esophagitis K21.0 ; Generalized edema R60.1 and Constipation, unspecified constipation type K59.00 [facility] [address] [address] Aug, Depression F32.9 ; Anxiety F 41.9 [...] call PLAN OF CARE VITAL SIGNS MEDICATIONS Medication Instructions Dosage Frequency Start Date End Date Duration S tatus Neurontin 300 MG Orally 4 times a day 2 capsules 6h 90 days Active BuPROPion HCl 75 MG Orally 2 times a day 2 capsules 12h 09 Mar, 2016 90 days Active Lipitor 40 mg Orally Once a day 1 tablet 24h 26 Jul, 2017 90 days Active Morphine Sulfate 15 mg Orally 2 times a day 1 tablet as needed 12h September, 28 days Active Omeprazole 20 mg Orally Once a day 2 capsules 24h 90 days Active Lopid 600 MG Orally Twice a day 1/2 tablet 12h 90 da Active Metformin HCl 500 mg Orally 3 times a day 1 tablet with meals 8h 90 days Active Metoprolol Tartrate 25 MG Orally Twice a day 1/2 tablet 12h 05 2016 90 days Active Effexor XR 75 MG Orally Once a day 3 capsules 24h 90 days Active Prazosin HCl 2 MG Orally Once a day at hs 2 capsules 90 days Active Docusate Sodium 100 mg Orally 2 times a day 1 capsule 12h 90 days Active Klonopin 1 MG Orally Twice a day 1 tablet 12h 28 day s Active Risperdal 4 MG Orally Once a day at hs 1/2 tablet 90 days Active Hydrochlorothiazide 25 MG Orally Once a day 1 tablet 24h 90 days Active Morphine Sulfate ER 60 mg Orally every 12 hrs 1 tablet 12h 30 M 2017 28 days Active GlipiZIDE 5 mg Orally twice a day 1 tablet 12h 13 Nov, 2016 90 days Active RESULTS No Results [...]
--- OUTSIDE RECORDS SUMMARY | 2019-07-27 19:42 | XMS REPORT ---
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 Name Role Phone LAURITA VALIENTE Unavailable PROBLEMS Type Condition ICD9-CM Code PZD79-[id number] Code Onset Dates Condition S tatus SNOMED Code Problem Lumbago with sciatica, right side M54.41 Active 940990989 Problem Traumatic brain injury S06.9X9A Active 098380341 Problem DJD (degenerative joint disease) M19.90 Active 625039369 Problem Chronic pain syndrome G89.4 Active 522091661 Problem Neck pain M54.2 Active 34212395 Problem Type 2 diabetes mellitus with other diabetic oph thalmic complication E11.39 Active [id number] Problem BPH (benign prostatic hyperplasia) N40.0 Active 591001376 Problem Onychomycosis B35.1 Active 816294 008 Problem Benign nodular prostatic hyp erplasia, presence of lower urinary tract symptoms unspecified N40.0 Active 8151509 07 Problem Depression F32.9 Active 25335966 Problem GERD (gastroesophageal reflux disease) K21.9 Active 735227551 Problem Hyperlipidemia E78.5 Active 63750 004 Problem Anxiety F41.9 Active 97555133 Problem HTN (hypertension) I10 Active 3 2967425 Problem Low back pain M54.5 Active 924428 005 ALLERGIES No Information ENCOUNTERS Encounter Location Date Diagnosis [facility], [place] [address] [facility] [id number] [address] [place] [phone] Dec, [facility], [place] [address] [facility] [id number] [address] [place] [address] Dec, Neck pain M54.2 ; Left hand weakness R29.898 and Chronic pain syndrome G89.4 [facility] [place] [address] [facility] [id number] [address] [place] [phone] Dec, DJD (degenerative joint dise ase) M19.90 and Anxiety F41.9 [facility], [place] [address] [facility] [id number] [address] [place] [address] Nov, DJD (degenerative joint dise ase) M19.90 and Anxiety F41.9 [facility], [place] [address] [facility] [id number] [address] [place] [phone] 27 Oct, 2017 [place] [address] [place] [id number] [address] [place] [address] Oct, Chest pain, unspecified type R07.9 and Nevus D22.9 [place] [address] [facility] [id number] [address] [place] [id number] 14 Oct, 2017 [place] [address] [place] [id number] [address] [place] [phone] 13 Oct, 2017 DJD (degenerative joint dise ase) M19.90 ; Traumatic brain injury S06.9X9A ; Anxiety F41.9 ; Depression F32.9 ; BPH (benign prostatic hyperplasia) N40.0 ; HTN (hypertension) I10 ; GERD (gastroesophageal reflux disease) K21.9 ; Hyperlipidemia E78.5 ; 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 and Constipation, unspecified constipation type K59.00 [place] [address] [place] [id number] [address] [place] [id number] 11 Oct, 2017 DJD (degenerative joint dise ase) M19.90 ; Traumatic brain injury S06.9X9A ; Anxiety F41.9 ; Depression F32.9 ; BPH (benign prostatic hyperplasia) N40.0 and HTN (hypertension) I10 [facility] [place] [address] [place] [id number] [address] [place] [id number] 11 Oct, 2017 Neck pain M54.2 ; Fall, init ial encounter W19.XXXA and DJD (degenerative joint disease) M19.90 [facility], [place] [address] [place] [id number] [address] [place] [address] 07 Oct, 2017 DJD (degenerative joint dise ase) M19.90 ; Anxiety F41.9 ; Traumatic brain injury S06.9X9A ; Depression F32.9 ; BPH (benign prostatic hyperplasia) N40.0 ; HTN (hypertension) I10 ; GERD (gastroesophageal reflux disease) K21.9 ; Hyperlipidemia E78.5 ; 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 and Constipation, unspecified constipation type K59.00 [place] [address] [address] September, DJD (degenerative joint dise ase) M19.90 and Anxiety F41.9 [place] [address] [address] September, Anxiety F41.9 [place] [address] [address] September, Anxiety F41.9 and DJD (degen erative joint disease) M19.[address] [address] Aug, Anxiety F41.9 and DJD (degen erative joint disease) M19.90 [place] [address] [id number] Jul, [place] [address] [address] Jul, 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 ; Hyperlipidemia E78.5 and HTN (hypertension) I10 [place] [address] [address] Jul, Anxiety F41.9 and DJD (degen erative joint disease) M19.90 [place] [address] [address] Jun, Anxiety F41.9 and DJD (degen erative joint disease) M19.90 [place] [address] [address] May, Weight loss, non-intentional R63.4 [facility] [place] [address] [facility] [id number] [address] [place] [address] May, DJD (degenerative joint dise ase) M19.90 [facility] [place] [address] [facility] [id number] [address] [place] [address] 14 Apr, 2017 Anxiety F41.9 [facility] [place] [address] [facility] [id number] [address] [place] [address] Apr, Anxiety F41.9 and DJD (degen erative joint disease) M19.90 [facility] [place] [address] [facility] [id number] [address] [place] [address] Apr, DJD (degenerative joint dise ase) M19.90 ; Traumatic brain injury S06.9X9A ; 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 ; Anxiety F41.9 and Depression F32.9 [place] [address] [place] [id number] [address] [place] [phone] Mar, [facility] [place] [address] [facility] [id number] [address] [place] [address] Feb, DJD (degenerative joint dise ase) M19.90 ; Lumbago with sciatica, right side M54.41 and Anxiety F41.9 [facility] [address] [facility] [id number] [address] [place] [address] Feb, [facility] [place] [address] [place] [id number] [address] [place] [address] Jan, DJD (degenerative joint dise ase) M19.90 ; Anxiety F41.9 and Lumbago with sciatica, right side M54.41 [facility] [place] [address] [facility] [id number] [address] [place] [address] Dec, Lumbago with sciatica, right side M54.41 [facility] [place] [address] [facility] [id number] [address] [place] [address] Dec, Anxiety F41.9 and Lumbago wi th sciatica, right side M54.41 [place] [address] [address] 07 Dec, 2016 DJD (degenerative joint dise ase) M19.90 [place] [address] [address] Dec, 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 ; Lumbago with sciatica, right side M54.41 ; Traumatic brain injury S06.9X9A ; DJD (degenerative joint disease) M19.90 ; Constipation, unspecified constipation type K59.00 ; Depression F32.9 ; Anxiety F41.9 ; BPH (benign prostatic hyperplasia) N40.0 ; HTN (hypertension) I10 ; GERD (gastroesophageal reflux disease) K21.9 and Hyperlipidemia E78.5 [place] [address] [address] Dec, DJD (degenerative joint dise ase) M19.90 ; Anxiety F41.9 ; Lumbago with sciatica, right side M54.41 ; Traumatic brain injury S06.9X9A ; Constipation, unspecified constipation type K59.00 ; Depression F32.9 ; BPH (benign prostatic hyperplasia) N40.0 ; 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 ; HTN (hypertension) I10 ; GERD (gastroesophageal reflux disease) K21.9 and Hyperlipidemia E78.5 [place] [address] [place] [id number] [address] [place] [address] Nov, [place] [address] [address] Nov, Constipation, unspecified co nstipation type K59.00 ; Hyperlipidemia E78.5 ; Anxiety F41.9 ; Lumbago with sciatica, right side M54.41 ; BPH (benign prostatic hyperplasia) N40.0 ; 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 ; GERD (gastroesophageal reflux disease) K21.9 and Edema R60.9 [place] [address] [address] Nov, [place] [address] [facility] [id number] [address] [place] [address] Nov, DJD (degenerative joint dise ase) M19.90 and Anxiety F41.9 [place] [address] [facility] [id number] [address] [place] [address] Oct, Onychomycosis B35.1 ; Type I diabetes mellitus with peripheral circulatory disorder E10.51 and Neuropathy G62.9 [place] [address] [id number] [address] [place] [address] Oct, [place] [address] [id number] [address] [place] [address] Oct, DJD (degenerative joint dise ase) M19.90 ; Anxiety F41.9 and Lumbago with sciatica, right side M54.41 [place] [address] [facility] [id number] [address] [place] [address] September, DJD (degenerative joint dise ase) M19.90 [place] [address] [facility] [id number] [address] [place] [address] September, Lumbago with sciatica, right side M54.41 ; Anxiety F41.9 and DJD (degenerative joint disease) M19.90 [place] [address] [place] [id number] [address] [place] [address] September, [place] [address] [place] [id number] [address] [place] [address] Aug, Lumbago with sciatica, right side M54.41 ; Anxiety F41.9 and DJD (degenerative joint disease) M19.90 [place] [address] [place] [id number] [address] [place] [address] Aug, 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 [place] [address] [facility] [id number] [address] [place] [address] Aug, 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 ; Constipation, unspecified constipation type K59.00 ; Hyperlipidemia E78.5 ; Anxiety F41.9 ; Lumbago with sciatica, right side M54.41 ; BPH (benign prostatic hyperplasia) N40.0 ; GERD (gastroesophageal reflux disease) K21.9 and Edema R60.[address] [address] Jul, Lumbago with sciatica, right side M54.41 ; Anxiety F41.9 and DJD (degenerative joint disease) M19.[address] [address] 28 Jun, 2016 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 ; Anxiety F41.9 ; BPH (benign prostatic hyperplasia) N40.0 ; GERD (gastroesophageal reflux disease) K21.9 ; Hyperlipidemia E78.5 ; Lumbago with sciatica, right side M54.41 and Constipation, unspecified constipation type K59.[address] [address] 15 Jun, 2016 DJD (degenerative joint dise ase) M19.90 and Anxiety F41.[address] [address] 13 Jun, 2016 DJD (degenerative joint dise ase) M19.90 and Anxiety F41.[address] [address] May, 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 ; Depression F32.9 ; GERD (gastroesophageal reflux disease) K21.9 ; Traumatic brain injury S06.9X9A ; Constipation, unspecified constipation type K59.00 ; DJD (degenerative joint disease) M19.90 ; Pure hypercholesterolemia E78.00 ; Benign nodular prostatic hyperplasia, presence of lower urinary tract symptoms unspecified N40.0 ; Neuropathy G62.9 and Anxiety F41.[address] [address] May, DJD (degenerative joint dise ase) M19.90 and Anxiety F41.9 [facility] [place] [address] [facility] [id number] [address] [place] [address] Apr, Lumbago with sciatica, right side M54.41 and Low back pain M54.5 [facility] [place] [address] [id number] [address] [place] [address] Mar, [facility] [place] [address] [facility] [id number] [address] [place] [phone] Mar, [facility] [place] [address] [facility] [id number] [address] [place] [address] Mar, [facility] [place] [address] [place] [id number] [address] [place] [phone] Mar, [facility] [place] [address] [place] [id number] [place] [address] Mar, Depression F32.9 ; Neuropath y G62.9 ; GERD (gastroesophageal reflux disease) K21.9 ; Edema R60.9 ; DJD (degenerative joint disease) M19.90 ; BPH (benign prostatic hyperplasia) N40.0 ; 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 ; Impacted cerumen of right ear H61.21 ; Anxiety F41.9 ; Constipation, unspecified constipation type K59.00 and Hyperlipidemia E78.5 [facility] [place] [address] [facility] [id number] [address] [place] [phone] Feb, [facility] [place] [address] [facility] [id number] [address] [place] [address] Jan, [facility] [place] [address] [facility] [id number] [address] [place] [phone] Dec, [facility] [place] [address] [place] [id number] [address] [place] [phone] Dec, [facility] [place] [address] [place] [id number] [address] [place] [phone] Dec, [facility] [place] [address] [address] Dec, [facility] [place] [address] [address] Dec, Depression F32.9 ; Anxiety F 41.9 ; Neuropathy G62.9 ; 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 ; GERD (gastroesophageal reflux disease) K21.9 ; Hyperlipidemia E78.5 ; Edema R60.9 ; DJD (degenerative joint disease) M19.90 ; Lumbago with sciatica, right side M54.41 ; Constipation, unspecified constipation type K59.00 and BPH (benign prostatic hyperplasia) N40.0 [facility] [place] [address] [address] Dec, [facility] [place] [address] [address] Oct, [facility] [place] [address] [address] Oct, Low back pain M54.5 [facility] [place] [address] [address] Oct, [facility] [place] [address] [address] September, 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 ; Depression F32.9 ; Anxiety F41.9 ; BPH (benign prostatic hyperplasia) N40.0 ; Hyperlipidemia E78.5 ; Traumatic brain injury S06.9X9A ; Lumbago with sciatica, right side M54.41 ; Low back pain M54.5 ; Gastroesophageal reflux disease with esophagitis K21.0 ; Generalized edema R60.1 and Constipation, unspecified constipation type K59.00 [facility] [place] [address] [address] Aug, Depression F32.9 ; Anxiety F 41.9 [...] SOCIAL HISTORY Never Assessed REASON FOR VISIT refills PLAN OF CARE VITAL SIGNS MEDICATIONS Medication Instructions Dosage Frequency Start Date End Date Duration S lian Metoprolol Tartrate 25 MG Orally Twice a day 1/2 tablet 12h 05 A 2016 90 days Active Lipitor 40 mg Orally Once a day 1 tablet 24h Jul, 90 days Active Neurontin 300 MG Orally 4 times a day 2 capsules 6h 90 days Active Risperdal 4 MG Orally Once a day at hs 1/2 tablet 90 days Active GlipiZIDE 5 mg Orally twice a day 1 tablet 12h 13 Nov, 2016 90 days Active Metformin HCl 500 mg [...] day 2 capsules 24h 90 days Active BuPROPion HCl 75 MG Orally 2 times a day 2 capsules 12h 09 Mar, 2016 90 days Active Docusate Sodium 100 mg Orally 2 times a day 1 capsule 12h 90 days Active Lopid 600 MG Orally Twice a day 1/2 tablet 12h 90 da ys Active RESULTS No Results PROCEDURES No Known [...]
--- OUTSIDE RECORDS SUMMARY | 2019-07-27 19:43 | XMS REPORT ---
Author Author Brenton VALIENTE Organization [facility] Address [address] [place] [address] Care Team Providers Care Electroplating Worker Name Role Phone LAURITA VALIENTE Unavailable PROBLEMS Type Condition ICD9-CM Code SGM05-BI Code Onset Dates Condition S tatus SNOMED Code Problem Low back pain M54.5 Active 715472 005 Problem Type 2 diabetes mellitus with other diabetic oph thalmic complication E11.39 Active 03242876765470 Problem Lumbago with sciatica, right side M54.41 Active 837072536 Problem Neck pain M54.2 Active 75117370 Problem Onychomycosis B35.1 Active 064292 008 Problem Traumatic brain injury S06.9X9A Active 945851983 Problem DJD (degenerative joint disease) M19.90 Active 690669333 Problem Benign nodular prostatic hyp erplasia, presence of lower urinary tract symptoms unspecified N40.0 Active 2363804 07 Problem BPH (benign prostatic hyperplasia) N40.0 Active 015492835 Problem HTN (hypertension) I10 Active 3 7152202 Problem Depression F32.9 Active 97210713 Problem GERD (gastroesophageal reflux disease) K21.9 Active 675656290 Problem Hyperlipidemia E78.5 Active 58344 004 Problem Anxiety F41.9 Active 65400176 ALLERGIES No Information ENCOUNTERS Encounter Location Date Diagnosis [facility] [address] [facility] [id number] [address] [place] [phone] Dec, [facility] [address] [facility] [id number] [address] [place] [address] Dec, [place] [id number] [facility] [id number] [address] [place] [address] Nov, DJD (degenerative joint dise ase) M19.90 and Anxiety F41.9 [facility] [address] [facility] [id number] [address] [place] [address] 27 Oct, 2017 [place] [address] [place] [address] 14 Oct, 2017 Chest pain, unspecified type R07.9 [place] [address] [place] [id number] [address] [place] [address] 14 Oct, 2017 [place] [address] [address] 13 Oct, 2017 DJD (degenerative joint dise ase) M19.90 ; Traumatic brain injury S06.9X9A ; Anxiety F41.9 ; Depression F32.9 ; BPH (benign prostatic hyperplasia) N40.0 ; HTN (hypertension) I10 ; GERD (gastroesophageal reflux disease) K21.9 ; Hyperlipidemia E78.5 ; 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 and Constipation, unspecified constipation type K59.[address] [address] 11 Oct, 2017 DJD (degenerative joint dise ase) M19.90 ; Traumatic brain injury S06.9X9A ; Anxiety F41.9 ; Depression F32.9 ; BPH (benign prostatic hyperplasia) N40.0 and HTN (hypertension) I10 [address] [address] 11 Oct, 2017 Neck pain M54.2 ; Fall, init ial encounter W19.XXXA and DJD (degenerative joint disease) M19.90 [place] [id number] [address] [place] [id number] 07 Oct, 2017 DJD (degenerative joint dise ase) M19.90 ; Anxiety F41.9 ; Traumatic brain injury S06.9X9A ; Depression F32.9 ; BPH (benign prostatic hyperplasia) N40.0 ; HTN (hypertension) I10 ; GERD (gastroesophageal reflux disease) K21.9 ; Hyperlipidemia E78.5 ; 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 and Constipation, unspecified constipation type K59.[address] [place] [address] September, DJD (degenerative joint dise ase) M19.90 and Anxiety F41.9 [facility] [address] [address] September, Anxiety F41.9 [place] [address] [place] [id number] [place] [address] September, Anxiety F41.9 and DJD (degen erative joint disease) M19.90 [place] [address] [place] [id number] [place] [phone] Aug, Anxiety F41.9 and DJD (degen erative joint disease) M19.90 [place] [address] [place] [id number] [place] [address] Jul, [place] [address] [address] Jul, 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 ; Hyperlipidemia E78.5 and HTN (hypertension) I10 [place] [address] [address] Jul, Anxiety F41.9 and DJD (degen erative joint disease) M19.90 [place] [address] [address] Jun, Anxiety F41.9 and DJD (degen erative joint disease) M19.90 [place] [address] [address] May, Weight loss, non-intentional R63.4 [place] [address] [address] May, DJD (degenerative joint dise ase) M19.90 [place] [address] [address] Apr, Anxiety F41.9 [place] [address] [place] [address] [place] [address] 14 Apr, 2017 Anxiety F41.9 and DJD (degen erative joint disease) M19.90 [facility] [address] [place] [id number] [address] [place] [address] 13 Apr, 2017 DJD (degenerative joint dise ase) M19.90 ; Traumatic brain injury S06.9X9A ; 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 ; Anxiety F41.9 and Depression F32.9 [facility] [address] [place] [id number] [place] [address] Mar, [place] [address] [place] [id number] [place] [address] Feb, DJD (degenerative joint dise ase) M19.90 ; Lumbago with sciatica, right side M54.41 and Anxiety F41.9 [facility] [address] [place] [id number] [place] [address] Feb, [facility] [address] [place] [id number] [address] [place] [address] Jan, DJD (degenerative joint dise ase) M19.90 ; Anxiety F41.9 and Lumbago with sciatica, right side M54.41 [place] [address] [place] [id number] [place] [address] Dec, Lumbago with sciatica, right side M54.41 [place] [address] [place] [address] Dec, Anxiety F41.9 and Lumbago wi th sciatica, right side M54.41 [facility] [address] [place] [id number] [place] [address] Dec, DJD (degenerative joint dise ase) M19.90 [place] [address] [place] [id number] [address] [place] [address] Dec, 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 ; Lumbago with sciatica, right side M54.41 ; Traumatic brain injury S06.9X9A ; DJD (degenerative joint disease) M19.90 ; Constipation, unspecified constipation type K59.00 ; Depression F32.9 ; Anxiety F41.9 ; BPH (benign prostatic hyperplasia) N40.0 ; HTN (hypertension) I10 ; GERD (gastroesophageal reflux disease) K21.9 and Hyperlipidemia E78.5 [place] [address] [place] [id number] [place] [address] Dec, DJD (degenerative joint dise ase) M19.90 ; Anxiety F41.9 ; Lumbago with sciatica, right side M54.41 ; Traumatic brain injury S06.9X9A ; Constipation, unspecified constipation type K59.00 ; Depression F32.9 ; BPH (benign prostatic hyperplasia) N40.0 ; 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 ; HTN (hypertension) I10 ; GERD (gastroesophageal reflux disease) K21.9 and Hyperlipidemia E78.5 [place] [address] [place] [address] Nov, [id number] [place] [address] Nov, Constipation, unspecified co nstipation type K59.00 ; Hyperlipidemia E78.5 ; Anxiety F41.9 ; Lumbago with sciatica, right side M54.41 ; BPH (benign prostatic hyperplasia) N40.0 ; 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 ; GERD (gastroesophageal reflux disease) K21.9 and Edema R60.9 [place] [address] [place] [id number] [place] [address] Nov, [place] [id number] [place] [address] Nov, DJD (degenerative joint dise ase) M19.90 and Anxiety F41.9 [place] [address] [place] [id number] [place] [address] Oct, Onychomycosis B35.1 ; Type I diabetes mellitus with peripheral circulatory disorder E10.51 and Neuropathy G62.9 [place] [address] [address] Oct, [place] [address] [address] Oct, DJD (degenerative joint dise ase) M19.90 ; Anxiety F41.9 and Lumbago with sciatica, right side M54.41 [place] [address] [address] 10 Sep, 2016 DJD (degenerative joint dise ase) M19.90 [place] [address] [address] 09 Sep, 2016 Lumbago with sciatica, right side M54.41 ; Anxiety F41.9 and DJD (degenerative joint disease) M19.90 [place] [address] [address] September, [place] [address] [address] 11 Aug, 2016 Lumbago with sciatica, right side M54.41 ; Anxiety F41.9 and DJD (degenerative joint disease) M19.90 [place] [address] [address] Aug, 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 [place] [address] [address] Aug, 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 ; Constipation, unspecified constipation type K59.00 ; Hyperlipidemia E78.5 ; Anxiety F41.9 ; Lumbago with sciatica, right side M54.41 ; BPH (benign prostatic hyperplasia) N40.0 ; GERD (gastroesophageal reflux disease) K21.9 and Edema R60.9 [place] [address] [address] Jul, Lumbago with sciatica, right side M54.41 ; Anxiety F41.9 and DJD (degenerative joint disease) M19.90 [place] [address] [place] [id number] [place] [address] 28 Jun, 2016 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 ; Anxiety F41.9 ; BPH (benign prostatic hyperplasia) N40.0 ; GERD (gastroesophageal reflux disease) K21.9 ; Hyperlipidemia E78.5 ; Lumbago with sciatica, right side M54.41 and Constipation, unspecified constipation type K59.00 [place] [address] [place] [id number] [place] [address] 15 Jun, 2016 DJD (degenerative joint dise ase) M19.90 and Anxiety F41.9 [place] [address] [place] [id number] [place] [address] 13 Jun, 2016 DJD (degenerative joint dise ase) M19.90 and Anxiety F41.9 [place] [address] [place] [id number] [place] [address] May, 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 ; Depression F32.9 ; GERD (gastroesophageal reflux disease) K21.9 ; Traumatic brain injury S06.9X9A ; Constipation, unspecified constipation type K59.00 ; DJD (degenerative joint disease) M19.90 ; Pure hypercholesterolemia E78.00 ; Benign nodular prostatic hyperplasia, presence of lower urinary tract symptoms unspecified N40.0 ; Neuropathy G62.9 and Anxiety F41.9 [place] [address] [place] [id number] [place] [address] May, DJD (degenerative joint dise ase) M19.90 and Anxiety F41.9 [place] [address] [place] [id number] [place] [address] Apr, Lumbago with sciatica, right side M54.41 and Low back pain M54.5 [place] [address] [place] [id number] [place] [address] Mar, [facility] [address] [address] Mar, [facility] [address] [address] Mar, [facility] [address] [address] Mar, [facility] [address] [address] Mar, Depression F32.9 ; Neuropath y G62.9 ; GERD (gastroesophageal reflux disease) K21.9 ; Edema R60.9 ; DJD (degenerative joint disease) M19.90 ; BPH (benign prostatic hyperplasia) N40.0 ; 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 ; Impacted cerumen of right ear H61.21 ; Anxiety F41.9 ; Constipation, unspecified constipation type K59.00 and Hyperlipidemia E78.5 [place] [address] [address] Feb, [place] [address] [address] Jan, [place] [address] [address] Dec, [place] [address] [address] Dec, [facility] [address] [address] Dec, [facility] [address] [address] Dec, [place] [address] [address] Dec, Depression F32.9 ; Anxiety F 41.9 ; Neuropathy G62.9 ; 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 ; GERD (gastroesophageal reflux disease) K21.9 ; Hyperlipidemia E78.5 ; Edema R60.9 ; DJD (degenerative joint disease) M19.90 ; Lumbago with sciatica, right side M54.41 ; Constipation, unspecified constipation type K59.00 and BPH (benign prostatic hyperplasia) N40.0 [facility] [address] [place] [address] Dec, [facility] [address] [address] Oct, [facility] [address] [address] Oct, Low back pain M54.5 [facility] [address] [address] Oct, [facility] [address] [place] [id number] [address] [place] [address] September, 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 ; Depression F32.9 ; Anxiety F41.9 ; BPH (benign prostatic hyperplasia) N40.0 ; Hyperlipidemia E78.5 ; Traumatic brain injury S06.9X9A ; Lumbago with sciatica, right side M54.41 ; Low back pain M54.5 ; Gastroesophageal reflux disease with esophagitis K21.0 ; Generalized edema R60.1 and Constipation, unspecified constipation type K59.00 [place] [address] [place] [id number] [place] [address] Aug, Depression F32.9 ; Anxiety F 41.9 [...] Assessed REASON FOR VISIT Controlled Med Refill 08/10/17 PLAN OF CARE VITAL SIGNS MEDICATIONS Medication Instructions Dosage Frequency Start Date End Date Duration S tatus Klonopin 1 MG Orally Twice a day 1 tablet 12h 28 day s Active Morphine Sulfate ER 60 mg Orally every 12 hrs 1 tablet 12h 04 2017 28 days Active Morphine Sulfate 15 mg Orally 2 times a day 1 tablet as needed 12h Aug, 28 days Active RESULTS No Results PROCEDURES [...]
--- OUTSIDE RECORDS SUMMARY | 2019-07-27 19:43 | XMS REPORT ---
Author Author Brenton VALIENTE Organization [facility] Address [address] [place] [address] Care Team Providers Care Sound Editor Name Role Phone LAURITA VALIENTE Unavailable PROBLEMS Type Condition ICD9-CM Code RPC34-VN Code Onset Dates Condition S tatus SNOMED Code Problem Low back pain M54.5 Active 510731 005 Problem Type 2 diabetes mellitus with other diabetic oph thalmic complication E11.39 Active 39274258061215 Problem Lumbago with sciatica, right side M54.41 Active 035255529 Problem Neck pain M54.2 Active 93334025 Problem Onychomycosis B35.1 Active 989307 008 Problem Traumatic brain injury S06.9X9A Active 449282968 Problem DJD (degenerative joint disease) M19.90 Active 235409475 Problem Benign nodular prostatic hyp erplasia, presence of lower urinary tract symptoms unspecified N40.0 Active 0628677 07 Problem BPH (benign prostatic hyperplasia) N40.0 Active 685655713 Problem HTN (hypertension) I10 Active 3 9723460 Problem Depression F32.9 Active 20951211 Problem GERD (gastroesophageal reflux disease) K21.9 Active 722515379 Problem Hyperlipidemia E78.5 Active 94835 004 Problem Anxiety F41.9 Active 24448547 ALLERGIES No Known Allergies ENCOUNTERS Encounter Location Date Diagnosis [facility] [address] [facility] [id number] [address] [place] [address] Dec, [facility] [address] [facility] [id number] [address] [place] [address] Dec, [facility] [address] [facility] [id number] [address] [place] [address] Nov, DJD (degenerative joint dise ase) M19.90 and Anxiety F41.9 [facility] [address] [facility] [id number] [address] [place] [address] 27 Oct, 2017 [place] [address] [place] [address] 14 Oct, 2017 Chest pain, unspecified type R07.9 [place] [address] [address] 14 Oct, 2017 [place] [address] [address] 13 Oct, 2017 DJD (degenerative joint dise ase) M19.90 ; Traumatic brain injury S06.9X9A ; Anxiety F41.9 ; Depression F32.9 ; BPH (benign prostatic hyperplasia) N40.0 ; HTN (hypertension) I10 ; GERD (gastroesophageal reflux disease) K21.9 ; Hyperlipidemia E78.5 ; 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 and Constipation, unspecified constipation type K59.[address] [address] 11 Oct, 2017 DJD (degenerative joint dise ase) M19.90 ; Traumatic brain injury S06.9X9A ; Anxiety F41.9 ; Depression F32.9 ; BPH (benign prostatic hyperplasia) N40.0 and HTN (hypertension) I10 [address] [address] 11 Oct, 2017 Neck pain M54.2 ; Fall, init ial encounter W19.XXXA and DJD (degenerative joint disease) M19.90 [place] [id number] [address] [place] [address] 07 Oct, 2017 DJD (degenerative joint dise ase) M19.90 ; Anxiety F41.9 ; Traumatic brain injury S06.9X9A ; Depression F32.9 ; BPH (benign prostatic hyperplasia) N40.0 ; HTN (hypertension) I10 ; GERD (gastroesophageal reflux disease) K21.9 ; Hyperlipidemia E78.5 ; 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 and Constipation, unspecified constipation type K59.[address] [place] [address] September, DJD (degenerative joint dise ase) M19.90 and Anxiety F41.9 [facility] [address] [address] September, Anxiety F41.9 [facility] [address] [address] September, Anxiety F41.9 and DJD (degen erative joint disease) M19.90 [facility] [address] [place] [id number] [place] [address] Aug, Anxiety F41.9 and DJD (degen erative joint disease) M19.90 [place] [address] [address] Jul, [place] [address] [address] Jul, 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 ; Hyperlipidemia E78.5 and HTN (hypertension) I10 [place] [address] [address] Jul, Anxiety F41.9 and DJD (degen erative joint disease) M19.90 [place] [address] [address] Jun, Anxiety F41.9 and DJD (degen erative joint disease) M19.90 [facility] [address] [address] May, Weight loss, non-intentional R63.4 [place] [address] [address] May, DJD (degenerative joint dise ase) M19.90 [place] [address] [address] Apr, Anxiety F41.9 [place] [address] [place] [id number] [address] [place] [address] 14 Apr, 2017 Anxiety F41.9 and DJD (degen erative joint disease) M19.90 [facility] [address] [place] [id number] [place] [address] Apr, DJD (degenerative joint dise ase) M19.90 ; Traumatic brain injury S06.9X9A ; 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 ; Anxiety F41.9 and Depression F32.9 [facility] [address] [place] [id number] [place] [address] Mar, [place] [address] [place] [id number] [place] [address] Feb, DJD (degenerative joint dise ase) M19.90 ; Lumbago with sciatica, right side M54.41 and Anxiety F41.9 [facility] [address] [place] [id number] [place] [address] Feb, [facility] [address] [place] [id number] [place] [address] Jan, DJD (degenerative joint dise ase) M19.90 ; Anxiety F41.9 and Lumbago with sciatica, right side M54.41 [place] [address] [place] [id number] [place] [address] Dec, Lumbago with sciatica, right side M54.41 [place] [address] [place] [id number] [place] [address] Dec, Anxiety F41.9 and Lumbago wi th sciatica, right side M54.41 [facility] [address] [place] [id number] [place] [address] Dec, DJD (degenerative joint dise ase) M19.90 [place] [address] [place] [id number] [place] [address] Dec, 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 ; Lumbago with sciatica, right side M54.41 ; Traumatic brain injury S06.9X9A ; DJD (degenerative joint disease) M19.90 ; Constipation, unspecified constipation type K59.00 ; Depression F32.9 ; Anxiety F41.9 ; BPH (benign prostatic hyperplasia) N40.0 ; HTN (hypertension) I10 ; GERD (gastroesophageal reflux disease) K21.9 and Hyperlipidemia E78.5 [place] [address] [place] [id number] [place] [address] Dec, DJD (degenerative joint dise ase) M19.90 ; Anxiety F41.9 ; Lumbago with sciatica, right side M54.41 ; Traumatic brain injury S06.9X9A ; Constipation, unspecified constipation type K59.00 ; Depression F32.9 ; BPH (benign prostatic hyperplasia) N40.0 ; 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 ; HTN (hypertension) I10 ; GERD (gastroesophageal reflux disease) K21.9 and Hyperlipidemia E78.5 [place] [address] [place] [address] Nov, [place] [address] [facility] [id number] [place] [address] Nov, Constipation, unspecified co nstipation type K59.00 ; Hyperlipidemia E78.5 ; Anxiety F41.9 ; Lumbago with sciatica, right side M54.41 ; BPH (benign prostatic hyperplasia) N40.0 ; 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 ; GERD (gastroesophageal reflux disease) K21.9 and Edema R60.9 [place] [address] [place] [id number] [place] [address] Nov, [place] [id number] [place] [address] Nov, DJD (degenerative joint dise ase) M19.90 and Anxiety F41.9 [place] [address] [place] [id number] [place] [address] Oct, Onychomycosis B35.1 ; Type I diabetes mellitus with peripheral circulatory disorder E10.51 and Neuropathy G62.9 [place] [address] [address] Oct, [place] [address] [address] Oct, DJD (degenerative joint dise ase) M19.90 ; Anxiety F41.9 and Lumbago with sciatica, right side M54.41 [place] [address] [address] 10 Sep, 2016 DJD (degenerative joint dise ase) M19.90 [place] [address] [address] 09 Sep, 2016 Lumbago with sciatica, right side M54.41 ; Anxiety F41.9 and DJD (degenerative joint disease) M19.90 [place] [address] [address] September, [place] [address] [address] 11 Aug, 2016 Lumbago with sciatica, right side M54.41 ; Anxiety F41.9 and DJD (degenerative joint disease) M19.90 [place] [address] [address] Aug, 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 [place] [address] [address] 05 Aug, 2016 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 ; Constipation, unspecified constipation type K59.00 ; Hyperlipidemia E78.5 ; Anxiety F41.9 ; Lumbago with sciatica, right side M54.41 ; BPH (benign prostatic hyperplasia) N40.0 ; GERD (gastroesophageal reflux disease) K21.9 and Edema R60.9 [place] [address] [address] Jul, Lumbago with sciatica, right side M54.41 ; Anxiety F41.9 and DJD (degenerative joint disease) M19.90 [place] [address] [address] 28 Jun, 2016 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 ; Anxiety F41.9 ; BPH (benign prostatic hyperplasia) N40.0 ; GERD (gastroesophageal reflux disease) K21.9 ; Hyperlipidemia E78.5 ; Lumbago with sciatica, right side M54.41 and Constipation, unspecified constipation type K59.00 [place] [address] [address] 15 Jun, 2016 DJD (degenerative joint dise ase) M19.90 and Anxiety F41.9 [place] [address] [address] 13 Jun, 2016 DJD (degenerative joint dise ase) M19.90 and Anxiety F41.9 [place] [address] [address] May, 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 ; Depression F32.9 ; GERD (gastroesophageal reflux disease) K21.9 ; Traumatic brain injury S06.9X9A ; Constipation, unspecified constipation type K59.00 ; DJD (degenerative joint disease) M19.90 ; Pure hypercholesterolemia E78.00 ; Benign nodular prostatic hyperplasia, presence of lower urinary tract symptoms unspecified N40.0 ; Neuropathy G62.9 and Anxiety F41.9 [place] [address] [address] May, DJD (degenerative joint dise ase) M19.90 and Anxiety F41.9 [place] [address] [place] [id number] [place] [address] Apr, Lumbago with sciatica, right side M54.41 and Low back pain M54.5 [place] [address] [address] Mar, [facility] [address] [address] Mar, [facility] [address] [address] Mar, [facility] [address] [address] Mar, [facility] [address] [address] Mar, Depression F32.9 ; Neuropath y G62.9 ; GERD (gastroesophageal reflux disease) K21.9 ; Edema R60.9 ; DJD (degenerative joint disease) M19.90 ; BPH (benign prostatic hyperplasia) N40.0 ; 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 ; Impacted cerumen of right ear H61.21 ; Anxiety F41.9 ; Constipation, unspecified constipation type K59.00 and Hyperlipidemia E78.5 [place] [address] [address] Feb, [facility] [address] [address] Jan, [place] [address] [address] Dec, [place] [address] [address] Dec, [facility] [address] [address] Dec, [facility] [address] [address] Dec, [facility] [address] [address] Dec, Depression F32.9 ; Anxiety F 41.9 ; Neuropathy G62.9 ; 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 ; GERD (gastroesophageal reflux disease) K21.9 ; Hyperlipidemia E78.5 ; Edema R60.9 ; DJD (degenerative joint disease) M19.90 ; Lumbago with sciatica, right side M54.41 ; Constipation, unspecified constipation type K59.00 and BPH (benign prostatic hyperplasia) N40.0 [facility] [address] [place] [address] Dec, [facility] [address] [address] Oct, [facility] [address] [address] Oct, Low back pain M54.5 [place] [address] [address] Oct, [facility] [address] [address] September, 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 ; Depression F32.9 ; Anxiety F41.9 ; BPH (benign prostatic hyperplasia) N40.0 ; Hyperlipidemia E78.5 ; Traumatic brain injury S06.9X9A ; Lumbago with sciatica, right side M54.41 ; Low back pain M54.5 ; Gastroesophageal reflux disease with esophagitis K21.0 ; Generalized edema R60.1 and Constipation, unspecified constipation type K59.00 [place] [address] [place] [id number] [place] [address] Aug, Depression F32.9 ; Anxiety F 41.9 [...] SOCIAL HISTORY Never Assessed REASON FOR VISIT Establish Care--tcuppettRN, -Needing medications refilled. Has bee out of all hi s pain medications PLAN OF CARE Activity Details Follow Up 3 Months with Jeremias zaragoza pain management Reason: VITAL SIGNS Height 68 in 2017-04-19 Weight 175.2 lbs 2017-04-19 Temperature 99.8 degrees Fahrenheit 2017-04-19 Heart Rate 88 bpm 2017-04-19 Respiratory Rate 20 2017-04-19 BMI 26.64 kg/m2 2017-04-19 Blood pressure systolic 138 mmHg 2017-04-19 Blood pressure diastolic 82 mmHg 2017-04-19 MEDICATIONS Medication Instructions Dosage Frequency Start Date End Date Duration S tatus Risperdal 4 MG Orally Once a day at hs 1/2 tablet 90 days Active Metoprolol Tartrate 25 MG Orally Twice a day 1/2 tablet 12h 05 A 2016 90 days Active Docusate Sodium 100 mg Orally 2 times a day 1 capsule 12h 29 Aug, 2017 90 days Active Morphine Sulfate ER 60 mg Orally every 12 hrs 1 tablet 12h 1 Apr, May, 28 days Active Omeprazole 20 mg Orally Once a day 2 capsules 24h 90 days Active Metformin HCl 500 mg Orally 3 times a day 1 tablet with meals 8h Active GlipiZIDE 5 mg Orally twice a day 1 tablet 12h Nov, 90 days Active Prazosin HCl 2 MG Orally Once a day at hs 2 capsules 90 days Active Hydrochlorothiazide 25 MG Orally Once a day 1 tablet 24h 90 days Active Morphine Sulfate 15 MG Orally 2 times a day 1 tablet as needed 12h 13 Apr, 2017 28 days Active Klonopin 1 MG Orally Twice a day 1 tablet 12h 28 day s Active Effexor XR 75 MG Orally Once a day 3 capsules 24h 90 days Active Neurontin 300 MG Orally 4 times a day 2 capsules 6h 90 days Active BuPROPion HCl 75 MG Orally 2 times a day 2 capsules 12h Mar, 90 days Active Lopid 600 MG Orally Twice a day 1/2 tablet 12h 90 da ys Active RESULTS Name Result Date Reference Range A1C (IN HOUSE) 2017-04-19 A1C IN HOUSE 6.5 4.3 - 5.6 % Previous A1c 8.1 Lot [id number] Exp date 12/24 PROCEDURES Procedure Date Ordered Result Body Site GLYCATED HEMOGLOBIN TEST Apr 19, 2017 INSTRUCTIONS MEDICATIONS ADMINISTERED No Known [...]
--- OUTSIDE RECORDS SUMMARY | 2019-07-27 19:43 | XMS REPORT ---
Author Author Brenton VALIENTE Organization [facility] Address [address] [place] [address] Care Team Providers Care Environmental Health Manager Name Role Phone LAURITA VALIENTE Unavailable PROBLEMS Type Condition ICD9-CM Code FLH27-UX Code Onset Dates Condition S tatus SNOMED Code Problem Low back pain M54.5 Active 871936 005 Problem Type 2 diabetes mellitus with other diabetic oph thalmic complication E11.39 Active 34691015205737 Problem Lumbago with sciatica, right side M54.41 Active 354623122 Problem Neck pain M54.2 Active 06529591 Problem Onychomycosis B35.1 Active 776522 008 Problem Traumatic brain injury S06.9X9A Active 457747408 Problem DJD (degenerative joint disease) M19.90 Active 890279719 Problem Benign nodular prostatic hyp erplasia, presence of lower urinary tract symptoms unspecified N40.0 Active 1576138 07 Problem BPH (benign prostatic hyperplasia) N40.0 Active 092287858 Problem HTN (hypertension) I10 Active 3 6841518 Problem Depression F32.9 Active 60966490 Problem GERD (gastroesophageal reflux disease) K21.9 Active 274769696 Problem Hyperlipidemia E78.5 Active 79976 004 Problem Anxiety F41.9 Active 06685853 ALLERGIES No Information ENCOUNTERS Encounter Location Date Diagnosis [facility] [address] [facility] [id number] [address] [place] [id number] Dec, [facility] [address] [facility] [id number] [address] [place] [address] Dec, [place] [id number] [facility] [id number] [address] [place] [address] Nov, DJD (degenerative joint dise ase) M19.90 and Anxiety F41.9 [facility] [address] [facility] [id number] [address] [place] [address] 27 Oct, 2017 [place] [address] [place] [address] 14 Oct, 2017 Chest pain, unspecified type R07.9 [place] [address] [place] [id number] [address] [place] [address] 14 Oct, 2017 [place] [address] [address] 13 Oct, 2017 DJD (degenerative joint dise ase) M19.90 ; Traumatic brain injury S06.9X9A ; Anxiety F41.9 ; Depression F32.9 ; BPH (benign prostatic hyperplasia) N40.0 ; HTN (hypertension) I10 ; GERD (gastroesophageal reflux disease) K21.9 ; Hyperlipidemia E78.5 ; 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 and Constipation, unspecified constipation type K59.[address] [address] 11 Oct, 2017 DJD (degenerative joint dise ase) M19.90 ; Traumatic brain injury S06.9X9A ; Anxiety F41.9 ; Depression F32.9 ; BPH (benign prostatic hyperplasia) N40.0 and HTN (hypertension) I10 [address] [address] 11 Oct, 2017 Neck pain M54.2 ; Fall, init ial encounter W19.XXXA and DJD (degenerative joint disease) M19.90 [place] [id number] [address] [place] [address] 07 Oct, 2017 DJD (degenerative joint dise ase) M19.90 ; Anxiety F41.9 ; Traumatic brain injury S06.9X9A ; Depression F32.9 ; BPH (benign prostatic hyperplasia) N40.0 ; HTN (hypertension) I10 ; GERD (gastroesophageal reflux disease) K21.9 ; Hyperlipidemia E78.5 ; 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 and Constipation, unspecified constipation type K59.[address] [place] [address] September, DJD (degenerative joint dise ase) M19.90 and Anxiety F41.9 [facility] [address] [address] September, Anxiety F41.9 [place] [address] [place] [id number] [place] [address] September, Anxiety F41.9 and DJD (degen erative joint disease) M19.90 [place] [address] [place] [id number] [place] [address] Aug, Anxiety F41.9 and DJD (degen erative joint disease) M19.90 [place] [address] [place] [id number] [place] [address] Jul, [place] [address] [address] Jul, 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 ; Hyperlipidemia E78.5 and HTN (hypertension) I10 [place] [address] [address] Jul, Anxiety F41.9 and DJD (degen erative joint disease) M19.90 [place] [address] [address] Jun, Anxiety F41.9 and DJD (degen erative joint disease) M19.90 [place] [address] [address] May, Weight loss, non-intentional R63.4 [place] [address] [address] May, DJD (degenerative joint dise ase) M19.90 [place] [address] [address] Apr, Anxiety F41.9 [place] [address] [place] [address] [place] [address] 14 Apr, 2017 Anxiety F41.9 and DJD (degen erative joint disease) M19.90 [facility] [address] [place] [id number] [address] [place] [address] 13 Apr, 2017 DJD (degenerative joint dise ase) M19.90 ; Traumatic brain injury S06.9X9A ; 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 ; Anxiety F41.9 and Depression F32.9 [facility] [address] [place] [id number] [place] [address] Mar, [place] [address] [place] [id number] [place] [address] Feb, DJD (degenerative joint dise ase) M19.90 ; Lumbago with sciatica, right side M54.41 and Anxiety F41.9 [facility] [address] [place] [id number] [address] [place] [address] Feb, [facility] [address] [place] [id number] [place] [address] Jan, DJD (degenerative joint dise ase) M19.90 ; Anxiety F41.9 and Lumbago with sciatica, right side M54.41 [place] [address] [place] [id number] [place] [address] Dec, Lumbago with sciatica, right side M54.41 [place] [address] [place] [address] Dec, Anxiety F41.9 and Lumbago wi th sciatica, right side M54.41 [facility] [address] [place] [id number] [place] [address] Dec, DJD (degenerative joint dise ase) M19.90 [place] [address] [place] [id number] [place] [address] Dec, 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 ; Lumbago with sciatica, right side M54.41 ; Traumatic brain injury S06.9X9A ; DJD (degenerative joint disease) M19.90 ; Constipation, unspecified constipation type K59.00 ; Depression F32.9 ; Anxiety F41.9 ; BPH (benign prostatic hyperplasia) N40.0 ; HTN (hypertension) I10 ; GERD (gastroesophageal reflux disease) K21.9 and Hyperlipidemia E78.5 [place] [address] [place] [id number] [place] [address] Dec, DJD (degenerative joint dise ase) M19.90 ; Anxiety F41.9 ; Lumbago with sciatica, right side M54.41 ; Traumatic brain injury S06.9X9A ; Constipation, unspecified constipation type K59.00 ; Depression F32.9 ; BPH (benign prostatic hyperplasia) N40.0 ; 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 ; HTN (hypertension) I10 ; GERD (gastroesophageal reflux disease) K21.9 and Hyperlipidemia E78.5 [place] [address] [place] [address] Nov, [id number] [place] [address] Nov, Constipation, unspecified co nstipation type K59.00 ; Hyperlipidemia E78.5 ; Anxiety F41.9 ; Lumbago with sciatica, right side M54.41 ; BPH (benign prostatic hyperplasia) N40.0 ; 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 ; GERD (gastroesophageal reflux disease) K21.9 and Edema R60.9 [place] [address] [place] [id number] [place] [address] Nov, [place] [id number] [place] [address] Nov, DJD (degenerative joint dise ase) M19.90 and Anxiety F41.9 [place] [address] [place] [id number] [place] [address] Oct, Onychomycosis B35.1 ; Type I diabetes mellitus with peripheral circulatory disorder E10.51 and Neuropathy G62.9 [place] [address] [address] Oct, [place] [address] [address] Oct, DJD (degenerative joint dise ase) M19.90 ; Anxiety F41.9 and Lumbago with sciatica, right side M54.41 [place] [address] [address] 10 Sep, 2016 DJD (degenerative joint dise ase) M19.90 [place] [address] [address] 09 Sep, 2016 Lumbago with sciatica, right side M54.41 ; Anxiety F41.9 and DJD (degenerative joint disease) M19.90 [place] [address] [address] September, [place] [address] [address] 11 Aug, 2016 Lumbago with sciatica, right side M54.41 ; Anxiety F41.9 and DJD (degenerative joint disease) M19.90 [place] [address] [address] Aug, 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 [place] [address] [address] Aug, 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 ; Constipation, unspecified constipation type K59.00 ; Hyperlipidemia E78.5 ; Anxiety F41.9 ; Lumbago with sciatica, right side M54.41 ; BPH (benign prostatic hyperplasia) N40.0 ; GERD (gastroesophageal reflux disease) K21.9 and Edema R60.9 [place] [address] [address] Jul, Lumbago with sciatica, right side M54.41 ; Anxiety F41.9 and DJD (degenerative joint disease) M19.90 [place] [address] [place] [id number] [place] [address] 28 Jun, 2016 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 ; Anxiety F41.9 ; BPH (benign prostatic hyperplasia) N40.0 ; GERD (gastroesophageal reflux disease) K21.9 ; Hyperlipidemia E78.5 ; Lumbago with sciatica, right side M54.41 and Constipation, unspecified constipation type K59.00 [place] [address] [place] [id number] [place] [address] 15 Jun, 2016 DJD (degenerative joint dise ase) M19.90 and Anxiety F41.9 [place] [address] [place] [id number] [place] [address] 13 Jun, 2016 DJD (degenerative joint dise ase) M19.90 and Anxiety F41.9 [place] [address] [place] [id number] [address] [place] [address] May, 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 ; Depression F32.9 ; GERD (gastroesophageal reflux disease) K21.9 ; Traumatic brain injury S06.9X9A ; Constipation, unspecified constipation type K59.00 ; DJD (degenerative joint disease) M19.90 ; Pure hypercholesterolemia E78.00 ; Benign nodular prostatic hyperplasia, presence of lower urinary tract symptoms unspecified N40.0 ; Neuropathy G62.9 and Anxiety F41.9 [place] [address] [place] [id number] [place] [address] May, DJD (degenerative joint dise ase) M19.90 and Anxiety F41.9 [place] [address] [place] [id number] [place] [address] Apr, Lumbago with sciatica, right side M54.41 and Low back pain M54.5 [place] [address] [place] [id number] [place] [address] Mar, [facility] [address] [address] Mar, [facility] [address] [address] Mar, [facility] [address] [address] Mar, [facility] [address] [address] Mar, Depression F32.9 ; Neuropath y G62.9 ; GERD (gastroesophageal reflux disease) K21.9 ; Edema R60.9 ; DJD (degenerative joint disease) M19.90 ; BPH (benign prostatic hyperplasia) N40.0 ; 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 ; Impacted cerumen of right ear H61.21 ; Anxiety F41.9 ; Constipation, unspecified constipation type K59.00 and Hyperlipidemia E78.5 [place] [address] [address] Feb, [place] [address] [address] Jan, [place] [address] [address] Dec, [place] [address] [address] Dec, [facility] [address] [address] Dec, [facility] [address] [address] Dec, [place] [address] [address] Dec, Depression F32.9 ; Anxiety F 41.9 ; Neuropathy G62.9 ; 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 ; GERD (gastroesophageal reflux disease) K21.9 ; Hyperlipidemia E78.5 ; Edema R60.9 ; DJD (degenerative joint disease) M19.90 ; Lumbago with sciatica, right side M54.41 ; Constipation, unspecified constipation type K59.00 and BPH (benign prostatic hyperplasia) N40.0 [facility] [address] [place] [address] Dec, [facility] [address] [address] Oct, [facility] [address] [address] Oct, Low back pain M54.5 [place] [address] [address] Oct, [facility] [address] [place] [id number] [address] [place] [address] September, 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 ; Depression F32.9 ; Anxiety F41.9 ; BPH (benign prostatic hyperplasia) N40.0 ; Hyperlipidemia E78.5 ; Traumatic brain injury S06.9X9A ; Lumbago with sciatica, right side M54.41 ; Low back pain M54.5 ; Gastroesophageal reflux disease with esophagitis K21.0 ; Generalized edema R60.1 and Constipation, unspecified constipation type K59.00 [place] [address] [place] [id number] [address] [place] [address] Aug, Depression F32.9 ; Anxiety F 41.9 [...] SOCIAL HISTORY Never Assessed REASON FOR VISIT Lab (walk-in) PLAN OF CARE VITAL SIGNS MEDICATIONS Unknown Medications RESULTS No Results PROCEDURES Procedure Date Ordered Result Body Site LIPID PANEL July 26, 2017 COMPREHEN METABOLIC PANEL July 26, 2017 ASSAY THYROID STIM HORMONE July 26, 2017 COMPLETE CBC W/AUTO DIFF WBC July 26, 2017 VENIPUNCT, ROUTINE* July 26, 2017 INSTRUCTIONS MEDICATIONS ADMINISTERED No Known Medications [...]
--- OUTSIDE RECORDS SUMMARY | 2019-07-27 19:43 | XMS REPORT ---
Author Author Brenton VALIENTE Organization [facility] Address [address] [place] [address] Care Team Providers Care Expediter Service Order Name Role Phone LAURITA VALIENTE Unavailable PROBLEMS Type Condition ICD9-CM Code [id number] Code Onset Dates Condition S tatus SNOMED Code Problem Low back pain M54.5 Active 821211 005 Problem Type 2 diabetes mellitus with other diabetic oph thalmic complication E11.39 Active 98118741771748 Problem Lumbago with sciatica, right side M54.41 Active 138457726 Problem Neck pain M54.2 Active 13549281 Problem Onychomycosis B35.1 Active 297019 008 Problem Traumatic brain injury S06.9X9A Active 863168538 Problem DJD (degenerative joint disease) M19.90 Active 212450570 Problem Benign nodular prostatic hyp erplasia, presence of lower urinary tract symptoms unspecified N40.0 Active 5740548 07 Problem BPH (benign prostatic hyperplasia) N40.0 Active 455745894 Problem HTN (hypertension) I10 Active 3 2324719 Problem Depression F32.9 Active 24884791 Problem GERD (gastroesophageal reflux disease) K21.9 Active 704362773 Problem Hyperlipidemia E78.5 Active 74452 004 Problem Anxiety F41.9 Active 98849546 ALLERGIES No Information ENCOUNTERS Encounter Location Date Diagnosis [facility] [address] [facility] [id number] [address] [place] [phone] Dec, [facility] [address] [facility] [id number] [address] [place] [phone] Dec, [facility] [address] [facility] [id number] [address] [place] [phone] Dec, DJD (degenerative joint dise ase) M19.90 and Anxiety F41.9 [facility] [address] [facility] [id number] [address] [place] [phone] 03 Nov, 2017 DJD (degenerative joint dise ase) M19.90 and Anxiety F41.9 [place] [address] [address] 27 Oct, 2017 [place] [address] [address] 14 Oct, 2017 Chest pain, unspecified type R07.9 and Nevus D22.9 [place] [address] [address] 14 Oct, 2017 [place] [address] [address] 13 Oct, 2017 DJD (degenerative joint dise ase) M19.90 ; Traumatic brain injury S06.9X9A ; Anxiety F41.9 ; Depression F32.9 ; BPH (benign prostatic hyperplasia) N40.0 ; HTN (hypertension) I10 ; GERD (gastroesophageal reflux disease) K21.9 ; Hyperlipidemia E78.5 ; 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 and Constipation, unspecified constipation type K59.00 [place] [address] [address] 11 Oct, 2017 DJD (degenerative joint dise ase) M19.90 ; Traumatic brain injury S06.9X9A ; Anxiety F41.9 ; Depression F32.9 ; BPH (benign prostatic hyperplasia) N40.0 and HTN (hypertension) I10 [place] [address] [place] [id number] [address] [place] [address] 11 Oct, 2017 Neck pain M54.2 ; Fall, init ial encounter W19.XXXA and DJD (degenerative joint disease) M19.90 [place] [address] [address] 07 Oct, 2017 DJD (degenerative joint dise ase) M19.90 ; Anxiety F41.9 ; Traumatic brain injury S06.9X9A ; Depression F32.9 ; BPH (benign prostatic hyperplasia) N40.0 ; HTN (hypertension) I10 ; GERD (gastroesophageal reflux disease) K21.9 ; Hyperlipidemia E78.5 ; 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 and Constipation, unspecified constipation type K59.00 [place] [address] [place] [id number] [place] [phone] September, DJD (degenerative joint dise ase) M19.90 and Anxiety F41.9 [place] [address] [place] [id number] [place] [phone] September, Anxiety F41.9 [place] [address] [place] [id number] [place] [phone] September, Anxiety F41.9 and DJD (degen erative joint disease) M19.90 [place] [address] [place] [id number] [place] [phone] Aug, Anxiety F41.9 and DJD (degen erative joint disease) M19.90 [place] [address] [address] Jul, [place] [address] [place] [id number] [place] [phone] Jul, 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 ; Hyperlipidemia E78.5 and HTN (hypertension) I10 [place] [address] [place] [id number] [place] [id number] 07 Jul, 2017 Anxiety F41.9 and DJD (degen erative joint disease) M19.90 [place] [address] [place] [id number] [place] [phone] Jun, Anxiety F41.9 and DJD (degen erative joint disease) M19.90 [place] [address] [place] [id number] [place] [phone] May, Weight loss, non-intentional R63.4 [place] [address] [place] [id number] [place] [phone] May, DJD (degenerative joint dise ase) M19.90 [facility] [address] [facility] [id number] [address] [place] [phone] 14 Apr, 2017 Anxiety F41.9 [facility] [address] [facility] [id number] [address] [place] [phone] Apr, Anxiety F41.9 and DJD (degen erative joint disease) M19.90 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 [address] [facility] [id number] [address] [place] [phone] Mar, [facility] [address] [place] [id number] [place] [phone] Feb, DJD (degenerative joint dise ase) M19.90 ; Lumbago with sciatica, right side M54.41 and Anxiety F41.9 [facility] [address] [facility] [id number] [address] [place] [phone] Feb, [facility] [address] [facility] [id number] [address] [place] [phone] Jan, DJD (degenerative joint dise ase) M19.90 ; Anxiety F41.9 and Lumbago with sciatica, right side M54.41 [facility] [address] [facility] [id number] [address] [place] [phone] Dec, Lumbago with sciatica, right side M54.41 [facility] [address] [facility] [id number] [address] [place] [phone] Dec, Anxiety F41.9 and Lumbago wi th sciatica, right side M54.41 [facility] [address] [place] [id number] [place] [phone] Dec, DJD (degenerative joint dise ase) M19.90 [place] [id number] [address] Dec, 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 ; Lumbago with sciatica, right side M54.41 ; Traumatic brain injury S06.9X9A ; DJD (degenerative joint disease) M19.90 ; Constipation, unspecified constipation type K59.00 ; Depression F32.9 ; Anxiety F41.9 ; BPH (benign prostatic hyperplasia) N40.0 ; HTN (hypertension) I10 ; GERD (gastroesophageal reflux disease) K21.9 and Hyperlipidemia E78.5 [place] [address] [address] Dec, DJD (degenerative joint dise ase) M19.90 ; Anxiety F41.9 ; Lumbago with sciatica, right side M54.41 ; Traumatic brain injury S06.9X9A ; Constipation, unspecified constipation type K59.00 ; Depression F32.9 ; BPH (benign prostatic hyperplasia) N40.0 ; 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 ; HTN (hypertension) I10 ; GERD (gastroesophageal reflux disease) K21.9 and Hyperlipidemia E78.5 [place] [address] [address] Nov, [place] [address] [address] Nov, Constipation, unspecified co nstipation type K59.00 ; Hyperlipidemia E78.5 ; Anxiety F41.9 ; Lumbago with sciatica, right side M54.41 ; BPH (benign prostatic hyperplasia) N40.0 ; 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 ; GERD (gastroesophageal reflux disease) K21.9 and Edema R60.9 [place] [address] [address] Nov, [place] [address] [address] Nov, DJD (degenerative joint dise ase) M19.90 and Anxiety F41.9 [place] [address] [facility] [id number] [address] [place] [phone] Oct, Onychomycosis B35.1 ; Type I diabetes mellitus with peripheral circulatory disorder E10.51 and Neuropathy G62.9 [place] [address] [facility] [id number] [address] [place] [phone] Oct, [place] [address] [facility] [id number] [address] [place] [phone] Oct, DJD (degenerative joint dise ase) M19.90 ; Anxiety F41.9 and Lumbago with sciatica, right side M54.41 [place] [address] [facility] [id number] [address] [place] [phone] September, DJD (degenerative joint dise ase) M19.90 [place] [address] [place] [id number] [place] [phone] September, Lumbago with sciatica, right side M54.41 ; Anxiety F41.9 and DJD (degenerative joint disease) M19.90 [place] [address] [facility] [id number] [address] [place] [phone] September, [place] [address] [facility] [id number] [address] [place] [phone] Aug, Lumbago with sciatica, right side M54.41 ; Anxiety F41.9 and DJD (degenerative joint disease) M19.90 [place] [address] [facility] [id number] [address] [place] [phone] Aug, 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 [place] [address] [facility] [id number] [address] [place] [phone] Aug, 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 ; Constipation, unspecified constipation type K59.00 ; Hyperlipidemia E78.5 ; Anxiety F41.9 ; Lumbago with sciatica, right side M54.41 ; BPH (benign prostatic hyperplasia) N40.0 ; GERD (gastroesophageal reflux disease) K21.9 and Edema R60.9 [place] [address] [place] [id number] Jul, Lumbago with sciatica, right side M54.41 ; Anxiety F41.9 and DJD (degenerative joint disease) M19.90 [place] [address] [place] [id number] 28 Jun, 2016 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 ; Anxiety F41.9 ; BPH (benign prostatic hyperplasia) N40.0 ; GERD (gastroesophageal reflux disease) K21.9 ; Hyperlipidemia E78.5 ; Lumbago with sciatica, right side M54.41 and Constipation, unspecified constipation type K59.00 [place] [address] [address] 15 Jun, 2016 DJD (degenerative joint dise ase) M19.90 and Anxiety F41.9 [place] [address] [address] 13 Jun, 2016 DJD (degenerative joint dise ase) M19.90 and Anxiety F41.9 [place] [address] [address] May, 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 ; Depression F32.9 ; GERD (gastroesophageal reflux disease) K21.9 ; Traumatic brain injury S06.9X9A ; Constipation, unspecified constipation type K59.00 ; DJD (degenerative joint disease) M19.90 ; Pure hypercholesterolemia E78.00 ; Benign nodular prostatic hyperplasia, presence of lower urinary tract symptoms unspecified N40.0 ; Neuropathy G62.9 and Anxiety F41.9 [place] [address] [address] May, DJD (degenerative joint dise ase) M19.90 and Anxiety F41.[address] [address] Apr, Lumbago with sciatica, right side M54.41 and Low back pain M54.5 [facility] [address] [place] [id number] [place] [phone] Mar, [facility] [address] [facility] [id number] [address] [place] [phone] Mar, [facility] [address] [address] Mar, [facility] [address] [place] [id number] [place] [phone] Mar, [facility] [address] [address] Mar, Depression F32.9 ; Neuropath y G62.9 [...] E78.5 [facility] [address] [place] [id number] [address] [place] [phone] Feb, [facility] [address] [place] [id number] [address] [place] [phone] Jan, [facility] [address] [place] [id number] [address] [place] [phone] Dec, [facility] [address] [place] [id number] [place] [phone] Dec, [facility] [address] [place] [id number] [place] [id number] Dec, [facility] [address] [place] [id number] [place] [phone] Dec, [facility] [address] [place] [id number] [place] [phone] Dec, Depression F32.9 ; Anxiety F 41.9 [...] N40.0 [facility] [id number] [place] [phone] Dec, [facility] [id number] [place] [phone] Oct, [facility] [address] [address] Oct, Low back pain M54.5 [facility] [address] [place] [id number] [place] [phone] Oct, [facility] [address] [place] [id number] [place] [phone] September, Type 2 diabetes mellitus wit h [...] K59.00 [facility] [address] [place] [id number] [place] [phone] Aug, Depression F32.9 ; Anxiety F 41.9 [...] Once a day 1 tablet 24h Jul, 30 day(s) Active BuPROPion HCl 75 MG Orally 2 times a day 2 capsules 12h Mar, 30 days Active RESULTS No Results PROCEDURES No [...]
--- OUTSIDE RECORDS SUMMARY | 2019-07-27 19:43 | XMS REPORT ---
Author Author Brenton VALIENTE Organization [facility] Address [address] [place] [address] Care Team Providers Care Barrel Endshake Adjuster Name Role Phone LAURITA VALIENTE Unavailable PROBLEMS Type Condition ICD9-CM Code DZM20-GD Code Onset Dates Condition S tatus SNOMED Code Problem Low back pain M54.5 Active 024300 005 Problem Type 2 diabetes mellitus with other diabetic oph thalmic complication E11.39 Active 42025731005501 Problem Lumbago with sciatica, right side M54.41 Active 014575673 Problem Neck pain M54.2 Active 60331440 Problem Onychomycosis B35.1 Active 400656 008 Problem Traumatic brain injury S06.9X9A Active 491281581 Problem DJD (degenerative joint disease) M19.90 Active 775093558 Problem Benign nodular prostatic hyp erplasia, presence of lower urinary tract symptoms unspecified N40.0 Active 0202871 07 Problem BPH (benign prostatic hyperplasia) N40.0 Active 478772487 Problem HTN (hypertension) I10 Active 3 7934414 Problem Depression F32.9 Active 12599408 Problem GERD (gastroesophageal reflux disease) K21.9 Active 084051085 Problem Hyperlipidemia E78.5 Active 69305 004 Problem Anxiety F41.9 Active 87713441 ALLERGIES No Information ENCOUNTERS Encounter Location Date Diagnosis [facility] [address] [facility] [id number] [address] [place] [id number] Dec, [facility] [address] [facility] [id number] [address] [place] [id number] Dec, [facility] [address] [facility] [id number] [address] [place] [address] Dec, DJD (degenerative joint dise ase) M19.90 and Anxiety F41.9 [facility] [address] [facility] [id number] [address] [place] [id number] 03 Nov, 2017 DJD (degenerative joint dise ase) M19.90 and Anxiety F41.9 [place] [address] [address] 27 Oct, 2017 [place] [address] [address] 14 Oct, 2017 Chest pain, unspecified type R07.9 and Nevus D22.9 [place] [address] [address] 14 Oct, 2017 [place] [address] [address] 13 Oct, 2017 DJD (degenerative joint dise ase) M19.90 ; Traumatic brain injury S06.9X9A ; Anxiety F41.9 ; Depression F32.9 ; BPH (benign prostatic hyperplasia) N40.0 ; HTN (hypertension) I10 ; GERD (gastroesophageal reflux disease) K21.9 ; Hyperlipidemia E78.5 ; 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 and Constipation, unspecified constipation type K59.00 [place] [address] [address] 11 Oct, 2017 DJD (degenerative joint dise ase) M19.90 ; Traumatic brain injury S06.9X9A ; Anxiety F41.9 ; Depression F32.9 ; BPH (benign prostatic hyperplasia) N40.0 and HTN (hypertension) I10 [place] [address] [place] [id number] [address] [place] [id number] 11 Oct, 2017 Neck pain M54.2 ; Fall, init ial encounter W19.XXXA and DJD (degenerative joint disease) M19.90 [place] [address] [address] 07 Oct, 2017 DJD (degenerative joint dise ase) M19.90 ; Anxiety F41.9 ; Traumatic brain injury S06.9X9A ; Depression F32.9 ; BPH (benign prostatic hyperplasia) N40.0 ; HTN (hypertension) I10 ; GERD (gastroesophageal reflux disease) K21.9 ; Hyperlipidemia E78.5 ; 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 and Constipation, unspecified constipation type K59.00 [place] [address] [place] [id number] [place] [phone] September, DJD (degenerative joint dise ase) M19.90 and Anxiety F41.9 [place] [address] [place] [id number] [place] [address] September, Anxiety F41.9 [place] [address] [place] [id number] [place] [phone] September, Anxiety F41.9 and DJD (degen erative joint disease) M19.90 [place] [address] [place] [id number] [place] [address] Aug, Anxiety F41.9 and DJD (degen erative joint disease) M19.90 [place] [address] [address] Jul, [place] [address] [place] [id number] [place] [phone] Jul, 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 ; Hyperlipidemia E78.5 and HTN (hypertension) I10 [place] [address] [place] [id number] [place] [id number] 07 Jul, 2017 Anxiety F41.9 and DJD (degen erative joint disease) M19.90 [place] [address] [place] [id number] [place] [phone] Jun, Anxiety F41.9 and DJD (degen erative joint disease) M19.90 [place] [address] [place] [id number] [place] [phone] May, Weight loss, non-intentional R63.4 [place] [address] [place] [id number] [place] [address] May, DJD (degenerative joint dise ase) M19.90 [facility] [address] [facility] [id number] [address] [place] [id number] 14 Apr, 2017 Anxiety F41.9 [facility] [address] [facility] [id number] [address] [place] [address] Apr, Anxiety F41.9 and DJD (degen erative joint disease) M19.90 [facility] [address] [place] [id number] [place] [address] Apr, DJD (degenerative joint dise ase) M19.90 ; Traumatic brain injury S06.9X9A ; 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 ; Anxiety F41.9 and Depression F32.9 [facility] [address] [facility] [id number] [address] [place] [address] Mar, [facility] [address] [place] [id number] [place] [phone] Feb, DJD (degenerative joint dise ase) M19.90 ; Lumbago with sciatica, right side M54.41 and Anxiety F41.9 [facility] [address] [facility] [id number] [address] [place] [id number] Feb, [facility] [address] [facility] [id number] [address] [place] [phone] Jan, DJD (degenerative joint dise ase) M19.90 ; Anxiety F41.9 and Lumbago with sciatica, right side M54.41 [facility] [address] [facility] [id number] [address] [place] [address] Dec, Lumbago with sciatica, right side M54.41 [facility] [address] [facility] [id number] [address] [place] [phone] Dec, Anxiety F41.9 and Lumbago wi th sciatica, right side M54.41 [facility] [address] [place] [id number] [place] [address] Dec, DJD (degenerative joint dise ase) M19.90 [place] [address] [address] Dec, 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 ; Lumbago with sciatica, right side M54.41 ; Traumatic brain injury S06.9X9A ; DJD (degenerative joint disease) M19.90 ; Constipation, unspecified constipation type K59.00 ; Depression F32.9 ; Anxiety F41.9 ; BPH (benign prostatic hyperplasia) N40.0 ; HTN (hypertension) I10 ; GERD (gastroesophageal reflux disease) K21.9 and Hyperlipidemia E78.5 [place] [address] [address] Dec, DJD (degenerative joint dise ase) M19.90 ; Anxiety F41.9 ; Lumbago with sciatica, right side M54.41 ; Traumatic brain injury S06.9X9A ; Constipation, unspecified constipation type K59.00 ; Depression F32.9 ; BPH (benign prostatic hyperplasia) N40.0 ; 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 ; HTN (hypertension) I10 ; GERD (gastroesophageal reflux disease) K21.9 and Hyperlipidemia E78.5 [place] [address] [address] Nov, [place] [address] [address] Nov, Constipation, unspecified co nstipation type K59.00 ; Hyperlipidemia E78.5 ; Anxiety F41.9 ; Lumbago with sciatica, right side M54.41 ; BPH (benign prostatic hyperplasia) N40.0 ; 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 ; GERD (gastroesophageal reflux disease) K21.9 and Edema R60.9 [place] [address] [address] Nov, [place] [address] [address] Nov, DJD (degenerative joint dise ase) M19.90 and Anxiety F41.9 [place] [address] [facility] [id number] [address] [place] [phone] Oct, Onychomycosis B35.1 ; Type I diabetes mellitus with peripheral circulatory disorder E10.51 and Neuropathy G62.9 [place] [address] [facility] [id number] [address] [place] [phone] Oct, [place] [address] [facility] [id number] [address] [place] [address] Oct, DJD (degenerative joint dise ase) M19.90 ; Anxiety F41.9 and Lumbago with sciatica, right side M54.41 [place] [address] [facility] [id number] [address] [place] [address] September, DJD (degenerative joint dise ase) M19.90 [place] [address] [place] [id number] [place] [address] September, Lumbago with sciatica, right side M54.41 ; Anxiety F41.9 and DJD (degenerative joint disease) M19.90 [place] [address] [facility] [id number] [address] [place] [phone] September, [place] [address] [facility] [id number] [address] [place] [address] Aug, Lumbago with sciatica, right side M54.41 ; Anxiety F41.9 and DJD (degenerative joint disease) M19.90 [place] [address] [facility] [id number] [address] [place] [address] Aug, 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 [place] [address] [facility] [id number] [address] [place] [address] Aug, 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 ; Constipation, unspecified constipation type K59.00 ; Hyperlipidemia E78.5 ; Anxiety F41.9 ; Lumbago with sciatica, right side M54.41 ; BPH (benign prostatic hyperplasia) N40.0 ; GERD (gastroesophageal reflux disease) K21.9 and Edema R60.9 [place] [address] [place] [id number] Jul, Lumbago with sciatica, right side M54.41 ; Anxiety F41.9 and DJD (degenerative joint disease) M19.90 [place] [address] [place] [id number] 28 Jun, 2016 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 ; Anxiety F41.9 ; BPH (benign prostatic hyperplasia) N40.0 ; GERD (gastroesophageal reflux disease) K21.9 ; Hyperlipidemia E78.5 ; Lumbago with sciatica, right side M54.41 and Constipation, unspecified constipation type K59.00 [place] [address] [address] 15 Jun, 2016 DJD (degenerative joint dise ase) M19.90 and Anxiety F41.9 [place] [address] [address] 13 Jun, 2016 DJD (degenerative joint dise ase) M19.90 and Anxiety F41.9 [place] [address] [address] May, 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 ; Depression F32.9 ; GERD (gastroesophageal reflux disease) K21.9 ; Traumatic brain injury S06.9X9A ; Constipation, unspecified constipation type K59.00 ; DJD (degenerative joint disease) M19.90 ; Pure hypercholesterolemia E78.00 ; Benign nodular prostatic hyperplasia, presence of lower urinary tract symptoms unspecified N40.0 ; Neuropathy G62.9 and Anxiety F41.9 [place] [address] [address] May, DJD (degenerative joint dise ase) M19.90 and Anxiety F41.[address] [address] Apr, Lumbago with sciatica, right side M54.41 and Low back pain M54.5 [facility] [address] [place] [id number] [place] [phone] Mar, [facility] [address] [facility] [id number] [address] [place] [address] Mar, [facility] [address] [address] Mar, [facility] [address] [place] [id number] [place] [phone] Mar, [facility] [address] [address] Mar, Depression F32.9 ; Neuropath y G62.9 ; GERD (gastroesophageal reflux disease) K21.9 ; Edema R60.9 ; DJD (degenerative joint disease) M19.90 ; BPH (benign prostatic hyperplasia) N40.0 ; 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 ; Impacted cerumen of right ear H61.21 ; Anxiety F41.9 ; Constipation, unspecified constipation type K59.00 and Hyperlipidemia E78.5 [facility] [address] [place] [id number] [place] [phone] Feb, [facility] [address] [place] [id number] [address] [place] [phone] Jan, [facility] [address] [place] [id number] [place] [phone] Dec, [facility] [address] [place] [id number] [place] [phone] Dec, [facility] [address] [place] [id number] [place] [id number] Dec, [facility] [address] [place] [id number] [place] [address] Dec, [facility] [address] [place] [id number] [place] [address] Dec, Depression F32.9 ; Anxiety F 41.9 ; Neuropathy G62.9 ; 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 ; GERD (gastroesophageal reflux disease) K21.9 ; Hyperlipidemia E78.5 ; Edema R60.9 ; DJD (degenerative joint disease) M19.90 ; Lumbago with sciatica, right side M54.41 ; Constipation, unspecified constipation type K59.00 and BPH (benign prostatic hyperplasia) N40.0 [facility] [address] [place] [address] Dec, [facility] [address] [place] [address] Oct, [facility] [address] [address] Oct, Low back pain M54.5 [facility] [address] [place] [id number] [place] [phone] Oct, [facility] [address] [place] [id number] [place] [address] September, 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 ; Depression F32.9 ; Anxiety F41.9 ; BPH (benign prostatic hyperplasia) N40.0 ; Hyperlipidemia E78.5 ; Traumatic brain injury S06.9X9A ; Lumbago with sciatica, right side M54.41 ; Low back pain M54.5 ; Gastroesophageal reflux disease with esophagitis K21.0 ; Generalized edema R60.1 and Constipation, unspecified constipation type K59.00 [facility] [address] [place] [id number] [place] [address] Aug, Depression F32.9 ; Anxiety F 41.9 [...] Never Assessed REASON FOR VISIT Controlled Med Refill-09/07/17 PLAN OF CARE VITAL SIGNS MEDICATIONS Medication Instructions Dosage Frequency Start Date End Date Duration S tatus Morphine Sulfate ER 60 mg Orally every 12 hrs 1 tablet 12h 03 2017 28 days Active Klonopin 1 MG Orally Twice a day 1 tablet 12h 28 day s Active Morphine Sulfate 15 mg Orally 2 times a day 1 tablet as needed 12h September, 28 days Active RESULTS No Results PROCEDURES [...]
--- OUTSIDE RECORDS SUMMARY | 2019-07-27 19:43 | XMS REPORT ---
Author Author Brenton VALIENTE Organization [facility] Address [address] [place] [address] Care Team Providers Care Renovation Plant Supervisor Name Role Phone LAURITA VALIENTE Unavailable PROBLEMS Type Condition ICD9-CM Code [id number] Code Onset Dates Condition S tatus SNOMED Code Problem Low back pain M54.5 Active 704667 005 Problem Type 2 diabetes mellitus with other diabetic oph thalmic complication E11.39 Active 13566872394436 Problem Lumbago with sciatica, right side M54.41 Active 223388873 Problem Neck pain M54.2 Active 85280303 Problem Onychomycosis B35.1 Active 315985 008 Problem Traumatic brain injury S06.9X9A Active 388339544 Problem DJD (degenerative joint disease) M19.90 Active 456055561 Problem Benign nodular prostatic hyp erplasia, presence of lower urinary tract symptoms unspecified N40.0 Active 4343796 07 Problem BPH (benign prostatic hyperplasia) N40.0 Active 787130109 Problem HTN (hypertension) I10 Active 3 9160199 Problem Depression F32.9 Active 39798353 Problem GERD (gastroesophageal reflux disease) K21.9 Active 439735672 Problem Hyperlipidemia E78.5 Active 11622 004 Problem Anxiety F41.9 Active 84104434 ALLERGIES No Information ENCOUNTERS Encounter Location Date Diagnosis [facility] [address] [facility] [id number] [address] [place] [address] Dec, [facility] [address] [facility] [id number] [address] [place] [address] Dec, [place] [address] [facility] [id number] [address] [place] [address] Nov, DJD (degenerative joint dise ase) M19.90 and Anxiety F41.9 [facility] [address] [facility] [id number] [address] [place] [address] 27 Oct, 2017 [place] [address] [place] [address] 14 Oct, 2017 Chest pain, unspecified type R07.9 [place] [address] [place] [id number] [address] [place] [address] 14 Oct, 2017 [place] [address] [address] 13 Oct, 2017 DJD (degenerative joint dise ase) M19.90 ; Traumatic brain injury S06.9X9A ; Anxiety F41.9 ; Depression F32.9 ; BPH (benign prostatic hyperplasia) N40.0 ; HTN (hypertension) I10 ; GERD (gastroesophageal reflux disease) K21.9 ; Hyperlipidemia E78.5 ; 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 and Constipation, unspecified constipation type K59.[address] [address] 11 Oct, 2017 DJD (degenerative joint dise ase) M19.90 ; Traumatic brain injury S06.9X9A ; Anxiety F41.9 ; Depression F32.9 ; BPH (benign prostatic hyperplasia) N40.0 and HTN (hypertension) I10 [address] [address] 11 Oct, 2017 Neck pain M54.2 ; Fall, init ial encounter W19.XXXA and DJD (degenerative joint disease) M19.90 [place] [id number] [place] [phone] 07 Oct, 2017 DJD (degenerative joint dise ase) M19.90 ; Anxiety F41.9 ; Traumatic brain injury S06.9X9A ; Depression F32.9 ; BPH (benign prostatic hyperplasia) N40.0 ; HTN (hypertension) I10 ; GERD (gastroesophageal reflux disease) K21.9 ; Hyperlipidemia E78.5 ; 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 and Constipation, unspecified constipation type K59.[address] [place] [address] September, DJD (degenerative joint dise ase) M19.90 and Anxiety F41.9 [facility] [address] [address] September, Anxiety F41.9 [place] [address] [place] [id number] [place] [address] September, Anxiety F41.9 and DJD (degen erative joint disease) M19.90 [place] [address] [place] [id number] [place] [phone] Aug, Anxiety F41.9 and DJD (degen erative joint disease) M19.90 [place] [address] [place] [id number] [place] [address] Jul, [place] [address] [address] Jul, 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 ; Hyperlipidemia E78.5 and HTN (hypertension) I10 [place] [address] [address] Jul, Anxiety F41.9 and DJD (degen erative joint disease) M19.90 [place] [address] [address] Jun, Anxiety F41.9 and DJD (degen erative joint disease) M19.90 [place] [address] [address] May, Weight loss, non-intentional R63.4 [place] [address] [address] May, DJD (degenerative joint dise ase) M19.90 [place] [address] [address] Apr, Anxiety F41.9 [place] [address] [place] [address] [place] [address] 14 Apr, 2017 Anxiety F41.9 and DJD (degen erative joint disease) M19.90 [facility] [address] [place] [id number] [place] [address] 13 Apr, 2017 DJD (degenerative joint dise ase) M19.90 ; Traumatic brain injury S06.9X9A ; 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 ; Anxiety F41.9 and Depression F32.9 [facility] [address] [place] [id number] [place] [phone] Mar, [place] [address] [place] [id number] [place] [address] Feb, DJD (degenerative joint dise ase) M19.90 ; Lumbago with sciatica, right side M54.41 and Anxiety F41.9 [facility] [address] [place] [id number] [place] [phone] Feb, [facility] [address] [place] [id number] [place] [address] Jan, DJD (degenerative joint dise ase) M19.90 ; Anxiety F41.9 and Lumbago with sciatica, right side M54.41 [place] [address] [place] [id number] [place] [address] Dec, Lumbago with sciatica, right side M54.41 [place] [address] [place] [address] Dec, Anxiety F41.9 and Lumbago wi th sciatica, right side M54.41 [facility] [address] [place] [id number] [place] [address] Dec, DJD (degenerative joint dise ase) M19.90 [place] [address] [place] [id number] [place] [address] Dec, 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 ; Lumbago with sciatica, right side M54.41 ; Traumatic brain injury S06.9X9A ; DJD (degenerative joint disease) M19.90 ; Constipation, unspecified constipation type K59.00 ; Depression F32.9 ; Anxiety F41.9 ; BPH (benign prostatic hyperplasia) N40.0 ; HTN (hypertension) I10 ; GERD (gastroesophageal reflux disease) K21.9 and Hyperlipidemia E78.5 [place] [address] [place] [id number] [place] [address] Dec, DJD (degenerative joint dise ase) M19.90 ; Anxiety F41.9 ; Lumbago with sciatica, right side M54.41 ; Traumatic brain injury S06.9X9A ; Constipation, unspecified constipation type K59.00 ; Depression F32.9 ; BPH (benign prostatic hyperplasia) N40.0 ; 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 ; HTN (hypertension) I10 ; GERD (gastroesophageal reflux disease) K21.9 and Hyperlipidemia E78.5 [place] [address] [place] [address] Nov, [id number] [place] [address] Nov, Constipation, unspecified co nstipation type K59.00 ; Hyperlipidemia E78.5 ; Anxiety F41.9 ; Lumbago with sciatica, right side M54.41 ; BPH (benign prostatic hyperplasia) N40.0 ; 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 ; GERD (gastroesophageal reflux disease) K21.9 and Edema R60.9 [place] [address] [place] [id number] [place] [address] Nov, [place] [id number] [place] [address] Nov, DJD (degenerative joint dise ase) M19.90 and Anxiety F41.9 [place] [address] [place] [id number] [place] [address] Oct, Onychomycosis B35.1 ; Type I diabetes mellitus with peripheral circulatory disorder E10.51 and Neuropathy G62.9 [place] [address] [address] Oct, [place] [address] [address] Oct, DJD (degenerative joint dise ase) M19.90 ; Anxiety F41.9 and Lumbago with sciatica, right side M54.41 [place] [address] [address] 10 Sep, 2016 DJD (degenerative joint dise ase) M19.90 [place] [address] [address] 09 Sep, 2016 Lumbago with sciatica, right side M54.41 ; Anxiety F41.9 and DJD (degenerative joint disease) M19.90 [place] [address] [address] September, [place] [address] [address] 11 Aug, 2016 Lumbago with sciatica, right side M54.41 ; Anxiety F41.9 and DJD (degenerative joint disease) M19.90 [place] [address] [address] Aug, 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 [place] [address] [address] Aug, 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 ; Constipation, unspecified constipation type K59.00 ; Hyperlipidemia E78.5 ; Anxiety F41.9 ; Lumbago with sciatica, right side M54.41 ; BPH (benign prostatic hyperplasia) N40.0 ; GERD (gastroesophageal reflux disease) K21.9 and Edema R60.9 [place] [address] [address] Jul, Lumbago with sciatica, right side M54.41 ; Anxiety F41.9 and DJD (degenerative joint disease) M19.90 [place] [address] [place] [id number] [place] [address] 28 Jun, 2016 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 ; Anxiety F41.9 ; BPH (benign prostatic hyperplasia) N40.0 ; GERD (gastroesophageal reflux disease) K21.9 ; Hyperlipidemia E78.5 ; Lumbago with sciatica, right side M54.41 and Constipation, unspecified constipation type K59.00 [place] [address] [place] [id number] [place] [phone] 15 Jun, 2016 DJD (degenerative joint dise ase) M19.90 and Anxiety F41.9 [place] [address] [place] [id number] [place] [phone] 13 Jun, 2016 DJD (degenerative joint dise ase) M19.90 and Anxiety F41.9 [place] [address] [place] [id number] [place] [address] May, 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 ; Depression F32.9 ; GERD (gastroesophageal reflux disease) K21.9 ; Traumatic brain injury S06.9X9A ; Constipation, unspecified constipation type K59.00 ; DJD (degenerative joint disease) M19.90 ; Pure hypercholesterolemia E78.00 ; Benign nodular prostatic hyperplasia, presence of lower urinary tract symptoms unspecified N40.0 ; Neuropathy G62.9 and Anxiety F41.9 [place] [address] [place] [id number] [place] [address] May, DJD (degenerative joint dise ase) M19.90 and Anxiety F41.9 [place] [address] [place] [id number] [place] [address] Apr, Lumbago with sciatica, right side M54.41 and Low back pain M54.5 [place] [address] [place] [id number] [place] [address] Mar, [facility] [address] [address] Mar, [facility] [address] [address] Mar, [facility] [address] [address] Mar, [facility] [address] [address] Mar, Depression F32.9 ; Neuropath y G62.9 ; GERD (gastroesophageal reflux disease) K21.9 ; Edema R60.9 ; DJD (degenerative joint disease) M19.90 ; BPH (benign prostatic hyperplasia) N40.0 ; 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 ; Impacted cerumen of right ear H61.21 ; Anxiety F41.9 ; Constipation, unspecified constipation type K59.00 and Hyperlipidemia E78.5 [place] [address] [address] Feb, [place] [address] [address] Jan, [place] [address] [address] Dec, [place] [address] [address] Dec, [facility] [address] [address] Dec, [facility] [address] [address] Dec, [place] [address] [address] Dec, Depression F32.9 ; Anxiety F 41.9 ; Neuropathy G62.9 ; 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 ; GERD (gastroesophageal reflux disease) K21.9 ; Hyperlipidemia E78.5 ; Edema R60.9 ; DJD (degenerative joint disease) M19.90 ; Lumbago with sciatica, right side M54.41 ; Constipation, unspecified constipation type K59.00 and BPH (benign prostatic hyperplasia) N40.0 [facility] [address] [place] [address] Dec, [facility] [address] [address] Oct, [facility] [address] [address] Oct, Low back pain M54.5 [facility] [address] [address] Oct, [facility] [address] [place] [id number] [place] [address] September, 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 ; Depression F32.9 ; Anxiety F41.9 ; BPH (benign prostatic hyperplasia) N40.0 ; Hyperlipidemia E78.5 ; Traumatic brain injury S06.9X9A ; Lumbago with sciatica, right side M54.41 ; Low back pain M54.5 ; Gastroesophageal reflux disease with esophagitis K21.0 ; Generalized edema R60.1 and Constipation, unspecified constipation type K59.00 [place] [address] [place] [id number] [place] [address] Aug, Depression F32.9 ; Anxiety F 41.9 [...] SOCIAL HISTORY Never Assessed REASON FOR VISIT new med PLAN OF CARE VITAL SIGNS MEDICATIONS Medication Instructions Dosage Frequency Start Date End Date Duration S lian Lipitor 40 mg Orally Once a day 1 tablet 24h Jul, 30 day(s) Active RESULTS No Results PROCEDURES No Known [...]
--- OUTSIDE RECORDS SUMMARY | 2019-07-27 19:44 | XMS REPORT ---
Author Brenton Padilla Organization [facility] Address [address] [place] [address] Care Team Providers Care Food Service Director Name Role Phone GEE COLLINS Unavailable PROBLEMS Type Condition ICD9-CM Code [id number] Code Onset Dates Condition S tatus SNOMED Code Problem Type 2 diabetes mellitus with other diabetic oph thalmic complication E11.39 Active 86612678503608 Problem Edema R60.9 Active 095326439 Problem DJD (degenerative joint disease) M19.90 Active 832668518 Problem Onychomycosis B35.1 Active 338778 008 Problem Benign nodular prostatic hyp erplasia, presence of lower urinary tract symptoms unspecified N40.0 Active 1120372 07 Problem BPH (benign prostatic hyperplasia) N40.0 Active 665477334 Problem Traumatic brain injury S06.9X9A Active 181115559 Problem Constipation, unspecified constipation type K59.00 Active 29462155 Problem Impacted cerumen of right ear H61.21 Active 68087374 Problem Hyperlipidemia E78.5 Active 70446 004 Problem Neuropathy G62.9 Active 864308339 Problem GERD (gastroesophageal reflux disease) K21.9 Active 493938624 Problem Anxiety F41.9 Active 12672370 Problem HTN (hypertension) I10 Active 3 7856049 Problem Low back pain M54.5 Active 178934 005 Problem Depression F32.9 Active 92646484 Problem Lumbago with sciatica, right side M54.41 Active 697771798 ALLERGIES No Information SOCIAL HISTORY Never Assessed PLAN OF CARE VITAL SIGNS MEDICATIONS Medication Instructions Dosage Frequency Start Date End Date Duration S tatus Morphine Sulfate ER 15 MG Orally every 12 hrs 1 tablet 12h 14 M 2016 28 days Active Morphine Sulfate ER 30 MG Orally every 12 hrs 1 tablet 12h 14 M 2016 28 days Active Morphine Sulfate 15 MG Orally 2 times a day 1 tablet as needed 12h 14 Jul, 2016 28 days Active Klonopin 1 MG Orally Twice a day 1 tablet 12h 28 day s Active RESULTS No Results PROCEDURES No Known procedures IMMUNIZATIONS No Known Immunizations MEDICAL (GENERAL) HISTORY Type Description Date Medical History Closed head injury Medical History Mass of brain Medical History Back injuries Medical History Diabetes Medical History Hypertension Medical History Hyperlipemia Medical History Shoulder injury Medical History Arthritis Surgical History left knee arthroscopy Surgical History spine surgery Surgical History penile prosthesis Hospitalization History surgeries
--- OUTSIDE RECORDS SUMMARY | 2019-07-27 19:44 | XMS REPORT ---
Author Author Brenton COLLINS Organization [facility] Address [address] [place] [address] Care Team Providers Care Injection Molding Machine Operator Name Role Phone COLLINSAZIZAGEE Unavailable PROBLEMS Type Condition ICD9-CM Code [id number] Code Onset Dates Condition S tatus SNOMED Code Problem Type 2 diabetes mellitus with other diabetic oph thalmic complication E11.39 Active 56301182550660 Problem Edema R60.9 Active 465374605 Problem DJD (degenerative joint disease) M19.90 Active 326755757 Problem Onychomycosis B35.1 Active 045761 008 Problem Benign nodular prostatic hyp erplasia, presence of lower urinary tract symptoms unspecified N40.0 Active 7768236 07 Problem BPH (benign prostatic hyperplasia) N40.0 Active 283103248 Problem Traumatic brain injury S06.9X9A Active 770475433 Problem Constipation, unspecified constipation type K59.00 Active 68260970 Problem Impacted cerumen of right ear H61.21 Active 39058183 Problem Hyperlipidemia E78.5 Active 15290 004 Problem Neuropathy G62.9 Active 623658083 Problem GERD (gastroesophageal reflux disease) K21.9 Active 735097029 Problem Anxiety F41.9 Active 95387406 Problem HTN (hypertension) I10 Active 3 7903705 Problem Low back pain M54.5 Active 292693 005 Problem Depression F32.9 Active 32607689 Problem Lumbago with sciatica, right side M54.41 Active 399420668 ALLERGIES Unknown Allergies SOCIAL HISTORY No smoking Hx information available PLAN OF CARE VITAL SIGNS MEDICATIONS Medication Instructions Dosage Frequency Start Date End Date Duration S tatus Klonopin 1 MG Orally Twice a day 1 tablet 12h 28 day s Active Morphine Sulfate ER 30 MG Orally every 12 hrs 1 tablet 12h 17 2016 28 days Active Morphine Sulfate 15 MG Orally 2 times a day 1 tablet as needed 12h 17 May, 2016 28 days Active RESULTS No Results PROCEDURES No Known procedures IMMUNIZATIONS No Known Immunizations
--- OUTSIDE RECORDS SUMMARY | 2019-07-27 19:44 | XMS REPORT ---
Author Brenton Padilla [facility] eClinicalWorks Address Unknown Phone Unavailable Care Team Providers Care Skinning Machine Feeder Name Role Phone GEE COLLINS CP Unavailable Allergies No Known Allergies Problems Problem Type Condition Code Onset Dates Condition Statu s Problem Edema R60.9 Active Problem GERD (gastroesophageal reflux disease) K21.9 Active Problem Hyperlipidemia E78.5 Active Problem Constipation, unspecified constipation type K59.00 Active Problem Depression F32.9 Active Problem Impacted cerumen of right ear H61.21 Active Problem BPH (benign prostatic hyperplasia) N40.0 Active Problem 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 Active Problem Anxiety F41.9 Active Problem Neuropathy G62.9 Active Problem Lumbago with sciatica, right side M54.41 Active Problem Traumatic brain injury S06.9X9A Activ e Problem DJD (degenerative joint disease) M19.90 Active Problem Low back pain M54.5 Active Problem HTN (hypertension) I10 Active Medications Medication Code System Code Instructions Start Date End Date Status Dosage Morphine Sulfate ER [facility] [address]-68 30 MG Orally every 12 hrs Mar 29, 2016 1 tablet Results No Known Results Summary Purpose eClinicalWorks Submission
--- OUTSIDE RECORDS SUMMARY | 2019-07-27 19:44 | XMS REPORT ---
Author Brenton Padilla [facility] eClinicalWorks Address Unknown Phone Unavailable Care Team Providers Care Spinning Frame Tender Name Role Phone GEE COLLINS CP Unavailable Allergies No Known Allergies Problems Problem Type Condition Code Onset Dates Condition Statu s Problem DJD (degenerative joint disease) M19.90 Active Problem Edema R60.9 Active Problem HTN (hypertension) I10 Active Problem Anxiety F41.9 Active Problem Neuropathy G62.9 Active Problem Depression F32.9 Active Problem GERD (gastroesophageal reflux disease) K21.9 Active Problem Hyperlipidemia E78.5 Active Problem BPH (benign prostatic hyperplasia) N40.0 Active Problem 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 Active Problem Low back pain M54.5 Active Problem Lumbago with sciatica, right side M54.41 Active Problem Traumatic brain injury S06.9X9A Activ e Medications Medication Code System Code Instructions Start Date End Date Status Dosage Morphine Sulfate ER [facility] [address]-85 15 mg ER Orally every 12 hrs Dec 08, 2015 1 [place] [address]-87 30 MG Orally every 12 hrs September 14, 2015 1 tablet Results No Known Results Summary Purpose eClinicalWorks Submission
--- OUTSIDE RECORDS SUMMARY | 2019-07-27 19:44 | XMS REPORT ---
Author Brenton Padilla Organization [facility] Address [address] [place] [address] Care Team Providers Care Nurse Head Name Role Phone GEE COLLINS Unavailable PROBLEMS Type Condition ICD9-CM Code [id number] Code Onset Dates Condition S tatus SNOMED Code Problem Type 2 diabetes mellitus with other diabetic oph thalmic complication E11.39 Active 05541546874037 Problem Edema R60.9 Active 422255133 Problem DJD (degenerative joint disease) M19.90 Active 683691113 Problem Onychomycosis B35.1 Active 843603 008 Problem Benign nodular prostatic hyp erplasia, presence of lower urinary tract symptoms unspecified N40.0 Active 0245997 07 Problem BPH (benign prostatic hyperplasia) N40.0 Active 604308687 Problem Traumatic brain injury S06.9X9A Active 304567039 Problem Constipation, unspecified constipation type K59.00 Active 81562364 Problem Impacted cerumen of right ear H61.21 Active 16572156 Problem Hyperlipidemia E78.5 Active 83760 004 Problem Neuropathy G62.9 Active 075917233 Problem GERD (gastroesophageal reflux disease) K21.9 Active 851316994 Problem Anxiety F41.9 Active 17680373 Problem HTN (hypertension) I10 Active 3 3808873 Problem Low back pain M54.5 Active 424409 005 Problem Depression F32.9 Active 16302628 Problem Lumbago with sciatica, right side M54.41 Active 367258138 ALLERGIES No Information SOCIAL HISTORY Never Assessed PLAN OF CARE VITAL SIGNS MEDICATIONS Medication Instructions Dosage Frequency Start Date End Date Duration S tatus Morphine Sulfate ER 30 MG Orally every 12 hrs 1 tablet 12h 1 4 Jun, 2016 Jul, 28 days Active Morphine Sulfate ER 15 MG Orally every 12 hrs 1 tablet 12h 14 F 2016 28 days Active Klonopin 1 MG Orally Twice a day 1 tablet 12h 28 day s Active Morphine Sulfate ER 15 MG Orally every 12 hrs 1 tablet 12h 1 4 Jun, 2016 14 Jul, 2016 28 days Active RESULTS No Results [...]
--- OUTSIDE RECORDS SUMMARY | 2019-07-27 19:44 | XMS REPORT ---
Author Author Brenton VALIENTE Organization [facility] Address [address] [place] [address] Care Team Providers Care Color Mixer Name Role Phone LAURITA VALIENTE Unavailable PROBLEMS Type Condition ICD9-CM Code ZXD77-PM Code Onset Dates Condition S tatus SNOMED Code Problem Anxiety F41.9 Active 24061002 Problem Lumbago with sciatica, right side M54.41 Active 628951589 Problem Low back pain M54.5 Active 132995 005 Problem Hyperlipidemia E78.5 Active 34274 004 Problem HTN (hypertension) I10 Active 3 2311184 Problem Depression F32.9 Active 91675759 Problem GERD (gastroesophageal reflux disease) K21.9 Active 848263041 Problem Onychomycosis B35.1 Active 301887 008 Problem Benign nodular prostatic hyp erplasia, presence of lower urinary tract symptoms unspecified N40.0 Active 1516705 07 Problem DJD (degenerative joint disease) M19.90 Active 501753767 Problem Type 2 diabetes mellitus with other diabetic oph thalmic complication E11.39 Active [id number] Problem BPH (benign prostatic hyperplasia) N40.0 Active 888551598 Problem Traumatic brain injury S06.9X9A Active [id number] ALLERGIES No Information ENCOUNTERS Encounter Location Date Diagnosis [place] [id number] [facility] [id number] [address] [place] [address] Oct, [facility] [address] [facility] [id number] [address] [place] [address] September, DJD (degenerative joint dise ase) M19.90 and Anxiety F41.9 [facility] [address] [facility] [id number] [address] [place] [address] September, Anxiety F41.9 [facility] [address] [facility] [id number] [address] [place] [address] September, Anxiety F41.9 and DJD (degen erative joint disease) M19.90 [place] [address] [address] Aug, Anxiety F41.9 and DJD (degen erative joint disease) M19.90 [place] [address] [address] [place] [id number] [place] [address] Jul, [place] [address] [address] Jul, 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 ; Hyperlipidemia E78.5 and HTN (hypertension) I10 [place] [address] [address] Jul, Anxiety F41.9 and DJD (degen erative joint disease) M19.90 [place] [address] [address] Jun, Anxiety F41.9 and DJD (degen erative joint disease) M19.90 [place] [address] [address] May, Weight loss, non-intentional R63.4 [place] [address] [place] [id number] [place] [address] May, DJD (degenerative joint dise ase) M19.90 [place] [address] [address] Apr, Anxiety F41.9 [place] [address] [place] [id number] [place] [address] Apr, Anxiety F41.9 and DJD (degen erative joint disease) M19.90 [place] [address] [place] [id number] [place] [address] Apr, DJD (degenerative joint dise ase) M19.90 ; Traumatic brain injury S06.9X9A ; 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 ; Anxiety F41.9 and Depression F32.9 [facility] [address] [place] [address] Mar, [place] [address] [address] [place] [id number] [place] [address] Feb, DJD (degenerative joint dise ase) M19.90 ; Lumbago with sciatica, right side M54.41 and Anxiety F41.9 [facility] [address] [facility] [id number] [address] [place] [address] Feb, [place] [address] [place] [id number] [place] [address] Jan, DJD (degenerative joint dise ase) M19.90 ; Anxiety F41.9 and Lumbago with sciatica, right side M54.41 [place] [address] [address] Dec, Lumbago with sciatica, right side M54.41 [place] [address] [place] [id number] [place] [address] Dec, Anxiety F41.9 and Lumbago wi th sciatica, right side M54.41 [place] [address] [place] [id number] [place] [address] Dec, DJD (degenerative joint dise ase) M19.90 [place] [address] [place] [id number] [address] [place] [address] Dec, 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 ; Lumbago with sciatica, right side M54.41 ; Traumatic brain injury S06.9X9A ; DJD (degenerative joint disease) M19.90 ; Constipation, unspecified constipation type K59.00 ; Depression F32.9 ; Anxiety F41.9 ; BPH (benign prostatic hyperplasia) N40.0 ; HTN (hypertension) I10 ; GERD (gastroesophageal reflux disease) K21.9 and Hyperlipidemia E78.5 [place] [address] [address] Dec, DJD (degenerative joint dise ase) M19.90 ; Anxiety F41.9 ; Lumbago with sciatica, right side M54.41 ; Traumatic brain injury S06.9X9A ; Constipation, unspecified constipation type K59.00 ; Depression F32.9 ; BPH (benign prostatic hyperplasia) N40.0 ; 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 ; HTN (hypertension) I10 ; GERD (gastroesophageal reflux disease) K21.9 and Hyperlipidemia E78.5 [place] [address] [address] Nov, [place] [address] [address] Nov, Constipation, unspecified co nstipation type K59.00 ; Hyperlipidemia E78.5 ; Anxiety F41.9 ; Lumbago with sciatica, right side M54.41 ; BPH (benign prostatic hyperplasia) N40.0 ; 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 ; GERD (gastroesophageal reflux disease) K21.9 and Edema R60.9 [place] [address] [address] Nov, [address] [address] Nov, DJD (degenerative joint dise ase) M19.90 and Anxiety F41.9 [place] [address] [address] Oct, Onychomycosis B35.1 ; Type I diabetes mellitus with peripheral circulatory disorder E10.51 and Neuropathy G62.[address] [address] Oct, [address] [address] Oct, DJD (degenerative joint dise ase) M19.90 ; Anxiety F41.9 and Lumbago with sciatica, right side M54.41 [place] [address] [place] [id number] [place] [address] September, DJD (degenerative joint dise ase) M19.90 [place] [address] [address] September, Lumbago with sciatica, right side M54.41 ; Anxiety F41.9 and DJD (degenerative joint disease) M19.90 [place] [address] [address] September, [place] [address] [address] Aug, Lumbago with sciatica, right side M54.41 ; Anxiety F41.9 and DJD (degenerative joint disease) M19.90 [place] [address] [address] Aug, 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 [place] [address] [address] Aug, 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 ; Constipation, unspecified constipation type K59.00 ; Hyperlipidemia E78.5 ; Anxiety F41.9 ; Lumbago with sciatica, right side M54.41 ; BPH (benign prostatic hyperplasia) N40.0 ; GERD (gastroesophageal reflux disease) K21.9 and Edema R60.9 [place] [address] [place] [id number] [place] [address] Jul, Lumbago with sciatica, right side M54.41 ; Anxiety F41.9 and DJD (degenerative joint disease) M19.90 [place] [address] [place] [id number] [place] [address] Jun, 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 ; Anxiety F41.9 ; BPH (benign prostatic hyperplasia) N40.0 ; GERD (gastroesophageal reflux disease) K21.9 ; Hyperlipidemia E78.5 ; Lumbago with sciatica, right side M54.41 and Constipation, unspecified constipation type K59.00 [facility] [address] [facility] [id number] [address] [place] [address] 15 Jun, 2016 DJD (degenerative joint dise ase) M19.90 and Anxiety F41.9 [place] [address] [place] [id number] [place] [address] 13 Jun, 2016 DJD (degenerative joint dise ase) M19.90 and Anxiety F41.9 [place] [address] [facility] [id number] [address] [place] [address] May, 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 ; Depression F32.9 ; GERD (gastroesophageal reflux disease) K21.9 ; Traumatic brain injury S06.9X9A ; Constipation, unspecified constipation type K59.00 ; DJD (degenerative joint disease) M19.90 ; Pure hypercholesterolemia E78.00 ; Benign nodular prostatic hyperplasia, presence of lower urinary tract symptoms unspecified N40.0 ; Neuropathy G62.9 and Anxiety F41.9 [place] [address] [address] May, DJD (degenerative joint dise ase) M19.90 and Anxiety F41.9 [place] [address] [place] [id number] [place] [address] Apr, Lumbago with sciatica, right side M54.41 and Low back pain M54.5 [place] [address] [place] [id number] [place] [address] Mar, [place] [address] [place] [id number] [place] [address] Mar, [place] [address] [place] [id number] [place] [address] Mar, [place] [address] [address] Mar, [facility] [address] [address] Mar, Depression F32.9 ; Neuropath y G62.9 ; GERD (gastroesophageal reflux disease) K21.9 ; Edema R60.9 ; DJD (degenerative joint disease) M19.90 ; BPH (benign prostatic hyperplasia) N40.0 ; 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 ; Impacted cerumen of right ear H61.21 ; Anxiety F41.9 ; Constipation, unspecified constipation type K59.00 and Hyperlipidemia E78.5 [facility] [address] [address] Feb, [facility] [address] [address] Jan, [facility] [address] [address] Dec, [facility] [address] [place] [id number] [place] [address] Dec, [facility] [address] [place] [id number] [place] [address] Dec, [facility] [address] [place] [id number] [place] [address] Dec, [facility] [address] [address] Dec, Depression F32.9 ; Anxiety F 41.9 ; Neuropathy G62.9 ; 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 ; GERD (gastroesophageal reflux disease) K21.9 ; Hyperlipidemia E78.5 ; Edema R60.9 ; DJD (degenerative joint disease) M19.90 ; Lumbago with sciatica, right side M54.41 ; Constipation, unspecified constipation type K59.00 and BPH (benign prostatic hyperplasia) N40.0 [facility] [address] [address] Dec, [facility] [address] [facility] [id number] [address] [place] [address] Oct, [place] [address] [place] [id number] [place] [address] Oct, Low back pain M54.5 [place] [address] [place] [id number] [place] [address] Oct, [place] [address] [place] [id number] [place] [address] September, 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 ; Depression F32.9 ; Anxiety F41.9 ; BPH (benign prostatic hyperplasia) N40.0 ; Hyperlipidemia E78.5 ; Traumatic brain injury S06.9X9A ; Lumbago with sciatica, right side M54.41 ; Low back pain M54.5 ; Gastroesophageal reflux disease with esophagitis K21.0 ; Generalized edema R60.1 and Constipation, unspecified constipation type K59.00 [place] [address] [place] [id number] [place] [address] Aug, Depression F32.9 ; Anxiety F 41.9 [...]
--- OUTSIDE RECORDS SUMMARY | 2019-07-27 19:44 | XMS REPORT ---
Author Author Brenton VALIENTE Organization [facility] Address [address] [place] [address] Care Team Providers Care Infection Control Manager Name Role Phone LAURITA VALIENTE Unavailable PROBLEMS Type Condition ICD9-CM Code YKA46-XD Code Onset Dates Condition S tatus SNOMED Code Problem Low back pain M54.5 Active 968974 005 Problem Type 2 diabetes mellitus with other diabetic oph thalmic complication E11.39 Active [id number] Problem Lumbago with sciatica, right side M54.41 Active 232330015 Problem Neck pain M54.2 Active 34121828 Problem Onychomycosis B35.1 Active 942621 008 Problem Traumatic brain injury S06.9X9A Active 620374831 Problem DJD (degenerative joint disease) M19.90 Active 143068619 Problem Benign nodular prostatic hyp erplasia, presence of lower urinary tract symptoms unspecified N40.0 Active 7703606 07 Problem BPH (benign prostatic hyperplasia) N40.0 Active 312097344 Problem HTN (hypertension) I10 Active 3 4022699 Problem Depression F32.9 Active 69096502 Problem GERD (gastroesophageal reflux disease) K21.9 Active 602794406 Problem Hyperlipidemia E78.5 Active 78284 004 Problem Anxiety F41.9 Active 91346196 ALLERGIES No Information ENCOUNTERS Encounter Location Date Diagnosis [facility] [address] [facility] [id number] [address] [place] [id number] Dec, [facility] [address] [facility] [id number] [address] [place] [address] Dec, [facility] [address] [facility] [id number] [address] [place] [address] Nov, DJD (degenerative joint dise ase) M19.90 and Anxiety F41.9 [facility] [address] [facility] [id number] [address] [place] [address] 27 Oct, 2017 [place] [address] [place] [address] 14 Oct, 2017 Chest pain, unspecified type R07.9 [place] [address] [place] [id number] [address] [place] [address] 14 Oct, 2017 [place] [address] [address] 13 Oct, 2017 DJD (degenerative joint dise ase) M19.90 ; Traumatic brain injury S06.9X9A ; Anxiety F41.9 ; Depression F32.9 ; BPH (benign prostatic hyperplasia) N40.0 ; HTN (hypertension) I10 ; GERD (gastroesophageal reflux disease) K21.9 ; Hyperlipidemia E78.5 ; 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 and Constipation, unspecified constipation type K59.[address] [address] 11 Oct, 2017 DJD (degenerative joint dise ase) M19.90 ; Traumatic brain injury S06.9X9A ; Anxiety F41.9 ; Depression F32.9 ; BPH (benign prostatic hyperplasia) N40.0 and HTN (hypertension) I10 [address] [address] 11 Oct, 2017 Neck pain M54.2 ; Fall, init ial encounter W19.XXXA and DJD (degenerative joint disease) M19.90 [place] [id number] [address] [place] [address] 07 Oct, 2017 DJD (degenerative joint dise ase) M19.90 ; Anxiety F41.9 ; Traumatic brain injury S06.9X9A ; Depression F32.9 ; BPH (benign prostatic hyperplasia) N40.0 ; HTN (hypertension) I10 ; GERD (gastroesophageal reflux disease) K21.9 ; Hyperlipidemia E78.5 ; 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 and Constipation, unspecified constipation type K59.[address] [place] [address] September, DJD (degenerative joint dise ase) M19.90 and Anxiety F41.9 [facility] [address] [address] September, Anxiety F41.9 [place] [address] [place] [id number] [place] [address] September, Anxiety F41.9 and DJD (degen erative joint disease) M19.90 [place] [address] [place] [id number] [place] [address] Aug, Anxiety F41.9 and DJD (degen erative joint disease) M19.90 [place] [address] [place] [id number] [place] [address] Jul, [place] [address] [address] Jul, 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 ; Hyperlipidemia E78.5 and HTN (hypertension) I10 [place] [address] [address] Jul, Anxiety F41.9 and DJD (degen erative joint disease) M19.90 [place] [id number] [address] Jun, Anxiety F41.9 and DJD (degen erative joint disease) M19.90 [place] [id number] [address] May, Weight loss, non-intentional R63.4 [place] [address] [address] May, DJD (degenerative joint dise ase) M19.90 [place] [address] [address] Apr, Anxiety F41.9 [place] [address] [place] [address] [place] [address] 14 Apr, 2017 Anxiety F41.9 and DJD (degen erative joint disease) M19.90 [facility] [address] [place] [id number] [place] [address] 13 Apr, 2017 DJD (degenerative joint dise ase) M19.90 ; Traumatic brain injury S06.9X9A ; 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 ; Anxiety F41.9 and Depression F32.9 [facility] [address] [place] [id number] [place] [address] Mar, [place] [address] [place] [id number] [place] [address] Feb, DJD (degenerative joint dise ase) M19.90 ; Lumbago with sciatica, right side M54.41 and Anxiety F41.9 [facility] [address] [place] [id number] [place] [phone] Feb, [facility] [address] [place] [id number] [place] [address] Jan, DJD (degenerative joint dise ase) M19.90 ; Anxiety F41.9 and Lumbago with sciatica, right side M54.41 [place] [address] [place] [id number] [place] [address] Dec, Lumbago with sciatica, right side M54.41 [place] [address] [place] [address] Dec, Anxiety F41.9 and Lumbago wi th sciatica, right side M54.41 [facility] [address] [place] [id number] [place] [address] Dec, DJD (degenerative joint dise ase) M19.90 [place] [address] [place] [id number] [place] [address] Dec, 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 ; Lumbago with sciatica, right side M54.41 ; Traumatic brain injury S06.9X9A ; DJD (degenerative joint disease) M19.90 ; Constipation, unspecified constipation type K59.00 ; Depression F32.9 ; Anxiety F41.9 ; BPH (benign prostatic hyperplasia) N40.0 ; HTN (hypertension) I10 ; GERD (gastroesophageal reflux disease) K21.9 and Hyperlipidemia E78.5 [place] [address] [place] [id number] [place] [address] Dec, DJD (degenerative joint dise ase) M19.90 ; Anxiety F41.9 ; Lumbago with sciatica, right side M54.41 ; Traumatic brain injury S06.9X9A ; Constipation, unspecified constipation type K59.00 ; Depression F32.9 ; BPH (benign prostatic hyperplasia) N40.0 ; 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 ; HTN (hypertension) I10 ; GERD (gastroesophageal reflux disease) K21.9 and Hyperlipidemia E78.5 [place] [address] [place] [address] Nov, [id number] [place] [address] Nov, Constipation, unspecified co nstipation type K59.00 ; Hyperlipidemia E78.5 ; Anxiety F41.9 ; Lumbago with sciatica, right side M54.41 ; BPH (benign prostatic hyperplasia) N40.0 ; 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 ; GERD (gastroesophageal reflux disease) K21.9 and Edema R60.9 [place] [address] [place] [id number] [place] [address] Nov, [place] [id number] [place] [address] Nov, DJD (degenerative joint dise ase) M19.90 and Anxiety F41.9 [place] [address] [place] [id number] [place] [address] Oct, Onychomycosis B35.1 ; Type I diabetes mellitus with peripheral circulatory disorder E10.51 and Neuropathy G62.9 [place] [address] [address] Oct, [place] [address] [address] Oct, DJD (degenerative joint dise ase) M19.90 ; Anxiety F41.9 and Lumbago with sciatica, right side M54.41 [place] [address] [address] 10 Sep, 2016 DJD (degenerative joint dise ase) M19.90 [place] [address] [address] 09 Sep, 2016 Lumbago with sciatica, right side M54.41 ; Anxiety F41.9 and DJD (degenerative joint disease) M19.90 [place] [address] [address] September, [place] [address] [address] 11 Aug, 2016 Lumbago with sciatica, right side M54.41 ; Anxiety F41.9 and DJD (degenerative joint disease) M19.90 [place] [address] [address] Aug, 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 [place] [address] [address] Aug, 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 ; Constipation, unspecified constipation type K59.00 ; Hyperlipidemia E78.5 ; Anxiety F41.9 ; Lumbago with sciatica, right side M54.41 ; BPH (benign prostatic hyperplasia) N40.0 ; GERD (gastroesophageal reflux disease) K21.9 and Edema R60.9 [place] [address] [address] Jul, Lumbago with sciatica, right side M54.41 ; Anxiety F41.9 and DJD (degenerative joint disease) M19.90 [place] [address] [place] [id number] [place] [address] 28 Jun, 2016 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 ; Anxiety F41.9 ; BPH (benign prostatic hyperplasia) N40.0 ; GERD (gastroesophageal reflux disease) K21.9 ; Hyperlipidemia E78.5 ; Lumbago with sciatica, right side M54.41 and Constipation, unspecified constipation type K59.00 [place] [address] [place] [id number] [place] [address] 15 Jun, 2016 DJD (degenerative joint dise ase) M19.90 and Anxiety F41.9 [place] [address] [place] [id number] [place] [address] 13 Jun, 2016 DJD (degenerative joint dise ase) M19.90 and Anxiety F41.9 [place] [address] [place] [id number] [place] [address] May, 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 ; Depression F32.9 ; GERD (gastroesophageal reflux disease) K21.9 ; Traumatic brain injury S06.9X9A ; Constipation, unspecified constipation type K59.00 ; DJD (degenerative joint disease) M19.90 ; Pure hypercholesterolemia E78.00 ; Benign nodular prostatic hyperplasia, presence of lower urinary tract symptoms unspecified N40.0 ; Neuropathy G62.9 and Anxiety F41.9 [place] [address] [place] [id number] [place] [address] May, DJD (degenerative joint dise ase) M19.90 and Anxiety F41.9 [place] [address] [place] [id number] [place] [address] Apr, Lumbago with sciatica, right side M54.41 and Low back pain M54.5 [place] [address] [place] [id number] [place] [address] Mar, [facility] [address] [address] Mar, [facility] [address] [address] Mar, [facility] [address] [address] Mar, [facility] [address] [address] Mar, Depression F32.9 ; Neuropath y G62.9 ; GERD (gastroesophageal reflux disease) K21.9 ; Edema R60.9 ; DJD (degenerative joint disease) M19.90 ; BPH (benign prostatic hyperplasia) N40.0 ; 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 ; Impacted cerumen of right ear H61.21 ; Anxiety F41.9 ; Constipation, unspecified constipation type K59.00 and Hyperlipidemia E78.5 [place] [address] [address] Feb, [place] [address] [address] Jan, [place] [address] [address] Dec, [place] [address] [address] Dec, [facility] [address] [address] Dec, [facility] [address] [address] Dec, [place] [address] [address] Dec, Depression F32.9 ; Anxiety F 41.9 ; Neuropathy G62.9 ; 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 ; GERD (gastroesophageal reflux disease) K21.9 ; Hyperlipidemia E78.5 ; Edema R60.9 ; DJD (degenerative joint disease) M19.90 ; Lumbago with sciatica, right side M54.41 ; Constipation, unspecified constipation type K59.00 and BPH (benign prostatic hyperplasia) N40.0 [facility] [address] [place] [address] Dec, [facility] [address] [address] Oct, [facility] [address] [address] Oct, Low back pain M54.5 [facility] [address] [address] Oct, [facility] [address] [place] [id number] [place] [address] September, 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 ; Depression F32.9 ; Anxiety F41.9 ; BPH (benign prostatic hyperplasia) N40.0 ; Hyperlipidemia E78.5 ; Traumatic brain injury S06.9X9A ; Lumbago with sciatica, right side M54.41 ; Low back pain M54.5 ; Gastroesophageal reflux disease with esophagitis K21.0 ; Generalized edema R60.1 and Constipation, unspecified constipation type K59.00 [place] [address] [place] [id number] [place] [address] Aug, Depression F32.9 ; Anxiety F 41.9 [...] a day 1 tablet as needed 12h 08 Jul, 2017 28 days Active Morphine Sulfate ER 60 mg Orally every 12 hrs 1 tablet 12h 08 M 2017 28 days Active RESULTS No Results [...]
--- OUTSIDE RECORDS SUMMARY | 2019-07-27 19:44 | XMS REPORT ---
Author Brenton Padilla [facility] [place] e[employer] Address Unknown Phone Unavailable Care Team Providers Care Biological Inspector Name Role Phone GEE COLLINS CP Unavailable Allergies, Adverse Reactions, Alerts Substance Reaction Event Type N.K.D.A. Info Not Available Non Drug Allergy Problems Problem Type Condition Code Onset Dates Condition Statu s Assessment Constipation K59.00 Active Assessment Low back pain M54.5 Active Problem Lumbago with sciatica, right side M54.41 Active Assessment Lumbago with sciatica, right side M54.41 Active Problem Traumatic brain injury S06.9X9A Activ e Assessment Traumatic brain injury S06.9X9A Activ e Problem DJD (degenerative joint disease) M19.90 Active Problem Edema R60.9 Active Problem HTN (hypertension) I10 Active Problem Anxiety F41.9 Active Problem Neuropathy G62.9 Active Assessment Edema R60.9 Active Assessment HTN (hypertension) I10 Active Problem Depression F32.9 Active Assessment DJD (degenerative joint disease) M19.90 Active Problem GERD (gastroesophageal reflux disease) K21.9 Active Problem Hyperlipidemia E78.5 Active Problem BPH (benign prostatic hyperplasia) N40.0 Active Problem 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 Active Assessment 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 Active Assessment BPH (benign prostatic hyperplasia) N40.0 Active Assessment Hyperlipidemia E78.5 Active Assessment GERD (gastroesophageal reflux disease) K21.9 Active Assessment Depression F32.9 Active Problem Low back pain M54.5 Active Assessment Neuropathy G62.9 Active Assessment Anxiety F41.9 Active Medications Medication Code System Code Instructions Start Date End Date Status Dosage Klonopin [facility] [address]-45 1 MG Orally Twice a day 1 tablet Morphine Sulfate ER [facility] [address]-73 15 MG Orally twice a day as needed September 15, 2015 1 tablet GlyBURIDE [facility] [address]-55 5 MG Orally Once a day 1 tablet Risperdal [facility] [address]-43 4 MG Orally Once a day 1 tablet Lopid [facility] [address]-95 600 MG Orally Twice a day 1 tablet Morphine Sulfate ER [facility] [address]-64 30 MG Orally twice a day September 01, 2015 September 15, 2015 1 capsule Omeprazole [facility] [address]-29 20 MG Orally Once a day 2 capsules Metformin HCl [facility] [address]-94 500 MG Orally 3 times a day 1 tablet with meals Neurontin [facility] [address]-07 300 MG Orally Three times a day 1 capsule Prazosin HCl [facility] [address]-01 2 MG Orally Once a day 1 capsule at bedtime Hydrochlorothiazide [facility] [address]-79 25 MG Orally Once a day 1 tablet BuPROPion HCl [facility] [address]-24 75 MG Orally Three times a day 2 tablets Effexor XR [facility] [address]-35 75 MG Orally Once a day 1 capsule with food Docusate Sodium [facility] [address]-81 100 MG Orally Once a day 1 capsule as needed Procedures Procedure Coding System Code Date Office Visit, New Pt., Level 4 CPT-4 33484 A [facility] 2015 Vital Signs Date/Time: September 01, 2015 Temperature 98.0 F Weight 198 lbs Height 68 in BMI 30.10 Index Blood Pressure Diastolic 82 mmHg Blood Pressure Systolic 134 mmHg Cardiac Monitoring Heart Rate 70 bpm Results No Known Results Summary Purpose eClinicalWorks Submission
--- OUTSIDE RECORDS SUMMARY | 2019-07-27 19:44 | XMS REPORT ---
Author Author Brenton SANCHEZ Organization [facility] Address [address] [place] [address] Care Team Providers Care Adjunct Psychology Faculty Member Name Role Phone LAURA JAIMIE Unavailable PROBLEMS Type Condition ICD9-CM Code STH81-LC Code Onset Dates Condition S tatus SNOMED Code Problem Anxiety F41.9 Active 08493688 Problem Lumbago with sciatica, right side M54.41 Active 639363393 Problem Low back pain M54.5 Active 155052 005 Problem Hyperlipidemia E78.5 Active 85437 004 Problem HTN (hypertension) I10 Active 3 3507164 Problem Depression F32.9 Active 51447620 Problem GERD (gastroesophageal reflux disease) K21.9 Active 367346790 Problem Onychomycosis B35.1 Active 800512 008 Problem Benign nodular prostatic hyp erplasia, presence of lower urinary tract symptoms unspecified N40.0 Active 5561435 07 Problem DJD (degenerative joint disease) M19.90 Active 560284192 Problem Type 2 diabetes mellitus with other diabetic oph thalmic complication E11.39 Active [id number] Problem BPH (benign prostatic hyperplasia) N40.0 Active 625137713 Problem Traumatic brain injury S06.9X9A Active 206524870 ALLERGIES No Information ENCOUNTERS Encounter Location Date Diagnosis [place] [id number] [facility] [id number] [address] [place] [id number] Oct, [facility] [address] [facility] [id number] [address] [place] [id number] September, Anxiety F41.9 [place] [address] [facility] [id number] [address] [place] [id number] September, Anxiety F41.9 and DJD (degen erative joint disease) M19.90 [facility] [address] [facility] [id number] [address] [place] [id number] Aug, Anxiety F41.9 and DJD (degen erative joint disease) M19.90 [place] [address] [address] Jul, [facility] [address] [place] [id number] [place] [id number] Jul, 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 ; Hyperlipidemia E78.5 and HTN (hypertension) I10 [place] [address] [place] [id number] [place] [id number] 07 Jul, 2017 Anxiety F41.9 and DJD (degen erative joint disease) M19.90 [place] [address] [place] [id number] [place] [id number] 06 Jun, 2017 Anxiety F41.9 and DJD (degen erative joint disease) M19.90 [place] [address] [address] 18 May, 2017 Weight loss, non-intentional R63.4 [place] [address] [address] 09 May, 2017 DJD (degenerative joint dise ase) M19.90 [place] [address] [place] [id number] [place] [id number] 14 Apr, 2017 Anxiety F41.9 [place] [address] [address] 14 Apr, 2017 Anxiety F41.9 and DJD (degen erative joint disease) M19.90 [place] [address] [place] [id number] [place] [id number] 13 Apr, 2017 DJD (degenerative joint dise ase) M19.90 ; Traumatic brain injury S06.9X9A ; 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 ; Anxiety F41.9 and Depression F32.9 [place] [address] [address] [place] [id number] [place] [id number] Mar, [facility] [address] [facility] [id number] [address] [place] [id number] Feb, DJD (degenerative joint dise ase) M19.90 ; Lumbago with sciatica, right side M54.41 and Anxiety F41.9 [facility] [address] [facility] [id number] [address] [place] [id number] Feb, [facility] [address] [place] [id number] [place] [id number] Jan, DJD (degenerative joint dise ase) M19.90 ; Anxiety F41.9 and Lumbago with sciatica, right side M54.41 [facility] [address] [facility] [id number] [address] [place] [id number] Dec, Lumbago with sciatica, right side M54.41 [facility] [address] [place] [id number] [place] [id number] Dec, Anxiety F41.9 and Lumbago wi th sciatica, right side M54.41 [facility] [address] [place] [id number] [place] [id number] Dec, DJD (degenerative joint dise ase) M19.90 [facility] [address] [place] [id number] [place] [id number] Dec, 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 ; Lumbago with sciatica, right side M54.41 ; Traumatic brain injury S06.9X9A ; DJD (degenerative joint disease) M19.90 ; Constipation, unspecified constipation type K59.00 ; Depression F32.9 ; Anxiety F41.9 ; BPH (benign prostatic hyperplasia) N40.0 ; HTN (hypertension) I10 ; GERD (gastroesophageal reflux disease) K21.9 and Hyperlipidemia E78.5 [facility] [address] [facility] [id number] [address] [place] [id number] Dec, DJD (degenerative joint dise ase) M19.90 ; Anxiety F41.9 ; Lumbago with sciatica, right side M54.41 ; Traumatic brain injury S06.9X9A ; Constipation, unspecified constipation type K59.00 ; Depression F32.9 ; BPH (benign prostatic hyperplasia) N40.0 ; 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 ; HTN (hypertension) I10 ; GERD (gastroesophageal reflux disease) K21.9 and Hyperlipidemia E78.5 [place] [address] [facility] [id number] [address] [place] [id number] Nov, [place] [address] [facility] [id number] [address] [place] [id number] Nov, Constipation, unspecified co nstipation type K59.00 ; Hyperlipidemia E78.5 ; Anxiety F41.9 ; Lumbago with sciatica, right side M54.41 ; BPH (benign prostatic hyperplasia) N40.0 ; 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 ; GERD (gastroesophageal reflux disease) K21.9 and Edema R60.[address] [id number] [address] [place] [id number] Nov, [place] [address] [facility] [id number] [address] [place] [id number] Nov, DJD (degenerative joint dise ase) M19.90 and Anxiety F41.[address] [id number] [address] [place] [id number] Oct, Onychomycosis B35.1 ; Type I diabetes mellitus with peripheral circulatory disorder E10.51 and Neuropathy G62.9 [place] [address] [id number] [address] [place] [id number] Oct, [address] [id number] [address] [place] [phone] Oct, DJD (degenerative joint dise ase) M19.90 ; Anxiety F41.9 and Lumbago with sciatica, right side M54.41 [place] [address] [facility] [id number] [address] [place] [id number] September, DJD (degenerative joint dise ase) M19.90 [place] [address] [address] September, Lumbago with sciatica, right side M54.41 ; Anxiety F41.9 and DJD (degenerative joint disease) M1. [place] [address] [address] September, [place] [address] [address] Aug, Lumbago with sciatica, right side M54.41 ; Anxiety F41.9 and DJD (degenerative joint disease) M19. [place] [address] [address] Aug, 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 [place] [address] [address] Aug, 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 ; Constipation, unspecified constipation type K59.00 ; Hyperlipidemia E78.5 ; Anxiety F41.9 ; Lumbago with sciatica, right side M54.41 ; BPH (benign prostatic hyperplasia) N40.0 ; GERD (gastroesophageal reflux disease) K21.9 and Edema R60.9 [place] [address] [address] Jul, Lumbago with sciatica, right side M54.41 ; Anxiety F41.9 and DJD (degenerative joint disease) M19.90 [place] [address] [address] Jun, 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 ; Anxiety F41.9 ; BPH (benign prostatic hyperplasia) N40.0 ; GERD (gastroesophageal reflux disease) K21.9 ; Hyperlipidemia E78.5 ; Lumbago with sciatica, right side M54.41 and Constipation, unspecified constipation type K59.00 [place] [address] [address] 15 Jun, 2016 DJD (degenerative joint dise ase) M19.90 and Anxiety F41.9 [place] [address] [address] 13 Jun, 2016 DJD (degenerative joint dise ase) M19.90 and Anxiety F41.9 [place] [address] [address] May, 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 ; Depression F32.9 ; GERD (gastroesophageal reflux disease) K21.9 ; Traumatic brain injury S06.9X9A ; Constipation, unspecified constipation type K59.00 ; DJD (degenerative joint disease) M19.90 ; Pure hypercholesterolemia E78.00 ; Benign nodular prostatic hyperplasia, presence of lower urinary tract symptoms unspecified N40.0 ; Neuropathy G62.9 and Anxiety F41.9 [place] [address] [address] 17 May, 2016 DJD (degenerative joint dise ase) M19.90 and Anxiety F41.9 [place] [address] [address] Apr, Lumbago with sciatica, right side M54.41 and Low back pain M54.5 [place] [address] [address] Mar, [place] [address] [address] Mar, [place] [address] [address] Mar, [place] [address] [address] Mar, [place] [address] [address] Mar, Depression F32.9 ; Neuropath y G62.9 ; GERD (gastroesophageal reflux disease) K21.9 ; Edema R60.9 ; DJD (degenerative joint disease) M19.90 ; BPH (benign prostatic hyperplasia) N40.0 ; 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 ; Impacted cerumen of right ear H61.21 ; Anxiety F41.9 ; Constipation, unspecified constipation type K59.00 and Hyperlipidemia E78.5 [facility] [address] [place] [id number] [place] [id number] Feb, [facility] [address] [facility] [id number] [address] [place] [phone] Jan, [facility] [address] [place] [id number] [place] [phone] Dec, [facility] [address] [place] [id number] [place] [address] Dec, [facility] [address] [place] [id number] [place] [phone] Dec, [facility] [address] [place] [id number] [place] [phone] Dec, [facility] [address] [address] Dec, Depression F32.9 ; Anxiety F 41.9 ; Neuropathy G62.9 ; 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 ; GERD (gastroesophageal reflux disease) K21.9 ; Hyperlipidemia E78.5 ; Edema R60.9 ; DJD (degenerative joint disease) M19.90 ; Lumbago with sciatica, right side M54.41 ; Constipation, unspecified constipation type K59.00 and BPH (benign prostatic hyperplasia) N40.0 [facility] [address] [address] Dec, [facility] [address] [place] [id number] [place] [phone] Oct, [facility] [address] [address] Oct, Low back pain M54.5 [facility] [address] [facility] [id number] [address] [place] [phone] Oct, [facility] [address] [facility] [id number] [address] [place] [id number] September, 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 ; Depression F32.9 ; Anxiety F41.9 ; BPH (benign prostatic hyperplasia) N40.0 ; Hyperlipidemia E78.5 ; Traumatic brain injury S06.9X9A ; Lumbago with sciatica, right side M54.41 ; Low back pain M54.5 ; Gastroesophageal reflux disease with esophagitis K21.0 ; Generalized edema R60.1 and Constipation, unspecified constipation type K59.00 [facility] [address] [facility] [id number] [address] [place] [phone] Aug, Depression F32.9 ; Anxiety F 41.9 [...] Never Assessed REASON FOR VISIT Controlled Med Refill//LVM PLAN OF CARE VITAL SIGNS MEDICATIONS Medication Instructions Dosage Frequency Start Date End Date Duration S tatus Klonopin 1 MG Orally Twice a day 1 tablet 12h 28 day s Active Morphine Sulfate 15 MG Orally 2 times a day 1 tablet as needed 12h Feb, 28 days Active MS Contin 60 MG Orally every 12 hrs 1 tablet 12h Feb, 28 days Active RESULTS No [...]
--- OUTSIDE RECORDS SUMMARY | 2019-07-27 19:44 | XMS REPORT ---
Author Author Brenton SANCHEZ Organization [facility] Address [address] [place] [address] Care Team Providers Care Telephoner Name Role Phone LAURA JAIMIE Unavailable PROBLEMS Type Condition ICD9-CM Code [id number] Code Onset Dates Condition S tatus SNOMED Code Problem Anxiety F41.9 Active 84930364 Problem Lumbago with sciatica, right side M54.41 Active 623008048 Problem Low back pain M54.5 Active 991772 005 Problem Hyperlipidemia E78.5 Active 54865 004 Problem HTN (hypertension) I10 Active 3 2122691 Problem Depression F32.9 Active 45966790 Problem GERD (gastroesophageal reflux disease) K21.9 Active 946320510 Problem Onychomycosis B35.1 Active 108445 008 Problem Benign nodular prostatic hyp erplasia, presence of lower urinary tract symptoms unspecified N40.0 Active 9641995 07 Problem DJD (degenerative joint disease) M19.90 Active 598304274 Problem Type 2 diabetes mellitus with other diabetic oph thalmic complication E11.39 Active 97866787158587 Problem BPH (benign prostatic hyperplasia) N40.0 Active 066772206 Problem Traumatic brain injury S06.9X9A Active 460506610 ALLERGIES No Information ENCOUNTERS Encounter Location Date Diagnosis [place] [id number] [facility] [id number] [address] [place] [address] Oct, [facility] [address] [facility] [id number] [address] [place] [address] September, Anxiety F41.9 [place] [address] [facility] [id number] [address] [place] [address] September, Anxiety F41.9 and DJD (degen erative joint disease) M19.90 [facility] [address] [facility] [id number] [address] [place] [address] Aug, Anxiety F41.9 and DJD (degen erative joint disease) M19.90 [place] [address] [address] Jul, [facility] [address] [place] [id number] [place] [address] Jul, 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 ; Hyperlipidemia E78.5 and HTN (hypertension) I10 [place] [address] [place] [id number] [place] [address] 07 Jul, 2017 Anxiety F41.9 and DJD (degen erative joint disease) M19.90 [place] [address] [place] [id number] [place] [address] 06 Jun, 2017 Anxiety F41.9 and DJD (degen erative joint disease) M19.90 [place] [address] [address] 18 May, 2017 Weight loss, non-intentional R63.4 [place] [address] [address] 09 May, 2017 DJD (degenerative joint dise ase) M19.90 [place] [address] [place] [id number] [place] [address] 14 Apr, 2017 Anxiety F41.9 [place] [address] [address] 14 Apr, 2017 Anxiety F41.9 and DJD (degen erative joint disease) M19.90 [place] [address] [place] [id number] [place] [address] 13 Apr, 2017 DJD (degenerative joint dise ase) M19.90 ; Traumatic brain injury S06.9X9A ; 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 ; Anxiety F41.9 and Depression F32.9 [place] [address] [place] [id number] [place] [address] Mar, [facility] [address] [facility] [id number] [address] [place] [phone] Feb, DJD (degenerative joint dise ase) M19.90 ; Lumbago with sciatica, right side M54.41 and Anxiety F41.9 [facility] [address] [facility] [id number] [address] [place] [address] Feb, [facility] [address] [place] [id number] [place] [address] Jan, DJD (degenerative joint dise ase) M19.90 ; Anxiety F41.9 and Lumbago with sciatica, right side M54.41 [facility] [address] [facility] [id number] [address] [place] [address] Dec, Lumbago with sciatica, right side M54.41 [facility] [address] [place] [id number] [address] [place] [address] Dec, Anxiety F41.9 and Lumbago wi th sciatica, right side M54.41 [facility] [address] [place] [id number] [place] [address] Dec, DJD (degenerative joint dise ase) M19.90 [facility] [address] [place] [id number] [address] [place] [address] Dec, 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 ; Lumbago with sciatica, right side M54.41 ; Traumatic brain injury S06.9X9A ; DJD (degenerative joint disease) M19.90 ; Constipation, unspecified constipation type K59.00 ; Depression F32.9 ; Anxiety F41.9 ; BPH (benign prostatic hyperplasia) N40.0 ; HTN (hypertension) I10 ; GERD (gastroesophageal reflux disease) K21.9 and Hyperlipidemia E78.5 [facility] [address] [facility] [id number] [address] [place] [address] Dec, DJD (degenerative joint dise ase) M19.90 ; Anxiety F41.9 ; Lumbago with sciatica, right side M54.41 ; Traumatic brain injury S06.9X9A ; Constipation, unspecified constipation type K59.00 ; Depression F32.9 ; BPH (benign prostatic hyperplasia) N40.0 ; 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 ; HTN (hypertension) I10 ; GERD (gastroesophageal reflux disease) K21.9 and Hyperlipidemia E78.5 [place] [address] [facility] [id number] [address] [place] [address] Nov, [place] [address] [facility] [id number] [address] [place] [address] Nov, Constipation, unspecified co nstipation type K59.00 ; Hyperlipidemia E78.5 ; Anxiety F41.9 ; Lumbago with sciatica, right side M54.41 ; BPH (benign prostatic hyperplasia) N40.0 ; 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 ; GERD (gastroesophageal reflux disease) K21.9 and Edema R60.[address] [id number] [address] [place] [address] Nov, [place] [address] [facility] [id number] [address] [place] [address] Nov, DJD (degenerative joint dise ase) M19.90 and Anxiety F41.[address] [id number] [address] [place] [address] Oct, Onychomycosis B35.1 ; Type I diabetes mellitus with peripheral circulatory disorder E10.51 and Neuropathy G62.9 [place] [address] [id number] [address] [place] [address] Oct, [address] [id number] [address] [place] [address] Oct, DJD (degenerative joint dise ase) M19.90 ; Anxiety F41.9 and Lumbago with sciatica, right side M54.41 [place] [address] [facility] [id number] [address] [place] [address] September, DJD (degenerative joint dise ase) M19.90 [place] [address] [address] September, Lumbago with sciatica, right side M54.41 ; Anxiety F41.9 and DJD (degenerative joint disease) M1. [place] [address] [address] September, [place] [address] [address] Aug, Lumbago with sciatica, right side M54.41 ; Anxiety F41.9 and DJD (degenerative joint disease) M19. [place] [address] [address] Aug, 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 [place] [address] [address] Aug, 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 ; Constipation, unspecified constipation type K59.00 ; Hyperlipidemia E78.5 ; Anxiety F41.9 ; Lumbago with sciatica, right side M54.41 ; BPH (benign prostatic hyperplasia) N40.0 ; GERD (gastroesophageal reflux disease) K21.9 and Edema R60.9 [place] [address] [address] Jul, Lumbago with sciatica, right side M54.41 ; Anxiety F41.9 and DJD (degenerative joint disease) M19.90 [place] [address] [address] Jun, 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 ; Anxiety F41.9 ; BPH (benign prostatic hyperplasia) N40.0 ; GERD (gastroesophageal reflux disease) K21.9 ; Hyperlipidemia E78.5 ; Lumbago with sciatica, right side M54.41 and Constipation, unspecified constipation type K59.00 [place] [address] [address] 15 Jun, 2016 DJD (degenerative joint dise ase) M19.90 and Anxiety F41.9 [place] [address] [address] 13 Jun, 2016 DJD (degenerative joint dise ase) M19.90 and Anxiety F41.9 [place] [address] [address] May, 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 ; Depression F32.9 ; GERD (gastroesophageal reflux disease) K21.9 ; Traumatic brain injury S06.9X9A ; Constipation, unspecified constipation type K59.00 ; DJD (degenerative joint disease) M19.90 ; Pure hypercholesterolemia E78.00 ; Benign nodular prostatic hyperplasia, presence of lower urinary tract symptoms unspecified N40.0 ; Neuropathy G62.9 and Anxiety F41.9 [place] [address] [address] 17 May, 2016 DJD (degenerative joint dise ase) M19.90 and Anxiety F41.9 [place] [address] [address] Apr, Lumbago with sciatica, right side M54.41 and Low back pain M54.5 [place] [address] [address] Mar, [place] [address] [address] Mar, [place] [address] [address] Mar, [place] [address] [address] Mar, [place] [address] [address] Mar, Depression F32.9 ; Neuropath y G62.9 ; GERD (gastroesophageal reflux disease) K21.9 ; Edema R60.9 ; DJD (degenerative joint disease) M19.90 ; BPH (benign prostatic hyperplasia) N40.0 ; 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 ; Impacted cerumen of right ear H61.21 ; Anxiety F41.9 ; Constipation, unspecified constipation type K59.00 and Hyperlipidemia E78.5 [facility] [address] [place] [id number] [place] [address] Feb, [facility] [address] [facility] [id number] [address] [place] [address] Jan, [facility] [address] [place] [id number] [place] [address] Dec, [facility] [address] [place] [id number] [place] [address] Dec, [facility] [address] [place] [id number] [place] [address] Dec, [facility] [address] [place] [id number] [place] [address] Dec, [facility] [address] [address] Dec, Depression F32.9 ; Anxiety F 41.9 ; Neuropathy G62.9 ; 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 ; GERD (gastroesophageal reflux disease) K21.9 ; Hyperlipidemia E78.5 ; Edema R60.9 ; DJD (degenerative joint disease) M19.90 ; Lumbago with sciatica, right side M54.41 ; Constipation, unspecified constipation type K59.00 and BPH (benign prostatic hyperplasia) N40.0 [facility] [address] [address] Dec, [facility] [address] [place] [id number] [place] [address] Oct, [facility] [address] [address] Oct, Low back pain M54.5 [facility] [address] [facility] [id number] [address] [place] [address] Oct, [facility] [address] [facility] [id number] [address] [place] [address] September, 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 ; Depression F32.9 ; Anxiety F41.9 ; BPH (benign prostatic hyperplasia) N40.0 ; Hyperlipidemia E78.5 ; Traumatic brain injury S06.9X9A ; Lumbago with sciatica, right side M54.41 ; Low back pain M54.5 ; Gastroesophageal reflux disease with esophagitis K21.0 ; Generalized edema R60.1 and Constipation, unspecified constipation type K59.00 [place] [address] [facility] [id number] [address] [place] [address] Aug, Depression F32.9 ; Anxiety F 41.9 [...] VISIT PLAN OF CARE VITAL SIGNS MEDICATIONS Unknown [...]
[2019-07-27] MEDS ORDERED: KETOROLAC 30 MG/ML VIAL IVP ONE (19:45)
--- OUTSIDE RECORDS SUMMARY | 2019-07-27 19:45 | XMS REPORT ---
Author Brenton Padilla [facility] eClinicalWorks Address Unknown Phone Unavailable Care Team Providers Care Vp Corporate Development Name Role Phone GEE COLLINS CP Unavailable [...] Traumatic brain injury S06.9X9A Activ e Medications No Known Medications Results No Known Results Summary Purpose eClinicalWorks Submission
--- OUTSIDE RECORDS SUMMARY | 2019-07-27 19:45 | XMS REPORT ---
Author Author Brenton COLLINS Organization [facility] Address [address] [place] [address] Care Team Providers Care Neuro Psych Sales Specialist Name Role Phone GEE COLLINS Unavailable PROBLEMS Type Condition ICD9-CM Code [id number] Code Onset Dates Condition S tatus SNOMED Code Problem Type 2 diabetes mellitus with other diabetic oph thalmic complication E11.39 Active 49853840967550 Problem Edema R60.9 Active 335121555 Problem DJD (degenerative joint disease) M19.90 Active 084664220 Problem Onychomycosis B35.1 Active 910361 008 Problem Benign nodular prostatic hyp erplasia, presence of lower urinary tract symptoms unspecified N40.0 Active 5249600 07 Problem BPH (benign prostatic hyperplasia) N40.0 Active 853304027 Problem Traumatic brain injury S06.9X9A Active 884893159 Problem Constipation, unspecified constipation type K59.00 Active 53122256 Problem Impacted cerumen of right ear H61.21 Active 31581619 Problem Hyperlipidemia E78.5 Active 67139 004 Problem Neuropathy G62.9 Active 663889943 Problem GERD (gastroesophageal reflux disease) K21.9 Active 889283985 Problem Anxiety F41.9 Active 34147113 Problem HTN (hypertension) I10 Active 3 7929601 Problem Low back pain M54.5 Active 999999 005 Problem Depression F32.9 Active 00527236 Problem Lumbago with sciatica, right side M54.41 Active 463840985 ALLERGIES Substance Reaction Event Type Date Status N.K.D.A. Unknown Non Drug Allergy May, Unknown SOCIAL HISTORY No smoking Hx information available PLAN OF CARE Activity Details Follow Up 4 Weeks Reason:diabetes VITAL SIGNS Height 68 in 2016-06-07 Weight 203.9 lbs 2016-06-07 Temperature 97.9 degrees Fahrenheit 2016-06-07 Heart Rate 92 bpm 2016-06-07 Respiratory Rate 18 2016-06-07 BMI 31.00 kg/m2 2016-06-07 Blood pressure systolic 124 mmHg 2016-06-07 Blood pressure diastolic 86 mmHg 2016-06-07 MEDICATIONS Medication Instructions Dosage Frequency Start Date End Date Duration S lian BuPROPion HCl 75 MG Orally Three times a day 1 tablet 8h Mar, 16 Active Klonopin 1 MG Orally Twice a day 1 tablet 12h Active Morphine Sulfate ER 30 MG Orally every 12 hrs 1 tablet 12h May, 017 Active Morphine Sulfate 15 MG Orally 2 times a day 1 tablet as needed 12h May, Active Omeprazole 20 mg Orally Once a day 2 capsules 24h Active Neurontin 300 MG Orally Three times a day 1 capsule 8h Active Hydrochlorothiazide 25 MG Orally Once a day 1 tablet 24h Active Docusate Sodium 100 MG Orally Once a day 1 capsule as needed 24h Active Lopid 600 MG Orally Twice a day 1 tablet 12h Active Risperdal 4 MG Orally Once a day 1 tablet 24h Active Effexor XR 75 MG Orally Once a day 1 capsule with food 24h Active Prazosin HCl 2 MG Orally Once a day 1 capsule at bedtime 24h Active Metformin HCl 500 MG Orally 3 times a day 1 tablet with meals 8h Active GlyBURIDE 5 mg Orally Once a day 1 tablet 24h Active Morphine Sulfate ER 15 MG Orally every 12 hrs 1 tablet 12h May, 017 Active RESULTS Name Result Date Reference Range AMERITOX 2016-06-07 PROCEDURES Procedure Date Ordered Related Diagnosis Body Site No Charge Jun 07, 2016 Office Visit, Est Pt., Level 4 Jun 07, 2016 IMMUNIZATIONS No Known Immunizations
--- OUTSIDE RECORDS SUMMARY | 2019-07-27 19:45 | XMS REPORT ---
Author Brenton Padilla [facility] eClinicalWorks Address Unknown Phone Unavailable Care Team Providers Care Driller Multiple Spindle Name Role Phone GEE COLLINS CP Unavailable [...] End Date Status Dosage Morphine Sulfate ER [facility] [address]-02 30 MG Orally every 12 hrs September 14, 2015 1 [place] [address]-80 15 mg ER Orally every 12 hrs Dec 08, 2015 1 tablet Results No Known Results Summary Purpose eClinicalWorks Submission
--- OUTSIDE RECORDS SUMMARY | 2019-07-27 19:45 | XMS REPORT ---
Author Author Brenton VILLALOBOS [facility] Address [address] [place] [address] Care Team Providers Care Able Bodied Watchman Name Role Phone MIHAELA V[place]AL[place] Unavailable PROBLEMS Type Condition ICD9-CM Code [id number] Code Onset Dates Condition S tatus SNOMED Code Problem Type 2 diabetes mellitus with other diabetic oph thalmic complication E11.39 Active 24732465503101 Problem Edema R60.9 Active 793668950 Problem DJD (degenerative joint disease) M19.90 Active 033615713 Problem Onychomycosis B35.1 Active 501785 008 Problem Benign nodular prostatic hyp erplasia, presence of lower urinary tract symptoms unspecified N40.0 Active 1901576 07 Problem BPH (benign prostatic hyperplasia) N40.0 Active 504769777 Problem Traumatic brain injury S06.9X9A Active 078526333 Problem Constipation, unspecified constipation type K59.00 Active 71998870 Problem Impacted cerumen of right ear H61.21 Active 65027957 Problem Hyperlipidemia E78.5 Active 59736 004 Problem Neuropathy G62.9 Active 622575937 Problem GERD (gastroesophageal reflux disease) K21.9 Active 021882190 Problem Anxiety F41.9 Active 56655302 Problem HTN (hypertension) I10 Active 3 8178521 Problem Low back pain M54.5 Active 645702 005 Problem Depression F32.9 Active 61228687 Problem Lumbago with sciatica, right side M54.41 Active 713305266 ALLERGIES No Information SOCIAL HISTORY Never Assessed PLAN OF CARE VITAL SIGNS MEDICATIONS Medication Instructions Dosage Frequency Start Date End Date Duration S tatus Morphine Sulfate 15 MG Orally 2 times [...]
--- OUTSIDE RECORDS SUMMARY | 2019-07-27 19:45 | XMS REPORT ---
Author Author Brenton VALIENTE Organization [facility] Address [address] [place] [address] Care Team Providers Care Seamless Tube Drawer Name Role Phone LAURITA VALIENTE Unavailable PROBLEMS Type Condition ICD9-CM Code [id number] Code Onset Dates Condition S tatus SNOMED Code Problem Low back pain M54.5 Active 701794 005 Problem Type 2 diabetes mellitus with other diabetic oph thalmic complication E11.39 Active [id number] Problem Lumbago with sciatica, right side M54.41 Active 191777312 Problem Neck pain M54.2 Active 85428535 Problem Onychomycosis B35.1 Active 850610 008 Problem Traumatic brain injury S06.9X9A Active 604743383 Problem DJD (degenerative joint disease) M19.90 Active 860990869 Problem Benign nodular prostatic hyp erplasia, presence of lower urinary tract symptoms unspecified N40.0 Active 4001170 07 Problem BPH (benign prostatic hyperplasia) N40.0 Active 113712384 Problem HTN (hypertension) I10 Active 3 9927113 Problem Depression F32.9 Active 39624933 Problem GERD (gastroesophageal reflux disease) K21.9 Active 358183734 Problem Hyperlipidemia E78.5 Active 34679 004 Problem Anxiety F41.9 Active 46294449 ALLERGIES No Information ENCOUNTERS Encounter Location Date Diagnosis [facility] [address] [facility] [id number] [place] [phone] Dec, [facility] [address] [facility] [id number] [place] [phone] Oct, [facility] [address] [facility] [id number] [place] [phone] Oct, Chest pain, unspecified type R07.9 [facility] [address] [facility] [id number] [place] [phone] Oct, [place] [address] [place] [id number] [place] [phone] 13 Oct, 2017 DJD (degenerative joint dise ase) M19.90 ; Traumatic brain injury S06.9X9A ; Anxiety F41.9 ; Depression F32.9 ; BPH (benign prostatic hyperplasia) N40.0 ; HTN (hypertension) I10 ; GERD (gastroesophageal reflux disease) K21.9 ; Hyperlipidemia E78.5 ; 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 and Constipation, unspecified constipation type K59.00 [place] [address] [address] 11 Oct, 2017 DJD (degenerative joint dise ase) M19.90 ; Traumatic brain injury S06.9X9A ; Anxiety F41.9 ; Depression F32.9 ; BPH (benign prostatic hyperplasia) N40.0 and HTN (hypertension) I10 [address] [address] 11 Oct, 2017 Neck pain M54.2 ; Fall, init ial encounter W19.XXXA and DJD (degenerative joint disease) M19.[address] [address] 07 Oct, 2017 DJD (degenerative joint dise ase) M19.90 ; Anxiety F41.9 ; Traumatic brain injury S06.9X9A ; Depression F32.9 ; BPH (benign prostatic hyperplasia) N40.0 ; HTN (hypertension) I10 ; GERD (gastroesophageal reflux disease) K21.9 ; Hyperlipidemia E78.5 ; 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 and Constipation, unspecified constipation type K59.[address] [address] September, DJD (degenerative joint dise ase) M19.90 and Anxiety F41.9 [place] [id number] [place] [phone] September, Anxiety F41.9 [place] [address] [place] [address] September, Anxiety F41.9 and DJD (degen erative joint disease) M19.90 [place] [address] [address] Aug, Anxiety F41.9 and DJD (degen erative joint disease) M19.90 [place] [address] [address] Jul, [place] [address] [address] Jul, 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 ; Hyperlipidemia E78.5 and HTN (hypertension) I10 [place] [address] [address] Jul, Anxiety F41.9 and DJD (degen erative joint disease) M19.90 [place] [address] [address] Jun, Anxiety F41.9 and DJD (degen erative joint disease) M19.90 [place] [address] [address] May, Weight loss, non-intentional R63.4 [place] [address] [address] May, DJD (degenerative joint dise ase) M19.90 [place] [address] [address] Apr, Anxiety F41.9 [place] [address] [address] Apr, Anxiety F41.9 and DJD (degen erative joint disease) M19.90 [place] [address] [address] Apr, DJD (degenerative joint dise ase) M19.90 ; Traumatic brain injury S06.9X9A ; 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 ; Anxiety F41.9 and Depression F32.9 [facility] [address] [facility] [id number] [place] [phone] Mar, [facility] [address] [place] [id number] [place] [phone] Feb, DJD (degenerative joint dise ase) M19.90 ; Lumbago with sciatica, right side M54.41 and Anxiety F41.9 [facility] [address] [facility] [id number] [place] [phone] Feb, [facility] [address] [place] [id number] [place] [phone] Jan, DJD (degenerative joint dise ase) M19.90 ; Anxiety F41.9 and Lumbago with sciatica, right side M54.41 [facility] [id number] [place] [phone] Dec, Lumbago with sciatica, right side M54.41 [facility] [address] [place] [id number] [place] [phone] Dec, Anxiety F41.9 and Lumbago wi th sciatica, right side M54.41 [facility] [address] [place] [id number] [place] [phone] Dec, DJD (degenerative joint dise ase) M19.90 [facility] [address] [place] [id number] [place] [phone] Dec, 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 ; Lumbago with sciatica, right side M54.41 ; Traumatic brain injury S06.9X9A ; DJD (degenerative joint disease) M19.90 ; Constipation, unspecified constipation type K59.00 ; Depression F32.9 ; Anxiety F41.9 ; BPH (benign prostatic hyperplasia) N40.0 ; HTN (hypertension) I10 ; GERD (gastroesophageal reflux disease) K21.9 and Hyperlipidemia E78.5 [place] [address] [facility] [id number] [place] [address] Dec, DJD (degenerative joint dise ase) M19.90 ; Anxiety F41.9 ; Lumbago with sciatica, right side M54.41 ; Traumatic brain injury S06.9X9A ; Constipation, unspecified constipation type K59.00 ; Depression F32.9 ; BPH (benign prostatic hyperplasia) N40.0 ; 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 ; HTN (hypertension) I10 ; GERD (gastroesophageal reflux disease) K21.9 and Hyperlipidemia E78.5 [place] [address] [facility] [id number] [place] [phone] Nov, [place] [address] [place] [id number] [place] [phone] Nov, Constipation, unspecified co nstipation type K59.00 ; Hyperlipidemia E78.5 ; Anxiety F41.9 ; Lumbago with sciatica, right side M54.41 ; BPH (benign prostatic hyperplasia) N40.0 ; 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 ; GERD (gastroesophageal reflux disease) K21.9 and Edema R60.9 [place] [address] [place] [id number] [place] [phone] Nov, [place] [id number] [place] [phone] Nov, DJD (degenerative joint dise ase) M19.90 and Anxiety F41.9 [place] [address] [facility] [id number] [place] [phone] Oct, Onychomycosis B35.1 ; Type I diabetes mellitus with peripheral circulatory disorder E10.51 and Neuropathy G62.9 [place] [address] [facility] [id number] [place] [phone] Oct, [place] [id number] [place] [phone] Oct, DJD (degenerative joint dise ase) M19.90 ; Anxiety F41.9 and Lumbago with sciatica, right side M54.41 [place] [address] [address] September, DJD (degenerative joint dise ase) M19.90 [place] [address] [address] September, Lumbago with sciatica, right side M54.41 ; Anxiety F41.9 and DJD (degenerative joint disease) M19.90 [place] [address] [address] September, [place] [address] [address] Aug, Lumbago with sciatica, right side M54.41 ; Anxiety F41.9 and DJD (degenerative joint disease) M19.90 [place] [address] [address] Aug, 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 [place] [address] [address] Aug, 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 ; Constipation, unspecified constipation type K59.00 ; Hyperlipidemia E78.5 ; Anxiety F41.9 ; Lumbago with sciatica, right side M54.41 ; BPH (benign prostatic hyperplasia) N40.0 ; GERD (gastroesophageal reflux disease) K21.9 and Edema R60.9 [place] [address] [place] [id number] [place] [id number] Jul, Lumbago with sciatica, right side M54.41 ; Anxiety F41.9 and DJD (degenerative joint disease) M19.90 [place] [address] [address] Jun, 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 ; Anxiety F41.9 ; BPH (benign prostatic hyperplasia) N40.0 ; GERD (gastroesophageal reflux disease) K21.9 ; Hyperlipidemia E78.5 ; Lumbago with sciatica, right side M54.41 and Constipation, unspecified constipation type K59.00 [facility] [address] [facility] [id number] [place] [address] 15 Jun, 2016 DJD (degenerative joint dise ase) M19.90 and Anxiety F41.9 [place] [address] [place] [id number] [place] [phone] 13 Jun, 2016 DJD (degenerative joint dise ase) M19.90 and Anxiety F41.9 [place] [address] [address] May, Type 2 diabetes mellitus wit h other diabetic ophthalmic complication E11.39 ; Depression F32.9 ; GERD (gastroesophageal reflux disease) K21.9 ; Traumatic brain injury S06.9X9A ; Constipation, unspecified constipation type K59.00 ; DJD (degenerative joint disease) M19.90 ; Pure hypercholesterolemia E78.00 ; Benign nodular prostatic hyperplasia, presence of lower urinary tract symptoms unspecified N40.0 ; Neuropathy G62.9 and Anxiety F41.9 [place] [address] [address] May, DJD (degenerative joint dise ase) M19.90 and Anxiety F41.9 [place] [address] [place] [id number] [place] [phone] Apr, Lumbago with sciatica, right side M54.41 and Low back pain M54.5 [place] [address] [place] [id number] [place] [phone] Mar, [place] [address] [place] [id number] [place] [phone] Mar, [place] [address] [place] [id number] [place] [phone] Mar, [place] [address] [address] Mar, [facility] [address] [address] Mar, Depression F32.9 ; Neuropath y G62.9 ; GERD (gastroesophageal reflux disease) K21.9 ; Edema R60.9 ; DJD (degenerative joint disease) M19.90 ; BPH (benign prostatic hyperplasia) N40.0 ; Type 2 diabetes mellitus with other diabetic ophthalmic complication E11.39 ; Impacted cerumen of right ear H61.21 ; Anxiety F41.9 ; Constipation, unspecified constipation type K59.00 and Hyperlipidemia E78.5 [facility] [address] [address] Feb, [facility] [address] [address] Jan, [facility] [address] [address] Dec, [facility] [address] [address] Dec, [facility] [address] [address] Dec, [facility] [address] [address] Dec, [facility] [address] [place] [phone] Dec, Depression F32.9 ; Anxiety F 41.9 ; Neuropathy G62.9 ; Type 2 diabetes mellitus with other diabetic ophthalmic complication E11.39 ; GERD (gastroesophageal reflux disease) K21.9 ; Hyperlipidemia E78.5 ; Edema R60.9 ; DJD (degenerative joint disease) M19.90 ; Lumbago with sciatica, right side M54.41 ; Constipation, unspecified constipation type K59.00 and BPH (benign prostatic hyperplasia) N40.0 [facility] [address] [place] [id number] Dec, [facility] [address] [facility] [id number] [place] [phone] Oct, [facility] [address] [facility] [id number] [place] [phone] Oct, Low back pain M54.5 [place] [address] [facility] [id number] [place] [phone] Oct, [facility] [address] [facility] [id number] [place] [phone] September, Type 2 diabetes mellitus wit h other diabetic ophthalmic complication E11.39 ; Depression F32.9 ; Anxiety F41.9 ; BPH (benign prostatic hyperplasia) N40.0 ; Hyperlipidemia E78.5 ; Traumatic brain injury S06.9X9A ; Lumbago with sciatica, right side M54.41 ; Low back pain M54.5 ; Gastroesophageal reflux disease with esophagitis K21.0 ; Generalized edema R60.1 and Constipation, unspecified constipation type K59.00 [place] [id number] [facility] [id number] [place] [phone] Aug, Depression F32.9 ; Anxiety F 41.9 [...] REASON FOR VISIT Controlled Med Refill- Due 06/14/17 PLAN OF CARE VITAL SIGNS MEDICATIONS Medication Instructions Dosage Frequency Start Date End Date Duration S lian Morphine Sulfate ER 60 mg Orally every 12 hrs 1 tablet 12h 2017 28 days Active Morphine Sulfate 15 mg Orally 2 times a day 1 tablet as needed 12h Jun, Jul, 28 days Active Klonopin 1 MG Orally [...]
--- OUTSIDE RECORDS SUMMARY | 2019-07-27 19:45 | XMS REPORT ---
Author Brenton Padilla Organization [facility] Address [address] [place] [address] Care Team Providers Care Dining Service Supervisor Name Role Phone GEE COLLINS Unavailable PROBLEMS Type Condition ICD9-CM Code [id number] Code Onset Dates Condition S tatus SNOMED Code Problem Type 2 diabetes mellitus with other diabetic oph thalmic complication E11.39 Active [id number] Problem Edema R60.9 Active 573927038 Problem DJD (degenerative joint disease) M19.90 Active 470058280 Problem Onychomycosis B35.1 Active 480573 008 Problem Benign nodular prostatic hyp erplasia, presence of lower urinary tract symptoms unspecified N40.0 Active 4661278 07 Problem BPH (benign prostatic hyperplasia) N40.0 Active 288117585 Problem Traumatic brain injury S06.9X9A Active 047593152 Problem Constipation, unspecified constipation type K59.00 Active 06380024 Problem Impacted cerumen of right ear H61.21 Active 61362569 Problem Hyperlipidemia E78.5 Active 25320 004 Problem Neuropathy G62.9 Active 278797743 Problem GERD (gastroesophageal reflux disease) K21.9 Active 084661735 Problem Anxiety F41.9 Active 37076987 Problem HTN (hypertension) I10 Active 3 5379331 Problem Low back pain M54.5 Active 514866 005 Problem Depression F32.9 Active 23423658 Problem Lumbago with sciatica, right side M54.41 Active 918037741 ALLERGIES No Information SOCIAL HISTORY Never Assessed PLAN OF CARE VITAL SIGNS MEDICATIONS Medication Instructions Dosage Frequency Start Date End Date Duration S tatus Morphine Sulfate ER 30 MG Orally every 12 hrs 1 tablet 12h 15 2016 28 days Active Morphine Sulfate 15 MG Orally 2 times a day 1 tablet as needed 12h 15 Jun, 2016 Jul, 28 days Active Klonopin 1 MG Orally Twice a day 1 tablet 12h 28 day s Active Morphine Sulfate ER 15 MG Orally every 12 hrs 1 tablet 12h 15 F , 2016 28 days Active RESULTS No Results [...]
--- OUTSIDE RECORDS SUMMARY | 2019-07-27 19:45 | XMS REPORT ---
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 Name Role Phone MIHAELA VILLALOBOS Unavailable PROBLEMS Type Condition ICD9-CM Code PHT30-IR Code Onset Dates Condition S tatus SNOMED Code Problem Anxiety F41.9 Active 25094856 Problem Lumbago with sciatica, right side M54.41 Active 550035093 Problem Low back pain M54.5 Active 781715 005 Problem Hyperlipidemia E78.5 Active 70498 004 Problem HTN (hypertension) I10 Active 3 2674871 Problem Depression F32.9 Active 45177257 Problem GERD (gastroesophageal reflux disease) K21.9 Active 189310057 Problem Onychomycosis B35.1 Active 083703 008 Problem Benign nodular prostatic hyp erplasia, presence of lower urinary tract symptoms unspecified N40.0 Active 4229847 07 Problem DJD (degenerative joint disease) M19.90 Active 582366332 Problem Type 2 diabetes mellitus with other diabetic oph thalmic complication E11.39 Active [id number] Problem BPH (benign prostatic hyperplasia) N40.0 Active 368102438 Problem Traumatic brain injury S06.9X9A Active 974847574 ALLERGIES No Information ENCOUNTERS Encounter Location Date Diagnosis [facility] [address] [facility] [id number] [address] [place] [phone] September, [facility] [address] [facility] [id number] [address] [place] [phone] Aug, Anxiety F41.9 and DJD (degen erative joint disease) M19.90 [facility] [address] [facility] [id number] [address] [place] [phone] Jul, [facility] [address] [facility] [id number] [address] [place] [phone] Jul, Type 2 diabetes mellitus wit h other diabetic ophthalmic complication E11.39 ; Hyperlipidemia E78.5 and HTN (hypertension) I10 [facility] [address] [place] [id number] [address] [place] [id number] 07 Jul, 2017 Anxiety F41.9 and DJD (degen erative joint disease) M19.90 [facility] [address] [place] [id number] [address] [place] [phone] 06 Jun, 2017 Anxiety F41.9 and DJD (degen erative joint disease) M19.90 [facility] [address] [place] [id number] [address] [place] [phone] 18 May, 2017 Weight loss, non-intentional R63.4 [facility] [address] [place] [id number] [address] [place] [phone] 09 May, 2017 DJD (degenerative joint dise ase) M19.90 [place] [id number] [place] [phone] 14 Apr, 2017 Anxiety F41.9 [facility] [address] [place] [phone] 14 Apr, 2017 Anxiety F41.9 and DJD (degen erative joint disease) M19.90 [facility] [address] [place] [id number] [address] [place] [id number] 13 Apr, 2017 DJD (degenerative joint dise ase) M19.90 ; Traumatic brain injury S06.9X9A ; 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 ; Anxiety F41.9 and Depression F32.9 [facility] [address] [facility] [id number] [address] [place] [phone] Mar, [place] [address] [place] [id number] [address] [place] [phone] Feb, DJD (degenerative joint dise ase) M19.90 ; Lumbago with sciatica, right side M54.41 and Anxiety F41.9 [facility] [address] [phone] Feb, [place] [address] [address] Jan, DJD (degenerative joint dise ase) M19.90 ; Anxiety F41.9 and Lumbago with sciatica, right side M54.41 [place] [address] [address] Dec, Lumbago with sciatica, right side M54.41 [place] [address] [address] Dec, Anxiety F41.9 and Lumbago wi th sciatica, right side M54.41 [place] [address] [address] Dec, DJD (degenerative joint dise ase) M19.90 [place] [address] [address] Dec, Type 2 diabetes mellitus wit h other diabetic ophthalmic complication E11.39 ; Lumbago with sciatica, right side M54.41 ; Traumatic brain injury S06.9X9A ; DJD (degenerative joint disease) M19.90 ; Constipation, unspecified constipation type K59.00 ; Depression F32.9 ; Anxiety F41.9 ; BPH (benign prostatic hyperplasia) N40.0 ; HTN (hypertension) I10 ; GERD (gastroesophageal reflux disease) K21.9 and Hyperlipidemia E78.5 [place] [address] [address] Dec, DJD (degenerative joint dise ase) M19.90 ; Anxiety F41.9 ; Lumbago with sciatica, right side M54.41 ; Traumatic brain injury S06.9X9A ; Constipation, unspecified constipation type K59.00 ; Depression F32.9 ; BPH (benign prostatic hyperplasia) N40.0 ; 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 ; HTN (hypertension) I10 ; GERD (gastroesophageal reflux disease) K21.9 and Hyperlipidemia E78.5 [place] [address] [facility] [id number] [address] [place] [id number] 13 Nov, 2016 [place] [address] [facility] [id number] [address] [place] [phone] Nov, Constipation, unspecified co nstipation type K59.00 ; Hyperlipidemia E78.5 ; Anxiety F41.9 ; Lumbago with sciatica, right side M54.41 ; BPH (benign prostatic hyperplasia) N40.0 ; 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 ; GERD (gastroesophageal reflux disease) K21.9 and Edema R60.9 [place] [address] [facility] [id number] [address] [place] [phone] Nov, [place] [address] [place] [id number] [address] [place] [id number] Nov, DJD (degenerative joint dise ase) M19.90 and Anxiety F41.9 [place] [address] [place] [id number] [address] [place] [phone] Oct, Onychomycosis B35.1 ; Type I diabetes mellitus with peripheral circulatory disorder E10.51 and Neuropathy G62.9 [place] [address] [facility] [id number] [address] [place] [phone] Oct, [place] [address] [place] [id number] [address] [place] [phone] Oct, DJD (degenerative joint dise ase) M19.90 ; Anxiety F41.9 and Lumbago with sciatica, right side M54.41 [place] [address] [facility] [id number] [address] [place] [address] September, DJD (degenerative joint dise ase) M19.90 [place] [address] [facility] [id number] [address] [place] [phone] 09 Sep, 2016 Lumbago with sciatica, right side M54.41 ; Anxiety F41.9 and DJD (degenerative joint disease) M19.90 [place] [address] [place] [id number] [address] [place] [phone] September, [place] [address] [address] Aug, Lumbago with sciatica, right side M54.41 ; Anxiety F41.9 and DJD (degenerative joint disease) M19.90 [place] [address] [address] Aug, Type 2 diabetes mellitus wit h other diabetic ophthalmic complication E11.39 [place] [address] [address] Aug, Type 2 diabetes mellitus wit h other diabetic ophthalmic complication E11.39 ; Constipation, unspecified constipation type K59.00 ; Hyperlipidemia E78.5 ; Anxiety F41.9 ; Lumbago with sciatica, right side M54.41 ; BPH (benign prostatic hyperplasia) N40.0 ; GERD (gastroesophageal reflux disease) K21.9 and Edema R60.9 [place] [address] [address] Jul, Lumbago with sciatica, right side M54.41 ; Anxiety F41.9 and DJD (degenerative joint disease) M19.90 [place] [address] [address] 28 Jun, 2016 Type 2 diabetes mellitus wit h other diabetic ophthalmic complication E11.39 ; Anxiety F41.9 ; BPH (benign prostatic hyperplasia) N40.0 ; GERD (gastroesophageal reflux disease) K21.9 ; Hyperlipidemia E78.5 ; Lumbago with sciatica, right side M54.41 and Constipation, unspecified constipation type K59.00 [place] [address] [address] 15 Jun, 2016 DJD (degenerative joint dise ase) M19.90 and Anxiety F41.9 [place] [address] [place] [id number] [address] [place] [id number] 13 Jun, 2016 DJD (degenerative joint dise ase) M19.90 and Anxiety F41.9 [place] [address] [facility] [id number] [address] [place] [phone] May, Type 2 diabetes mellitus wit h other diabetic ophthalmic complication E11.39 ; Depression F32.9 ; GERD (gastroesophageal reflux disease) K21.9 ; Traumatic brain injury S06.9X9A ; Constipation, unspecified constipation type K59.00 ; DJD (degenerative joint disease) M19.90 ; Pure hypercholesterolemia E78.00 ; Benign nodular prostatic hyperplasia, presence of lower urinary tract symptoms unspecified N40.0 ; Neuropathy G62.9 and Anxiety F41.9 [place] [address] [facility] [id number] [address] [place] [phone] May, DJD (degenerative joint dise ase) M19.90 and Anxiety F41.9 [place] [address] [place] [id number] [address] [place] [phone] Apr, Lumbago with sciatica, right side M54.41 and Low back pain M54.5 [place] [address] [place] [id number] [address] [place] [phone] Mar, [place] [address] [id number] Mar, [place] [address] [place] [id number] [address] [place] [phone] Mar, [place] [address] [place] [id number] [address] [place] [phone] Mar, [place] [address] [place] [id number] [address] [place] [phone] Mar, Depression F32.9 ; Neuropath y G62.9 ; GERD (gastroesophageal reflux disease) K21.9 ; Edema R60.9 ; DJD (degenerative joint disease) M19.90 ; BPH (benign prostatic hyperplasia) N40.0 ; 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 ; Impacted cerumen of right ear H61.21 ; Anxiety F41.9 ; Constipation, unspecified constipation type K59.00 and Hyperlipidemia E78.5 [facility] [address] [id number] [address] [place] [phone] Feb, [facility] [address] [facility] [id number] [address] [place] [phone] Jan, [facility] [address] [facility] [id number] [address] [place] [phone] Dec, [facility] [address] [facility] [id number] [address] [place] [phone] Dec, [facility] [address] [facility] [id number] [address] [place] [phone] Dec, [facility] [address] [facility] [id number] [address] [place] [phone] Dec, [facility] [address] [facility] [id number] [address] [place] [id number] Dec, Depression F32.9 ; Anxiety F 41.9 ; Neuropathy G62.9 ; 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 ; GERD (gastroesophageal reflux disease) K21.9 ; Hyperlipidemia E78.5 ; Edema R60.9 ; DJD (degenerative joint disease) M19.90 ; Lumbago with sciatica, right side M54.41 ; Constipation, unspecified constipation type K59.00 and BPH (benign prostatic hyperplasia) N40.0 [facility] [address] [facility] [id number] [address] [place] [phone] Dec, [facility] [address] [facility] [id number] [address] [place] [phone] Oct, [facility] [address] [facility] [id number] [address] [place] [phone] Oct, Low back pain M54.5 [facility] [address] [facility] [id number] [address] [place] [phone] Oct, [facility] [address] [facility] [id number] [address] [place] [phone] September, Type 2 diabetes mellitus wit h other diabetic ophthalmic complication E11.39 ; Depression F32.9 ; Anxiety F41.9 ; BPH (benign prostatic hyperplasia) N40.0 ; Hyperlipidemia E78.5 ; Traumatic brain injury S06.9X9A ; Lumbago with sciatica, right side M54.41 ; Low back pain M54.5 ; Gastroesophageal reflux disease with esophagitis K21.0 ; Generalized edema R60.1 and Constipation, unspecified constipation type K59.00 [facility] [address] [facility] [id number] [address] [place] [address] Aug, Depression F32.9 ; Anxiety F 41.9 [...] SOCIAL HISTORY Never Assessed REASON FOR VISIT Morphine/klonopin8/30 PLAN OF CARE VITAL SIGNS MEDICATIONS Medication Instructions Dosage Frequency Start Date End Date Duration S tatus Morphine Sulfate ER 60 mg Orally twice a day 1 capsule 12h Dec, 017 Active Klonopin 1 MG Orally Twice a [...]
--- OUTSIDE RECORDS SUMMARY | 2019-07-27 19:45 | XMS REPORT ---
Author Author Brenton Jeter Organization [facility] Address [address] [place] [address] Care Team Providers Care Care Coordinator Name Role Phone GEE Jeter Unavailable PROBLEMS Type Condition ICD9-CM Code SOU64-SM Code Onset Dates Condition S tatus SNOMED Code Problem Anxiety F41.9 Active 50478562 Problem Lumbago with sciatica, right side M54.41 Active 194128550 Problem Low back pain M54.5 Active 089093 005 Problem Hyperlipidemia E78.5 Active 51241 004 Problem HTN (hypertension) I10 Active 3 9810226 Problem Depression F32.9 Active 41571325 Problem GERD (gastroesophageal reflux disease) K21.9 Active 513186517 Problem Onychomycosis B35.1 Active 922944 008 Problem Benign nodular prostatic hyp erplasia, presence of lower urinary tract symptoms unspecified N40.0 Active 0690755 07 Problem DJD (degenerative joint disease) M19.90 Active 291184305 Problem Type 2 diabetes mellitus with other diabetic oph thalmic complication E11.39 Active 97057152024348 Problem BPH (benign prostatic hyperplasia) N40.0 Active 451995234 Problem Traumatic brain injury S06.9X9A Active 782751286 ALLERGIES No Information ENCOUNTERS Encounter Location Date Diagnosis [facility] [address] [facility] [id number] [address] [place] [phone] September, [facility] [address] [place] [id number] [address] [place] [phone] Aug, Anxiety F41.9 and DJD (degen erative joint disease) M19.90 [facility] [address] [facility] [id number] [address] [place] [phone] Jul, [facility] [address] [place] [id number] [address] [place] [phone] Jul, Type 2 diabetes mellitus wit h other diabetic ophthalmic complication E11.39 ; Hyperlipidemia E78.5 and HTN (hypertension) I10 [facility] [address] [address] 07 Jul, 2017 Anxiety F41.9 and DJD (degen erative joint disease) M19.90 [facility] [address] [address] 06 Jun, 2017 Anxiety F41.9 and DJD (degen erative joint disease) M19.90 [facility] [address] [address] May, Weight loss, non-intentional R63.4 [place] [address] [address] 09 May, 2017 DJD (degenerative joint dise ase) M19.90 [place] [address] [address] 14 Apr, 2017 Anxiety F41.9 [facility] [address] [address] Apr, Anxiety F41.9 and DJD (degen erative joint disease) M19.90 [facility] [address] [address] Apr, DJD (degenerative joint dise ase) M19.90 ; Traumatic brain injury S06.9X9A ; 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 ; Anxiety F41.9 and Depression F32.9 [facility] [address] [place] [phone] Mar, [place] [address] [address] Feb, DJD (degenerative joint dise ase) M19.90 ; Lumbago with sciatica, right side M54.41 and Anxiety F41.9 [facility] [address] [place] [id number] [address] [place] [phone] Feb, [facility] [address] [address] Jan, DJD (degenerative joint dise ase) M19.90 ; Anxiety F41.9 and Lumbago with sciatica, right side M54.41 [place] [address] [address] Dec, Lumbago with sciatica, right side M54.41 [place] [address] [address] Dec, Anxiety F41.9 and Lumbago wi th sciatica, right side M54.41 [place] [address] [address] Dec, DJD (degenerative joint dise ase) M19.90 [place] [address] [address] Dec, Type 2 diabetes mellitus wit h other diabetic ophthalmic complication E11.39 ; Lumbago with sciatica, right side M54.41 ; Traumatic brain injury S06.9X9A ; DJD (degenerative joint disease) M19.90 ; Constipation, unspecified constipation type K59.00 ; Depression F32.9 ; Anxiety F41.9 ; BPH (benign prostatic hyperplasia) N40.0 ; HTN (hypertension) I10 ; GERD (gastroesophageal reflux disease) K21.9 and Hyperlipidemia E78.5 [place] [address] [place] [id number] [place] [phone] Dec, DJD (degenerative joint dise ase) M19.90 ; Anxiety F41.9 ; Lumbago with sciatica, right side M54.41 ; Traumatic brain injury S06.9X9A ; Constipation, unspecified constipation type K59.00 ; Depression F32.9 ; BPH (benign prostatic hyperplasia) N40.0 ; 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 ; HTN (hypertension) I10 ; GERD (gastroesophageal reflux disease) K21.9 and Hyperlipidemia E78.5 [place] [address] [facility] [id number] [address] [place] [phone] Nov, [place] [address] [place] [id number] [place] [phone] Nov, Constipation, unspecified co nstipation type K59.00 ; Hyperlipidemia E78.5 ; Anxiety F41.9 ; Lumbago with sciatica, right side M54.41 ; BPH (benign prostatic hyperplasia) N40.0 ; 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 ; GERD (gastroesophageal reflux disease) K21.9 and Edema R60.9 [place] [address] [facility] [id number] [address] [place] [phone] Nov, [place] [address] [place] [id number] [place] [phone] Nov, DJD (degenerative joint dise ase) M19.90 and Anxiety F41.9 [place] [address] [place] [phone] Oct, Onychomycosis B35.1 ; Type I diabetes mellitus with peripheral circulatory disorder E10.51 and Neuropathy G62.9 [place] [address] [place] [id number] [place] [phone] Oct, [place] [address] [place] [id number] [address] [place] [phone] Oct, DJD (degenerative joint dise ase) M19.90 ; Anxiety F41.9 and Lumbago with sciatica, right side M54.41 [place] [address] [place] [id number] [address] [place] [phone] September, DJD (degenerative joint dise ase) M19.90 [place] [address] [place] [id number] [address] [place] [address] September, Lumbago with sciatica, right side M54.41 ; Anxiety F41.9 and DJD (degenerative joint disease) M19.90 [place] [address] [place] [id number] [address] [place] [phone] September, [place] [address] [address] Aug, Lumbago with sciatica, right side M54.41 ; Anxiety F41.9 and DJD (degenerative joint disease) M19.90 [place] [address] [address] Aug, Type 2 diabetes mellitus wit h other diabetic ophthalmic complication E11.39 [place] [address] [address] Aug, Type 2 diabetes mellitus wit h other diabetic ophthalmic complication E11.39 ; Constipation, unspecified constipation type K59.00 ; Hyperlipidemia E78.5 ; Anxiety F41.9 ; Lumbago with sciatica, right side M54.41 ; BPH (benign prostatic hyperplasia) N40.0 ; GERD (gastroesophageal reflux disease) K21.9 and Edema R60.9 [place] [address] [address] Jul, Lumbago with sciatica, right side M54.41 ; Anxiety F41.9 and DJD (degenerative joint disease) M19.90 [place] [address] [address] 28 Jun, 2016 Type 2 diabetes mellitus wit h other diabetic ophthalmic complication E11.39 ; Anxiety F41.9 ; BPH (benign prostatic hyperplasia) N40.0 ; GERD (gastroesophageal reflux disease) K21.9 ; Hyperlipidemia E78.5 ; Lumbago with sciatica, right side M54.41 and Constipation, unspecified constipation type K59.00 [place] [address] [address] 15 Jun, 2016 DJD (degenerative joint dise ase) M19.90 and Anxiety F41.9 [place] [address] [place] [id number] [address] [place] [phone] 13 Jun, 2016 DJD (degenerative joint dise ase) M19.90 and Anxiety F41.9 [facility] [address] [facility] [id number] [address] [place] [phone] May, Type 2 diabetes mellitus wit h other diabetic ophthalmic complication E11.39 ; Depression F32.9 ; GERD (gastroesophageal reflux disease) K21.9 ; Traumatic brain injury S06.9X9A ; Constipation, unspecified constipation type K59.00 ; DJD (degenerative joint disease) M19.90 ; Pure hypercholesterolemia E78.00 ; Benign nodular prostatic hyperplasia, presence of lower urinary tract symptoms unspecified N40.0 ; Neuropathy G62.9 and Anxiety F41.9 [place] [address] [facility] [id number] [address] [place] [phone] May, DJD (degenerative joint dise ase) M19.90 and Anxiety F41.9 [place] [address] [place] [id number] [place] [phone] Apr, Lumbago with sciatica, right side M54.41 and Low back pain M54.5 [place] [address] [place] [id number] [place] [phone] Mar, [place] [address] [place] [id number] [place] [phone] Mar, [place] [address] [place] [id number] [place] [phone] Mar, [place] [address] [place] [id number] [place] [phone] Mar, [place] [address] [place] [id number] [place] [phone] Mar, Depression F32.9 ; Neuropath y G62.9 ; GERD (gastroesophageal reflux disease) K21.9 ; Edema R60.9 ; DJD (degenerative joint disease) M19.90 ; BPH (benign prostatic hyperplasia) N40.0 ; 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 ; Impacted cerumen of right ear H61.21 ; Anxiety F41.9 ; Constipation, unspecified constipation type K59.00 and Hyperlipidemia E78.5 [facility] [address] [id number] [address] [place] [phone] Feb, [facility] [address] [id number] [address] [place] [phone] Jan, [facility] [address] [facility] [id number] [address] [place] [phone] Dec, [facility] [address] [facility] [id number] [address] [place] [phone] Dec, [facility] [address] [facility] [id number] [address] [place] [phone] Dec, [facility] [address] [facility] [id number] [address] [place] [phone] Dec, [facility] [address] [place] [id number] [place] [phone] Dec, Depression F32.9 ; Anxiety F 41.9 ; Neuropathy G62.9 ; 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 ; GERD (gastroesophageal reflux disease) K21.9 ; Hyperlipidemia E78.5 ; Edema R60.9 ; DJD (degenerative joint disease) M19.90 ; Lumbago with sciatica, right side M54.41 ; Constipation, unspecified constipation type K59.00 and BPH (benign prostatic hyperplasia) N40.0 [facility] [address] [facility] [id number] [address] [place] [phone] Dec, [facility] [address] [facility] [id number] [address] [place] [phone] Oct, [facility] [address] [facility] [id number] [address] [place] [phone] Oct, Low back pain M54.5 [facility] [address] [facility] [id number] [address] [place] [phone] Oct, [facility] [address] [facility] [id number] [address] [place] [phone] September, 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 ; Depression F32.9 ; Anxiety F41.9 ; BPH (benign prostatic hyperplasia) N40.0 ; Hyperlipidemia E78.5 ; Traumatic brain injury S06.9X9A ; Lumbago with sciatica, right side M54.41 ; Low back pain M54.5 ; Gastroesophageal reflux disease with esophagitis K21.0 ; Generalized edema R60.1 and Constipation, unspecified constipation type K59.00 [facility] [address] [facility] [id number] [address] [place] [address] Aug, Depression F32.9 ; Anxiety F 41.9 [...] SOCIAL HISTORY Never Assessed REASON FOR VISIT Morphine IR PLAN OF CARE VITAL SIGNS MEDICATIONS Medication Instructions Dosage Frequency Start Date End Date Duration S tatus Morphine Sulfate 15 mg Orally 2 times a day 1 tablet as needed 12h Dec, Active RESULTS No Results PROCEDURES No Known [...]
--- OUTSIDE RECORDS SUMMARY | 2019-07-27 19:45 | XMS REPORT ---
Author Author Brenton VILLALOBOS Organization [facility] Address [address] [place] [address] Care Team Providers Care Sap Abap Programmer Name Role Phone MIHAELA VILLALOBOS Unavailable PROBLEMS Type Condition ICD9-CM Code ATD36-ZZ Code Onset Dates Condition S tatus SNOMED Code Problem Anxiety F41.9 Active 95817149 Problem Lumbago with sciatica, right side M54.41 Active 015542911 Problem Low back pain M54.5 Active 441013 005 Problem Hyperlipidemia E78.5 Active 68448 004 Problem HTN (hypertension) I10 Active 3 7548814 Problem Depression F32.9 Active 36694993 Problem GERD (gastroesophageal reflux disease) K21.9 Active 631439251 Problem Onychomycosis B35.1 Active 304411 008 Problem Benign nodular prostatic hyp erplasia, presence of lower urinary tract symptoms unspecified N40.0 Active 2456597 07 Problem DJD (degenerative joint disease) M19.90 Active 212201338 Problem Type 2 diabetes mellitus with other diabetic oph thalmic complication E11.39 Active 25143842789075 Problem BPH (benign prostatic hyperplasia) N40.0 Active 695303025 Problem Traumatic brain injury S06.9X9A Active 840355903 ALLERGIES No Information ENCOUNTERS Encounter Location Date Diagnosis [facility] [address] [facility] [id number] [address] [place] [phone] September, [facility] [address] [facility] [id number] [address] [place] [phone] Aug, Anxiety F41.9 and DJD (degen erative joint disease) M19.90 [facility] [address] [facility] [id number] [address] [place] [phone] Jul, [facility] [address] [facility] [id number] [address] [place] [phone] Jul, Type 2 diabetes mellitus wit h other diabetic ophthalmic complication E11.39 ; Hyperlipidemia E78.5 and HTN (hypertension) I10 [facility] [address] [place] [id number] [address] [place] [phone] 07 Jul, 2017 Anxiety F41.9 and DJD (degen erative joint disease) M19.90 [facility] [address] [place] [id number] [address] [place] [phone] 06 Jun, 2017 Anxiety F41.9 and DJD (degen erative joint disease) M19.90 [facility] [address] [place] [id number] [address] [place] [phone] 18 May, 2017 Weight loss, non-intentional R63.4 [facility] [address] [place] [id number] [address] [place] [phone] 09 May, 2017 DJD (degenerative joint dise ase) M19.90 [place] [address] [place] [phone] 14 Apr, 2017 Anxiety F41.9 [facility] [address] [place] [phone] 14 Apr, 2017 Anxiety F41.9 and DJD (degen erative joint disease) M19.90 [facility] [address] [place] [id number] [address] [place] [phone] 13 Apr, 2017 DJD (degenerative joint dise ase) M19.90 ; Traumatic brain injury S06.9X9A ; 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 ; Anxiety F41.9 and Depression F32.9 [facility] [address] [facility] [id number] [address] [place] [phone] Mar, [place] [address] [place] [id number] [address] [place] [phone] Feb, DJD (degenerative joint dise ase) M19.90 ; Lumbago with sciatica, right side M54.41 and Anxiety F41.9 [facility] [address] [address] Feb, [place] [address] [address] Jan, DJD (degenerative joint dise ase) M19.90 ; Anxiety F41.9 and Lumbago with sciatica, right side M54.41 [place] [address] [address] Dec, Lumbago with sciatica, right side M54.41 [place] [address] [address] Dec, Anxiety F41.9 and Lumbago wi th sciatica, right side M54.41 [place] [address] [id number] Dec, DJD (degenerative joint dise ase) M19.90 [place] [address] [address] Dec, Type 2 diabetes mellitus wit h other diabetic ophthalmic complication E11.39 ; Lumbago with sciatica, right side M54.41 ; Traumatic brain injury S06.9X9A ; DJD (degenerative joint disease) M19.90 ; Constipation, unspecified constipation type K59.00 ; Depression F32.9 ; Anxiety F41.9 ; BPH (benign prostatic hyperplasia) N40.0 ; HTN (hypertension) I10 ; GERD (gastroesophageal reflux disease) K21.9 and Hyperlipidemia E78.5 [place] [address] [address] Dec, DJD (degenerative joint dise ase) M19.90 ; Anxiety F41.9 ; Lumbago with sciatica, right side M54.41 ; Traumatic brain injury S06.9X9A ; Constipation, unspecified constipation type K59.00 ; Depression F32.9 ; BPH (benign prostatic hyperplasia) N40.0 ; 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 ; HTN (hypertension) I10 ; GERD (gastroesophageal reflux disease) K21.9 and Hyperlipidemia E78.5 [place] [address] [facility] [id number] [address] [place] [phone] 13 Nov, 2016 [place] [address] [facility] [id number] [address] [place] [address] Nov, Constipation, unspecified co nstipation type K59.00 ; Hyperlipidemia E78.5 ; Anxiety F41.9 ; Lumbago with sciatica, right side M54.41 ; BPH (benign prostatic hyperplasia) N40.0 ; 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 ; GERD (gastroesophageal reflux disease) K21.9 and Edema R60.9 [place] [address] [facility] [id number] [address] [place] [phone] Nov, [place] [address] [place] [id number] [address] [place] [phone] Nov, DJD (degenerative joint dise ase) M19.90 and Anxiety F41.9 [place] [address] [place] [id number] [address] [place] [phone] Oct, Onychomycosis B35.1 ; Type I diabetes mellitus with peripheral circulatory disorder E10.51 and Neuropathy G62.9 [place] [address] [facility] [id number] [address] [place] [address] Oct, [place] [address] [place] [id number] [address] [place] [phone] Oct, DJD (degenerative joint dise ase) M19.90 ; Anxiety F41.9 and Lumbago with sciatica, right side M54.41 [place] [address] [facility] [id number] [address] [place] [address] September, DJD (degenerative joint dise ase) M19.90 [place] [address] [facility] [id number] [address] [place] [phone] 09 Sep, 2016 Lumbago with sciatica, right side M54.41 ; Anxiety F41.9 and DJD (degenerative joint disease) M19.90 [place] [address] [place] [id number] [address] [place] [address] September, [place] [address] [address] Aug, Lumbago with sciatica, right side M54.41 ; Anxiety F41.9 and DJD (degenerative joint disease) M19.90 [place] [address] [address] Aug, Type 2 diabetes mellitus wit h other diabetic ophthalmic complication E11.39 [place] [address] [address] Aug, Type 2 diabetes mellitus wit h other diabetic ophthalmic complication E11.39 ; Constipation, unspecified constipation type K59.00 ; Hyperlipidemia E78.5 ; Anxiety F41.9 ; Lumbago with sciatica, right side M54.41 ; BPH (benign prostatic hyperplasia) N40.0 ; GERD (gastroesophageal reflux disease) K21.9 and Edema R60.9 [place] [address] [address] Jul, Lumbago with sciatica, right side M54.41 ; Anxiety F41.9 and DJD (degenerative joint disease) M19.90 [place] [address] [address] 28 Jun, 2016 Type 2 diabetes mellitus wit h other diabetic ophthalmic complication E11.39 ; Anxiety F41.9 ; BPH (benign prostatic hyperplasia) N40.0 ; GERD (gastroesophageal reflux disease) K21.9 ; Hyperlipidemia E78.5 ; Lumbago with sciatica, right side M54.41 and Constipation, unspecified constipation type K59.00 [place] [address] [address] 15 Jun, 2016 DJD (degenerative joint dise ase) M19.90 and Anxiety F41.9 [place] [address] [place] [id number] [address] [place] [phone] 13 Jun, 2016 DJD (degenerative joint dise ase) M19.90 and Anxiety F41.9 [place] [address] [facility] [id number] [address] [place] [phone] May, Type 2 diabetes mellitus wit h other diabetic ophthalmic complication E11.39 ; Depression F32.9 ; GERD (gastroesophageal reflux disease) K21.9 ; Traumatic brain injury S06.9X9A ; Constipation, unspecified constipation type K59.00 ; DJD (degenerative joint disease) M19.90 ; Pure hypercholesterolemia E78.00 ; Benign nodular prostatic hyperplasia, presence of lower urinary tract symptoms unspecified N40.0 ; Neuropathy G62.9 and Anxiety F41.9 [place] [address] [facility] [id number] [address] [place] [address] May, DJD (degenerative joint dise ase) M19.90 and Anxiety F41.9 [place] [address] [place] [id number] [address] [place] [address] Apr, Lumbago with sciatica, right side M54.41 and Low back pain M54.5 [place] [address] [place] [id number] [address] [place] [address] Mar, [place] [address] [address] Mar, [place] [address] [place] [id number] [address] [place] [phone] Mar, [place] [address] [place] [id number] [address] [place] [address] Mar, [place] [address] [place] [id number] [address] [place] [address] Mar, Depression F32.9 ; Neuropath y G62.9 ; GERD (gastroesophageal reflux disease) K21.9 ; Edema R60.9 ; DJD (degenerative joint disease) M19.90 ; BPH (benign prostatic hyperplasia) N40.0 ; 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 ; Impacted cerumen of right ear H61.21 ; Anxiety F41.9 ; Constipation, unspecified constipation type K59.00 and Hyperlipidemia E78.5 [facility] [address] [id number] [address] [place] [address] Feb, [facility] [address] [facility] [id number] [address] [place] [phone] Jan, [facility] [address] [facility] [id number] [address] [place] [phone] Dec, [facility] [address] [facility] [id number] [address] [place] [phone] Dec, [facility] [address] [facility] [id number] [address] [place] [phone] Dec, [facility] [address] [facility] [id number] [address] [place] [phone] Dec, [facility] [address] [facility] [id number] [address] [place] [address] Dec, Depression F32.9 ; Anxiety F 41.9 ; Neuropathy G62.9 ; 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 ; GERD (gastroesophageal reflux disease) K21.9 ; Hyperlipidemia E78.5 ; Edema R60.9 ; DJD (degenerative joint disease) M19.90 ; Lumbago with sciatica, right side M54.41 ; Constipation, unspecified constipation type K59.00 and BPH (benign prostatic hyperplasia) N40.0 [facility] [address] [facility] [id number] [address] [place] [address] Dec, [facility] [address] [facility] [id number] [address] [place] [phone] Oct, [facility] [address] [facility] [id number] [address] [place] [phone] Oct, Low back pain M54.5 [facility] [address] [facility] [id number] [address] [place] [phone] Oct, [facility] [address] [facility] [id number] [address] [place] [address] September, Type 2 diabetes mellitus wit h other diabetic ophthalmic complication E11.39 ; Depression F32.9 ; Anxiety F41.9 ; BPH (benign prostatic hyperplasia) N40.0 ; Hyperlipidemia E78.5 ; Traumatic brain injury S06.9X9A ; Lumbago with sciatica, right side M54.41 ; Low back pain M54.5 ; Gastroesophageal reflux disease with esophagitis K21.0 ; Generalized edema R60.1 and Constipation, unspecified constipation type K59.00 [facility] [address] [facility] [id number] [address] [place] [address] Aug, Depression F32.9 ; Anxiety F 41.9 [...] Never Assessed REASON FOR VISIT Controlled Med Rx correction PLAN OF CARE VITAL SIGNS MEDICATIONS Medication Instructions Dosage Frequency Start Date End Date Duration S lian MS Contin 60 MG Orally every 12 hrs 1 tablet 12h 30 Dec, 2016 28 days Active RESULTS No Results [...]
--- OUTSIDE RECORDS SUMMARY | 2019-07-27 19:45 | XMS REPORT ---
Author Author Brenton COLLINS Organization [facility] Address [address] [place] [address] Care Team Providers Care Poacher Wringer Operator Name Role Phone KARINA GEE Unavailable PROBLEMS Type Condition ICD9-CM Code NRP91-TO Code Onset Dates Condition S tatus SNOMED Code Problem Type 2 diabetes mellitus with other diabetic oph thalmic complication E11.39 Active [id number] Problem Neuropathy G62.9 Active 493330178 Problem BPH (benign prostatic hyperplasia) N40.0 Active 334167966 Problem Onychomycosis B35.1 Active 767355 008 Problem Benign nodular prostatic hyp erplasia, presence of lower urinary tract symptoms unspecified N40.0 Active 3454000 07 Problem Depression F32.9 Active 55419256 Problem Anxiety F41.9 Active 94302518 Problem Impacted cerumen of right ear H61.21 Active 13811973 Problem Constipation, unspecified constipation type K59.00 Active 13708689 Problem Low back pain M54.5 Active 843900 005 Problem Lumbago with sciatica, right side M54.41 Active 770215979 Problem HTN (hypertension) I10 Active 3 6613074 Problem Edema R60.9 Active 201380328 Problem Traumatic brain injury S06.9X9A Active 226976649 Problem Hyperlipidemia E78.5 Active 71972 004 Problem DJD (degenerative joint disease) M19.90 Active 026996435 Problem GERD (gastroesophageal reflux disease) K21.9 Active 034394755 ALLERGIES Unknown Allergies SOCIAL HISTORY No smoking Hx information available PLAN OF CARE VITAL SIGNS MEDICATIONS Medication Instructions Dosage Frequency Start Date End Date Duration S tatus Morphine Sulfate ER 30 MG Orally every 12 hrs 1 tablet 12h 22 N 2015 28 days Active Klonopin 1 MG Orally Twice a day 1 tablet 12h 28 day s Active Morphine Sulfate 15 MG Orally 2 times a day 1 tablet as needed 12h 09 Sep, 2015 28 days Active RESULTS No Results PROCEDURES No Known procedures IMMUNIZATIONS No Known Immunizations
--- OUTSIDE RECORDS SUMMARY | 2019-07-27 19:45 | XMS REPORT ---
Author Brenton Padilla Organization [employer] Address Unknown Phone Unavailable Care Team Providers Care Refractory Manager Name Role Phone GEE COLLINS CP Unavailable [...] End Date Status Dosage Morphine Sulfate ER [facility] [id number] 30 MG Orally every 12 hr s Mar 29, 2016 Apr 26, 2016 1 tablet Morphine Sulfate [facility] [id number] 15 MG Orally 2 times a day September 14, 2015 Apr 26, 2016 1 tablet as needed Results No Known Results Summary Purpose [employer] Submission
--- OUTSIDE RECORDS SUMMARY | 2019-07-27 19:45 | XMS REPORT ---
Author Author Brenton VALIENTE Organization [facility] Address [address] [place] [address] Care Team Providers Care Appeals Nurse Name Role Phone LAURITA VALIENTE Unavailable PROBLEMS Type Condition ICD9-CM Code FHC67-TB Code Onset Dates Condition S tatus SNOMED Code Problem Low back pain M54.5 Active 359435 005 Problem Type 2 diabetes mellitus with other diabetic oph thalmic complication E11.39 Active 87380229663060 Problem Lumbago with sciatica, right side M54.41 Active 023809346 Problem Neck pain M54.2 Active 78353317 Problem Onychomycosis B35.1 Active 984801 008 Problem Traumatic brain injury S06.9X9A Active 358308737 Problem DJD (degenerative joint disease) M19.90 Active 030807429 Problem Benign nodular prostatic hyp erplasia, presence of lower urinary tract symptoms unspecified N40.0 Active 1876234 07 Problem BPH (benign prostatic hyperplasia) N40.0 Active 603257722 Problem HTN (hypertension) I10 Active 3 2124703 Problem Depression F32.9 Active 88529957 Problem GERD (gastroesophageal reflux disease) K21.9 Active 045491591 Problem Hyperlipidemia E78.5 Active 86746 004 Problem Anxiety F41.9 Active 01018117 ALLERGIES No Information ENCOUNTERS Encounter Location Date Diagnosis [facility] [address] [facility] [id number] [address] [place] [phone] 11 Oct, 2017 [facility] [address] [facility] [id number] [address] [place] [phone] 11 Oct, 2017 Neck pain M54.2 ; Fall, init ial encounter W19.XXXA and DJD (degenerative joint disease) M19.90 [facility] [address] [facility] [id number] [address] [place] [phone] 07 Oct, 2017 DJD (degenerative joint dise ase) M19.90 ; Anxiety F41.9 ; Traumatic brain injury S06.9X9A ; Depression F32.9 ; BPH (benign prostatic hyperplasia) N40.0 ; HTN (hypertension) I10 ; GERD (gastroesophageal reflux disease) K21.9 ; Hyperlipidemia E78.5 ; 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 and Constipation, unspecified constipation type K59.00 [place] [address] [address] September, DJD (degenerative joint dise ase) M19.90 and Anxiety F41.9 [place] [address] [address] September, Anxiety F41.9 [place] [address] [address] September, Anxiety F41.9 and DJD (degen erative joint disease) M19.90 [place] [address] [address] Aug, Anxiety F41.9 and DJD (degen erative joint disease) M19.90 [place] [address] [address] Jul, [place] [address] [address] Jul, Type 2 diabetes mellitus wit h other diabetic ophthalmic complication E11.39 ; Hyperlipidemia E78.5 and HTN (hypertension) I10 [place] [address] [address] Jul, Anxiety F41.9 and DJD (degen erative joint disease) M19.90 [place] [address] [address] Jun, Anxiety F41.9 and DJD (degen erative joint disease) M19.90 [place] [address] [address] May, Weight loss, non-intentional R63.4 [facility] [address] [place] [id number] [address] [place] [phone] May, DJD (degenerative joint dise ase) M19.90 [facility] [address] [place] [id number] [address] [place] [phone] 14 Apr, 2017 Anxiety F41.9 [facility] [address] [place] [id number] [place] [phone] Apr, Anxiety F41.9 and DJD (degen erative joint disease) M19.90 [place] [address] [place] [id number] [place] [phone] Apr, DJD (degenerative joint dise ase) M19.90 ; Traumatic brain injury S06.9X9A ; 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 ; Anxiety F41.9 and Depression F32.9 [place] [address] [place] [id number] [place] [phone] Mar, [place] [address] [place] [id number] [address] [place] [phone] Feb, DJD (degenerative joint dise ase) M19.90 ; Lumbago with sciatica, right side M54.41 and Anxiety F41.9 [facility] [address] [place] [id number] [address] [place] [phone] Feb, [facility] [address] [place] [id number] [address] [place] [phone] Jan, DJD (degenerative joint dise ase) M19.90 ; Anxiety F41.9 and Lumbago with sciatica, right side M54.41 [facility] [address] [place] [id number] [place] [phone] Dec, Lumbago with sciatica, right side M54.41 [facility] [address] [place] [id number] [address] [place] [phone] Dec, Anxiety F41.9 and Lumbago wi th sciatica, right side M54.41 [place] [address] [address] 07 Dec, 2016 DJD (degenerative joint dise ase) M19.90 [place] [address] [address] Dec, Type 2 diabetes mellitus wit h other diabetic ophthalmic complication E11.39 ; Lumbago with sciatica, right side M54.41 ; Traumatic brain injury S06.9X9A ; DJD (degenerative joint disease) M19.90 ; Constipation, unspecified constipation type K59.00 ; Depression F32.9 ; Anxiety F41.9 ; BPH (benign prostatic hyperplasia) N40.0 ; HTN (hypertension) I10 ; GERD (gastroesophageal reflux disease) K21.9 and Hyperlipidemia E78.5 [place] [address] [address] Dec, DJD (degenerative joint dise ase) M19.90 ; Anxiety F41.9 ; Lumbago with sciatica, right side M54.41 ; Traumatic brain injury S06.9X9A ; Constipation, unspecified constipation type K59.00 ; Depression F32.9 ; BPH (benign prostatic hyperplasia) N40.0 ; 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 ; HTN (hypertension) I10 ; GERD (gastroesophageal reflux disease) K21.9 and Hyperlipidemia E78.5 [place] [address] [address] Nov, [place] [address] [address] Nov, Constipation, unspecified co nstipation type K59.00 ; Hyperlipidemia E78.5 ; Anxiety F41.9 ; Lumbago with sciatica, right side M54.41 ; BPH (benign prostatic hyperplasia) N40.0 ; 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 ; GERD (gastroesophageal reflux disease) K21.9 and Edema R60.9 [place] [address] [address] Nov, [place] [address] [id number] [address] [place] [phone] Nov, DJD (degenerative joint dise ase) M19.90 and Anxiety F41.9 [facility] [address] [id number] [address] [place] [phone] Oct, Onychomycosis B35.1 ; Type I diabetes mellitus with peripheral circulatory disorder E10.51 and Neuropathy G62.9 [place] [address] [id number] [address] [place] [phone] Oct, [place] [address] [id number] [address] [place] [address] Oct, DJD (degenerative joint dise ase) M19.90 ; Anxiety F41.9 and Lumbago with sciatica, right side M54.41 [place] [address] [id number] [address] [place] [address] September, DJD (degenerative joint dise ase) M19.90 [place] [address] [id number] [address] [place] [address] 09 Sep, 2016 Lumbago with sciatica, right side M54.41 ; Anxiety F41.9 and DJD (degenerative joint disease) M19.90 [place] [address] [id number] [address] [place] [phone] September, [place] [address] [id number] [address] [place] [address] Aug, Lumbago with sciatica, right side M54.41 ; Anxiety F41.9 and DJD (degenerative joint disease) M19.90 [place] [address] [id number] [address] [place] [phone] Aug, Type 2 diabetes mellitus wit h other diabetic ophthalmic complication E11.39 [facility] [address] [id number] [address] [place] [phone] Aug, Type 2 diabetes mellitus wit h other diabetic ophthalmic complication E11.39 ; Constipation, unspecified constipation type K59.00 ; Hyperlipidemia E78.5 ; Anxiety F41.9 ; Lumbago with sciatica, right side M54.41 ; BPH (benign prostatic hyperplasia) N40.0 ; GERD (gastroesophageal reflux disease) K21.9 and Edema R60.9 [place] [address] [address] Jul, Lumbago with sciatica, right side M54.41 ; Anxiety F41.9 and DJD (degenerative joint disease) M19.[address] [address] 28 Jun, 2016 Type 2 diabetes mellitus wit h other diabetic ophthalmic complication E11.39 ; Anxiety F41.9 ; BPH (benign prostatic hyperplasia) N40.0 ; GERD (gastroesophageal reflux disease) K21.9 ; Hyperlipidemia E78.5 ; Lumbago with sciatica, right side M54.41 and Constipation, unspecified constipation type K59.00 [place] [address] [address] 15 Jun, 2016 DJD (degenerative joint dise ase) M19.90 and Anxiety F41.[address] [address] 13 Jun, 2016 DJD (degenerative joint dise ase) M19.90 and Anxiety F41.[address] [address] May, 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 ; Depression F32.9 ; GERD (gastroesophageal reflux disease) K21.9 ; Traumatic brain injury S06.9X9A ; Constipation, unspecified constipation type K59.00 ; DJD (degenerative joint disease) M19.90 ; Pure hypercholesterolemia E78.00 ; Benign nodular prostatic hyperplasia, presence of lower urinary tract symptoms unspecified N40.0 ; Neuropathy G62.9 and Anxiety F41.[address] [address] May, DJD (degenerative joint dise ase) M19.90 and Anxiety F41.9 [facility] [address] [address] Apr, Lumbago with sciatica, right side M54.41 and Low back pain M54.5 [facility] [address] [place] [id number] [place] [phone] Mar, [facility] [address] [place] [id number] [place] [phone] Mar, [facility] [address] [place] [id number] [place] [phone] Mar, [facility] [address] [place] [id number] [place] [phone] Mar, [facility] [address] [address] Mar, Depression F32.9 ; Neuropath y G62.9 ; GERD (gastroesophageal reflux disease) K21.9 ; Edema R60.9 ; DJD (degenerative joint disease) M19.90 ; BPH (benign prostatic hyperplasia) N40.0 ; 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 ; Impacted cerumen of right ear H61.21 ; Anxiety F41.9 ; Constipation, unspecified constipation type K59.00 and Hyperlipidemia E78.5 [facility] [address] [address] Feb, [facility] [address] [place] [id number] [address] [place] [phone] Jan, [facility] [address] [address] Dec, [facility] [address] [place] [id number] [place] [phone] Dec, [facility] [address] [place] [id number] [place] [phone] Dec, [place] [address] [place] [id number] [address] [place] [phone] Dec, [facility] [address] [address] Dec, Depression F32.9 ; Anxiety F 41.9 ; Neuropathy G62.9 ; 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 ; GERD (gastroesophageal reflux disease) K21.9 ; Hyperlipidemia E78.5 ; Edema R60.9 ; DJD (degenerative joint disease) M19.90 ; Lumbago with sciatica, right side M54.41 ; Constipation, unspecified constipation type K59.00 and BPH (benign prostatic hyperplasia) N40.0 [place] [address] [address] Dec, [place] [address] [address] Oct, [place] [address] [address] Oct, Low back pain M54.5 [place] [address] [address] Oct, [place] [address] [address] September, 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 ; Depression F32.9 ; Anxiety F41.9 ; BPH (benign prostatic hyperplasia) N40.0 ; Hyperlipidemia E78.5 ; Traumatic brain injury S06.9X9A ; Lumbago with sciatica, right side M54.41 ; Low back pain M54.5 ; Gastroesophageal reflux disease with esophagitis K21.0 ; Generalized edema R60.1 and Constipation, unspecified constipation type K59.00 [facility] [address] [address] Aug, Depression F32.9 ; Anxiety F 41.9 [...] HISTORY Never Assessed REASON FOR VISIT Refill requests PLAN OF CARE VITAL SIGNS MEDICATIONS Medication Instructions Dosage Frequency Start Date End Date Duration S tatus Neurontin 300 MG Orally 4 times a day 2 capsules 6h 90 days Active BuPROPion HCl 75 MG Orally 2 times a day 2 capsules 12h Mar, 90 days Active RESULTS No [...]
--- OUTSIDE RECORDS SUMMARY | 2019-07-27 19:46 | XMS REPORT | Continuity of Care Document ---
Author Organization Unknown Address Unknown Phone Unavailable Allergies Active Description Code Type Severity Reaction Onset Reported/Identified Relationship to Patient Clinical Status Yes NO KNOWN DRUG ALLERGIES UNKNOWN UNKNOWN Medications Medication Packaging Start Date St op Date Route Dosage Sig NORMAL SALINE 1000CC IV BAG INJ 0.9 % (NS 1000CC IV BAG) ml 10/10/2018 10/10/2018 ONCE&1234 IBUPROFEN TAB 600 MG (MOTRIN) MG 10/10/2018 10/10/2018 PRN ONCE DEXTROSE 50% SYRINGE IV Inj ml 01/07/2019 01/07/2019 PRN ONCE NALOXONE VIAL INJ 0.4 MG/CC (NARCAN 1CC AL) MG 01/07/2019 01/07/2019 PRN ONCE Problems Date Dx Coded Attending Type Code Diagnosis Diagnosed By 10/10/2018 Jennifer Frank 780.79 OTHER MALAISE AND FATIGUE 10/10/2018 Jennifer Frank 786.5 CHEST PAIN 10/10/2018 Jennifer Frank R07.89 OTHER CHEST PAIN 10/10/2018SeptemberFrankJennifer robbins R53.83 OTHER FATIGUE 01/07/2019 Sriram Hilario 780.97 ALTERED MENTAL STATUS 01/07/2019 Sriram Hilario R07.89 OTHER CHEST PAIN 01/07/2019 Sriram Hilario R41.82 ALTERED MENTAL STATUS, UNSPECIFIED 01/07/2019 Sriram Hilario R53.83 OTHER FATIGUE Procedures There is no data. Results Test Result Range CBC - 07/26/17 15:30 WHITE BLOOD CELL COUNT 8.4 Thousand/uL 3 .8-10.8 RED BLOOD CELL COUNT 5.01 Million/uL 4.2 0-5.80 HEMOGLOBIN 15.2 g/dL 13.2-17.1 HEMATOCRIT 43.6 % 38.5-50.0 MCV 87.0 fL 80.0-100.0 MCH 30.3 pg 27.0-33.0 MCHC 34.9 g/dL 32.0-36.0 RDW 12.0 % 11.0-15.0 PLATELET COUNT 343 Thousand/uL 140-400 MPV 9.8 fL 7.5-12.5 ABSOLUTE NEUTROPHILS 5485 cells/uL 1500- 7800 ABSOLUTE LYMPHOCYTES 2201 cells/uL 850-3 900 ABSOLUTE MONOCYTES 462 cells/uL 200-950 ABSOLUTE EOSINOPHILS 210 cells/uL 15-500 ABSOLUTE BASOPHILS 42 cells/uL 0-200 NEUTROPHILS 65.3 % NRG LYMPHOCYTES 26.2 % NRG MONOCYTES 5.5 % NRG EOSINOPHILS 2.5 % NRG BASOPHILS 0.5 % NRG TSH - 07/26/17 15:30 TSH 1.77 mIU/L 0.40-4.50 Thyroid Stimulating Hormone - 10/10/18 1 1:15 TSH 0.86 mIU/mL 0.32-5.00 EKG - 10/10/18 11:30 EKG Complete Troponin I - 10/10/18 14:15 Troponin <0.020 ng/mL 0.0-0.4 Urinalysis - 10/10/18 14:58 Icotest N/A Negative Urine Volume Urine Volume Sufficient (10mL) Urine-Appearance Clear Clear Urine-Bacteria Trace Urine-Bilirubin Negative Negative Urine-Blood Negative Negative Urine-Color Yellow Colorless-Lt. [place] ow Urine-Epithelial Cells 0-5/HPF Urine-Glucose Negative Negative Urine-Ketones Negative Negative Urine-Leukocytes Negative Negative Urine-Nitrite Negative Negative Urine-Other Urine Saved if Culture Need ed (48hrs from time of collection) Urine-pH 7.0 5-8.5 Urine-Protein Negative Negative Urine-RBC Negative Urine-Specific [place] 1.020 1.000-1 .030 Urine-WBC Negative Urobilinogen 0.2 E.U./dL 0.2-1.0 Salicylate - 01/07/19 09:37 Salicylate <50 mg/L 0-300 Acetaminophen - 01/07/19 09:37 Acetamin <0 ug/mL 10-30 Complete blood count (CBC) with automate d white blood cell (WBC) differential - 07/27/19 19:20 Blood leukocytes automated count (number/volume) 11.2 10*3/uL 4.3-11.0 Blood erythrocytes automated count (number/volume) 4.86 10*6/uL 4.35-5.85 Venous blood hemoglobin measurement (mass/volume) 13.3 g/dL 13.3-17.7 Blood hematocrit (volume fraction) 41 % 40-54 Automated erythrocyte mean corpuscular volume 85 [ foz_us] 80-99 Automated erythrocyte mean corpuscular h emoglobin (mass per erythrocyte) 27 pg 25-34 Automated erythrocyte mean corpuscular h emoglobin concentration measurement (mass/volume) 32 g/dL 32-36 Automated erythrocyte distribution width ratio 14. 6 % 10.0- 14.5 Automated blood platelet count (count/volume) 320 10*3/uL 130-400 Automated blood platelet mean volume measurement 9.8 [foz_us] 7.4-10.4 Automated blood neutrophils/100 leukocytes 66 % 42-75 Automated blood lymphocytes/100 leukocytes 25 % 12-44 Blood monocytes/100 leukocytes 7 % 0-12 Automated blood eosinophils/100 leukocytes 2 % 0-10 Automated blood basophils/100 leukocytes 0 % 0-10 Blood neutrophils automated count (number/volume) 7.4 10*3 1.8-7.8 Blood lymphocytes automated count (number/volume) 2.8 10*3 1.0-4.0 Blood monocytes automated count (number/volume) 0. 7 10*3 0.0-1.0 Automated eosinophil count 0.2 10*3/uL 0 .0-0.3 Automated blood basophil count (count/volume) 0.0 10*3/uL 0.0-0.1 Encounters ACCT No. Visit Date/Time Discharge Status Pt. Type Provider Facility Loc./Unit Complaint [id number] 01/07/2019 09:19:00 01/07/2019 14:30: 00 DIS Outpatient Sriram Hilario [facility] [id number] 10/10/2018 10:58:00 10/10/2018 15:20: 00 DIS Outpatient Frank Jennifer A [facility] ER 2555 10/10/2018 12:41:20 Document Registration [id number] 01/02/2019 12:47:00 019 23:59:59 [facility] Preadmit ROCCO BUNN, LAURITA [facility]AB DJD; GENERAL WEAKNESS [id number] 07/27/2019 19:37:00 Document Registration [id number] 04/09/2019 11:00:00 04/09/2019 23:59: 59 CLS Outpatient LAURITA VALIENTE [facility] [id number] 07/26/2017 15:00:00 Document Registration
--- OUTSIDE RECORDS SUMMARY | 2019-07-27 19:46 | XMS REPORT ---
Author Brenton Padilla [facility] eClinicalWorks Address Unknown Phone Unavailable Care Team Providers Care Culinary Worker Name Role Phone GEE COLLINS CP Unavailable Allergies, Adverse Reactions, Alerts Substance Reaction Event Type N.K.D.A. Info Not Available Non Drug Allergy Problems Problem Type Condition Code Onset Dates Condition Statu s Assessment Hyperlipidemia E78.5 Active Problem DJD (degenerative joint disease) M19.90 Active Assessment Constipation, unspecified constipation type K59.00 Active Problem HTN (hypertension) I10 Active Assessment Anxiety F41.9 Active Problem Edema R60.9 Active Problem GERD (gastroesophageal reflux disease) K21.9 Active Problem Hyperlipidemia E78.5 Active Problem Constipation, unspecified constipation type K59.00 Active Problem Depression F32.9 Active Assessment BPH (benign prostatic hyperplasia) N40.0 Active Assessment 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 Active Problem Impacted cerumen of right ear H61.21 Active Assessment Impacted cerumen of right ear H61.21 Active Problem BPH (benign prostatic hyperplasia) N40.0 Active Problem 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 Active Problem Anxiety F41.9 Active Problem Neuropathy G62.9 Active Assessment GERD (gastroesophageal reflux disease) K21.9 Active Assessment Neuropathy G62.9 Active Assessment DJD (degenerative joint disease) M19.90 Active Assessment Edema R60.9 Active Problem Lumbago with sciatica, right side M54.41 Active Problem Traumatic brain injury S06.9X9A Activ e Assessment Depression F32.9 Active Problem Low back pain M54.5 Active Medications Medication Code System Code Instructions Start Date End Date Status Dosage Docusate Sodium [facility] [address]-32 100 MG Orally Once a day 1 capsule as needed Hydrochlorothiazide [facility] [address]-34 25 MG Orally Once a day 1 tablet Morphine Sulfate ER [facility] [address]-91 15 mg ER Orally every 12 hrs Dec 08, 2015 1 tablet Klonopin [facility] [address]-71 1 MG Orally Twice a day 1 tablet Metformin HCl [facility] [address]-62 500 MG Orally 3 times a day 1 tablet with meals Risperdal [facility] [address]-08 4 MG Orally Once a day 1 tablet BuPROPion HCl [facility] [address]-37 75 MG Orally Three times a day Mar 1 tablet Neurontin [facility] [address]-11 300 MG Orally Three times a day 1 capsule GlyBURIDE [facility] [address]-10 5 mg Orally Once a day 1 tablet Omeprazole [facility] [address]-65 20 mg Orally Once a day 2 capsules Debrox [facility] [address]-00 6.5 % Otic Twice a day Mar 16, 2016Mar 5 drops into affected ear Morphine Sulfate ER [facility] [address]-97 30 MG Orally every 12 hrs September 14, 2015 1 tablet Prazosin HCl [facility] [address]-50 2 MG Orally Once a day 1 capsule at bedtime Lopid [facility] [address]-08 600 MG Orally Twice a day 1 tablet Effexor XR [facility] [address]-25 75 MG Orally Once a day 1 capsule with food Procedures Procedure Coding System Code Date GLYCATED HEMOGLOBIN TEST CPT-4 69522 Mar 16, 2016 Office Visit, Est Pt., Level 4 CPT-4 13657 N 2015 Vital Signs Date/Time: Mar 16, 2016 Cardiac Monitoring Heart Rate 100 bpm Weight 198.2 lbs Height 68 in BMI 30.13 Index Blood Pressure Diastolic 80 mmHg Blood Pressure Systolic 126 mmHg Results Name Result Date Reference Range Unit Abnormali ty Flag A1C (IN HOUSE) ----A1C IN HOUSE 7.2 [id number] 4.3 - 5.6 % ----Previous A1c 8.5 [id number] ----Lot [id number] ----Exp date [id number] Summary Purpose eClinicalWorks Submission
--- OUTSIDE RECORDS SUMMARY | 2019-07-27 19:46 | XMS REPORT ---
Author Author Brenton Jeter Organization [facility] Address [address] [place] [address] Care Team Providers Care Mica Miner [employer] Name Role Phone GEE Jeter Unavailable PROBLEMS Type Condition ICD9-CM Code CGS53-SA Code Onset Dates Condition S tatus SNOMED Code Problem Anxiety F41.9 Active 42329363 Problem Lumbago with sciatica, right side M54.41 Active 570783970 Problem Low back pain M54.5 Active 808797 005 Problem Hyperlipidemia E78.5 Active 80599 004 Problem HTN (hypertension) I10 Active 3 6209573 Problem Depression F32.9 Active 84418698 Problem GERD (gastroesophageal reflux disease) K21.9 Active 307910008 Problem Onychomycosis B35.1 Active 088003 008 Problem Benign nodular prostatic hyp erplasia, presence of lower urinary tract symptoms unspecified N40.0 Active 9447276 07 Problem DJD (degenerative joint disease) M19.90 Active 290077304 Problem Type 2 diabetes mellitus with other diabetic oph thalmic complication E11.39 Active [id number] Problem BPH (benign prostatic hyperplasia) N40.0 Active 821370875 Problem Traumatic brain injury S06.9X9A Active 921245631 ALLERGIES No Known Allergies ENCOUNTERS Encounter Location Date Diagnosis [facility] [address] [facility] [id number] [address] [place] [address] September, [facility] [address] [place] [address] Aug, Anxiety F41.9 and DJD (degen erative joint disease) M19.90 [facility] [address] [facility] [id number] [address] [place] [address] Jul, [facility] [address] [place] [id number] [address] [place] [address] Jul, Type 2 diabetes mellitus wit h other diabetic ophthalmic complication E11.39 ; Hyperlipidemia E78.5 and HTN (hypertension) I10 [facility] [address] [place] [id number] [address] [place] [address] 07 Jul, 2017 Anxiety F41.9 and DJD (degen erative joint disease) M19.90 [place] [address] [address] 06 Jun, 2017 Anxiety F41.9 and DJD (degen erative joint disease) M19.90 [place] [address] [address] May, Weight loss, non-intentional R63.4 [place] [address] [address] 09 May, 2017 DJD (degenerative joint dise ase) M19.90 [place] [address] [address] 14 Apr, 2017 Anxiety F41.9 [facility] [address] [address] Apr, Anxiety F41.9 and DJD (degen erative joint disease) M19.90 [facility] [address] [place] [id number] [address] [place] [address] Apr, DJD (degenerative joint dise ase) M19.90 ; Traumatic brain injury S06.9X9A ; Type 2 diabetes mellitus with other diabetic ophthalmic complication E11.39 ; Anxiety F41.9 and Depression F32.9 [facility] [address] [place] [address] Mar, [place] [address] [place] [id number] [place] [address] Feb, DJD (degenerative joint dise ase) M19.90 ; Lumbago with sciatica, right side M54.41 and Anxiety F41.9 [facility] [address] [place] [id number] [address] [place] [address] Feb, [place] [address] [address] Jan, DJD (degenerative joint dise ase) M19.90 ; Anxiety F41.9 and Lumbago with sciatica, right side M54.41 [place] [address] [address] Dec, Lumbago with sciatica, right side M54.41 [place] [address] [address] Dec, Anxiety F41.9 and Lumbago wi th sciatica, right side M54.41 [place] [address] [address] Dec, DJD (degenerative joint dise ase) M19.90 [place] [address] [address] Dec, Type 2 diabetes mellitus wit h other diabetic ophthalmic complication E11.39 ; Lumbago with sciatica, right side M54.41 ; Traumatic brain injury S06.9X9A ; DJD (degenerative joint disease) M19.90 ; Constipation, unspecified constipation type K59.00 ; Depression F32.9 ; Anxiety F41.9 ; BPH (benign prostatic hyperplasia) N40.0 ; HTN (hypertension) I10 ; GERD (gastroesophageal reflux disease) K21.9 and Hyperlipidemia E78.5 [place] [address] [place] [id number] [address] [place] [address] Dec, DJD (degenerative joint dise ase) M19.90 ; Anxiety F41.9 ; Lumbago with sciatica, right side M54.41 ; Traumatic brain injury S06.9X9A ; Constipation, unspecified constipation type K59.00 ; Depression F32.9 ; BPH (benign prostatic hyperplasia) N40.0 ; Type 2 diabetes mellitus with other diabetic ophthalmic complication E11.39 ; HTN (hypertension) I10 ; GERD (gastroesophageal reflux disease) K21.9 and Hyperlipidemia E78.5 [place] [address] [facility] [id number] [address] [place] [address] Nov, [place] [address] [place] [id number] [place] [address] Nov, Constipation, unspecified co nstipation type K59.00 ; Hyperlipidemia E78.5 ; Anxiety F41.9 ; Lumbago with sciatica, right side M54.41 ; BPH (benign prostatic hyperplasia) N40.0 ; Type 2 diabetes mellitus with other diabetic ophthalmic complication E11.39 ; GERD (gastroesophageal reflux disease) K21.9 and Edema R60.9 [place] [address] [place] [id number] [place] [address] Nov, [place] [address] [place] [id number] [place] [address] Nov, DJD (degenerative joint dise ase) M19.90 and Anxiety F41.9 [place] [address] [place] [address] Oct, Onychomycosis B35.1 ; Type I diabetes mellitus with peripheral circulatory disorder E10.51 and Neuropathy G62.9 [place] [address] [place] [id number] [place] [address] Oct, [place] [address] [address] Oct, DJD (degenerative joint dise ase) M19.90 ; Anxiety F41.9 and Lumbago with sciatica, right side M54.41 [place] [address] [place] [id number] [place] [address] September, DJD (degenerative joint dise ase) M19.90 [place] [address] [place] [id number] [place] [address] September, Lumbago with sciatica, right side M54.41 ; Anxiety F41.9 and DJD (degenerative joint disease) M19.90 [place] [address] [place] [id number] [address] [place] [address] September, [place] [address] [address] Aug, Lumbago with sciatica, right side M54.41 ; Anxiety F41.9 and DJD (degenerative joint disease) M19.90 [place] [address] [address] Aug, Type 2 diabetes mellitus wit h other diabetic ophthalmic complication E11.39 [place] [address] [address] Aug, Type 2 diabetes mellitus wit h other diabetic ophthalmic complication E11.39 ; Constipation, unspecified constipation type K59.00 ; Hyperlipidemia E78.5 ; Anxiety F41.9 ; Lumbago with sciatica, right side M54.41 ; BPH (benign prostatic hyperplasia) N40.0 ; GERD (gastroesophageal reflux disease) K21.9 and Edema R60.9 [place] [address] [address] Jul, Lumbago with sciatica, right side M54.41 ; Anxiety F41.9 and DJD (degenerative joint disease) M19.90 [place] [address] [address] 28 Jun, 2016 Type 2 diabetes mellitus wit h other diabetic ophthalmic complication E11.39 ; Anxiety F41.9 ; BPH (benign prostatic hyperplasia) N40.0 ; GERD (gastroesophageal reflux disease) K21.9 ; Hyperlipidemia E78.5 ; Lumbago with sciatica, right side M54.41 and Constipation, unspecified constipation type K59.00 [place] [address] [address] 15 Jun, 2016 DJD (degenerative joint dise ase) M19.90 and Anxiety F41.9 [place] [address] [place] [id number] [address] [place] [address] 13 Jun, 2016 DJD (degenerative joint dise ase) M19.90 and Anxiety F41.9 [facility] [address] [facility] [id number] [address] [place] [address] May, Type 2 diabetes mellitus wit h other diabetic ophthalmic complication E11.39 ; Depression F32.9 ; GERD (gastroesophageal reflux disease) K21.9 ; Traumatic brain injury S06.9X9A ; Constipation, unspecified constipation type K59.00 ; DJD (degenerative joint disease) M19.90 ; Pure hypercholesterolemia E78.00 ; Benign nodular prostatic hyperplasia, presence of lower urinary tract symptoms unspecified N40.0 ; Neuropathy G62.9 and Anxiety F41.9 [place] [address] [place] [id number] [place] [address] May, DJD (degenerative joint dise ase) M19.90 and Anxiety F41.9 [place] [address] [place] [id number] [place] [address] Apr, Lumbago with sciatica, right side M54.41 and Low back pain M54.5 [place] [address] [place] [id number] [address] [place] [address] Mar, [place] [address] [address] Mar, [place] [address] [place] [id number] [place] [address] Mar, [place] [address] [place] [id number] [place] [address] Mar, [place] [address] [place] [id number] [place] [address] Mar, Depression F32.9 ; Neuropath y G62.9 ; GERD (gastroesophageal reflux disease) K21.9 ; Edema R60.9 ; DJD (degenerative joint disease) M19.90 ; BPH (benign prostatic hyperplasia) N40.0 ; Type 2 diabetes mellitus with other diabetic ophthalmic complication E11.39 ; Impacted cerumen of right ear H61.21 ; Anxiety F41.9 ; Constipation, unspecified constipation type K59.00 and Hyperlipidemia E78.5 [facility] [address] [facility] [id number] [address] [place] [address] Feb, [facility] [address] [facility] [id number] [address] [place] [address] Jan, [facility] [address] [facility] [id number] [address] [place] [address] Dec, [facility] [address] [facility] [id number] [address] [place] [address] Dec, [facility] [address] [facility] [id number] [address] [place] [address] Dec, [facility] [address] [place] [id number] [place] [address] Dec, [facility] [address] [place] [id number] [place] [address] Dec, Depression F32.9 ; Anxiety F 41.9 ; Neuropathy G62.9 ; Type 2 diabetes mellitus with other diabetic ophthalmic complication E11.39 ; GERD (gastroesophageal reflux disease) K21.9 ; Hyperlipidemia E78.5 ; Edema R60.9 ; DJD (degenerative joint disease) M19.90 ; Lumbago with sciatica, right side M54.41 ; Constipation, unspecified constipation type K59.00 and BPH (benign prostatic hyperplasia) N40.0 [facility] [address] [facility] [id number] [address] [place] [address] Dec, [facility] [address] [facility] [id number] [address] [place] [address] Oct, [facility] [address] [facility] [id number] [address] [place] [address] Oct, Low back pain M54.5 [facility] [address] [facility] [id number] [address] [place] [address] Oct, [facility] [address] [place] [id number] [place] [address] September, Type 2 diabetes mellitus wit h other diabetic ophthalmic complication E11.39 ; Depression F32.9 ; Anxiety F41.9 ; BPH (benign prostatic hyperplasia) N40.0 ; Hyperlipidemia E78.5 ; Traumatic brain injury S06.9X9A ; Lumbago with sciatica, right side M54.41 ; Low back pain M54.5 ; Gastroesophageal reflux disease with esophagitis K21.0 ; Generalized edema R60.1 and Constipation, unspecified constipation type K59.00 [facility] [address] [facility] [id number] [address] [place] [address] Aug, Depression F32.9 ; Anxiety F 41.9 [...] SOCIAL HISTORY Never Assessed REASON FOR VISIT Medication review. Pt states that because of his back pain, his left testicle h as been sore and swollen. He would juan miguel to get the Morphine 30mg and still bita nue to get the long acting 15mg. KYLEIGH Oneal, Pt is interested in the diabetic patches. KYLEIGH Oneal PLAN OF CARE Activity Details Follow Up 3 Months Reason: Pending Test LIPID PANEL Pending Test CMP Pending Test CBC Pending Test TSH VITAL SIGNS Height 68 in 2016-12-07 Weight 181.5 lbs 2016-12-07 Temperature 98.1 degrees Fahrenheit 2016-12-07 Heart Rate 88 bpm 2016-12-07 Respiratory Rate 18 2016-12-07 BMI 27.59 kg/m2 2016-12-07 Blood pressure systolic 120 mmHg 2016-12-07 Blood pressure diastolic 80 mmHg 2016-12-07 MEDICATIONS Medication Instructions Dosage Frequency Start Date End Date Duration S tatus Prazosin HCl 2 MG Orally Once a day at hs 2 capsules 90 days Active GlipiZIDE 5 mg Orally twice a day 1 tablet 12 13 Nov, 2016 90 days Active Morphine Sulfate ER 60 mg Orally twice a day 1 capsule 12h Dec, 017 Active Lopid 600 MG Orally Twice a day 1/2 tablet 12h 90 da ys Active Hydrochlorothiazide 25 MG Orally Once a day 1 tablet 24h 90 days Active BuPROPion HCl 75 MG Orally 2 times a day 2 capsules 12h Mar, 90 days Active Docusate Sodium 100 mg Orally 2 times a day 1 capsule 12h Aug, 90 days Active Metoprolol Tartrate 25 MG Orally Twice a day 1/2 tablet 12h 2016 90 days Active Neurontin 300 MG Orally 4 times a day 2 capsules 6h 90 days Active Metformin HCl 500 mg Orally 3 times a day 1 tablet with meals 8h Active Morphine Sulfate 15 MG Orally 2 times a day 1 tablet as needed 12h Nov, 28 days Active Omeprazole 20 mg Orally Once a day 2 capsules 24h 90 days Active Effexor XR 75 MG Orally Once a day 3 capsules 24h 90 days Active Klonopin 1 MG Orally Twice a day 1 tablet 12h 28 day s Active Risperdal 4 MG Orally Once a day at hs 1/2 tablet 90 days Active RESULTS No Results PROCEDURES Procedure Date Ordered Result Body Site ASSAY THYROID STIM HORMONE Dec 07, 2016 LIPID PANEL Dec 07, 2016 COMPREHEN METABOLIC PANEL Dec 07, 2016 COMPLETE CBC W/AUTO DIFF WBC Dec 07, 2016 INSTRUCTIONS MEDICATIONS ADMINISTERED No Known Medications MEDICAL [...]
--- OUTSIDE RECORDS SUMMARY | 2019-07-27 19:46 | XMS REPORT ---
Author Author Brenton Jeter Organization [facility] Address [address] [place] [address] Care Team Providers Care Supplier Quality Manager Name Role Phone GEE Jeter Unavailable PROBLEMS Type Condition ICD9-CM Code INV12-KD Code Onset Dates Condition S tatus SNOMED Code Problem Anxiety F41.9 Active 43900294 Problem Lumbago with sciatica, right side M54.41 Active 653281419 Problem Low back pain M54.5 Active 472564 005 Problem Hyperlipidemia E78.5 Active 16273 004 Problem HTN (hypertension) I10 Active 3 8606632 Problem Depression F32.9 Active 03726701 Problem GERD (gastroesophageal reflux disease) K21.9 Active 000979666 Problem Onychomycosis B35.1 Active 875376 008 Problem Benign nodular prostatic hyp erplasia, presence of lower urinary tract symptoms unspecified N40.0 Active 8484575 07 Problem DJD (degenerative joint disease) M19.90 Active 389975339 Problem Type 2 diabetes mellitus with other diabetic oph thalmic complication E11.39 Active 64238496069255 Problem BPH (benign prostatic hyperplasia) N40.0 Active 624237890 Problem Traumatic brain injury S06.9X9A Active 139789906 ALLERGIES No Information ENCOUNTERS Encounter Location Date Diagnosis [facility] [address] [facility] [id number] [address] [place] [phone] September, [facility] [address] [place] [id number] [address] [place] [phone] Aug, Anxiety F41.9 and DJD (degen erative joint disease) M19.90 [facility] [address] [facility] [id number] [address] [place] [phone] Jul, [facility] [address] [place] [id number] [address] [place] [address] Jul, Type 2 diabetes mellitus wit h other diabetic ophthalmic complication E11.39 ; Hyperlipidemia E78.5 and HTN (hypertension) I10 [facility] [address] [address] 07 Jul, 2017 Anxiety F41.9 and DJD (degen erative joint disease) M19.90 [facility] [address] [address] 06 Jun, 2017 Anxiety F41.9 and DJD (degen erative joint disease) M19.90 [facility] [address] [address] May, Weight loss, non-intentional R63.4 [place] [address] [address] 09 May, 2017 DJD (degenerative joint dise ase) M19.90 [place] [address] [address] 14 Apr, 2017 Anxiety F41.9 [facility] [address] [address] Apr, Anxiety F41.9 and DJD (degen erative joint disease) M19.90 [facility] [address] [address] Apr, DJD (degenerative joint dise ase) M19.90 ; Traumatic brain injury S06.9X9A ; Type 2 diabetes mellitus with other diabetic ophthalmic complication E11.39 ; Anxiety F41.9 and Depression F32.9 [facility] [address] [place] [address] Mar, [place] [address] [address] Feb, DJD (degenerative joint dise ase) M19.90 ; Lumbago with sciatica, right side M54.41 and Anxiety F41.9 [facility] [address] [place] [id number] [address] [place] [address] Feb, [facility] [address] [address] Jan, DJD (degenerative joint dise ase) M19.90 ; Anxiety F41.9 and Lumbago with sciatica, right side M54.41 [place] [address] [address] Dec, Lumbago with sciatica, right side M54.41 [place] [address] [address] Dec, Anxiety F41.9 and Lumbago wi th sciatica, right side M54.41 [place] [address] [address] Dec, DJD (degenerative joint dise ase) M19.90 [place] [address] [address] Dec, Type 2 diabetes mellitus wit h other diabetic ophthalmic complication E11.39 ; Lumbago with sciatica, right side M54.41 ; Traumatic brain injury S06.9X9A ; DJD (degenerative joint disease) M19.90 ; Constipation, unspecified constipation type K59.00 ; Depression F32.9 ; Anxiety F41.9 ; BPH (benign prostatic hyperplasia) N40.0 ; HTN (hypertension) I10 ; GERD (gastroesophageal reflux disease) K21.9 and Hyperlipidemia E78.5 [place] [address] [place] [id number] [address] [place] [id number] Dec, DJD (degenerative joint dise ase) M19.90 ; Anxiety F41.9 ; Lumbago with sciatica, right side M54.41 ; Traumatic brain injury S06.9X9A ; Constipation, unspecified constipation type K59.00 ; Depression F32.9 ; BPH (benign prostatic hyperplasia) N40.0 ; Type 2 diabetes mellitus with other 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 ; HTN (hypertension) I10 ; GERD (gastroesophageal reflux disease) K21.9 and Hyperlipidemia E78.5 [place] [address] [facility] [id number] [address] [place] [phone] Nov, [place] [address] [place] [id number] [address] [place] [id number] Nov, Constipation, unspecified co nstipation type K59.00 ; Hyperlipidemia E78.5 ; Anxiety F41.9 ; Lumbago with sciatica, right side M54.41 ; BPH (benign prostatic hyperplasia) N40.0 ; Type 2 diabetes mellitus with other diabetic ophthalmic complication E11.39 ; GERD (gastroesophageal reflux disease) K21.9 and Edema R60.9 [place] [address] [facility] [id number] [address] [place] [address] Nov, [place] [address] [place] [id number] [place] [address] Nov, DJD (degenerative joint dise ase) M19.90 and Anxiety F41.9 [place] [address] [place] [address] Oct, Onychomycosis B35.1 ; Type I diabetes mellitus with peripheral circulatory disorder E10.51 and Neuropathy G62.9 [place] [address] [place] [id number] [address] [place] [address] Oct, [place] [address] [place] [id number] [address] [place] [address] Oct, DJD (degenerative joint dise ase) M19.90 ; Anxiety F41.9 and Lumbago with sciatica, right side M54.41 [place] [address] [place] [id number] [address] [place] [address] September, DJD (degenerative joint dise ase) M19.90 [place] [address] [place] [id number] [address] [place] [address] September, Lumbago with sciatica, right side M54.41 ; Anxiety F41.9 and DJD (degenerative joint disease) M19.90 [place] [address] [place] [id number] [address] [place] [address] September, [place] [address] [address] Aug, Lumbago with sciatica, right side M54.41 ; Anxiety F41.9 and DJD (degenerative joint disease) M19.90 [place] [address] [address] Aug, Type 2 diabetes mellitus wit h other diabetic ophthalmic complication E11.39 [place] [address] [address] Aug, Type 2 diabetes mellitus wit h other diabetic ophthalmic complication E11.39 ; Constipation, unspecified constipation type K59.00 ; Hyperlipidemia E78.5 ; Anxiety F41.9 ; Lumbago with sciatica, right side M54.41 ; BPH (benign prostatic hyperplasia) N40.0 ; GERD (gastroesophageal reflux disease) K21.9 and Edema R60.9 [place] [address] [address] Jul, Lumbago with sciatica, right side M54.41 ; Anxiety F41.9 and DJD (degenerative joint disease) M19.90 [place] [address] [address] 28 Jun, 2016 Type 2 diabetes mellitus wit h other diabetic ophthalmic complication E11.39 ; Anxiety F41.9 ; BPH (benign prostatic hyperplasia) N40.0 ; GERD (gastroesophageal reflux disease) K21.9 ; Hyperlipidemia E78.5 ; Lumbago with sciatica, right side M54.41 and Constipation, unspecified constipation type K59.00 [place] [address] [address] 15 Jun, 2016 DJD (degenerative joint dise ase) M19.90 and Anxiety F41.9 [place] [address] [place] [id number] [address] [place] [address] 13 Jun, 2016 DJD (degenerative joint dise ase) M19.90 and Anxiety F41.9 [facility] [address] [facility] [id number] [address] [place] [address] May, Type 2 diabetes mellitus wit h other diabetic ophthalmic complication E11.39 ; Depression F32.9 ; GERD (gastroesophageal reflux disease) K21.9 ; Traumatic brain injury S06.9X9A ; Constipation, unspecified constipation type K59.00 ; DJD (degenerative joint disease) M19.90 ; Pure hypercholesterolemia E78.00 ; Benign nodular prostatic hyperplasia, presence of lower urinary tract symptoms unspecified N40.0 ; Neuropathy G62.9 and Anxiety F41.9 [place] [address] [facility] [id number] [address] [place] [address] May, DJD (degenerative joint dise ase) M19.90 and Anxiety F41.9 [place] [address] [place] [id number] [address] [place] [address] Apr, Lumbago with sciatica, right side M54.41 and Low back pain M54.5 [place] [address] [place] [id number] [address] [place] [phone] Mar, [place] [address] [place] [id number] [place] [phone] Mar, [place] [address] [place] [id number] [address] [place] [phone] Mar, [place] [address] [place] [id number] [address] [place] [phone] Mar, [place] [address] [place] [id number] [place] [address] Mar, Depression F32.9 ; Neuropath y G62.9 ; GERD (gastroesophageal reflux disease) K21.9 ; Edema R60.9 ; DJD (degenerative joint disease) M19.90 ; BPH (benign prostatic hyperplasia) N40.0 ; 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 ; Impacted cerumen of right ear H61.21 ; Anxiety F41.9 ; Constipation, unspecified constipation type K59.00 and Hyperlipidemia E78.5 [facility] [address] [id number] [address] [place] [phone] Feb, [facility] [address] [id number] [address] [place] [phone] Jan, [facility] [address] [facility] [id number] [address] [place] [phone] Dec, [facility] [address] [facility] [id number] [address] [place] [phone] Dec, [facility] [address] [facility] [id number] [address] [place] [id number] Dec, [facility] [address] [facility] [id number] [address] [place] [phone] Dec, [facility] [address] [place] [id number] [address] [place] [address] Dec, Depression F32.9 ; Anxiety F 41.9 ; Neuropathy G62.9 ; 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 ; GERD (gastroesophageal reflux disease) K21.9 ; Hyperlipidemia E78.5 ; Edema R60.9 ; DJD (degenerative joint disease) M19.90 ; Lumbago with sciatica, right side M54.41 ; Constipation, unspecified constipation type K59.00 and BPH (benign prostatic hyperplasia) N40.0 [facility] [address] [facility] [id number] [address] [place] [phone] Dec, [facility] [address] [facility] [id number] [address] [place] [phone] Oct, [facility] [address] [facility] [id number] [address] [place] [phone] Oct, Low back pain M54.5 [facility] [address] [facility] [id number] [address] [place] [phone] Oct, [facility] [address] [facility] [id number] [address] [place] [id number] September, Type 2 diabetes mellitus wit h other diabetic ophthalmic complication E11.39 ; Depression F32.9 ; Anxiety F41.9 ; BPH (benign prostatic hyperplasia) N40.0 ; Hyperlipidemia E78.5 ; Traumatic brain injury S06.9X9A ; Lumbago with sciatica, right side M54.41 ; Low back pain M54.5 ; Gastroesophageal reflux disease with esophagitis K21.0 ; Generalized edema R60.1 and Constipation, unspecified constipation type K59.00 [facility] [address] [facility] [id number] [address] [place] [address] Aug, Depression F32.9 ; Anxiety F 41.9 [...] S lian BuPROPion HCl 75 MG Orally 2 times a day 2 capsules 12h Mar, 90 days Active Lopid 600 MG Orally Twice a day 1/2 tablet 12h 90 da ys Active Metoprolol Tartrate 25 MG Orally Twice a day 1/2 tablet 12h 2016 90 days Active Hydrochlorothiazide 25 MG Orally Once a day 1 tablet 24h 90 days Active Metformin HCl 500 mg Orally 3 times a day 1 tablet with meals 8h Active Docusate Sodium 100 mg Orally 2 times a day 1 capsule 12h 90 days Active Morphine Sulfate ER 60 mg Orally Once a day 1 capsule 24h Dec, Active GlipiZIDE 5 mg Orally twice a day 1 tablet 12h Nov, 90 days Active Morphine Sulfate 15 MG Orally 2 times a day 1 tablet as needed 12h Nov, 28 days Active Klonopin 1 MG Orally Twice a day 1 tablet 12h 28 day s Active Effexor XR 75 MG Orally Once a day 3 capsules 24h 90 days Active Omeprazole 20 mg Orally Once a day 2 capsules 24h 90 days Active Prazosin HCl 2 MG Orally Once a day at hs 2 capsules 90 days Active Neurontin 300 MG Orally [...]
--- OUTSIDE RECORDS SUMMARY | 2019-07-27 19:46 | XMS REPORT ---
Author Author Brenton Jeter Organization [facility] Address [address] [place] [address] Care Team Providers Care Building Drafting Officer Name Role Phone GEE Jeter Unavailable PROBLEMS Type Condition ICD9-CM Code KDE34-AW Code Onset Dates Condition S tatus SNOMED Code Problem Type 2 diabetes mellitus with other diabetic oph thalmic complication E11.39 Active 57617210544469 Problem Edema R60.9 Active 390156920 Problem DJD (degenerative joint disease) M19.90 Active 149107729 Problem Onychomycosis B35.1 Active 515032 008 Problem Benign nodular prostatic hyp erplasia, presence of lower urinary tract symptoms unspecified N40.0 Active 9201802 07 Problem BPH (benign prostatic hyperplasia) N40.0 Active 872254008 Problem Traumatic brain injury S06.9X9A Active 942697392 Problem Constipation, unspecified constipation type K59.00 Active 91487023 Problem Impacted cerumen of right ear H61.21 Active 87870611 Problem Hyperlipidemia E78.5 Active 27985 004 Problem Neuropathy G62.9 Active 398826507 Problem GERD (gastroesophageal reflux disease) K21.9 Active 903139479 Problem Anxiety F41.9 Active 01309045 Problem HTN (hypertension) I10 Active 3 1375934 Problem Low back pain M54.5 Active 955293 005 Problem Depression F32.9 Active 65692970 Problem Lumbago with sciatica, right side M54.41 Active 471020705 ALLERGIES No Information ENCOUNTERS Encounter Location Date Diagnosis [facility] [address] [facility] [id number] [address] [place] [phone] September, [facility] [address] [facility] [id number] [address] [place] [phone] Aug, [facility] [address] [facility] [id number] [address] [place] [phone] Jul, [facility] [id number] [place] [address] Jul, Type 2 diabetes mellitus wit h other diabetic ophthalmic complication E11.39 ; Hyperlipidemia E78.5 and HTN (hypertension) I10 [place] [id number] [place] [id number] [address] [place] [phone] Jul, Anxiety F41.9 and DJD (degen erative joint disease) M19.90 [place] [address] [place] [id number] [place] [id number] 06 Jun, 2017 Anxiety F41.9 and DJD (degen erative joint disease) M19.90 [place] [address] [place] [id number] [place] [address] May, Weight loss, non-intentional R63.4 [place] [address] [address] 09 May, 2017 DJD (degenerative joint dise ase) M19.90 [place] [address] [address] 14 Apr, 2017 Anxiety F41.9 [place] [address] [address] Apr, Anxiety F41.9 and DJD (degen erative joint disease) M19.90 [place] [address] [place] [id number] [address] [place] [address] Apr, DJD (degenerative joint dise ase) M19.90 ; Traumatic brain injury S06.9X9A ; 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 ; Anxiety F41.9 and Depression F32.9 [place] [address] [place] [id number] [address] [place] [phone] Mar, [place] [address] [place] [id number] [address] [place] [address] Feb, DJD (degenerative joint dise ase) M19.90 ; Lumbago with sciatica, right side M54.41 and Anxiety F41.9 [facility] [address] [facility] [id number] [address] [place] [phone] Feb, [facility] [address] [place] [id number] [place] [phone] Jan, DJD (degenerative joint dise ase) M19.90 ; Anxiety F41.9 and Lumbago with sciatica, right side M54.41 [facility] [address] [place] [id number] [address] [place] [id number] Dec, Lumbago with sciatica, right side M54.41 [facility] [address] [place] [id number] [place] [phone] Dec, Anxiety F41.9 and Lumbago wi th sciatica, right side M54.41 [facility] [address] [address] Dec, DJD (degenerative joint dise ase) M19.90 [facility] [address] [place] [id number] [place] [phone] Dec, 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 ; Lumbago with sciatica, right side M54.41 ; Traumatic brain injury S06.9X9A ; DJD (degenerative joint disease) M19.90 ; Constipation, unspecified constipation type K59.00 ; Depression F32.9 ; Anxiety F41.9 ; BPH (benign prostatic hyperplasia) N40.0 ; HTN (hypertension) I10 ; GERD (gastroesophageal reflux disease) K21.9 and Hyperlipidemia E78.5 [facility] [address] [place] [id number] [address] [place] [id number] Dec, DJD (degenerative joint dise ase) M19.90 ; Anxiety F41.9 ; Lumbago with sciatica, right side M54.41 ; Traumatic brain injury S06.9X9A ; Constipation, unspecified constipation type K59.00 ; Depression F32.9 ; BPH (benign prostatic hyperplasia) N40.0 ; 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 ; HTN (hypertension) I10 ; GERD (gastroesophageal reflux disease) K21.9 and Hyperlipidemia E78.5 [place] [address] [id number] [address] [place] [id number] Nov, [place] [address] [facility] [id number] [address] [place] [address] Nov, Constipation, unspecified co nstipation type K59.00 ; Hyperlipidemia E78.5 ; Anxiety F41.9 ; Lumbago with sciatica, right side M54.41 ; BPH (benign prostatic hyperplasia) N40.0 ; 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 ; GERD (gastroesophageal reflux disease) K21.9 and Edema R60.9 [place] [address] [facility] [id number] [address] [place] [address] Nov, [place] [address] [place] [id number] [address] [place] [address] Nov, DJD (degenerative joint dise ase) M19.90 and Anxiety F41.9 [place] [address] [id number] [address] [place] [phone] Oct, Onychomycosis B35.1 ; Type I diabetes mellitus with peripheral circulatory disorder E10.51 and Neuropathy G62.9 [place] [address] [facility] [id number] [address] [place] [phone] Oct, [place] [address] [facility] [id number] [address] [place] [address] Oct, DJD (degenerative joint dise ase) M19.90 ; Anxiety F41.9 and Lumbago with sciatica, right side M54.41 [place] [address] [facility] [id number] [address] [place] [address] September, DJD (degenerative joint dise ase) M19.90 [place] [address] [facility] [id number] [address] [place] [address] September, Lumbago with sciatica, right side M54.41 ; Anxiety F41.9 and DJD (degenerative joint disease) M19.90 [place] [address] [address] September, [place] [address] [address] Aug, Lumbago with sciatica, right side M54.41 ; Anxiety F41.9 and DJD (degenerative joint disease) M19.90 [place] [address] [address] Aug, Type 2 diabetes mellitus wit h other diabetic ophthalmic complication E11.39 [place] [address] [address] Aug, Type 2 diabetes mellitus wit h other diabetic ophthalmic complication E11.39 ; Constipation, unspecified constipation type K59.00 ; Hyperlipidemia E78.5 ; Anxiety F41.9 ; Lumbago with sciatica, right side M54.41 ; BPH (benign prostatic hyperplasia) N40.0 ; GERD (gastroesophageal reflux disease) K21.9 and Edema R60.9 [place] [address] [address] Jul, Lumbago with sciatica, right side M54.41 ; Anxiety F41.9 and DJD (degenerative joint disease) M19.90 [place] [address] [address] 28 Jun, 2016 Type 2 diabetes mellitus wit h other diabetic ophthalmic complication E11.39 ; Anxiety F41.9 ; BPH (benign prostatic hyperplasia) N40.0 ; GERD (gastroesophageal reflux disease) K21.9 ; Hyperlipidemia E78.5 ; Lumbago with sciatica, right side M54.41 and Constipation, unspecified constipation type K59.00 [place] [address] [address] 15 Jun, 2016 DJD (degenerative joint dise ase) M19.90 and Anxiety F41.9 [place] [address] [address] 13 Jun, 2016 DJD (degenerative joint dise ase) M19.90 and Anxiety F41.9 [place] [address] [place] [id number] 31 May, 2016 Type 2 diabetes mellitus [...] Neuropathy G62.9 and Anxiety F41.9 [place] [address] [address] 17 May, 2016 DJD (degenerative joint dise ase) M19.90 and Anxiety F41.9 [place] [address] [address] Apr, Lumbago with sciatica, right side M54.41 and Low back pain M54.5 [place] [address] [address] Mar, [place] [address] [address] Mar, [place] [address] [address] Mar, [place] [address] [address] Mar, [place] [address] [place] [id number] Mar, Depression F32.9 ; Neuropath y G62.9 ; GERD (gastroesophageal reflux disease) K21.9 ; Edema R60.9 ; DJD (degenerative joint disease) M19.90 ; BPH (benign prostatic hyperplasia) N40.0 ; 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 ; Impacted cerumen of right ear H61.21 ; Anxiety F41.9 ; Constipation, unspecified constipation type K59.00 and Hyperlipidemia E78.5 [facility] [address] [place] [id number] [place] [address] Feb, [facility] [address] [place] [id number] [address] [place] [phone] Jan, [facility] [address] [place] [id number] [place] [address] Dec, [facility] [address] [place] [id number] [place] [phone] Dec, [facility] [address] [place] [id number] [place] [address] Dec, [facility] [address] [place] [id number] [place] [address] Dec, [facility] [address] [address] Dec, Depression F32.9 ; Anxiety F 41.9 ; Neuropathy G62.9 ; 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 ; GERD (gastroesophageal reflux disease) K21.9 ; Hyperlipidemia E78.5 ; Edema R60.9 ; DJD (degenerative joint disease) M19.90 ; Lumbago with sciatica, right side M54.41 ; Constipation, unspecified constipation type K59.00 and BPH (benign prostatic hyperplasia) N40.0 [facility] [address] [address] Dec, [facility] [address] [place] [id number] [place] [phone] Oct, [place] [address] [address] Oct, Low back pain M54.5 [facility] [address] [place] [id number] [place] [address] Oct, [facility] [address] [facility] [id number] [address] [place] [address] September, 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 ; Depression F32.9 ; Anxiety F41.9 ; BPH (benign prostatic hyperplasia) N40.0 ; Hyperlipidemia E78.5 ; Traumatic brain injury S06.9X9A ; Lumbago with sciatica, right side M54.41 ; Low back pain M54.5 ; Gastroesophageal reflux disease with esophagitis K21.0 ; Generalized edema R60.1 and Constipation, unspecified constipation type K59.00 [facility] [address] [facility] [id number] [address] [place] [phone] Aug, Depression F32.9 ; Anxiety F 41.9 [...] Assessed REASON FOR VISIT Controlled Med Refill 11/09 PLAN OF CARE VITAL SIGNS MEDICATIONS Medication Instructions Dosage Frequency Start Date End Date Duration S tatus Morphine Sulfate ER 30 MG Orally every 12 hrs 1 tablet 12h 2016 28 days Active Klonopin 1 MG Orally Twice a day 1 tablet 12h 28 day s Active Morphine Sulfate 15 MG Orally 2 times a day 1 tablet as needed Nov, 28 days Active RESULTS No Results PROCEDURES [...]
--- OUTSIDE RECORDS SUMMARY | 2019-07-27 19:46 | XMS REPORT ---
Author Brenton Padilla Organization [facility] Address [address] [place] [address] Care Team Providers Care Agriscience Instructor Name Role Phone GEE COLLINS Unavailable PROBLEMS Type Condition ICD9-CM Code HIA60-AL Code Onset Dates Condition S tatus SNOMED Code Problem Type 2 diabetes mellitus with other diabetic oph thalmic complication E11.39 Active 03951821846235 Problem Edema R60.9 Active 899047127 Problem DJD (degenerative joint disease) M19.90 Active 746215949 Problem Onychomycosis B35.1 Active 620421 008 Problem Benign nodular prostatic hyp erplasia, presence of lower urinary tract symptoms unspecified N40.0 Active 2692305 07 Problem BPH (benign prostatic hyperplasia) N40.0 Active 412506091 Problem Traumatic brain injury S06.9X9A Active 247513296 Problem Constipation, unspecified constipation type K59.00 Active 66897415 Problem Impacted cerumen of right ear H61.21 Active 67677701 Problem Hyperlipidemia E78.5 Active 18507 004 Problem Neuropathy G62.9 Active 245442040 Problem GERD (gastroesophageal reflux disease) K21.9 Active 674398525 Problem Anxiety F41.9 Active 30821045 Problem HTN (hypertension) I10 Active 3 5117113 Problem Low back pain M54.5 Active 631885 005 Problem Depression F32.9 Active 51411961 Problem Lumbago with sciatica, right side M54.41 Active 306992836 ALLERGIES No Information SOCIAL HISTORY Never Assessed PLAN OF CARE VITAL SIGNS MEDICATIONS Medication Instructions Dosage Frequency Start Date End Date Duration S tatus Morphine Sulfate 15 MG Orally 2 times a day 1 tablet as needed 12h 07 Oct, 2016 28 days Active Klonopin 1 MG Orally Twice a day 1 tablet 12h 28 day s Active Morphine Sulfate ER 30 MG Orally every 12 hrs 1 tablet 12h 2016 28 days Active RESULTS No Results [...]
--- OUTSIDE RECORDS SUMMARY | 2019-07-27 19:46 | XMS REPORT ---
Author Author Brenton COLLINS Organization [facility] Address [address] [place] [address] Care Team Providers Care Condenser Tester Name Role Phone GEE COLLINS Unavailable PROBLEMS Type Condition ICD9-CM Code EDL76-ME Code Onset Dates Condition S tatus SNOMED Code Problem HTN (hypertension) I10 Active 3 2734199 Problem Hyperlipidemia E78.5 Active 14163 004 Problem Edema R60.9 Active 121205801 Problem Low back pain M54.5 Active 996348 005 Problem Lumbago with sciatica, right side M54.41 Active 888290275 Problem Traumatic brain injury S06.9X9A Active 458608279 Problem DJD (degenerative joint disease) M19.90 Active 532373776 Problem Depression F32.9 Active 84224423 Problem Anxiety F41.9 Active 15854865 Problem Type 2 diabetes mellitus with other diabetic oph thalmic complication E11.39 Active 29026655229275 Problem GERD (gastroesophageal reflux disease) K21.9 Active 765430879 Problem Neuropathy G62.9 Active 376019325 Problem BPH (benign prostatic hyperplasia) N40.0 Active 621028057 ALLERGIES Unknown Allergies SOCIAL HISTORY No smoking Hx information available PLAN OF CARE VITAL SIGNS MEDICATIONS Medication Instructions Dosage Frequency Start Date End Date Duration S tatus Morphine Sulfate ER 15 mg ER Orally every 12 hrs 1 tablet 12h Dec Active Morphine Sulfate ER 30 MG Orally every 12 hrs 1 tablet 12h 13 September, 2 016 Active RESULTS No Results PROCEDURES No Known procedures IMMUNIZATIONS No Known Immunizations
[2019-07-27 19:48] LABS: ALANINE AMINOTRANSFERASE 30 U/L (0-55); ALBUMIN 4.3 GM/DL (3.2-4.5); ALKALINE PHOSPHATASE 103 U/L (40-136); BILIRUBIN,TOTAL 0.2 MG/DL (0.1-1.0); BUN/CREATININE RATIO 22; CARBON DIOXIDE 21 MMOL/L (21-32); CHLORIDE 102 MMOL/L (98-107); CREATININE SERUM 1.01 MG/DL (0.60-1.30); GFR ESTIMATED > 60; GLUCOSE 194 MG/DL (70-105); POTASSIUM 3.8 MMOL/L (3.6-5.0); SODIUM 137 MMOL/L (135-145)
[2019-07-27] MEDS ORDERED: HYDROmorphone 2 MG/ML VIAL (DILAUDID) IV ONE ×2 (20:30→22:15)
[2019-07-27 20:39] LABS: BILIRUBIN,URINE NEGATIVE (NEGATIVE); CLARITY,URINE CLEAR; COLOR,URINE YELLOW; GLUCOSE, URINE (UA) 3+ (NEGATIVE); KETONES,URINE TRACE (NEGATIVE); LEUKOCYTE ESTERASE ,URINE NEGATIVE (NEGATIVE); NITRITE,URINE NEGATIVE (NEGATIVE); PROTEIN,URINE NEGATIVE (NEGATIVE)
[2019-07-27 20:51] LABS: BACTERIA,URINE NEGATIVE /HPF
--- NOTE | 2019-07-27 21:08 | Diagnostic Imaging Report ---
PROCEDURE: CT urinary tract, rule out kidney stone. TECHNIQUE: Multiple contiguous axial images were obtained through the abdomen and pelvis without the use of intravenous contrast. Auto Exposure Controls were utilized during the CT exam to meet ALARA standards for radiation dose reduction. INDICATION: Back pain. Fall two weeks prior. COMPARISON: No comparison is available. FINDINGS: The lung bases demonstrate a cluster of nodules within the right lower lobe with a dominant nodule measuring 1.2 cm. No focal infiltrate or pleural effusion evident. Liver demonstrates no evidence of a focal intrahepatic abnormality. The gallbladder is nondistended without radiodense gallstones. There is no biliary dilatation. The majority of the pancreas appears atrophic with residual fullness demonstrated at the pancreatic tail. The pancreatic tail mass cannot be excluded. There is no adrenal mass. The spleen is unremarkable. The kidneys are nonobstructed. There is an exophytic mass arising off of the inferior aspect of the left kidney, measuring 3.3 cm, that is highly suspect for renal cell carcinoma. There are no findings of bowel obstruction. There is a moderate to large degree of stool throughout the colon. There is no evidence of focal abnormal bowel thickening. There is no free air, free fluid or evidence of abscess. Urinary bladder is distended. There are fat-containing inguinal hernias. No pathologically enlarged abdominal or pelvic lymph nodes are demonstrated. There is a fracture deformity demonstrated of L1 with approximately 60% height loss anteriorly. There is no paraspinal edema or acute fracture lines. This is likely chronic. There is an advanced loss of disc space height at L2-L3. No suspicious lytic or blastic lesions are evident. IMPRESSION: 1. Large exophytic mass arising off the inferior aspect of the left kidney is highly suspect for renal cell carcinoma. 2. The fullness at the tail of the pancreas is therefore nonspecific. This could reflect a pancreatic lesion or possibly a metastasis. Less likely consideration is that this is a region of sparing of the atrophy demonstrated throughout the remainder of the pancreas. Postcontrast imaging would better evaluate. 3. Given other findings, the nodules within the right lung base may reflect metastatic lesions. 4. L1 fracture is believed to be chronic. No suspicious lytic or blastic lesions are evident. 5. No findings of an acute inflammatory or obstructive process. Dictated by: Dictated on workstation # [id number]
[2019-07-27 22:34] VITALS: BP 142/90
--- NOTE | 2019-07-28 07:15 | Diagnostic Imaging Report ---
PROCEDURE: CT cervical spine without contrast. TECHNIQUE: Multiple contiguous axial images were obtained through the cervical spine without the use of intravenous contrast. Sagittal and coronal reformations were then performed. Auto Exposure Controls were utilized during the CT exam to meet ALARA standards for radiation dose reduction. INDICATION: Neck pain Cervical spinal curvature and alignment are unremarkable. There is mild disc space narrowing with minimal endplate spurring. There is also mild degenerative spurring in the facet joints. No fracture or malalignment is identified. There is no evidence of paraspinous hematoma. IMPRESSION: No CT evidence of acute cervical spinal abnormality. Dictated by: Dictated on workstation # [id number]
== END 2019-07-27 22:44 | disposition short-term general hospital (02) ==
LOC: EDUNIT# 19:16 → ER 19:18
DX: S32.010A Wedge compression fracture of first lumbar vertebra, initial encounter for closed fracture (principal); N28.89 Other specified disorders of kidney and ureter; K86.9 Disease of pancreas, unspecified; W06.XXXA Fall from bed, initial encounter
CPT/HCPCS: 36415; 72125; 74176; 80053; 81000; 83690; 85025; 96374; 96375; 96376

== ENCOUNTER 2019-10-21 12:01 | Emergency (ER) | payer OTHER ==
[~2019-10-21] VITALS: Ht 175.3 cm; Wt 86.4 kg
--- NOTE | 2019-10-21 12:26 | ED General ---
General Chief Complaint: Altered Mental Status Stated Complaint: SEIZURES Source of Information: Patient Exam Limitations: No Limitations History of Present Illness Date Seen by Provider: Oct 21, 2019 Time Seen by Provider: 12:00 Initial Comments To ER by brother. Patient lives at home. Brother reports that he has had 3 seizures today, they were on their way to see the primary care doctor when he had another one, decided to come to the emergency room. Brother states that he only has history of one seizure that he is aware of and is not on any medicine for seizures. Reportedly had a vertebral compression fracture back in July of this year and was transferred to [facility]. Timing/Duration: 1-2 Days Severity: Moderate Associated Systoms: Denies Symptoms Allergies and Home Medications Allergies Coded Allergies: No Known Drug Allergies (Unverified , 07/27/19) Patient Home Medication List Home Medication List Reviewed: Yes Review of Systems Review of Systems Constitutional: no symptoms reported EENTM: see HPI Respiratory: no symptoms reported Cardiovascular: no symptoms reported Genitourinary: no symptoms reported Musculoskeletal: no symptoms reported Skin: no symptoms reported Psychiatric/Neurological: No Symptoms Reported Hematologic/Lymphatic: No Symptoms Reported Immunological/Allergic: no symptoms reported Past Zvmuwxo-Gsycyh-Htihsl Hx Patient Social History Type Used: Cigarettes 2nd Hand Smoke Exposure: Yes Recent Hopitalizations: No Seasonal Allergies Seasonal Allergies: No Past Medical History Respiratory: No Cardiac: Yes Hypertension Neurological: No Genitourinary: Yes Benign Prostatic Hyperpl, Prostate Problems Gastrointestinal: Yes Gastroesophageal Reflux Musculoskeletal: Yes Chronic Back Pain Endocrine: Yes Diabetes, Non-Insulin dep HEENT: No Cancer: No Psychosocial: Yes Schizophrenia Integumentary: No Physical Exam Vital Signs Vital Signs - First Documented 10/21/19 12:15 Temp 36.7 Pulse 133 Resp 22 B/P (MAP) 125/89 (101) Pulse Ox 96 O2 Delivery Room Air Capillary Refill : Height, Weight, BMI Height: '" Weight: lbs. oz. kg; 28.00 BMI Method: General Appearance: No Apparent Distress, WD/WN, Other (difficult to get any history out of. He repeats "I'm all right" to any question that is asked. He has an abrasion to the left she, no other obvious evidence of injury.) Eyes: Bilateral Eye Normal Inspection, Bilateral Eye PERRL, Bilateral Eye EOMI HEENT: PERRL/EOMI, TMs Normal Neck: Full Range of Motion, Normal Inspection Respiratory: No Accessory Muscle Use, No Respiratory Distress Cardiovascular: Regular Rate, Rhythm, Normal Peripheral Pulses Gastrointestinal: Non Tender, Soft Extremity: Normal Capillary Refill, Normal Inspection Neurologic/Psychiatric: Alert Skin: Normal Color, Warm/Dry Progress/Results/Core Measures Suspected Sepsis SIRS Temperature: Pulse: Respiratory Rate: Laboratory Tests 10/21/19 12:40: White Blood Count 16.7H Blood Pressure / Mean: Laboratory Tests 10/21/19 12:40: Creatinine 1.00, INR Comment 1.0, Platelet Count 342, Total Bilirubin 0.3 Results/Orders Lab Results Laboratory Tests Test 10/21/19 12:40 10/21/19 13:30 10/21/19 14:50 Range/Units White Blood Count 16.7 H 4.3-11.0 10^3/uL Red Blood Count 5.08 4.35-5.85 10^6/uL Hemoglobin 13.7 13.3-17.7 G/DL Hematocrit 45 40-54 % Mean Corpuscular Volume 88 80-99 FL Mean Corpuscular Hemoglobin 27 25-34 PG Mean Corpuscular Hemoglobin Concent 31 L 32-36 G/DL Red Cell Distribution Width 14.6 H 10.0-14.5 % Platelet Count 342 130-400 10^3/uL Mean Platelet Volume 10.3 7.4-10.4 FL Neutrophils (%) (Auto) 79 H 42-75 % Lymphocytes (%) (Auto) 15 12-44 % Monocytes (%) (Auto) 6 0-12 % Eosinophils (%) (Auto) 1 0-10 % Basophils (%) (Auto) 0 0-10 % Neutrophils # (Auto) 13.2 H 1.8-7.8 X 10^3 Lymphocytes # (Auto) 2.5 1.0-4.0 X 10^3 Monocytes # (Auto) 1.0 0.0-1.0 X 10^3 Eosinophils # (Auto) 0.1 0.0-0.3 10^3/uL Basophils # (Auto) 0.0 0.0-0.1 10^3/uL Neutrophils % (Manual) 82 % Lymphocytes % (Manual) 10 % Monocytes % (Manual) 3 % Eosinophils % (Manual) 2 % Basophils % (Manual) 0 % Band Neutrophils 2 % Atypical Lymphocytes 1 % Blood Morphology Comment NORMAL Prothrombin Time 13.3 12.2-14.7 SEC INR Comment 1.0 0.8-1.4 Sodium Level 144 135-145 MMOL/L Potassium Level 3.8 3.6-5.0 MMOL/L Chloride Level 105 98-107 MMOL/L Carbon Dioxide Level 12 L 21-32 MMOL/L Anion Gap 27 H 5-14 MMOL/L Blood Urea Nitrogen 14 7-18 MG/DL Creatinine 1.00 0.60-1.30 MG/DL Estimat Glomerular Filtration Rate > 60 BUN/Creatinine Ratio 14 Glucose Level 189 H 70-105 MG/DL Calcium Level 9.5 8.5-10.1 MG/DL Corrected Calcium 9.3 8.5-10.1 MG/DL Total Bilirubin 0.3 0.1-1.0 MG/DL Aspartate Amino Transf (AST/SGOT) 22 5-34 U/L Alanine Aminotransferase (ALT/SGPT) 23 0-55 U/L Alkaline Phosphatase 118 40-136 U/L Total Protein 7.4 6.4-8.2 GM/DL Albumin 4.3 3.2-4.5 GM/DL Salicylates Level < 5.0 L 5.0-20.0 MG/DL Serum Alcohol < 10 <10 MG/DL Urine Color YELLOW Urine Clarity CLEAR Urine pH 5.5 5-9 Urine Specific [place] >=1.030 1.016-1.022 Urine Protein NEGATIVE NEGATIVE Urine Glucose (UA) 3+ H NEGATIVE Urine Ketones 1+ H NEGATIVE Urine Nitrite NEGATIVE NEGATIVE Urine Bilirubin NEGATIVE NEGATIVE Urine Urobilinogen 0.2 < = 1.0 MG/DL Urine Leukocyte Esterase NEGATIVE NEGATIVE Urine RBC (Auto) 1+ H NEGATIVE Urine RBC RARE /HPF Urine WBC NONE /HPF Urine Squamous Epithelial Cells RARE /HPF Urine Crystals NONE /LPF Urine Bacteria NEGATIVE /HPF Urine Casts NONE /LPF Urine Mucus NEGATIVE /LPF Urine Culture Indicated NO Urine Opiates Screen POSITIVE H NEGATIVE Urine Oxycodone Screen NEGATIVE NEGATIVE Urine Methadone Screen NEGATIVE NEGATIVE Urine Propoxyphene Screen NEGATIVE NEGATIVE Urine Barbiturates Screen NEGATIVE NEGATIVE Ur Tricyclic Antidepressants Screen NEGATIVE NEGATIVE Urine Phencyclidine Screen NEGATIVE NEGATIVE Urine Amphetamines Screen NEGATIVE NEGATIVE Urine Methamphetamines Screen NEGATIVE NEGATIVE Urine Benzodiazepines Screen NEGATIVE NEGATIVE Urine Cocaine Screen NEGATIVE NEGATIVE Urine Cannabinoids Screen POSITIVE H NEGATIVE Blood Gas Puncture Site RT RAD Blood Gas Patient Temperature 37.2 Arterial Blood pH 7.30 *L 7.37-7.43 Arterial Blood Partial Pressure CO2 53 H 35-45 MMHG Arterial Blood Partial Pressure O2 80 79-93 MMHG Arterial Blood HCO3 26 23-27 MMOL/L Arterial Blood Total CO2 27.1 21.0-31.0 MMOL/L Arterial Blood Oxygen Saturation 94 94-100 % Arterial Blood Base Excess -0.1 -2.5-2.5 MMOL/L Ryne Test YES-POS Blood Gas Ventilator Setting NO Blood Gas Inspired Oxygen 2 L My Orders Orders - ARPAN SALCIDO APRN Cbc With Automated Diff (10/21/19 12:24) Comprehensive Metabolic Panel (10/21/19 12:24) Protime With Inr (10/21/19 12:24) Ua Culture If Indicated (10/21/19 12:24) Chest 1 View, Ap/Pa Only (10/21/19 12:24) Ct Head/Cervical Spine Wo (10/21/19 12:24) Lorazepam Injection (Ativan Injection) (10/21/19 12:32) Lorazepam Injection (Ativan Injection) (10/21/19 12:39) Manual Differential (10/21/19 12:40) Ct Angio Head/Neck (10/21/19 13:03) Dipht,Pertuss(Acell),Tet Adult (Boostrix (10/21/19 13:15) Lidocaine 1% Inj 20 Ml (Xylocaine 1% Inj (10/21/19 13:15) Levetiracetam Injection (Keppra Injectio (10/21/19 13:27) Ns (Ivpb) (Sodium Chloride 0.9%) (10/21/19 13:27) Iohexol Injection (Omnipaque 350 Mg/Ml 1 (10/21/19 13:45) Received Contrast (Hold Metformin- Contr (10/21/19 13:45) Sodium Chloride Flush (Catheter Flush Sy (10/21/19 13:45) Ns (Ivpb) (Sodium Chloride 0.9% Ivpb Bag (10/21/19 13:45) Alcohol (10/21/19 13:45) Salicylate (10/21/19 13:45) Lorazepam Injection (Ativan Injection) (10/21/19 14:00) Lorazepam Injection (Ativan Injection) (10/21/19 14:00) Levetiracetam Injection (Keppra Injectio (10/21/19 14:15) Arterial Blood Gas (10/21/19 14:20) Drug Screen Stat (Urine) (10/21/19 14:21) Levetiracetam Injection (Keppra Injectio (10/21/19 14:35) Lorazepam Injection (Ativan Injection) (10/21/19 15:00) Lorazepam Injection (Ativan Injection) (10/21/19 15:00) Medications Given in ED Current Medications Medications Dose Ordered Sig/[place] Route Start Time Stop Time Status Last Admin Dose Admin Diphtheria/ Tetanus/Acell Pertussis 0.5 ml ONCE ONCE IM 10/21/19 13:15 10/21/19 13:16 DC 10/21/19 13:25 0.5 ML Iohexol 75 ml ONCE ONCE IV 10/21/19 13:45 10/21/19 13:46 DC 10/21/19 14:01 75 ML Lidocaine HCl 1 ml ONCE ONCE INJ 10/21/19 13:15 10/21/19 13:16 DC 10/21/19 13:26 1 ML Lorazepam 1 mg ONCE ONCE IVP 10/21/19 14:00 10/21/19 14:01 DC 10/21/19 14:00 1 MG Lorazepam 1 mg ONCE PRN IVP 10/21/19 14:00 10/21/19 13:30 1 MG Lorazepam 2 mg ONCE ONCE IVP 10/21/19 15:00 10/21/19 15:01 DC 10/21/19 14:35 2 MG Sodium Chloride 10 ml NEEDED PRN IV 10/21/19 13:45 10/21/19 14:01 10 ML Sodium Chloride 100 ml ONCE ONCE IV 10/21/19 13:45 10/21/19 13:46 DC 10/21/19 14:01 80 ML Vital Signs/I&O 10/21/19 12:15 Temp 36.7 Pulse 133 Resp 22 B/P (MAP) 125/89 (101) Pulse Ox 96 O2 Delivery Room Air Capillary Refill : Progress Note : Progress Note NAME: TISHA GALINDO [facility] REC#: [id number] PT STATUS: REG ER : 1955 PHYSICIAN: ARPAN SALCIDO APRN ADMIT DATE: 10/21/19/ER Draft Date of Exam:10/21/19 CT HEAD/CERVICAL SPINE WO PROCEDURE: CT head and CT cervical spine without contrast. TECHNIQUE: Multiple contiguous axial images were obtained through the brain and cervical spine without the use of intravenous contrast. Sagittal and coronal reformations through the cervical spine were then performed. Auto Exposure Controls were utilized during the CT exam to meet ALARA standards for radiation dose reduction. INDICATION: Seizure, laceration, trauma. COMPARISON: CT head and cervical spine of 07/27/2019. FINDINGS: CT head: No hyperdense hemorrhage or space-occupying mass. No hydrocephalus or midline shift. Basilar cisterns are widely patent. No skull fracture. Paranasal sinuses and mastoid air cells are clear. Left periorbital soft tissue swelling. Globes are symmetric without features of injury. CT cervical spine: No acute fracture or traumatic malalignment in the cervical spine. No high-grade spinal stenosis. Lung apices are clear. Thyroid is normal. IMPRESSION: 1. No acute intracranial process. 2. No acute skull fracture. Left periorbital soft tissue swelling/contusion. 3. No acute fracture or traumatic malalignment in the cervical spine. Dictated on workstation # [id number] Dict: 10/21/19 1311 Trans: 10/21/19 1323 [facility] [id number] Interpreted by: KAL CARLSON MD Electronically signed by: NAME: TISHA GALINDO [facility] REC#: [id number] PT STATUS: REG ER : 1955 PHYSICIAN: ARPAN SALCIDO APRN ADMIT DATE: 10/21/19/ER Draft Date of Exam:10/21/19 CT ANGIO HEAD/NECK PROCEDURE: CT angiography of the head and CT angiography of the neck with and without contrast. TECHNIQUE: Contiguous noncontrast images were obtained from the skull base through the vertex. After intravenous contrast administration, helical CT angiography of the neck was performed. Source data was reformatted into 3D MIP projections. Delayed post contrast acquisition was also obtained. Auto Exposure Controls were utilized during the CT exam to meet ALARA standards for radiation dose reduction. INDICATION: Seizure. COMPARISON: CT head and cervical spine performed earlier same day. FINDINGS: CTA neck: Thoracic aorta is heavily patent. The great vessels of the arch are patent. The bilateral common carotid arteries are normal without luminal narrowing. No significant stenosis of the proximal internal carotid arteries per NASCET criteria. The cervical segments of the bilateral internal carotid arteries are widely patent. Proximal external carotid arteries are normal allowing for motion artifact. The origin of the basilar arteries are patent bilaterally. Vertebral arteries are codominant and both opacify throughout the neck without high-grade stenosis. Intracranial segments of the vertebral arteries are normal. No cervical lymphadenopathy. No fracture or traumatic malalignment in the cervical spine. Thyroid is normal. Lung apices are clear. CTA head: The bilateral distal internal carotid arteries are widely patent. The M1 and M2 divisions of the middle cerebral arteries are patent. The M3 divisions are grossly symmetric. Anterior cerebral arteries are patent and there is no saccular aneurysm present. Basilar artery is widely patent and has no aneurysm at its tip. The posterior cerebral arteries are patent. No saccular aneurysm within the [place] of [place]. No calvarial abnormality. No abnormal enhancement on delayed phase imaging. IMPRESSION: 1. No intracranial medium or large vessel occlusion. 2. No intracranial aneurysm. 3. No significant stenosis or arterial occlusion within the neck. Dictated on workstation # [id number] Dict: 10/21/19 1424 Trans: 10/21/19 1437 [facility] [id number] Interpreted by: KAL CARLSON MD Electronically signed by: NAME: TISHA GALINDO [facility] REC#: [id number] PT STATUS: REG ER : 1955 PHYSICIAN: ARPAN SALCIDO MACHINIST FIRST CLASS ADMIT DATE: 10/21/19/ER Draft Date of Exam:10/21/19 CHEST 1 VIEW, AP/PA ONLY INDICATION: Unresponsive procedure. FINDINGS: Heart size within the upper limits of normal. No focal consolidation or overt failure pattern. No free air beneath the diaphragms. IMPRESSION: No acute appearing abnormality. Dictated on workstation # [id number] Dict: 10/21/19 1302 Trans: 10/21/19 1307 [id number] Interpreted by: MARCELLUS DODD Electronically signed by: Consults Consults : Consulting Physician: A Departure Communication (Admissions) CT ABDOMEN PELVIS REPORT FROM JULY 2019: IMPRESSION: 1. Large exophytic mass arising off the inferior aspect of the left kidney is highly suspect for renal cell carcinoma. 2. The fullness at the tail of the pancreas is therefore nonspecific. This could reflect a pancreatic lesion or possibly a metastasis. Less likely consideration is that this is a region of sparing of the atrophy demonstrated throughout the remainder of the pancreas. Postcontrast imaging would better evaluate. 3. Given other findings, the nodules within the right lung base may reflect metastatic lesions. 1244-patient was found on the floor of room 4, he had gotten out of bed and was noted to be seizing and bleeding from the left eyebrow. He has some myoclonic activity lasted for about 30 seconds followed by a postictal phase. He was given 1 mg of lorazepam IV. Placed in a rigid cervical collar, taken for CT. 1335-H and just had another seizure here, this would be his fifth seizure today. Again this lasted about 30 seconds. He does have a persistent right and up toward deviation of his gaze since the first seizure. There is a small contusion over the lateral aspect of the left eyebrow which does not require suturing. 1354-The post ictal phase seems to have resolved, he is now sitting up on the CT table refusing to lay down. 1514-Sp[facility] with Dr Suresh at [facility], will accept pt. Impression Primary Impression: Recurrent seizures Additional Impression: New onset seizure Disposition: XFER SHT-TRM HOSP Condition: Stable Transfer Transfer Reason: Exceeds level of care Time Spoke to Accepting Phy: 15:14 Transfer Progress Notes Niurka Suresh. Departure-Patient Inst. Referrals: LAURITA VALIENTE MD (PCP/Family) Primary Care Physician ARPAN SALCIDO APRN Oct 21, 2019 12:26
[2019-10-21] MEDS ORDERED: LORazepam INJ 2 MG/ML (ATIVAN) VIAL ONE (12:32)
[2019-10-21] MEDS ORDERED: LORazepam INJ 2 MG/ML (ATIVAN) VIAL IVP STA (12:39)
[2019-10-21 12:56] LABS: BASOPHILS % (AUTO) 0 % (0-10); EOSINOPHILS # (AUTO) 0.1 10^3/uL (0.0-0.3); EOSINOPHILS % (AUTO) 1 % (0-10); HEMATOCRIT 45 % (40-54); HEMOGLOBIN 13.7 G/DL (13.3-17.7); LYMPHOCYTES # (AUTO) 2.5 X 10^3 (1.0-4.0); LYMPHOCYTES % (AUTO) 15 % (12-44); MEAN CORPUSCULAR HEMOGLOBIN 27 PG (25-34); MEAN CORPUSCULAR HGB CONC 31 G/DL (32-36); MEAN CORPUSCULAR VOLUME 88 FL (80-99); MEAN PLATELET VOLUME 10.3 FL (7.4-10.4); MONOCYTES % (AUTO) 6 % (0-12); NEUTROPHILS # (AUTO) 13.2 X 10^3 (1.8-7.8); NEUTROPHILS % (AUTO) 79 % (42-75); PLATELET COUNT 342 10^3/uL (130-400); RED CELL DISTRIBUTION WIDTH 14.6 % (10.0-14.5); WHITE BLOOD COUNT 16.7 10^3/uL (4.3-11.0)
--- NOTE | 2019-10-21 13:07 | Diagnostic Imaging Report ---
INDICATION: Unresponsive procedure. FINDINGS: Heart size within the upper limits of normal. No focal consolidation or overt failure pattern. No free air beneath the diaphragms. IMPRESSION: No acute appearing abnormality. Dictated by: Dictated on workstation # [id number]
[2019-10-21] MEDS ORDERED: TETANUS,DIPTH,PERTUSS P/F (BOOSTRIX) 0.5 ML VIAL IM ONE (13:15)
[2019-10-21] MEDS ORDERED: LIDOCAINE 1% INJ 20 ML 20 ML VIAL INJ ONE (13:15)
[2019-10-21 13:22] LABS: PROTHROMBIN TIME PATIENT 13.3 SEC (12.2-14.7)
--- NOTE | 2019-10-21 13:24 | Diagnostic Imaging Report ---
PROCEDURE: CT head and CT cervical spine without contrast. TECHNIQUE: Multiple contiguous axial images were obtained through the brain and cervical spine without the use of intravenous contrast. Sagittal and coronal reformations through the cervical spine were then performed. Auto Exposure Controls were utilized during the CT exam to meet ALARA standards for radiation dose reduction. INDICATION: Seizure, laceration, trauma. COMPARISON: CT head and cervical spine of 07/27/2019. FINDINGS: CT head: No hyperdense hemorrhage or space-occupying mass. No hydrocephalus or midline shift. Basilar cisterns are widely patent. No skull fracture. Paranasal sinuses and mastoid air cells are clear. Left periorbital soft tissue swelling. Globes are symmetric without features of injury. CT cervical spine: No acute fracture or traumatic malalignment in the cervical spine. No high-grade spinal stenosis. Lung apices are clear. Thyroid is normal. IMPRESSION: 1. No acute intracranial process. 2. No acute skull fracture. Left periorbital soft tissue swelling/contusion. 3. No acute fracture or traumatic malalignment in the cervical spine. Dictated by: Dictated on workstation # [id number]
[2019-10-21] MEDS ORDERED: NS (IVPB) 250 ML ONE (13:27)
[2019-10-21] MEDS ORDERED: LEVETIRACETAM 500 MG/5 ML (KEPPRA) VIAL IV ONE ×2 (13:27→14:35)
--- NOTE | 2019-10-21 13:27 | NUR ---
PT HAD SEIZURE LASTING APPROXIMATELY 1 MINUTE. PT GIVEN 1 MG IV ATIVAN PER P SALCIDO VERBAL ORDER
[2019-10-21 13:29] LABS: ALANINE AMINOTRANSFERASE 23 U/L (0-55); ALBUMIN 4.3 GM/DL (3.2-4.5); ALKALINE PHOSPHATASE 118 U/L (40-136); BILIRUBIN,TOTAL 0.3 MG/DL (0.1-1.0); BUN/CREATININE RATIO 14; CALCIUM 9.5 MG/DL (8.5-10.1); CARBON DIOXIDE 12 MMOL/L (21-32); CHLORIDE 105 MMOL/L (98-107); GFR ESTIMATED > 60; GLUCOSE 189 MG/DL (70-105); POTASSIUM 3.8 MMOL/L (3.6-5.0); SODIUM 144 MMOL/L (135-145); TOTAL PROTEIN 7.4 GM/DL (6.4-8.2)
[2019-10-21 13:37] LABS: ATYPICAL LYMPHOCYTES 1 %; BAND NEUTROPHILS 2 %; BASOPHILS % (MANUAL) 0 %; EOSINOPHILS % (MANUAL) 2 %; LYMPHOCYTES % (MANUAL) 10 %; MONOCYTES % (MANUAL) 3 %; NEUTROPHILS % (MANUAL) 82 %
[2019-10-21 13:38] LABS: RBC MORPH NORMAL
[2019-10-21 13:41] LABS: BILIRUBIN,URINE NEGATIVE (NEGATIVE); CLARITY,URINE CLEAR; COLOR,URINE YELLOW; GLUCOSE, URINE (UA) 3+ (NEGATIVE); KETONES,URINE 1+ (NEGATIVE); LEUKOCYTE ESTERASE ,URINE NEGATIVE (NEGATIVE); NITRITE,URINE NEGATIVE (NEGATIVE); PH,URINE 5.5 (5-9); PROTEIN,URINE NEGATIVE (NEGATIVE)
[2019-10-21] MEDS ORDERED: HOLD METFORMIN - RECEIVED CONTRAST 20 ML VIAL IV SCH (13:45)
[2019-10-21] MEDS ORDERED: CATHETER FLUSH 10 ML SYR IV PRN (13:45)
[2019-10-21] MEDS ORDERED: NS 100 ML (IVPB) BAG IV ONE (13:45)
[2019-10-21] MEDS ORDERED: IOHEXOL 350 MG/ML 100 ML (OMNIPAQUE 350) VIAL IV ONE (13:45)
[2019-10-21 13:58] LABS: BACTERIA,URINE NEGATIVE /HPF; RBC,URINE RARE /HPF; SQUAMOUS EPITHELIAL CELL,UR RARE /HPF
[2019-10-21] MEDS ORDERED: LORazepam INJ 2 MG/ML (ATIVAN) VIAL IVP PRN (14:00)
[2019-10-21] MEDS ORDERED: LORazepam INJ 2 MG/ML (ATIVAN) VIAL IVP ONE ×4 (14:00→16:30)
[2019-10-21 14:01] LABS: SALICYLATE < 5.0 MG/DL (5.0-20.0)
[2019-10-21] MEDS ORDERED: LEVETIRACETAM INJECTION 1,000 MG in NS (IVPB) 100 ML IV SCH (14:15)
--- OUTSIDE RECORDS SUMMARY | 2019-10-21 14:35 | XMS REPORT | Continuity of Care Document ---
Author Organization Unknown Address Unknown Phone Unavailable Allergies Active Description Code Type Severity Reaction Onset Reported/Identified Relationship to Patient Clinical Status Yes NO KNOWN DRUG ALLERGIES UNKNOWN UNKNOWN Yes No Known Drug Allergies [id number] Drug Allergy Unknown N/A 07/27/2019 Medications Medication Packaging Start Date St op [...] 10/10/2018 Jennifer Frank R07.89 OTHER CHEST PAIN 10/10/2018 Jennifer Frank R53.83 OTHER FATIGUE 01/07/2019 Sriram Hilario 780.97 ALTERED MENTAL STATUS 01/07/2019 Sriram Hilario R07.89 OTHER CHEST PAIN 01/07/2019 Sriram Hilario R41.82 ALTERED MENTAL STATUS, UNSPECIFIED 01/07/2019 Sriram Hilario R53.83 OTHER FATIGUE 07/27/2019 ARPAN SALCIDO APRN Ot K86 .9 DISEASE OF PANCREAS, UNSPECIFIED 07/27/2019 ARPAN SALCIDO APRN Ot M54 .5 LOW BACK PAIN 07/27/2019 ARPAN SALCIDO APRN Ot N28.89 OTHER SPECIFIED DISORDERS OF KIDNEY AND 07/27/2019 ARPAN SALCIDO APRN Ot S32.010A WEDGE COMPRESSION FRACTURE OF FIRST LUMB 07/27/2019 SALCIDO, PETER J [employer] Ot W06.XXXA FALL FROM BED, INITIAL ENCOUNTER 08/01/2019 SALCIDO, ARPAN Azul APRN Ot K86 .9 DISEASE OF PANCREAS, UNSPECIFIED 08/01/2019 SALCIDO, ARPAN Azul APRN Ot M54 .5 LOW BACK PAIN 08/01/2019 SALCIDO, ARPAN Azul APRN Ot N28.89 OTHER SPECIFIED DISORDERS OF KIDNEY AND 08/01/2019 SALCIDO, ARPAN Azul APRN Ot S32.010A WEDGE COMPRESSION FRACTURE OF FIRST LUMB 08/01/2019 SALCIDO, ARPAN Azul APRN Ot W06.XXXA FALL FROM BED, INITIAL ENCOUNTER 08/03/2019 SALCIDO, ARPAN Azul APRN Ot K86 .9 DISEASE OF PANCREAS, UNSPECIFIED 08/03/2019 SALCIDO, ARPAN Azul APRN Ot M54 .5 LOW BACK PAIN 08/03/2019 SALCIDO, ARPAN Azul APRN Ot N28.89 OTHER SPECIFIED DISORDERS OF KIDNEY AND 08/03/2019 SALCIDO, ARPAN Azul APRN Ot S32.010A WEDGE COMPRESSION FRACTURE OF FIRST LUMB 08/03/2019 SALCIDO, ARPAN Azul APRN Ot W06.XXXA FALL FROM BED, INITIAL ENCOUNTER 09/21/2019 SALCIDO, ARPAN Azul APRN Ot K86 .9 DISEASE OF PANCREAS, UNSPECIFIED 09/21/2019 SALCIDO, ARPAN Azul APRN Ot M54 .5 LOW BACK PAIN 09/21/2019 SALCIDO, ARPAN Azul APRN Ot N28.89 OTHER SPECIFIED DISORDERS OF KIDNEY AND 09/21/2019SALCIDO, ARPAN Azul APRN Ot S32.010A WEDGE COMPRESSION FRACTURE OF FIRST LUMB 09/21/2019 SALCIDO, ARPAN Azul APRN Ot W06.XXXA FALL FROM BED, INITIAL ENCOUNTER Procedures There is no data. Results Test [...] Negative Urine-Blood Negative Negative Urine-Color Yellow Colorless-Lt. [place] ow Urine-Epithelial Cells 0-5/HPF Urine-Glucose Negative Negative Urine-Ketones Negative Negative Urine-Leukocytes Negative Negative Urine-Nitrite Negative Negative Urine-Other Urine Saved if Culture Need ed (48hrs from time of collection) Urine-pH 7.0 5-8.5 Urine-Protein Negative Negative Urine-RBC Negative Urine-Specific [place] 1.020 1.000-1 .030 Urine-WBC Negative Urobilinogen 0.2 [...] blood basophil count (count/volume) 0.0 10*3/uL 0.0-0.1 Comprehensive metabolic panel - 07/27/19 19:20 Serum or plasma sodium measurement (moles/volume) 137 mmol/L 135-145 Serum or plasma potassium measurement (moles/volume) 3.8 mmol/L 3.6-5.0 Serum or plasma chloride measurement (moles/volume) 102 mmol/L 98-107 Carbon dioxide 21 mmol/L 21-32 Serum or plasma anion gap determination (moles/volume) 14 mmol/L 5-14 Serum or plasma urea nitrogen measurement (mass/volume ) 22 mg/dL 7-18 Serum or plasma creatinine measurement (mass/volume) 1.01 mg/dL 0.60-1.30 Serum or plasma urea nitrogen/creatinine mass ratio 22 NRG Serum or plasma creatinine measurement w ith calculation of estimated glomerular filtration rate > NRG Serum or plasma glucose measurement (mass/volume) 194 mg/dL 70-105 Serum or plasma calcium measurement (mass/volume) 10.0 mg/dL 8.5-10.1 Serum or plasma total bilirubin measurement (mass/volu me) 0.2 mg/dL 0.1-1.0 Serum or plasma alkaline phosphatase trista surement (enzymatic activity/volume) 103 U/L 40-136 Serum or plasma aspartate aminotransfera se measurement (enzymatic activity/volume) 19 U/L 5-34 Serum or plasma alanine aminotransferase measurement (enzymatic activity/volume) 30 U/L 0-55 Serum or plasma protein measurement (mass/volume) 7.0 g/dL 6.4-8.2 Serum or plasma albumin measurement (mass/volume) 4.3 g/dL 3.2-4.5 CALCIUM CORRECTED 9.8 mg/dL 8.5-10.1 Lipase - 07/27/19 19:20 Lipase 14 U/L 8-78 Complete urinalysis with reflex to cultu re - 07/27/19 20:20 Urine color determination YELLOW NRG Urine clarity determination CLEAR NR G Urine pH measurement by test strip 7.0 5-9 Specific gravity of urine by test strip 1.020 1.016-1.022 Urine protein assay by test strip, semi-quantitative NEGATIVE NEGATIVE Urine glucose detection by automated test strip 3+ NEGATIVE Erythrocytes detection in urine sediment by light micr oscopy NEGATIVE NEGATIVE Urine ketones detection by automated test strip TR LAUREN NEGATIVE Urine nitrite detection by test strip NEGATIVE NEGATIVE Urine total bilirubin detection by test strip NEGA TIVE NEGATIVE Urine urobilinogen measurement by automated test strip (mass/volume) 0.2 mg/dL < = 1.0 Urine leukocyte esterase detection by dipstick NEG ATIVE NEGATIVE Automated urine sediment erythrocyte cou nt by microscopy (number/high power field) NONE NRG Automated urine sediment leukocyte count by microscopy (number/high power field) NONE NRG Bacteria detection in urine sediment by light microsco py NEGATIVE NRG Crystals detection in urine sediment by light microsco py NONE NRG Casts detection in urine sediment by light microscopy NONE NRG Mucus detection in urine sediment by light microscopy NEGATIVE NRG Complete urinalysis with reflex to culture NO NRG Complete blood count (CBC) with automate d white blood cell (WBC) differential - 10/21/19 12:40 Blood leukocytes automated count (number/volume) 16.7 10*3/uL 4.3-11.0 Blood erythrocytes automated count (number/volume) 5.08 10*6/uL 4.35-5.85 Venous blood hemoglobin measurement (mass/volume) 13.7 g/dL 13.3-17.7 Blood hematocrit (volume fraction) 45 % 40-54 Automated erythrocyte mean corpuscular volume 88 [ foz_us] 80-99 Automated erythrocyte mean corpuscular h emoglobin (mass per erythrocyte) 27 pg 25-34 Automated erythrocyte mean corpuscular h emoglobin concentration measurement (mass/volume) 31 g/dL 32-36 Automated erythrocyte distribution width ratio 14. 6 % 10.0- 14.5 Automated blood platelet count (count/volume) 342 10*3/uL 130-400 Automated blood platelet mean volume measurement 10.3 [foz_us] 7.4-10.4 Automated blood neutrophils/100 leukocytes 79 % 42-75 Automated blood lymphocytes/100 leukocytes 15 % 12-44 Blood monocytes/100 leukocytes 6 % 0-12 Automated blood eosinophils/100 leukocytes 1 % 0-10 Automated blood basophils/100 leukocytes 0 % 0-10 Blood neutrophils automated count (number/volume) 13.2 10*3 1.8-7.8 Blood lymphocytes automated count (number/volume) 2.5 10*3 1.0-4.0 Blood monocytes automated count (number/volume) 1. 0 10*3 0.0-1.0 Automated eosinophil count 0.1 10*3/uL 0 .0-0.3 Automated blood basophil count (count/volume) 0.0 10*3/uL 0.0-0.1 PT panel in platelet poor plasma by coag ulation assay - 10/21/19 12:40 Prothrombin time (PT) in platelet poor plasma by coagu lation assay 13.3 s 12.2-14.7 INR in platelet poor plasma or blood by coagulation as say 1.0 0.8-1.4 Comprehensive metabolic panel - 10/21/19 12:40 Serum or plasma sodium measurement (moles/volume) 144 mmol/L 135-145 Serum or plasma potassium measurement (moles/volume) 3.8 mmol/L 3.6-5.0 Serum or plasma chloride measurement (moles/volume) 105 mmol/L 98-107 Carbon dioxide 12 mmol/L 21-32 Serum or plasma anion gap determination (moles/volume) 27 mmol/L 5-14 Serum or plasma urea nitrogen measurement (mass/volume ) 14 mg/dL 7-18 Serum or plasma creatinine measurement (mass/volume) 1.00 mg/dL 0.60-1.30 Serum or plasma urea nitrogen/creatinine mass ratio 14 NRG Serum or plasma creatinine measurement w ith calculation of estimated glomerular filtration rate > NRG Serum or plasma glucose measurement (mass/volume) 189 mg/dL 70-105 Serum or plasma calcium measurement (mass/volume) 9.5 mg/dL 8.5-10.1 Serum or plasma total bilirubin measurement (mass/volu me) 0.3 mg/dL 0.1-1.0 Serum or plasma alkaline phosphatase trista surement (enzymatic activity/volume) 118 U/L 40-136 Serum or plasma aspartate aminotransfera se measurement (enzymatic activity/volume) 22 U/L 5-34 Serum or plasma alanine aminotransferase measurement (enzymatic activity/volume) 23 U/L 0-55 Serum or plasma protein measurement (mass/volume) 7.4 g/dL 6.4-8.2 Serum or plasma albumin measurement (mass/volume) 4.3 g/dL 3.2-4.5 CALCIUM CORRECTED 9.3 mg/dL 8.5-10.1 Manual absolute plasma cell count - 10/06 09/24 12:40 Blood monocytes/100 leukocytes 3 % NRG Manual blood segmented neutrophils/100 leukocytes 82 % NRG Blood band neutrophils/100 leukocytes 2 % NRG Manual blood lymphocytes/100 leukocytes 10 % NRG Manual eosinophils/100 leukocytes in nose 2 % NRG Manual blood basophils/100 leukocytes 0 % NRG Manual blood lymphocytes variant/100 leukocytes 1 % NRG Blood erythrocyte morphology finding identification NORMAL NRG Serum or plasma salicylates measurement (mass/volume) - 10/21/19 12:40 Serum or plasma salicylates measurement (mass/volume) < mg/dL 5.0-20.0 Serum or plasma ethanol measurement (mas s/volume) - 10/21/19 12:40 Serum or plasma ethanol measurement (mass/volume) < mg/dL <10 Complete urinalysis with reflex to cultu re - 10/21/19 13:30 Urine color determination YELLOW NRG Urine clarity determination CLEAR NR G Urine pH measurement by test strip 5.5 5-9 Specific gravity of urine by test strip >= 1.016-1.022 Urine protein assay by test strip, semi-quantitative NEGATIVE NEGATIVE Urine glucose detection by automated test strip 3+ NEGATIVE Erythrocytes detection in urine sediment by light micr oscopy 1+ NEGATIVE Urine ketones detection by automated test strip 1+ NEGATIVE Urine nitrite detection by test strip NEGATIVE NEGATIVE Urine total bilirubin detection by test strip NEGA TIVE NEGATIVE Urine urobilinogen measurement by automated test strip (mass/volume) 0.2 mg/dL < = 1.0 Urine leukocyte esterase detection by dipstick NEG ATIVE NEGATIVE Automated urine sediment erythrocyte cou nt by microscopy (number/high power field) RARE NRG Automated urine sediment leukocyte count by microscopy (number/high power field) NONE NRG Bacteria detection in urine sediment by light microsco py NEGATIVE NRG Squamous epithelial cells detection in u rine sediment by light microscopy RARE NRG Crystals detection in urine sediment by light microsco py NONE NRG Casts detection in urine sediment by light microscopy NONE NRG Mucus detection in urine sediment by light microscopy NEGATIVE NRG Complete urinalysis with reflex to culture NO NRG Encounters ACCT No. Visit Date/Time Discharge Status Pt. Type Provider Facility Loc./Unit Complaint [id number] 01/07/2019 09:19:00 01/07/2019 14:30: 00 DIS Outpatient [facility] ER [id number] 10/10/2018 10:58:00 10/10/2018 15:20: 00 DIS Outpatient FrankJennifer robbins [facility] ER [id number] 10/10/2018 12:41:20 Document Registration [id number] 07/27/2019 19:18:00 020 22:44:00 DIS Outpatient ARPAN SALCIDO APRN [facility] ER BACK PAIN [id number] 01/02/2019 12:47:00 019 23:59:59 CLS Preadmit ROCCO BUNN, LAURITA [facility]rera [facility] REHAB DJD; GENERAL WEAKNESS [id number] 10/21/2019 12:03:[address] Emergency ARPAN SALCIDO APRN [facility] ER SEIZURES [id number] 09/24/2019 10:40:00 09/24/2019 23:59: 59 CLS Outpatient LAURITA VALIENTE [facility] [id number] 07/26/2017 15:00:00 Document Registration
--- NOTE | 2019-10-21 14:37 | Diagnostic Imaging Report ---
PROCEDURE: CT angiography of the head and CT angiography of the neck with and without contrast. TECHNIQUE: Contiguous noncontrast images were obtained from the skull base through the vertex. After intravenous contrast administration, helical CT angiography of the neck was performed. Source data was reformatted into 3D MIP projections. Delayed post contrast acquisition was also obtained. Auto Exposure Controls were utilized during the CT exam to meet ALARA standards for radiation dose reduction. INDICATION: Seizure. COMPARISON: CT head and cervical spine performed earlier same day. FINDINGS: CTA neck: Thoracic aorta is heavily patent. The great vessels of the arch are patent. The bilateral common carotid arteries are normal without luminal narrowing. No significant stenosis of the proximal internal carotid arteries per NASCET criteria. The cervical segments of the bilateral internal carotid arteries are widely patent. Proximal external carotid arteries are normal allowing for motion artifact. The origin of the basilar arteries are patent bilaterally. Vertebral arteries are codominant and both opacify throughout the neck without high-grade stenosis. Intracranial segments of the vertebral arteries are normal. No cervical lymphadenopathy. No fracture or traumatic malalignment in the cervical spine. Thyroid is normal. Lung apices are clear. CTA head: The bilateral distal internal carotid arteries are widely patent. The M1 and M2 divisions of the middle cerebral arteries are patent. The M3 divisions are grossly symmetric. Anterior cerebral arteries are patent and there is no saccular aneurysm present. Basilar artery is widely patent and has no aneurysm at its tip. The posterior cerebral arteries are patent. No saccular aneurysm within the [place]. No calvarial abnormality. No abnormal enhancement on delayed phase imaging. IMPRESSION: 1. No intracranial medium or large vessel occlusion. 2. No intracranial aneurysm. 3. No significant stenosis or arterial occlusion within the neck. Dictated by: Dictated on workstation # [id number]
[2019-10-21 14:56] LABS: ABG BASE EXCESS -0.1 MMOL/L (-2.5-2.5); ABG OXYGEN SATURATION 94 % (94-100); ABG PCO2 53 MMHG (35-45); ABG PO2 80 MMHG (79-93); ABG TCO2 27.1 MMOL/L (21.0-31.0)
[2019-10-21 14:58] LABS: ALLENS TEST YES-POS; INSPIRED O2 2 L; PATIENT TEMP 37.2; VENTILATOR NO
[2019-10-21 15:04] LABS: AMPHETAMINE SCREEN, URINE NEGATIVE (NEGATIVE); BARBITURATE SCREEN URINE NEGATIVE (NEGATIVE); BENZODIAZEPINES SCREEN URINE NEGATIVE (NEGATIVE); CANNABINOID SCREEN, URINE POSITIVE (NEGATIVE); COCAINE SCREEN URINE NEGATIVE (NEGATIVE); METHADONE STAT NEGATIVE (NEGATIVE); METHAMPHETAMINE SCREEN URINE S NEGATIVE (NEGATIVE); OPIATE SCREEN URINE POSITIVE (NEGATIVE); OXYCODONE STAT NEGATIVE (NEGATIVE); PROPOXYPHENE STAT NEGATIVE (NEGATIVE); TRICYCLIC ANTIDEPRESSANTS SCRE NEGATIVE (NEGATIVE)
[2019-10-21] MEDS ORDERED: LACTATED RINGERS 1,000 ML IV SCH (15:30)
[2019-10-21] MEDS ORDERED: meTOprolol 5 MG/5 ML (LOPRESSOR) VIAL ONE (16:28)
[2019-10-21] MEDS ORDERED: meTOprolol 5 MG/5 ML (LOPRESSOR) VIAL IV ONE (16:30)
[2019-10-21 16:45] VITALS: BP 144/96
== END 2019-10-21 16:45 | disposition short-term general hospital (02) ==
LOC: EDUNIT# 12:01 → ER 12:03
DX: G40.909 Epilepsy, unspecified, not intractable, without status epilepticus (principal); E11.9 Type 2 diabetes mellitus without complications; Z77.22 Contact with and (suspected) exposure to environmental tobacco smoke (acute) (chronic)
CPT/HCPCS: 51702; 70450; 70496; 70498; 71045; 72125; 80053; 80306; 81000; 82805; 85007; 85027; 85610; 99291; G0480 ×2; 36415; 80320; 80329; 90715

== ENCOUNTER 2019-12-31 12:46 | Emergency (ER) | payer OTHER ==
[~2019-12-31] VITALS: Ht 175.2 cm; Wt 86.3 kg
--- NOTE | 2019-12-31 12:50 | NUR ---
PATIENT REPORTS BROTHER IN CAR DOSEN'T KNOW PHONE NUMBER TO GET CONTACT BROTHER TO GIVE HIM UPDAT.
[2019-12-31] MEDS ORDERED: NS IV 1000 ML 1,000 ML IV SCH (13:33)
[2019-12-31] MEDS ORDERED: morphine INJ 10 MG/ML 1ML (SYR OR VIAL) IVP STA ×2 (13:33→14:58)
--- NOTE | 2019-12-31 13:40 | ED GI ---
General Chief Complaint: Abdominal/GI Problems Stated Complaint: ABDOMINAL PAIN;BACK PAIN Nursing Triage Note: AMB TO ED WITH BRAVO TREMOR LIKE MOVEMENT UNSURE WHY HE HAS THEM. HAS HAD L LOWER AND BACK PAIN FOR MONTHS HAS SOME JACQUES OF CANCER UNSURE WHAT HAS NOT GOT TX FOR. LAST 3 WEEKS HAS BEEN VOMITING BLOOD WAS SENT FROM [facility] DONE. PATIETNT GIVES POOR HX. Sepsis Screen: No Definite Risk Source of Information: Patient, Old Records, Other (Dr. Valiente) Exam Limitations: Other (Poor historian) (MIGUEL LAUREANO STUDENT) History of Present Illness Date Seen by Provider: Dec 31, 2019 Time Seen by Provider: 13:20 Initial Comments This is a 64 YO male who was sent to the ED by Dr. Valiente at the [facility] this morning for complaints of abdominal pain and vomiting blood that pt mentioned when he went to picking tech his medications. Fingerstick hemoglobin there was [address] Valiente, who recommended pt come to the ED for evaluation and possible scope. Pt says he has been vomiting clots of bright red blood for the past couple of days and says he recently ran out of his medications, but does not remember what day. Pt was diagnosed with renal cell cancer 2 months ago and has not yet had any treatment. He is not sure what other medical problems he has and does not remember what medications he takes. He notes some chronic left- sided abdominal pain and bilateral back pain that have worsened after he ran out of his medications. Review of [facility] shows pt normally takes morphine for his pain. Modifying Factors: Improves With Movement, Improves With Palpation Associated Symptoms: Back Pain (MIGUEL LAUREANO STUDENT) Allergies and Home Medications Allergies Coded Allergies: No Known Drug Allergies (Unverified , 07/27/19) Home Medications Ondansetron 4 Mg Tab.rapdis, 4 MG SL Q4H PRN for NAUSEA/VOMITING Prescribed by: YAKOV COFFEY on 12/31/191817 Pantoprazole Sodium 40 Mg Tablet.dr, 40 MG PO DAILY Prescribed by: YAKOV COFFEY on 12/31/191817 Patient Home Medication List Home Medication List Reviewed: Yes (MIGUEL LAUREANO STUDENT) Review of Systems Review of Systems Constitutional: see HPI EENTM: No Symptoms Reported Respiratory: No Symptoms Reported Cardiovascular: No Symptoms Reported Gastrointestinal: See HPI Genitourinary: No Symptoms Reported Musculoskeletal: no symptoms reported Skin: no symptoms reported Psychiatric/Neurological: No Symptoms Reported Endocrine: No Symptoms Reported Hematologic/Lymphatic: See HPI (MIGUEL LAUREANO) All Other Systems Reviewed Negative Unless Noted: Yes (MIGUEL LAUREANO) Past Dyqhnxn-Fqhxyb-Ecbssg Hx Patient Social History Type Used: Cigarettes 2nd Hand Smoke Exposure: Yes Recent Foreign Travel: No Contact w/Someone Who Travel: No Recent Infectious Disease Expo: No Recent Hopitalizations: No (MIGUEL LAUREANO) Immunizations Up To Date Tetanus Booster (TDap): Unknown PED Vaccines UTD: Yes (MIGUEL LAUREANO) Seasonal Allergies Seasonal Allergies: No (MIGUEL LAUREANO) Past Medical History Surgeries: Yes Respiratory: No Cardiac: Yes Hypertension Neurological: No Genitourinary: Yes Benign Prostatic Hyperpl, Prostate Problems Gastrointestinal: Yes Gastroesophageal Reflux Musculoskeletal: Yes Chronic Back Pain Endocrine: Yes Diabetes, Non-Insulin dep HEENT: No Cancer: No Psychosocial: Yes Schizophrenia Integumentary: No (MIGUEL LAUREANO) Physical Exam Vital Signs Vital Signs - First Documented 12/31/19 12:50 Temp 36.0 Pulse 89 Resp 18 B/P (MAP) 189/100 (129) Pulse Ox 98 O2 Delivery Room Air (YAKOV QUEZADA MD) Vital Signs Capillary Refill : Less Than 3 Seconds (MIGUEL LAUREANO) Height/Weight/BMI Height: '" Weight: lbs. oz. kg; 28.00 BMI Method: General Appearance: mild distress HEENT: PERRL/EOMI Neck: supple, normal inspection Respiratory: lungs clear, normal breath sounds, no respiratory distress, no accessory muscle use Cardiovascular: regular rate, rhythm, no murmur Gastrointestinal: soft, tenderness (left mid abdomen) Back: normal inspection, other (bilateral thoracic paraspinal tenderness) Neurologic/Psychiatric: alert, other (tearful) Skin: diaphoresis (MIGUEL LAUREANO) Progress/Results/Core Measures Results/Orders Lab Results Laboratory Tests Test 12/31/19 14:02 12/31/19 17:37 Range/Units White Blood Count 5.0 4.3-11.0 10^3/uL Red Blood Count 4.88 4.35-5.85 10^6/uL Hemoglobin 13.3 13.3-17.7 G/DL Hematocrit 41 40-54 % Mean Corpuscular Volume 83 80-99 FL Mean Corpuscular Hemoglobin 27 25-34 PG Mean Corpuscular Hemoglobin Concent 33 32-36 G/DL Red Cell Distribution Width 15.1 H 10.0-14.5 % Platelet Count 269 130-400 10^3/uL Mean Platelet Volume 9.6 7.4-10.4 FL Neutrophils (%) (Auto) 56 42-75 % Lymphocytes (%) (Auto) 31 12-44 % Monocytes (%) (Auto) 12 0-12 % Eosinophils (%) (Auto) 1 0-10 % Basophils (%) (Auto) 0 0-10 % Neutrophils # (Auto) 2.8 1.8-7.8 X 10^3 Lymphocytes # (Auto) 1.6 1.0-4.0 X 10^3 Monocytes # (Auto) 0.6 0.0-1.0 X 10^3 Eosinophils # (Auto) 0.1 0.0-0.3 10^3/uL Basophils # (Auto) 0.0 0.0-0.1 10^3/uL Prothrombin Time 13.5 12.2-14.7 SEC INR Comment 1.0 0.8-1.4 Sodium Level 142 135-145 MMOL/L Potassium Level 3.9 3.6-5.0 MMOL/L Chloride Level 106 98-107 MMOL/L Carbon Dioxide Level 26 21-32 MMOL/L Anion Gap 10 5-14 MMOL/L Blood Urea Nitrogen 18 7-18 MG/DL Creatinine 0.83 0.60-1.30 MG/DL Estimat Glomerular Filtration Rate > 60 BUN/Creatinine Ratio 22 Glucose Level 146 H 70-105 MG/DL Calcium Level 9.4 8.5-10.1 MG/DL Corrected Calcium 9.2 8.5-10.1 MG/DL Total Bilirubin 0.3 0.1-1.0 MG/DL Aspartate Amino Transf (AST/SGOT) 24 5-34 U/L Alanine Aminotransferase (ALT/SGPT) 27 0-55 U/L Alkaline Phosphatase 115 40-136 U/L Total Protein 7.0 6.4-8.2 GM/DL Albumin 4.2 3.2-4.5 GM/DL Lipase 10 8-78 U/L Urine Color YELLOW Urine Clarity CLEAR Urine pH 7.0 5-9 Urine Specific [place] 1.010 L 1.016-1.022 Urine Protein 1+ H NEGATIVE Urine Glucose (UA) 2+ H NEGATIVE Urine Ketones 2+ H NEGATIVE Urine Nitrite NEGATIVE NEGATIVE Urine Bilirubin NEGATIVE NEGATIVE Urine Urobilinogen 1.0 < = 1.0 MG/DL Urine Leukocyte Esterase NEGATIVE NEGATIVE Urine RBC (Auto) NEGATIVE NEGATIVE Urine RBC NONE /HPF Urine WBC RARE /HPF Urine Squamous Epithelial Cells RARE /HPF Urine Crystals NONE /LPF Urine Bacteria TRACE /HPF Urine Casts NONE /LPF Urine Mucus SMALL H /LPF Urine Culture Indicated NO (YAKOV QUEZADA MD) My Orders Orders - YAKOV QUEZADA MD Ua Culture If Indicated (12/31/19 12:53) Cbc With Automated Diff (12/31/19 13:20) Comprehensive Metabolic Panel (12/31/19 13:20) Lipase (12/31/19 13:20) Ed Iv/Invasive Line Start (12/31/19 13:20) Protime With Inr (12/31/19 13:20) Ondansetron Injection (Zofran Injectio (12/31/19 13:45) Morphine Injection (Morphine Injection (12/31/19 13:33) Famotidine Injection (Pepcid Injection) (12/31/19 13:45) Ns Iv 1000 Ml (Sodium Chloride 0.9%) (12/31/19 13:33) Morphine Injection (Morphine Injection (12/31/19 14:58) Ct Abdomen/Pelvis W (12/31/19 14:58) Iohexol Injection (Omnipaque 350 Mg/Ml 1 (12/31/19 15:30) Received Contrast (Hold Metformin- Contr (12/31/19 15:30) Ns (Ivpb) (Sodium Chloride 0.9% Ivpb Bag (12/31/19 15:30) (YAKOV QUEZADA MD) Medications Given in ED Current Medications Medications Dose Ordered Sig/[place] Route Start Time Stop Time Status Last Admin Dose Admin Famotidine 20 mg ONCE ONCE IVP 12/31/19 13:45 12/31/19 13:46 DC 12/31/19 14:02 20 MG Iohexol 100 ml ONCE ONCE IV 12/31/19 15:30 12/31/19 15:31 DC 12/31/19 16:31 100 ML Ondansetron HCl 8 mg ONCE ONCE IVP 12/31/19 13:45 12/31/19 13:46 DC 12/31/19 14:01 8 MG Sodium Chloride 100 ml ONCE ONCE IV 12/31/19 15:30 12/31/19 15:31 DC 12/31/19 16:31 80 ML (YAKOV QUEZADA MD) Vital Signs/I&O 12/31/19 12/31/19 12:50 18:29 Temp 36.0 Pulse 89 105 Resp 18 18 B/P (MAP) 189/100 (129) 153/96 Pulse Ox 98 95 O2 Delivery Room Air Room Air (YAKOV QUEZADA MD) Blood Pressure Mean: 129 Diagnostic Imaging Diagonstic Imaging: CT Plain Films/CT/US/NM/MRI: abdomen, pelvis Comments CT abdomen and pelvis viewed by me and report reviewed. See report below: NAME: TISHA GALINDO [facility] REC#: [id number] PT STATUS: REG ER : 1955 PHYSICIAN: YAKOV QUEZADA MD ADMIT DATE: 12/31/19/ER Signed Date of Exam:12/31/19 CT ABDOMEN/PELVIS W PROCEDURE: CT abdomen and pelvis with contrast. TECHNIQUE: Multiple contiguous axial images were obtained through the abdomen and pelvis after administration of intravenous contrast. Auto Exposure Controls were utilized during the CT exam to meet ALARA standards for radiation dose reduction. INDICATION: Abdominal pain, history of renal malignancy. COMPARISON: Exam compared to 07/27/2019. FINDINGS: Exophytic mass off the lower pole of the left kidney measures axial dimensions 4.0 x 3.7 cm with a cephalocaudal height of 4 cm. Dimensions are unchanged from the comparison CT. Its density is about twice the number of Hounsfield units on the delayed images as it was on the previous noncontrasted study, presumed to reflect enhancing solid mass and suspect for renal cell carcinoma. No other renal lesion is found. The adrenals are negative. The renal veins are patent. No perinephric lymphadenopathy. No findings of hemorrhage. There is no hydroureteronephrosis. The right kidney is normal. Liver, spleen, and pancreas are unremarkable. There is no biliary abnormality. There is no ascites, abscess, hematoma, or acute fluid collection. No suspicious lytic or sclerotic bony lesion. Mixed solid and sub-solid nodule in the right lower lobe is 1.2 cm, unchanged. No new basilar pulmonary mass. IMPRESSION: 1. Exophytic complex mass in the lower pole of the left kidney is denser on today's postcontrast-enhanced imaging than when compared with the previous non injection study, presumed to reflect a solid enhancing mass and presumptive renal cell carcinoma. 2. Right basilar pulmonary nodule, unchanged. No convincing evidence for abdominopelvic metastatic disease. 3. No bowel, biliary or urinary tract obstruction, inflammatory process, hemorrhage, or acute abnormalities. Dictated by: Dictated on workstation # [id number] Dict: 12/31/19 1634 Trans: 12/31/191800 AS6 [id number] Interpreted by: MARCELLUS DODD Electronically signed by: MARCELLUS DODD 12/31/191800 (YAKOV QUEZADA MD) Departure Impression Primary Impression: Opioid withdrawal Additional Impressions: Hematemesis Qualified Codes: K92.0 - Hematemesis Left upper quadrant pain Renal cell carcinoma Qualified Codes: C64.2 - Malignant neoplasm of left kidney, except renal pelvis Disposition: 01 HOME, SELF-CARE Condition: Improved Departure-Patient Inst. Decision time for Depature: 18:14 (YAKOV QUEZADA MD) Referrals: LAURITA VALIENTE MD (PCP/Family) Primary Care Physician Patient Instructions: Prescription Drug Withdrawal (DC), Severe Abdominal Pain Add. Discharge Instructions: Resume your pain medications as previously prescribed. Start Protonix as prescribed. This is an antacid medication. Use Zofran (ondansetron) as prescribed for nausea and vomiting. Follow-up with your primary care provider and specialist as soon as possible. Return to the emergency room if you have worsening symptoms. All discharge instructions reviewed with patient and/or family. Voiced understanding. Scripts Pantoprazole Sodium (Protonix) 40 Mg Tablet. 40 MG PO DAILY, #30 TAB Prov: YAKOV QUEZADA MD 12/31/19 Ondansetron (Ondansetron Odt) 4 Mg Tab.rapdis 4 MG SL Q4H PRN for NAUSEA/VOMITING, #10 TAB Prov: YAKOV QUEZADA MD 12/31/19 This patient was interviewed and examined by me personally along with Miguel Laureano, MS 3. I reviewed MS 3 documentation and agree with the history, physical, assessment except were otherwise noted. This 64-year-old gentleman presents to the emergency room with left upper quadrant pain and reports of hematemesis. He has been out of his medications for a few days and just got them filled from the clinic. He has not taken them yet. He was directed to the emergency room because of the hematemesis and pain. Patient was given a liter of IV fluids and 2 doses of morphine by IV route. Patient was felt to be withdrawing as he had mild tachycardia, hypertension, and diaphoresis. He elaborates that his pain is more of an exacerbation of chronic pain rather than a new pain. Labs were fairly unremarkable. CT of the abdomen and pelvis was obtained and showed some slight progression of the suspected left renal cell carcinoma. No new findings were demonstrated. He was hydrated with a liter of IV fluid and given Pepcid and Zofran by IV route. He was prescribed Protonix at discharge along with Zofran. Patient's hemoglobin was stable and he had no further vomiting or hematemesis while in the ER. Outpatient follow-up to arrange endoscopy was encouraged. Exam: Gen.: Alert, oriented, in mild to moderate distress HEENT: Normocephalic and atraumatic, mucous membranes dry Heart: Regular rate and rhythm, borderline tachycardia, no murmur Lungs: Clear to auscultation bilaterally Abdomen: Soft, tender in the left upper quadrant, normal bowel sounds Neuropsych: Appears anxious, alert and oriented Skin: Diaphoretic (YAKOV QUEZADA MD) Copy Copies To 1: LAURITA VALIENTE MD,MIGUEL MED STUDENT Dec 31, 2019 13:40 YAKOV QUEZADA MD Dec 31, 2019 18:18
--- NOTE | 2019-12-31 13:41 | NUR ---
LAB HERE TO DRAW BLOOD
[2019-12-31] MEDS ORDERED: FAMOTIDINE 20MG/2ML IV (PEPCID) IVP ONE (13:45)
[2019-12-31] MEDS ORDERED: ONDANSETRON 4 MG/2 ML (SDV) Z0FRAN IVP ONE (13:45)
--- NOTE | 2019-12-31 14:11 | NUR ---
CALLED TO GIVE UPDATE TO BROTHER NO ANSWER WHEN CALLED LEFT MESSAGE.
[2019-12-31 14:13] LABS: BASOPHILS % (AUTO) 0 % (0-10); EOSINOPHILS # (AUTO) 0.1 10^3/uL (0.0-0.3); EOSINOPHILS % (AUTO) 1 % (0-10); HEMATOCRIT 41 % (40-54); HEMOGLOBIN 13.3 G/DL (13.3-17.7); LYMPHOCYTES # (AUTO) 1.6 X 10^3 (1.0-4.0); LYMPHOCYTES % (AUTO) 31 % (12-44); MEAN CORPUSCULAR HEMOGLOBIN 27 PG (25-34); MEAN CORPUSCULAR HGB CONC 33 G/DL (32-36); MEAN CORPUSCULAR VOLUME 83 FL (80-99); MEAN PLATELET VOLUME 9.6 FL (7.4-10.4); MONOCYTES # (AUTO) 0.6 X 10^3 (0.0-1.0); MONOCYTES % (AUTO) 12 % (0-12); NEUTROPHILS # (AUTO) 2.8 X 10^3 (1.8-7.8); NEUTROPHILS % (AUTO) 56 % (42-75); PLATELET COUNT 269 10^3/uL (130-400); RED CELL DISTRIBUTION WIDTH 15.1 % (10.0-14.5)
[2019-12-31 14:24] LABS: PROTHROMBIN TIME PATIENT 13.5 SEC (12.2-14.7)
[2019-12-31 14:33] LABS: ALANINE AMINOTRANSFERASE 27 U/L (0-55); ALBUMIN 4.2 GM/DL (3.2-4.5); ALKALINE PHOSPHATASE 115 U/L (40-136); BILIRUBIN,TOTAL 0.3 MG/DL (0.1-1.0); BUN/CREATININE RATIO 22; CALCIUM 9.4 MG/DL (8.5-10.1); CARBON DIOXIDE 26 MMOL/L (21-32); CHLORIDE 106 MMOL/L (98-107); CREATININE SERUM 0.83 MG/DL (0.60-1.30); GFR ESTIMATED > 60; GLUCOSE 146 MG/DL (70-105); LIPASE 10 U/L (8-78); POTASSIUM 3.9 MMOL/L (3.6-5.0); SODIUM 142 MMOL/L (135-145)
[2019-12-31] MEDS ORDERED: HOLD METFORMIN - RECEIVED CONTRAST 20 ML VIAL IV SCH (15:30)
[2019-12-31] MEDS ORDERED: IOHEXOL 350 MG/ML 100 ML (OMNIPAQUE 350) VIAL IV ONE (15:30)
[2019-12-31] MEDS ORDERED: NS 100 ML (IVPB) BAG IV ONE (15:30)
--- NOTE | 2019-12-31 15:30 | NUR ---
IV INFILTRATED IN CT RESTARTED IN R AC BY CT MIHAELA.
--- NOTE | 2019-12-31 15:38 | NUR ---
DR JACKSON WENT OUT TO [place] AND TALKED WITH BROTHER.
--- NOTE | 2019-12-31 16:46 | Diagnostic Imaging Report ---
PROCEDURE: CT abdomen and pelvis with contrast. TECHNIQUE: Multiple contiguous axial images were obtained through the abdomen and pelvis after administration of intravenous contrast. Auto Exposure Controls were utilized during the CT exam to meet ALARA standards for radiation dose reduction. INDICATION: Abdominal pain, history of renal malignancy. COMPARISON: Exam compared to 07/27/2019. FINDINGS: Exophytic mass off the lower pole of the left kidney measures axial dimensions 4.0 x 3.7 cm with a cephalocaudal height of 4 cm. Dimensions are unchanged from the comparison CT. Its density is about twice the number of Hounsfield units on the delayed images as it was on the previous noncontrasted study, presumed to reflect enhancing solid mass and suspect for renal cell carcinoma. No other renal lesion is found. The adrenals are negative. The renal veins are patent. No perinephric lymphadenopathy. No findings of hemorrhage. There is no hydroureteronephrosis. The right kidney is normal. Liver, spleen, and pancreas are unremarkable. There is no biliary abnormality. There is no ascites, abscess, hematoma, or acute fluid collection. No suspicious lytic or sclerotic bony lesion. Mixed solid and sub-solid nodule in the right lower lobe is 1.2 cm, unchanged. No new basilar pulmonary mass. IMPRESSION: 1. Exophytic complex mass in the lower pole of the left kidney is denser on today's postcontrast-enhanced imaging than when compared with the previous non injection study, presumed to reflect a solid enhancing mass and presumptive renal cell carcinoma. 2. Right basilar pulmonary nodule, unchanged. No convincing evidence for abdominopelvic metastatic disease. 3. No bowel, biliary or urinary tract obstruction, inflammatory process, hemorrhage, or acute abnormalities. Dictated by: Dictated on workstation # [id number]
--- NOTE | 2019-12-31 17:37 | NUR ---
UA OBTAINED AND SENT TO LAB.
[2019-12-31 17:42] LABS: BILIRUBIN,URINE NEGATIVE (NEGATIVE); CLARITY,URINE CLEAR; COLOR,URINE YELLOW; GLUCOSE, URINE (UA) 2+ (NEGATIVE); KETONES,URINE 2+ (NEGATIVE); LEUKOCYTE ESTERASE ,URINE NEGATIVE (NEGATIVE); NITRITE,URINE NEGATIVE (NEGATIVE); PROTEIN,URINE 1+ (NEGATIVE)
[2019-12-31 17:48] LABS: BACTERIA,URINE TRACE /HPF; SQUAMOUS EPITHELIAL CELL,UR RARE /HPF; WBC,URINE RARE /HPF
[2019-12-31] MEDS ORDERED: PANT40TA2 PO (18:18)
[2019-12-31] MEDS ORDERED: ONDA4TAB11 SL (18:18)
[2019-12-31 18:29] VITALS: BP 153/96
== END 2019-12-31 18:29 | disposition home or self-care (01) ==
LOC: EDUNIT# 12:46 → ER 12:47
DX: K92.0 Hematemesis (principal); C64.2 Malignant neoplasm of left kidney, except renal pelvis; F11.23 Opioid dependence with withdrawal; M54.6 Pain in thoracic spine; K21.9 Gastro-esophageal reflux disease without esophagitis; Z77.22 Contact with and (suspected) exposure to environmental tobacco smoke (acute) (chronic)
CPT/HCPCS: 36415; 74177; 80053; 81000; 83690; 85025; 85610